=== PATIENT | male | born 1965 | race Caucasian/White ===

== ENCOUNTER 2016-03-08 09:58 | Day surgery (SDC) | payer BC ==
[2016-03-06 16:38] VITALS: BMI 25.7
[~2016-03-08 09:58] MED LIST: LACTATED RINGERS 1,000 ML IV SCH; LIDOCAINE 1% 20 ML VIAL (10MG/ML) FOR IV START INTRADERMA PRN
[2016-03-08 10:22] VITALS: RESP 16; TEMP 98.4
[2016-03-08] MEDS ORDERED: PROPOFOL 10 MG/ML 20 ML VIAL IV ONE (10:54)
[2016-03-08] MEDS ORDERED: LIDOCAINE 1% INJ 10MG/ML (20 ML MDV) ONE (10:54)
--- NOTE | 2016-03-08 11:15 | P.PCN ---
Date of Procedure: 03/08/16 Procedure(s) Performed: Procedure: Esophagogastroduodenoscopy and biopsy. Preoperative diagnosis: Unexplained abdominal pain, rule out peptic ulcer disease. Postoperative diagnosis: 1. Small sliding hiatal hernia with no obvious esophagitis or complicated reflux disease. 2. Mild antral gastritis with no ulcers or gastric outlet obstruction. Preparation and sedation: Was provided by anesthesia. Brief clinical history: The patient is a 51-year-old male who is referred for this evaluation because of unexplained epigastric and hypogastric pain. He has not responded to medical therapy with Protonix. The patient has had extensive evaluation for vocal cord paralysis with no evidence of neoplasia. He had a VATS surgery few weeks ago and he said that he may have lost 20 pounds since the surgery. This evaluation is to assess for peptic ulcer disease or other pathology. Procedure: With the patient on his left lateral decubitus position and after informed consent and adequate sedation, I passed the Olympus-GIF 160 video upper endoscope through the cricopharyngeus down the esophagus. GE junction was around 40 cm from the incisors and there was a small sliding hiatal hernia. The esophagus did not show any obvious erosions, ulcers, strictures or Correa 's esophagus. The endoscope was then passed into the stomach which was insufflated with air and inspected in detail including the retroflex view in the cardia. There was mottling erythema and faint submucosal hemorrhage in the antrum and prepyloric area but no obvious erosions or ulcers. Pyloric channel did not show any ulcers. Duodenal bulb, post bulbar area and descending duodenum showed mild erythema. There were no ulcers, erosions or bleeding. I obtained biopsies from the duodenum as well as the antrum and esophagus then the endoscope was withdrawn. The patient tolerated the procedure well. Plan: The patient was reassured. Will await biopsy results. He will follow up with you as planned and further plans can be made based on his course and biopsy results.
[2016-03-08 11:29] VITALS: BP 124/82; PULSE 77
== END 2016-03-08 11:45 | disposition home or self-care (01) ==
LOC: ORWHC2ENDO 09:58
DX: K29.51 Unspecified chronic gastritis with bleeding (principal); K21.0 Gastro-esophageal reflux disease with esophagitis; K44.9 Diaphragmatic hernia without obstruction or gangrene; I10 Essential (primary) hypertension; Z79.899 Other long term (current) drug therapy; Z87.891 Personal history of nicotine dependence
CPT/HCPCS: 88305; 88342; 43239; J2001; J2704

== ENCOUNTER → 2016-05-10 | Outpatient (CLI) | payer BC ==
[2016-05-10 17:01] LABS: Non-African American GFR(MDRD) >60 (>60 ml/min/1.73 sqM)
== END | disposition home or self-care (01) ==
LOC: LABWHC1 16:31
PROVIDERS: ATTEND Radiology Radiation Oncology
DX: C34.12 Malignant neoplasm of upper lobe, left bronchus or lung (principal)
CPT/HCPCS: 36415; 82565

== ENCOUNTER → 2016-05-11 | Outpatient (CLI) | payer BC ==
--- NOTE | 2016-05-11 23:09 | MR ---
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 CONTRAST: Standard multiplanar, multisequence MRI departmental protocol utilizing 15 mL intravenous MultiHance gadolinium contrast. FINDINGS: There is mild cerebral cortical atrophy. There is no mass effect nor midline shift. There i s no sign of intracranial hemorrhage. Vance and white matter structures are fairly normal signal patte rn. There is no sign of cerebral edema. There is an 8 mm focus of increased signal in the white matte r of the left insula. There are a few scattered foci of increased signal at the vance-white matter irma ction of both frontal lobes that measure up to 4 mm. Total number is approximately 5. There is a small mucous retention cyst in the left maxillary sinus. Brainstem is intact. Sella turci ca is normal. Corpus callosum is fairly normal. Contrast images show no pathologic enhancement. IMPRESSION: There are a few scattered white matter foci of increased signal that are relatively small and probabl y related to minimal small vessel ischemia. No evidence of metastatic disease. Mild cerebral atrophy.
== END | disposition home or self-care (01) ==
LOC: RADMRIMAIN 15:50
PROVIDERS: ATTEND Radiology Radiation Oncology
DX: R93.0 Abnormal findings on diagnostic imaging of skull and head, not elsewhere classified (principal); C34.12 Malignant neoplasm of upper lobe, left bronchus or lung
CPT/HCPCS: 70553; A9577

== ENCOUNTER 2016-05-14 22:13 | Inpatient (IN) | payer BC ==
[2016-05-14] MEDS ORDERED: ONDANSETRON 4 MG/2 ML VIAL IVP STA (23:23)
[2016-05-14] MEDS ORDERED: FAMOTIDINE 20 MG/2 ML VIAL IV STA (23:23)
[2016-05-14] MEDS ORDERED: SODIUM CHLORIDE 0.9% 2,000 ML IV STA (23:23)
--- NOTE | 2016-05-15 00:03 | ED ---
Nausea/Vomiting/Diarrhea HPI - General Source: RN notes reviewed, old records reviewed <Isaiah Salas - Last Filed: 05/15/16 01:21> - General Source: patient, RN notes reviewed Mode of arrival: wheelchair Limitations: no limitations <Conor Xiong - Last Filed: 05/15/16 01:26> - General Chief complaint: Nausea/Vomiting/Diarrhea Stated complaint: Vomiting/Chemo Time Seen by Provider: 05/14/16 23:17 - History of Present Illness Initial comments: 51-year-old male brought to emergency department with chief complaint of nausea vomiting. Patient states that his last round of chemo today states he felt fine while home and try to drink something and started vomiting. Patient states he has been vomiting all day. Patient states that he has some mild cramping but no localized abdominal pain. Patient states he has been diagnosed with gastritis in the past in which she takes antacids. Patient denies any chest pain, shortness of breath, fever, chills. Patient states he also had an MRI today which showed no evidence of pneumonia or any lung infections. Patient states a scheduled for chemo to restart them for 6 weeks. Patient is currently being treated for lung cancer by Dr. Mitchell. (Conor Xiong) - Related Data Home Medications Medication Instructions Recorded Confirmed Lisinopril-Hctz 20-12.5 mg 1 tab PO DAILY 10/19/15 05/14/16 [Zestoretic 20-12.5] Acetaminophen [Tylenol] 1,000 mg PO Q4-6H PRN 05/14/16 05/14/16 Pantoprazole [Protonix] 40 mg PO DAILY 05/14/16 05/14/16 Allergies Allergy/AdvReac Type Severity Reaction Status Date / Time No Known Allergies Allergy Verified 05/14/16 23:22 Review of Systems ROS Other: All systems not noted in ROS Statement are negative. <Isaiah Salas - Last Filed: 05/15/16 01:21> ROS Other: All systems not noted in ROS Statement are negative. <Conor Xiong - Last Filed: 05/15/16 01:26> ROS Statement: Those systems with pertinent positive or pertinent negative responses have been documented in the HPI. Past Medical History Past Medical History: Cancer, GERD/Reflux, Hypertension Additional Past Medical History / Comment(s): Lung Cancer History of Any Multi-Drug Resistant Organisms: None Reported Past Surgical History: Hernia Repair Additional Past Surgical History / Comment(s): cyst removed from back, BRONCHOSCOPY, VATS procedure Past Anesthesia/Blood Transfusion Reactions: Motion Sickness Past Psychological History: No Psychological Hx Reported Smoking Status: Former smoker Past Alcohol Use History: Daily Additional Past Alcohol Use History / Comment(s): quit smoking 2013, STARTED SMOKING AT AGE 15, SMOKED 1 PPD Past Drug Use History: None Reported - Past Family History Mother Family Medical History: No Reported History <Conor Xiong - Last Filed: 05/15/16 01:26> General Exam General appearance: alert, in no apparent distress Head exam: Present: atraumatic, normocephalic, normal inspection Eye exam: Present: normal appearance, PERRL, EOMI. Absent: scleral icterus, conjunctival injection, periorbital swelling ENT exam: Present: normal exam, mucous membranes dry, mucous membranes moist Neck exam: Present: normal inspection. Absent: tenderness, meningismus, lymphadenopathy Respiratory exam: Present: normal lung sounds bilaterally. Absent: respiratory distress, wheezes, rales, rhonchi, stridor Cardiovascular Exam: Present: regular rate, normal rhythm, normal heart sounds. Absent: systolic murmur, diastolic murmur, rubs, gallop, clicks GI/Abdominal exam: Present: soft, normal bowel sounds. Absent: distended, tenderness, guarding, rebound, rigid Extremities exam: Present: normal inspection, full ROM, normal capillary refill. Absent: tenderness, pedal edema, joint swelling, calf tenderness Back exam: Present: normal inspection Neurological exam: Present: alert, oriented X3, CN II-XII intact Psychiatric exam: Present: normal affect, normal mood Skin exam: Present: warm, dry, intact, normal color. Absent: rash <Isaiah Salas - Last Filed: 05/15/16 01:21> Limitations: no limitations General appearance: alert, in no apparent distress Head exam: Present: atraumatic, normocephalic, normal inspection Neck exam: Present: normal inspection, full ROM. Absent: tenderness, meningismus, lymphadenopathy Respiratory exam: Present: normal lung sounds bilaterally. Absent: respiratory distress, wheezes, rales, rhonchi, stridor Cardiovascular Exam: Present: regular rate, normal rhythm, normal heart sounds. Absent: systolic murmur, diastolic murmur, rubs, gallop, clicks GI/Abdominal exam: Present: soft, normal bowel sounds. Absent: distended, tenderness, guarding, rebound, rigid Neurological exam: Present: alert, oriented X3, CN II-XII intact Skin exam: Present: warm, dry, intact, normal color. Absent: rash <Conor Xiong - Last Filed: 05/15/16 01:26> Course <Isaiah Salas - Last Filed: 05/15/16 01:21> <Conor Xiong - Last Filed: 05/15/16 01:26> Vital Signs 05/14/16 22:19 Temperature 99.0 F Pulse Rate 67 Respiratory 20 Rate Blood Pressure 135/78 O2 Sat by Pulse 96 Oximetry - Reevaluation(s) Reevaluation #1: 05/15/16 01:22 Patient still with intractable nausea vomiting (Isaiah Salas) Medical Decision Making - Lab Data Result diagrams: 05/14/16 23:55 05/14/16 23:55 <Isaiah Salas - Last Filed: 05/15/16 01:21> - Lab Data Result diagrams: 05/14/16 23:55 05/14/16 23:55 <Conor Xiong - Last Filed: 05/15/16 01:26> - Medical Decision Making 51 male to ED with intractable nausea and vomiting, patrient will be admitted for IVF, and for symptomatic therapy (Isaiah Salas) - Lab Data Lab Results 05/14/16 05/14/16 05/14/16 Range/Units 23:55 23:55 23:55 WBC 9.0 (3.8-10.6) k/uL RBC 4.58 (4.30-5.90) m/uL Hgb 14.2 (13.0-17.5) gm/dL Hct 41.9 (39.0-53.0) % MCV 91.4 (80.0-100.0) fL MCH 31.0 (25.0-35.0) pg MCHC 33.9 (31.0-37.0) g/dL RDW 11.6 (11.5-15.5) % Plt Count 184 (150-450) k/uL Neutrophils % 96 % Lymphocytes % 3 % Monocytes % 0 % Eosinophils % 0 % Basophils % 1 % Neutrophils # 8.6 H (1.3-7.7) k/uL Lymphocytes # 0.2 L (1.0-4.8) k/uL Monocytes # 0.0 (0-1.0) k/uL Eosinophils # 0.0 (0-0.7) k/uL Basophils # 0.1 (0-0.2) k/uL Sodium 138 (137-145) mmol/L Potassium 4.3 (3.5-5.1) mmol/L Chloride 99 (98-107) mmol/L Carbon Dioxide 29 (22-30) mmol/L Anion Gap 10 mmol/L BUN 21 H (9-20) mg/dL Creatinine 0.60 L (0.66-1.25) mg/dL Est GFR (MDRD) Af Amer >60 (>60 ml/min/1.73 sqM) Est GFR (MDRD) Non-Af >60 (>60 ml/min/1.73 sqM) Glucose 120 H (74-99) mg/dL Calcium 9.4 (8.4-10.2) mg/dL Total Bilirubin 0.7 (0.2-1.3) mg/dL AST 19 (17-59) U/L ALT 30 (21-72) U/L Alkaline Phosphatase 79 (38-126) U/L Total Protein 7.3 (6.3-8.2) g/dL Albumin 4.2 (3.5-5.0) g/dL Amylase 68 (30-110) U/L Lipase 23 (23-300) U/L Urine Color Yellow Urine Appearance Clear (Clear) Urine pH 6.0 (5.0-8.0) Ur Specific [place] 1.025 (1.001-1.035) Urine Protein Trace H (Negative) Urine Glucose (UA) Trace H (Negative) Urine Ketones 1+ H (Negative) Urine Blood Negative (Negative) Urine Nitrite Negative (Negative) Urine Bilirubin Negative (Negative) Urine Urobilinogen 2.0 (<2.0) mg/dL Ur Leukocyte Esterase Negative (Negative) Disposition <Isaiah Salas - Last Filed: 05/15/16 01:21> Time of Disposition: 01:26 <Conor Xiong - Last Filed: 05/15/16 01:26> Clinical Impression: Intractable nausea and vomiting, Lung cancer, Dehydration Disposition: ADMITTED IP TO THIS HOSP Condition: Fair
[2016-05-15 00:08] LABS: Appearance,Urine Clear (Clear); Basophils # (A) 0.1 k/uL (0-0.2); Basophils % (A) 1 %; Bilirubin,Urine Negative (Negative); Eosinophils % (A) 0 %; Glucose,Urine (UA) Trace (Negative); HCT 41.9 % (39.0-53.0); HDW 2.37; HGB 14.2 gm/dL (13.0-17.5); Ketones,Urine 1+ (Negative); Leukocyte Esterase,Urine Negative (Negative); Luc # (Auto) 0.02; Luc % (Auto) 0; Lymphocytes # (A) 0.2 k/uL (1.0-4.8); Lymphocytes % (A) 3 %; MCHC 33.9 g/dL (31.0-37.0); MCV 91.4 fL (80.0-100.0); Monocytes % (A) 0 %; Neutrophils # (A) 8.6 k/uL (1.3-7.7); Neutrophils % (A) 96 %; Nitrite,Urine Negative (Negative); Protein,Urine Trace (Negative); RBC 4.58 m/uL (4.30-5.90); RDW 11.6 % (11.5-15.5); Specific Gravity,Urine 1.025 (1.001-1.035); UA Billing (MACRO vs. MICRO) CHEM; WBC (Perox) 9.23
--- NOTE | 2016-05-15 00:20 | XR ---
EXAM: XR Chest, 2 Views. CLINICAL HISTORY: Reason: pain TECHNIQUE: Frontal and lateral views of the chest. COMPARISON: Portable chest radiograph 11/09/2015 FINDINGS: Lungs: Increased opacity involving left upper lobe obscuring the left side of mediastinum and confluent about the left hilum with evidence of associated volume loss and elevation of left hemidiaphragm suggesting left upper lobe atelectasis. There is 9 mm nodular density projecting to right lower lung zone overlying the anterior right fifth rib. Pleural space: No evidence of pleural effusion. No pneumothorax. Heart: Heart size is within normal limits. Mediastinum: There is obscuration of the left side of mediastinum. Bones/joints: Unremarkable. IMPRESSION: Evidence of left upper lobe atelectasis and associated volume loss with confluent density about the left hilum. Central hilar mass/malignancy with postobstructive atelectasis should be excluded. Follow-up CT chest or bronchoscopy is recommended. Small right lower lung zone nodular density which is of indeterminate etiology. CT chest would be useful for further evaluation. [employer] 05/15/16 00:24 Verify Receipt Verified receipt with [facility] [place] [facility] who will give to Dr. Pagan on 05/15 00:23 (-04:00)
--- NOTE | 2016-05-15 00:23 | XR ---
EXAM: XR Abdomen, 1 View. CLINICAL HISTORY: Reason: pain TECHNIQUE: Frontal supine view of the abdomen/pelvis. COMPARISON: No relevant prior studies available. FINDINGS: Lower thorax: There is elevation of the left hemidiaphragm. Intraperitoneal space: No evidence of bowel obstruction or pneumoperitoneum. Gastrointestinal tract: Unremarkable. No dilation. Organs: No radiopaque renal calculi identified. Bones/joints: Unremarkable. Other findings: No abnormal abdominal-pelvic calcifications. IMPRESSION: No radiographic evidence of acute abdominal disease or bowel obstruction.
[2016-05-15 00:25] LABS: ALT 30 U/L (21-72); AST 19 U/L (17-59); Alkaline Phosphatase 79 U/L (38-126); Amylase 68 U/L (30-110); Anion Gap 10 mmol/L; Blood Urea Nitrogen 21 mg/dL (9-20); Calcium 9.4 mg/dL (8.4-10.2); Carbon Dioxide 29 mmol/L (22-30); Chloride 99 mmol/L (98-107); Glucose 120 mg/dL (74-99); Non-African American GFR(MDRD) >60 (>60 ml/min/1.73 sqM); Potassium 4.3 mmol/L (3.5-5.1); Sodium 138 mmol/L (137-145); Total Bilirubin 0.7 mg/dL (0.2-1.3); Total Protein 7.3 g/dL (6.3-8.2)
[2016-05-15] MEDS ORDERED: METOCLOPRAMIDE 5 MG/ML 2 ML VIAL IVP STA (00:38)
[2016-05-15] MEDS ORDERED: ONDANSETRON 4 MG/2 ML VIAL IVP STA (00:39)
[2016-05-15] MEDS ORDERED: ACETAMINOPHEN IV (For NPO) 1,000 MG in EMPTY BAG 1 BAG IVPB STA (01:19)
[2016-05-15] MEDS ORDERED: ONDANSETRON 4 MG/2 ML VIAL IVP PRN (01:22)
[2016-05-15] MEDS ORDERED: NALOXONE 0.4 MG/ML 1 ML VIAL IV PRN (01:22)
[2016-05-15] MEDS ORDERED: diphenhydrAMINE 50 MG/ML 1 ML VIAL IVP STA (01:22)
[2016-05-15] MEDS ORDERED: PROMETHAZINE INJ 25 MG in SODIUM CHLORIDE 0.9% 50 ML IVPB STA (01:22)
[2016-05-15] MEDS: SODIUM CHLORIDE 0.9% 1,000 ML IV SCH ×3 (02:22→16:56)
[2016-05-15] MEDS ORDERED: IPRATROPIUM-ALBUTEROL 3 ML NEB INHALATION STA (02:37)
[2016-05-15] MEDS ORDERED: PIPERACILLIN-TAZOBACTAM 3.375 GM in DEXTROSE/WATER 1 50ML.BAG IVPB STA (02:37)
[2016-05-15] MEDS: VANCOMYCIN 1,500 MG in SODIUM CHLORIDE 0.9% 250 ML IVPB STA ×2 (02:52→08:03)
[2016-05-15] MEDS ORDERED: RX INFO: IV CONTRAST WAS GIVEN 1 EACH MISC MISCELLANE PRN (03:00)
[2016-05-15] MEDS ORDERED: LORazepam 2 MG/ML SYRINGE IV STA (03:41)
[2016-05-15] MEDS ORDERED: ENOXAPARIN 120 MG/0.8 ML SYRINGE SQ STA (03:43)
--- NOTE | 2016-05-15 03:59 | XR ---
EXAM: XR Chest, 1 View. CLINICAL HISTORY: Reason: SOB TECHNIQUE: Frontal view of the chest. COMPARISON: Chest radiographs 05/14/2016 FINDINGS: Lungs: Left upper lobe opacity obscuring left side of mediastinum and confluent about the left hilum suggesting left upper lobe atelectasis with volume loss and elevation the left hemidiaphragm. Right lung is clear focal infiltrates or consolidations. Pleural space: No evidence of pleural effusion or pneumothorax. Heart: Heart size is within normal limits. Mediastinum: Unremarkable. Bones/joints: Unremarkable. Other findings: No significant change since 05/14/2016. IMPRESSION: Continued Evidence of left upper lobe atelectasis and associated volume loss. Postobstructive process should be excluded.
--- NOTE | 2016-05-15 05:47 | CT ---
ADDENDUM - Added by Jeanmarie Mcgrath MD on 05/15/2016 5:53 AM (-04:00) There are also mild nodular and airspace pulmonary opacities involving left lower lobe similar to other findings in the right middle lobe and right lower lobe which again may reflect multifocal pneumonia, but cannot exclude pulmonary metastatic disease. EXAM: CT Angiography Chest With Intravenous Contrast. CLINICAL HISTORY: Reason: SOB TECHNIQUE: Axial computed tomographic angiography images of the chest with intravenous contrast using pulmonary embolism protocol. CTDI is 10.4 mGy and DLP is 376.1 mGy-cm This CT exam was performed using one or more of the following dose reduction techniques: automated exposure control, adjustment of the mA and/or kV according to patient size, and/or use of iterative reconstruction technique. MIP reconstructed images were created and reviewed. COMPARISON: Chest radiograph 05/14/16 FINDINGS: Pulmonary arteries: There is opacification of the main pulmonary artery and right pulmonary artery without evidence of central pulmonary thromboembolic disease of the right pulmonary artery although examination is technically limited which precludes exclusion of more peripheral right sided pulmonary emboli. There is large left hilar and suprahilar mass which surrounds and occludes the left main pulmonary artery at its origin. Nonopacification of the left main pulmonary arterial branches precluding exclusion of thromboembolic disease. Aorta: No evidence of thoracic aortic aneurysm or dissection. Lungs: Large left hilar and suprahilar mass occludes the left upper lobe bronchus with left upper lobe postobstructive atelectasis. Mass extends centrally to the pericarinal and subcarinal region. There is also narrowing of the left lower lobe bronchus. There is evidence of anterior mediastinal-prevascular and subcarinal lymphadenopathy suggestive of metastatic disease. Multifocal nodular and airspace pulmonary opacities involving right middle lobe and right lower lobe most suggestive of multifocal pneumonia, although metastatic disease cannot be excluded. Elevated left hemidiaphragm related to left upper lobe atelectasis and volume loss. Images including upper abdomen are otherwise unremarkable. Pleural space: Mild left pleural thickening. No evidence of pleural effusion. No pneumothorax. Heart: Heart size is upper limits of normal. No significant pericardial effusion. Bones/joints: No acute fracture. No dislocation. Lymph nodes: See above. IMPRESSION: Large left hilar and suprahilar mass which occludes the left main pulmonary artery suggestive of pulmonary malignancy which also occludes the left upper lobe bronchus and narrows the left lower lobe bronchus. There is left upper lobe postobstructive atelectasis and volume loss. Findings highly suggestive of pulmonary malignancy with evidence of mediastinal adenopathy suggesting metastatic disease. Multifocal airspace and nodular pulmonary opacities involving right middle lobe and right lower lobe most suggestive of multifocal pneumonia, but cannot exclude pulmonary metastatic disease. Mild left pleural thickening. Limited evaluation for pulmonary thromboembolic disease as discussed in body of report.
[2016-05-15] MEDS: MORPHINE SULFATE 4 MG/ML SYRINGE IV PRN (10:35)
[2016-05-15] MEDS: PANTOPRAZOLE 40 MG/10 ML VIAL IV SCH (10:36)
--- NOTE | 2016-05-15 12:00 | P.CNPUL ---
History of Present Illness Consult date: 05/15/16 Requesting physician: Ruben Pearce Reason for consult: dyspnea, abnormal CXR/CT Chief complaint: Nausea, vomiting History of present illness: This is a very pleasant 51-year-old gentleman who follows with Dr. Trujillo as his primary care physician. He has a history of hypertension and gastroesophageal reflux disease. He also had a 30+ pack per day smoking history however quit in 2013. He was initially seen and evaluated by Dr. Orta after being found to have a left upper lobe lung mass. He had undergone bronchoscopy with transbronchial biopsy and navigational bronchoscopy with biopsies both of which were negative done here. He was still suspicious for lung cancer and was referred to [facility]. He had undergone EBUS again with no diagnosis he had actually undergone a VATS procedure by Dr. Spann which was negative for malignancy as well. He was being observed with subsequent CT scans and the lesion did increase. He was taken again back for an EBUS guided biopsy which was now positive for non-small cell lung cancer. An MRI of the brain revealed no evidence of metastasis. He has recently started chemotherapy with Dr. Mitchell and he has also received [address] Hickey here at [facility]. He was doing well yesterday during his radiation and appointment but approximate 5 PM last night he started developing significant nausea and vomiting. He was also developing worsening shortness of breath, cough and congestion. He denies any chills, fever or night sweats. A CT angiogram revealed a large left hilar and suprahilar mass which occludes the left main pulmonary arteries suggestive of pulmonary malignancy which also occludes the left upper lobe bronchus and narrows the left lower lobe bronchus. There is left upper lobe postobstructive atelectasis and volume loss. Findings highly suspicious of pulmonary malignancy and evidence of mediastinal adenopathy suggesting metastatic disease. He also has multifocal airspace a nodular pulmonary opacities involving the right middle lobe and right lower lobe most suggestive of multifocal pneumonia but could not exclude pulmonary metastatic disease. This was a limited evaluation for pulmonary thromboembolic disease. He is seen today in consultation on the oncology floor. He is awake and alert in no acute distress. He does have a loose nonproductive cough. he is maintaining O2 saturations in the low to mid 90s on 3 L/m per nasal cannula. He 's had a T-max of 101.1. He is tachycardic.no leukocytosis. His influenza screen is negative. Review of Systems 14 point review of system was conducted. All negative other than as mentioned in the HPI. Past Medical History Past Medical History: Cancer, GERD/Reflux, Hypertension Additional Past Medical History / Comment(s): Non-small cell lung Cancer History of Any Multi-Drug Resistant Organisms: None Reported Past Surgical History: Hernia Repair Additional Past Surgical History / Comment(s): cyst removed from back, BRONCHOSCOPY, VATS procedure Past Anesthesia/Blood Transfusion Reactions: Motion Sickness Past Psychological History: No Psychological Hx Reported Smoking Status: Former smoker Past Alcohol Use History: Daily Additional Past Alcohol Use History / Comment(s): quit smoking 2013, STARTED SMOKING AT AGE 15, SMOKED 1 PPD Past Drug Use History: None Reported - Past Family History Mother Family Medical History: No Reported History Medications and Allergies Home Medications Medication Instructions Recorded Confirmed Type Lisinopril-Hctz 20-12.5 mg 1 tab PO DAILY 10/19/15 05/14/16 History [Zestoretic 20-12.5] Acetaminophen [Tylenol] 1,000 mg PO Q4-6H PRN 05/14/16 05/14/16 History Pantoprazole [Protonix] 40 mg PO DAILY 05/14/16 05/14/16 History Allergies Allergy/AdvReac Type Severity Reaction Status Date / Time No Known Allergies Allergy Verified 05/14/16 23:22 Physical Exam Vitals: Vital Signs Temp Pulse Pulse Resp BP BP Pulse Ox 05/15/16 07:00 98.5 F 101 H 18 123/79 96 05/15/16 06:19 98.1 F 116 H 18 134/76 92 L 05/15/16 05:23 116 H 16 110/64 96 05/15/16 04:01 99.2 F 127 H 18 130/80 93 L 05/15/16 03:26 122 H 05/15/16 03:16 126 H 05/15/16 02:27 101.1 F H 131 H 20 126/73 92 L Intake and Output 05/14/16 05/15/16 05/15/16 22:59 06:59 14:59 Intake Total 50 Balance 50 Intake: Intake, IV Titration 50 Amount Piperacillin-Tazobactam 3 50 .375 gm In Dextrose/Water 1 50ml.bag @ 12.5 mls/hr IVPB ONCE STA Rx#: [id number] Other: Weight 78.471 kg 78.471 kg Patient Weight 05/16/16 06:59 Weight 78.471 kg GENERAL EXAM: Alert, active, comfortable in no apparent distress. HEAD: Normocephalic. EYES: Normal reaction of pupils, equal size. NOSE: Clear with pink turbinates. THROAT: No erythema or exudates. NECK: No masses, no JVD. CHEST: No chest wall deformity. LUNGS: Equal air entry with few scattered rhonchi more so on the left lung. CVS: S1 and S2 normal with no audible murmurs, regular rhythm. ABDOMEN: No hepatosplenomegaly, normal bowel sounds, no guarding or rigidity. SPINE: No scoliosis or deformity SKIN: No rashes CENTRAL NERVOUS SYSTEM: No focal deficits, tone is normal in all 4 extremities. Extremities: No peripheral edema. No clubbing, no cyanosis. Peripheral pulses are intact. Results - Laboratory Findings CBC and BMP: 05/14/16 23:55 05/14/16 23:55 - Diagnostic Findings Chest x-ray: image reviewed CT scan - chest: image reviewed Assessment and Plan Plan: Impression: #1 Abdominal pain, nausea and vomiting suspect secondary to chemotherapy. #2 Postobstructive pneumonia in a patient with a known history of non-small cell lung cancer. He has completed his first round of chemotherapy and a sixth dose of radiation yesterday. #3 History of chronic tobacco dependence however quit in 2013. #4 Gastroesophageal reflux disease. #5 Hypertension. Plan: The patient was seen and evaluated by Dr. Orta. His chest x-rays, CAT scan and labs were reviewed. We will continue the patient on Zosyn. We'll continue with bronchodilators 4 times a day and when necessary. We'll plan for bronchoscopy tomorrow. He does have postobstructive pneumonia and some left mainstem debris versus tumor burden. We'll continue to monitor and make further recommendations based on his clinical status. Time with Patient: Greater than 30
[2016-05-15] MEDS ORDERED: IPRATROPIUM-ALBUTEROL 3 ML NEB INHALATION PRN (12:01)
[2016-05-15] MEDS: SUCRALFATE 1 GM TAB PO SCH ×3 (13:23→20:03)
--- NOTE | 2016-05-15 14:59 | HP ---
DATE OF ADMISSION: 05/15/2016 PRESENTING COMPLAINT: Short of breath, cough, vomiting. HISTORY OF PRESENTING COMPLAINT: This is a 51-year-old patient of Dr. Brant Trujillo diagnosed with non-small lung cancer, being treated by chemotherapy by Dr. Mitchell. Had a chemotherapy yesterday, then patient started vomiting around 5 p.m. until about 3:00 this morning. Also had some abdominal pain. Normally, had regular bowel movement, last BM being yesterday. Patient also had fever. The patient's chronic stable medical conditions otherwise include GERD and hypertension. Patient also has been having short of breath, wheezing, cough, sputum production. Patient's is at bedside. Appetite has gone down, weak and tired, sitting up, able to carry out a conversation. REVIEW OF SYSTEMS: CONSTITUTIONAL: Tired. HEENT: None. RESPIRATORY: As above. CARDIOVASCULAR: None. GASTROINTESTINAL: As above. GENITOURINARY: None. MUSCULOSKELETAL: None. DERMATOLOGICAL: None. HEMATOLOGICAL: None. LYMPHATIC: None. PSYCHIATRY: None. NEUROLOGICAL: None. PAST HISTORY: Non-small cell lung cancer, hypertension, GERD. PAST SURGICAL HISTORY: Hernia repair, cyst removed from the back, VATS procedure. 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 , drinks about 4 beers a day. FAMILY HISTORY: Reviewed, noncontributory to presentation. HOME MEDICATIONS: 1. Protonix 40 mg daily. 2. Tylenol 1000 mg q.4 p.r.n. 3. Zestoretic 20/12.5 one tablet p.o. daily. ALLERGIES: None. On examination, temperature 101.1, pulse 131, respiration 20, blood pressure 123/73, pulse ox 92% on 3 L. GENERAL APPEARANCE: Sitting up, short of breath. EYES: Pupils equal. Conjunctiva are normal. HEENT: External appearance of nose and ears normal. Oral cavity normal. NECK: Lymph nodes are palpable in the cervical group. Respiratory effort increased. LUNGS: Diminished breath sounds. Prolonged expiration and wheezing. CARDIOVASCULAR: First and second sounds normal. No edema. ABDOMEN: Soft, nontender. Liver and spleen not palpable. LYMPHATIC: As above. PSYCHIATRY: Alert and oriented x3. Mood and affect normal. NEUROLOGICAL: Pupils equal. Cranial nerves grossly intact. Power and sensation grossly intact. INVESTIGATIONS: White count 9, hemoglobin 14.2, potassium 4.3, BUN 21, creatinine 0.60. Chest x-ray shows elevated left diaphragm, infiltrates. CT scan of the chest shows possibly lung collapse, masses, lymph nodes. ASSESSMENT: 1. Acute postobstructive pneumonia, could be multilobe. 2. Non-small cell lung cancer, getting chemotherapy. 3. Sepsis picture, present on admission from pneumonia, postobstructive. 4. Acute chronic obstructive pulmonary disease exacerbation in a smoker. 5. Gastroesophageal reflux disease. 6. Essential hypertension. PLAN: Patient was put on nebulized bronchodilators every 4 hours and steroids, also had Mucinex. Will send a sputum for Gram stain and culture. Patient needs bronchoscopy at least to see if the obstruction can be removed. Otherwise, patient will need maybe a stent placement. Patient was put on IV Zosyn. Care was discussed with patient and and also Jessy from Pulmonary.
[2016-05-15] MEDS: BUDESONIDE 1 MG/2 ML NEBU INHALATION SCH ×2 (15:09→21:26)
[2016-05-15] MEDS: DOCUSATE 100 MG CAP PO SCH ×2 (15:11→20:03)
[2016-05-15] MEDS: LISINOPRIL-HCTZ 20-12.5 MG 1 EACH TAB PO SCH (15:11)
[2016-05-15] MEDS: guaiFENesin 600 MG TABLET.ER PO SCH ×2 (15:26→20:03)
[2016-05-15] MEDS: methylPREDNISolone SOD SUCCI 40 MG/ML 1 ML VIAL IV SCH ×2 (15:27→23:46)
--- NOTE | 2016-05-15 15:47 | P.PN ---
Subjective Principal diagnosis: Non-small cell lung cancer Yesterday evening, the patient developed difficulty with nausea and vomiting. He reports feeling well throughout most of the day, up until around 6 PM. The patient reports he was unable to keep any food down, and vomited multiple times between 6 PM and 3 AM. He noted that even drinking water was difficult, and this prompted his visit to the emergency room. He notes that while his nausea has improved today, he is still having difficulty keeping food down. He recently attempted to eat a small amount of lunch, and subsequently vomited. He does feel his breathing is slightly worse today than previously. He denies fevers, chills, night sweats or productive cough. Objective - Vital Signs Vital signs: Vital Signs Temp 98.5 F 05/15/16 07:00 Pulse 108 H 05/15/16 13:20 Resp 18 05/15/16 07:00 BP 123/79 05/15/16 07:00 Pulse Ox 96 05/15/16 07:00 Intake & Output 05/14/16 05/15/16 05/15/16 18:59 06:59 18:59 Intake Total 50 Balance 50 Weight 78.471 kg 78.471 kg Intake: Intake, IV Titration 50 Amount Piperacillin-Tazobactam 3 50 .375 gm In Dextrose/Water 1 50ml.bag @ 12.5 mls/hr IVPB ONCE STA Rx#: [id number] - Constitutional General appearance: Present: average body habitus - EENT Eyes: Present: PERRLA - Neck Neck: Present: normal ROM - Respiratory Respiratory: left: diminished (MICHI dimished), bilateral: rhonchi - Cardiovascular Rhythm: regular - Gastrointestinal General gastrointestinal: Present: tenderness (Mild LUQ) - Neurologic Neurologic: Present: CNII-XII intact - Musculoskeletal Musculoskeletal: Present: gait normal - Psychiatric Psychiatric: Present: A&O x's 3, appropriate affect - Labs CBC & Chem 7: 05/14/16 23:55 05/14/16 23:55 Assessment and Plan Plan: Considering the patient is persistently nauseous today, he has concern that when he tries to lie down flat for treatment that he will vomit again. Therefore, I recommended the patient hold off on his radiotherapy treatment this afternoon, and resume therapy normally tomorrow. Time with Patient: Less than 30
[2016-05-15] MEDS ORDERED: IPRATROPIUM-ALBUTEROL 3 ML NEB INHALATION SCH (16:00)
[2016-05-15] MEDS: IPRATROPIUM-ALBUTEROL 3 ML NEB INHALATION SCH ×2 (16:51→21:26)
[2016-05-15] MEDS: PIPERACILLIN-TAZOBACTAM 3.375 GM in DEXTROSE/WATER 1 50ML.BAG IVPB SCH ×2 (16:54→23:46)
[2016-05-15] MEDS: ONDANSETRON 4 MG/2 ML VIAL IVP PRN (17:06)
--- NOTE | 2016-05-15 18:24 | P.CONS ---
History of Present Illness - Reason for Consult Consult date: 05/15/16 - History of Present Illness Mr. Rosario is a very pleasant male pt of Dr. Mitchell who presented with sudden onset, persistent hoarseness in July 2015. CT in October 2015 revealed left hilar mass measuring 5.3cm x 3.8cm x 4.6cm, he had [address] Orta, including navigational bronchoscopy, all path was negative. PET scan 11/26/2015 revealed suspicious uptake in left hilar mass extending to mediastinum. Had 2 bronchoscopies at [facility], both path negative, he had VATS with biopsies, which were negative. Repeat CT Chest at [facility] on 03/14/2016 revealed enlarging left hilar/mediastinal mass , now measuring 8.5cm x 4.0cm x 5.4cm with complete collapse of MICHI. He had repeat EBUS on 03/30/2016 revealing left vocal cord paralysis, submucosal infiltration at left main stem bronchus, 70% narrowing of MICHI, BAL and endobronchial biopsies were taken, this time positive for poorly differentiated carcinoma associated with significant necrotic tissues, IHC favored squamous cell carcinoma. He was started on cisplatin day 1 & 8 with etoposide days 1-5 every 28 days with concurrent radiation. He completed his 1st cycle yesterday. He started vomiting and could not stop, he would take a drink of water, it would hit his stomach and "bounce" right back out, the last food he kept down was [place] steak early yesterday. Since admit he states vomiting but as I stood next him he coughed out a substantial amount of phelgm and explained to me that is what he has been "throwing up". He denies fever, rigors, he is very anxious, can't sleep because he cannot lay down due to cough, no hemoptysis, hematemesis, his last BM was yesterday. His abdomen hurts from wretching and chest hurts from coughing. l Review of Systems All systems: negative Constitutional: Reports as per HPI Past Medical History Past Medical History: Cancer, GERD/Reflux, Hypertension Additional Past Medical History / Comment(s): Non-small cell lung Cancer History of Any Multi-Drug Resistant Organisms: None Reported Past Surgical History: Hernia Repair Additional Past Surgical History / Comment(s): cyst removed from back, BRONCHOSCOPY, VATS procedure Past Anesthesia/Blood Transfusion Reactions: Motion Sickness Past Psychological History: No Psychological Hx Reported Smoking Status: Former smoker Past Alcohol Use History: Daily Additional Past Alcohol Use History / Comment(s): quit smoking 2013, STARTED SMOKING AT AGE 15, SMOKED 1 PPD Past Drug Use History: None Reported - Past Family History Mother Family Medical History: No Reported History Medications and Allergies Home Medications Medication Instructions Recorded Confirmed Type Lisinopril-Hctz 20-12.5 mg 1 tab PO DAILY 10/19/15 05/14/16 History [Zestoretic 20-12.5] Acetaminophen [Tylenol] 1,000 mg PO Q4-6H PRN 05/14/16 05/14/16 History Pantoprazole [Protonix] 40 mg PO DAILY 05/14/16 05/14/16 History Allergies Allergy/AdvReac Type Severity Reaction Status Date / Time No Known Allergies Allergy Verified 05/14/16 23:22 Physical Exam Vitals: Vital Signs Temp Pulse Pulse Resp BP BP Pulse Ox 05/15/16 17:02 106 H 05/15/16 16:51 104 H 05/15/16 15:00 99.2 F 103 H 20 129/82 98 05/15/16 13:20 108 H 05/15/16 13:08 108 H 05/15/16 07:00 98.5 F 101 H 18 123/79 96 05/15/16 06:19 98.1 F 116 H 18 134/76 92 L 05/15/16 05:23 116 H 16 110/64 96 05/15/16 04:01 99.2 F 127 H 18 130/80 93 L 05/15/16 03:26 122 H 05/15/16 03:16 126 H 05/15/16 02:27 101.1 F H 131 H 20 126/73 92 L Intake and Output 05/15/16 05/15/16 05/15/16 06:59 14:59 22:59 Intake Total 50 Balance 50 Intake: Intake, IV Titration 50 Amount Piperacillin-Tazobactam 3 50 .375 gm In Dextrose/Water 1 50ml.bag @ 12.5 mls/hr IVPB ONCE STA Rx#: [id number] Other: # Voids 2 Weight 78.471 kg 78.471 kg Patient Weight 05/16/16 06:59 Weight 78.471 kg - Constitutional General appearance: average body habitus, cooperative, mild distress - EENT Eyes: anicteric sclerae, normal appearance ENT: normal oropharynx - Neck Neck: no lymphadenopathy - Respiratory Respiratory: bilateral: rhonchi - Cardiovascular Heart sounds: normal: S1, S2 leg Peripheral Edema: bilateral: None - Gastrointestinal General gastrointestinal: no absent bowel sounds, no decreased bowel sounds, no distended, no hepatomegaly, no hyperactive bowel sounds, normal bowel sounds, no organomegaly, no rigid, no scaphoid, soft, no splenomegaly, no tenderness, no umbilical hernia, no ventral hernia Localized gastrointestinal: tender: RUQ - Integumentary Integumentary: pale - Neurologic Neurologic: CNII-XII intact - Musculoskeletal Musculoskeletal: strength equal bilaterally - Psychiatric Psychiatric: A&O x's 3, appropriate affect, intact judgment & insight Results CBC & Chem 7: 05/14/16 23:55 05/14/16 23:55 CT scan - chest: report reviewed Assessment and Plan (1) Squamous cell carcinoma lung Narrative/Plan: Pt is just s/p- his 1st cycle of radiosensitizing chemo. Be will occur in the next 3-6 days, daily CBC. Rad Onc consulted to evaluate if pt can continue with radiation or if it needs to be on hold for a few days. Status: Acute (2) Intractable nausea and vomiting Narrative/Plan: Neds reviewed, additional supporitve meds ordered. Status: Acute Plan: DVT prophylaxis ordered GI prophylaxis Pt being seen by Pulmonary, note reviewed. We will look for their findings and recommendation.
[2016-05-16] MEDS: IPRATROPIUM-ALBUTEROL 3 ML NEB INHALATION SCH ×6 (00:49→21:06)
[2016-05-16] MEDS: SODIUM CHLORIDE 0.9% 1,000 ML IV SCH ×3 (02:37→16:24)
[2016-05-16] MEDS: ONDANSETRON 4 MG/2 ML VIAL IVP PRN ×2 (04:40→20:35)
[2016-05-16] MEDS: SUCRALFATE 1 GM TAB PO SCH ×4 (08:52→20:36)
[2016-05-16] MEDS: DOCUSATE 100 MG CAP PO SCH ×2 (08:52→20:36)
[2016-05-16] MEDS: ENOXAPARIN 40 MG/0.4 ML SYRINGE SQ SCH (08:52)
[2016-05-16] MEDS: BUDESONIDE 1 MG/2 ML NEBU INHALATION SCH ×2 (08:52→21:06)
[2016-05-16] MEDS: guaiFENesin 600 MG TABLET.ER PO SCH ×2 (08:52→20:35)
[2016-05-16] MEDS: LISINOPRIL-HCTZ 20-12.5 MG 1 EACH TAB PO SCH (08:53)
[2016-05-16] MEDS: PIPERACILLIN-TAZOBACTAM 3.375 GM in DEXTROSE/WATER 1 50ML.BAG IVPB SCH ×2 (08:54→16:24)
[2016-05-16] MEDS: PANTOPRAZOLE 40 MG/10 ML VIAL IV SCH (08:54)
[2016-05-16] MEDS: methylPREDNISolone SOD SUCCI 40 MG/ML 1 ML VIAL IV SCH ×2 (08:54→16:24)
[2016-05-16 09:27] LABS: Basophils % (A) 0 %; CH 30.7; CHCM 33.5; Eosinophils % (A) 0 %; HCT 37.3 % (39.0-53.0); HGB 12.3 gm/dL (13.0-17.5); Luc # (Auto) 0.05; Luc % (Auto) 2; Lymphocytes # (A) 0.4 k/uL (1.0-4.8); Lymphocytes % (A) 15 %; MCH 30.2 pg (25.0-35.0); MCHC 32.9 g/dL (31.0-37.0); MCV 91.8 fL (80.0-100.0); Monocytes # (A) 0.1 k/uL (0-1.0); Monocytes % (A) 3 %; Neutrophils # (A) 2.3 k/uL (1.3-7.7); Neutrophils % (A) 81 %; RBC 4.06 m/uL (4.30-5.90); RDW 11.4 % (11.5-15.5); WBC 2.8 k/uL (3.8-10.6); WBC (Perox) 2.94
[2016-05-16] MEDS: LORazepam 2 MG/ML SYRINGE IV PRN ×3 (09:32→18:17)
--- NOTE | 2016-05-16 10:43 | P.PN ---
Subjective 51-year-old male well-known to me. I initially saw him in consultation sent to me by one day herthroat doctor because of hoarseness. On direct laryngoscopy he was found to have left vocal cord paralysis and it was assumed that he had a left recurrent laryngeal nerve involvement by a lung mass. We tried multiple times to get a diagnosis on him. He did have a mass in the left lung. I initially did she have regular bronchoscopy and then electromagnetic navigational bronchoscopy. I ended up sending him to [facility]. There is an interventional bronchoscopy had 2 or 3 endobronchial ultrasound procedures. They were all nondiagnostic as might proceed procedures were. Dr. Spann from thoracic surgery took the patient to the operating room and did a wedge resection of the left upper lobe mass which was also negative. At that point we are just observing the patient. A CAT scan showed the lesion to be increasing in size and he went back interventional bronchoscopy at [facility] and finally had a diagnosis of non-small cell lung cancer. Anyway the patient currently started on treatment. He comes in on this admission with primarily nausea and vomiting from chemotherapy. On chest x-ray we will noted that he had significant cut off sign at the left mainstem. He probably has tumor or and/or debris causing a postobstructive pneumonia. He scheduled for bronchoscopy today. He was seen by our nurse practitioner yesterday as well as I saw him as well. Objective - Vital Signs Vital signs: Vital Signs Temp 98.0 F 05/16/16 07:00 Pulse 100 05/16/16 09:10 Resp 17 05/16/16 07:00 BP 118/64 05/16/16 07:00 Pulse Ox 93 L 05/16/16 07:00 Intake & Output 05/15/16 05/16/16 05/16/16 18:59 06:59 18:59 Intake Total 100 Balance 100 Weight 78.471 kg Intake: Intake, IV Titration 100 Amount Piperacillin-Tazobactam 3 50 .375 gm In Dextrose/Water 1 50ml.bag @ 12.5 mls/hr IVPB ONCE STA Rx#: [id number] Piperacillin-Tazobactam 3 50 .375 gm In Dextrose/Water 1 50ml.bag @ 12.5 mls/hr IVPB Q8HR [facility] Rx#: [id number] Other: # Voids 2 - Exam No acute distress, oriented 3. No respiratory distress. Rib looks remarkable murmur markedly well given his chest x-ray appearance. HEENT examination is grossly unremarkable. Mucous membranes are moist. Neck supple. Full range of motion. No adenopathy. Cardiovascular examination reveals regular rhythm rate. Lungs reveal diminished breath sounds at the left. No wheezes or rhonchi. No crackles. Right lung is relatively clear. Abdomen soft bowel sounds are heard. Extremities are intact. - Labs CBC & Chem 7: 05/16/16 09:10 05/14/16 23:55 Labs: Abnormal Lab Results - Last 24 Hours (Table) 05/16/16 Range/Units 09:10 WBC 2.8 L (3.8-10.6) k/uL RBC 4.06 L (4.30-5.90) m/uL Hgb 12.3 L (13.0-17.5) gm/dL Hct 37.3 L (39.0-53.0) % RDW 11.4 L (11.5-15.5) % Lymphocytes # 0.4 L (1.0-4.8) k/uL Microbiology - Last 24 Hours (Table) 05/15/16 17:05 Gram Stain - Preliminary Sputum Sputum Culture - Preliminary 05/15/16 02:40 Blood Culture - Preliminary Blood No Growth after 24 hours Assessment and Plan (1) Postobstructive pneumonia Status: Acute (2) Dehydration Status: Acute (3) Intractable nausea and vomiting Status: Acute (4) Lung cancer Status: Acute (5) Squamous cell carcinoma lung Status: Acute Plan: Plan dated 05/16/2016 We discussed this case yesterday. We decided to go ahead and schedule him for bronchoscopy. We'll evaluate that left mainstem. There may be debris or tumor obstructing that area. He may benefit from a stent and/or endobronchial brachytherapy. No radiation is currently hopefully going to improve that situation. He is also on chemotherapy although having significant nausea and vomiting. We'll await and make a difference additional assessments once we a bit hard be able to directly visualize the left mainstem. Time with Patient: Less than 30
[2016-05-16] MEDS ORDERED: IV FLUID CONTINUATION 1,000 ML IV ONE (12:36)
[2016-05-16] MEDS ORDERED: LIDOCAINE 2% INJ 20 MG/ML INTRATRACH ONE ×2 (12:39→12:46)
[2016-05-16] MEDS ORDERED: GLYCOPYRROLATE 0.2 MG/ML 2 ML VIAL ONE (12:41)
[2016-05-16] MEDS ORDERED: ONDANSETRON 4 MG/2 ML VIAL ONE (12:41)
[2016-05-16] MEDS ORDERED: PROPOFOL 10 MG/ML 20 ML VIAL IV ONE (12:41)
[2016-05-16] MEDS ORDERED: LIDOCAINE 1% INJ 10MG/ML (20 ML MDV) ONE (12:41)
--- NOTE | 2016-05-16 12:56 | P.PCN ---
Date of Procedure: 05/16/16 Preoperative Diagnosis: Lung cancer Postoperative Diagnosis: Lung cancer Procedure(s) Performed: Bronchoscopy, airway examination therapeutic lavage Anesthesia: other (Unconscious sedation general anesthesia) Surgeon: Selwyn Orta [employer] Officer #1: Jessy Crane Estimated Blood Loss (ml): 0 IV fluids (ml): 100 Pathology: none sent Condition: stable Disposition: floor Indications for Procedure: Lung cancer, obstruction of the left main bronchus with postobstructive pneumonia Operative Findings: Very abnormal left side of the airways significant obstruction distortion an abnormality noted in the left upper lobe lingula and left lower lobe. The area was very vascular. It bled easily. We could not really passed distally into the lower segments. There was not much to suction. There was some mucus and debris that was removed. No specimens were sent. Description of Procedure: Bronchoscopy airway examination therapy lavage
--- NOTE | 2016-05-16 15:38 | P.PN ---
Subjective Principal diagnosis: intractable nausea and vomiting, SOB Pt seen today in follow up. He is breathing better then yesterday but still coughing up thick, white, frothy sputum. He cannot lay down or he wants to vomit, he would only put fluids in his mouth and spit them out, he will not swallow them for fear of vomiting, he drinks water and it hits his stomach and comes right back up. He had a small BM, he is ambulating constantly. Objective - Vital Signs Vital signs: Vital Signs Temp 98.0 F 05/16/16 07:00 Pulse 106 H 05/16/16 13:40 Resp 20 05/16/16 13:40 BP 116/71 05/16/16 13:40 Pulse Ox 95 05/16/16 13:40 Intake & Output 05/15/16 05/16/16 05/16/16 18:59 06:59 18:59 Intake Total 100 1150 Balance 100 1150 Weight 78.471 kg Intake: IV 100 Intake, IV Titration 100 1050 Amount Piperacillin-Tazobactam 3 50 .375 gm In Dextrose/Water 1 50ml.bag @ 12.5 mls/hr IVPB ONCE [facility] Rx#: [id number] Piperacillin-Tazobactam 3 50 50 .375 gm In Dextrose/Water 1 50ml.bag @ 12.5 mls/hr IVPB Q8HR [facility] Rx#: [id number] Sodium Chloride 0.9% 1, 1000 000 ml @ 125 mls/hr IV . Q8H [facility] Rx#:[id number] Other: # Voids 2 1 - Constitutional General appearance: Present: average body habitus, cooperative, mild distress - EENT Eyes: Present: anicteric sclerae, PERRLA, normal appearance - Respiratory Respiratory: bilateral: rhonchi (much improved compared to yesterday, L>R) - Cardiovascular Heart sounds: normal: S1, S2 - Peripheral edema leg Peripheral Edema: bilateral: None - Gastrointestinal General gastrointestinal: Present: normal bowel sounds, soft, tenderness. Absent: absent bowel sounds, decreased bowel sounds, distended, hepatomegaly, hyperactive bowel sounds, organomegaly, rigid, scaphoid, splenomegaly, umbilical hernia, ventral hernia Localized gastrointestinal: tender: epigastric periumbilical - Integumentary Integumentary: Present: normal - Neurologic Neurologic: Present: CNII-XII intact - Musculoskeletal Musculoskeletal: Present: strength equal bilaterally - Psychiatric Psychiatric: Present: A&O x's 3, appropriate affect, intact judgment & insight - Labs CBC & Chem 7: 05/16/16 09:10 05/14/16 23:55 Labs: Abnormal Lab Results - Last 24 Hours (Table) 05/16/16 Range/Units 09:10 WBC 2.8 L (3.8-10.6) k/uL RBC 4.06 L (4.30-5.90) m/uL Hgb 12.3 L (13.0-17.5) gm/dL Hct 37.3 L (39.0-53.0) % RDW 11.4 L (11.5-15.5) % Lymphocytes # 0.4 L (1.0-4.8) k/uL Microbiology - Last 24 Hours (Table) 05/15/16 17:05 Gram Stain - Preliminary Sputum Sputum Culture - Preliminary 05/15/16 02:40 Blood Culture - Preliminary Blood No Growth after 24 hours - Imaging and Cardiology MRI - head: report reviewed reviewed bronchoscopy report Assessment and Plan (1) Squamous cell carcinoma lung Narrative/Plan: Pt is s/p 1st of 2 planned cycles of cisplatin day 1 & 8 and [employer] days 1-5. He will be due for the 2nd treatment in 3 weeks. He is receiving daily radiation which was held yesterday due to inability to lay down without nausea/vomiting, pt will see how he feels later today and if he can he will continue on Radiation. He will be in [place] in the next few days so CBC will be monitored. Mild aneia and leukopenia without neutropenia, no intervention. Status: Acute (2) Intractable nausea and vomiting Narrative/Plan: Pt is being provided with PPI PO and IV, antiemetic available every 4 hours, ativan and compazine ordered. Will reevaluate in AM to see if any of these treatments has improved pt vomiting. MRI brain from 05/11/16 was negative for mets. Pt had EGD with negative biopsy results 02/2016. Due to pt symptoms of vomiting without nausea barium swallow with small bowel follow through ordered to evaluated motility of GI tract. Await results. Status: Acute
[2016-05-16] MEDS: PROCHLORPERAZINE SUPPOSITORY 25 MG SUPP RECTAL PRN (17:51)
[2016-05-16] MEDS: MORPHINE SULFATE 4 MG/ML SYRINGE IV PRN (21:15)
[2016-05-17] MEDS: methylPREDNISolone SOD SUCCI 40 MG/ML 1 ML VIAL IV SCH ×4 (00:29→23:05)
[2016-05-17] MEDS: PIPERACILLIN-TAZOBACTAM 3.375 GM in DEXTROSE/WATER 1 50ML.BAG IVPB SCH ×3 (00:30→17:38)
[2016-05-17] MEDS: SODIUM CHLORIDE 0.9% 1,000 ML IV SCH ×2 (00:30→11:15)
[2016-05-17] MEDS: IPRATROPIUM-ALBUTEROL 3 ML NEB INHALATION SCH ×6 (01:27→21:15)
--- NOTE | 2016-05-17 06:28 | PN ---
DATE OF SERVICE: 05/16/2016 PRESENTING COMPLAINT: Cough, short of breath. HISTORY OF PRESENTING COMPLAINT: This is a patient with non-small cell lung cancer, been treated by chemotherapy and radiation presents with postobstruction pneumonia multilobar in a sepsis picture on presentation, today underwent a bronchoscopy by Dr. Orta which shows very friable and he could not get past the obstruction. Postprocedure, patient bring up a lot of phlegm. is at the bedside. He is rather short of breath, not able to each much, tired. Review of systems done for constitutional, cardiovascular, GI, pulmonary; relevant findings as above. Current medications are reviewed that include IV Zosyn. On examination, temperature 98, pulse 97, respiration 24, blood pressure 119/75, pulse ox 94% on 3 L. GENERAL APPEARANCE: Sitting up at the edge of bed, tired appearing, coughing. EYES: Pupils equal. Conjunctivae normal. NECK: JVD not raised. Mass not palpable. RESPIRATORY: Effort increased. LUNGS: Scattered crackles. Decreased breath sounds and wheezing. CARDIOVASCULAR: First and second sounds normal. No edema. ABDOMEN: Soft, nontender. Liver and spleen not palpable. PSYCHIATRY: Alert and oriented x3. Mood slightly anxious appearing. INVESTIGATIONS: White count 2.8, hemoglobin 12.3. Sputum culture is pending. ASSESSMENT: 1. Acute postobstructive pneumonia; suspect gram negative organism multilobar, slow to respond causing sepsis, present on admission. 2. Non-small cell lung cancer, getting chemotherapy with compression of the bronchus with some collapse. 3. Gastroesophageal reflux disease. 4. Essential hypertension. 5. Acute chronic obstructive pulmonary disease exacerbation in a smoker. PLAN: Continue current medication treatment plan. Spoke to Dr. Orta. He thinks the radiation should help with obstruction of the bronchus. Prognosis guarded. Will follow.
[2016-05-17] MEDS: ONDANSETRON 4 MG/2 ML VIAL IVP PRN ×2 (07:52→21:22)
[2016-05-17] MEDS: BUDESONIDE 1 MG/2 ML NEBU INHALATION SCH ×2 (08:23→21:15)
[2016-05-17 08:37] LABS: Basophils % (A) 0 %; CH 30.4; Eosinophils % (A) 0 %; HCT 37.1 % (39.0-53.0); HDW 2.46; HGB 12.2 gm/dL (13.0-17.5); Luc # (Auto) 0.05; Luc % (Auto) 2; Lymphocytes # (A) 0.3 k/uL (1.0-4.8); Lymphocytes % (A) 11 %; MCH 30.3 pg (25.0-35.0); MCHC 32.8 g/dL (31.0-37.0); MCV 92.4 fL (80.0-100.0); Monocytes # (A) 0.1 k/uL (0-1.0); Monocytes % (A) 3 %; Neutrophils # (A) 1.8 k/uL (1.3-7.7); Neutrophils % (A) 83 %; RBC 4.01 m/uL (4.30-5.90); RDW 11.5 % (11.5-15.5); WBC 2.2 k/uL (3.8-10.6); WBC (Perox) 2.38
--- NOTE | 2016-05-17 08:58 | FL ---
ESOPHOGRAM. HISTORY: Dysphagia in a patient with left hilar mass consistent with the malignancy. COMPARISON: CT chest dated 05/15/2016 was reviewed. Upon review there appears to be evidence of trache oesophageal fistula. Therefore barium was not administered to the patient. Contrast: 1 oz of Omni 350 iodine based oral contrast. Patient ingested a small amount of contrast. There is thickening of the mid esophagus at the level of the left mainstem bronchus. There is immediate flow of contrast into the left mainstem bronchus and with subsequent backflow into the right mainstem bronchus confirming tracheoesophageal fistula. Contr ast is noted to flow into the stomach without complete obstruction. Examination was terminated at k[place] t point in time. IMPRESSION: 1. 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 Comment: SHARMIN Mora notified of results.
[2016-05-17] MEDS: SUCRALFATE 1 GM TAB PO SCH ×4 (09:54→21:18)
[2016-05-17] MEDS: LISINOPRIL-HCTZ 20-12.5 MG 1 EACH TAB PO SCH (09:55)
[2016-05-17] MEDS: guaiFENesin 600 MG TABLET.ER PO SCH ×2 (09:55→21:18)
[2016-05-17] MEDS: DOCUSATE 100 MG CAP PO SCH ×2 (09:55→21:18)
[2016-05-17] MEDS: PANTOPRAZOLE 40 MG/10 ML VIAL IV SCH (11:19)
[2016-05-17] MEDS: ENOXAPARIN 40 MG/0.4 ML SYRINGE SQ SCH (11:20)
[2016-05-17] MEDS: DEXTROSE 5%-0.9% NACL 1,000 ML IV SCH ×2 (11:22→21:25)
--- NOTE | 2016-05-17 12:52 | P.PN ---
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 Pt continues to cough up copious amts of frothy sputum, he states breathing ok, he is only nauseated if he lays down, has abd pain from coughing and wretching, no chest pain or swelling Objective - Vital Signs Vital signs: Vital Signs Temp 97.9 F 05/16/16 23:00 Pulse 110 H 05/16/16 23:00 Resp 16 05/16/16 23:00 BP 124/64 05/16/16 23:00 Pulse Ox 94 L 05/16/16 23:00 Intake & Output 05/16/16 05/17/16 05/17/16 18:59 06:59 18:59 Intake Total 1150 120 Balance 1150 120 Intake: IV 100 Intake, IV Titration 1050 Amount Piperacillin-Tazobactam 3 50 .375 gm In Dextrose/Water 1 50ml.bag @ 12.5 mls/hr IVPB Q8HR CARLOS Rx#: [id number] Sodium Chloride 0.9% 1, 1000 000 ml @ 125 mls/hr IV . Q8H CARLOS Rx#:[id number] Oral 120 Other: # Voids 1 1 - Constitutional General appearance: Present: average body habitus, cooperative, mild distress - EENT Eyes: Present: anicteric sclerae ENT: Present: normal oropharynx - Respiratory Respiratory: bilateral: rhonchi - Cardiovascular Heart sounds: normal: S1, S2 - Peripheral edema leg Peripheral Edema: bilateral: None - Gastrointestinal General gastrointestinal: Present: normal bowel sounds Localized gastrointestinal: tender: diffuse (mild) - Integumentary Integumentary: Present: normal - Neurologic Neurologic: Present: CNII-XII intact - Musculoskeletal Musculoskeletal: Present: strength equal bilaterally - Psychiatric Psychiatric: Present: A&O x's 3, appropriate affect, intact judgment & insight - Labs CBC & Chem 7: 05/17/16 07:31 05/14/16 23:55 Labs: Abnormal Lab Results - Last 24 Hours (Table) 05/17/16 Range/Units 07:31 WBC 2.2 L (3.8-10.6) k/uL RBC 4.01 L (4.30-5.90) m/uL Hgb 12.2 L (13.0-17.5) gm/dL Hct 37.1 L (39.0-53.0) % Lymphocytes # 0.3 L (1.0-4.8) k/uL Microbiology - Last 24 Hours (Table) 05/15/16 02:40 Blood Culture - Preliminary Blood No Growth after 48 hours - Imaging and Cardiology barium swallow report reviewed Assessment and Plan (1) Squamous cell carcinoma lung Narrative/Plan: Not due for chemo, discussed case with Rad/Onc, hold XRT, awaiting evaluation by Surgery Status: Acute (2) Intractable nausea and vomiting Narrative/Plan: NPO Status: Acute (3) Tracheo-esophageal fistula Narrative/Plan: Spoke with Radiologist re: barium swallow findings, SBFT was cancelled. Surgery has been consulted. Pt strict NPO status. IV fluids changed to D5.9, will await surgery recommendations before consulting for PEG placement. Oral meds changed to IV Status: Acute
--- NOTE | 2016-05-17 12:56 | P.PN ---
Subjective 51-year-old male well-known to me. I initially saw him in consultation sent to me by one day herthroat doctor because of hoarseness. On direct laryngoscopy he was found to have left vocal cord paralysis and it was assumed that he had a left recurrent laryngeal nerve involvement by a lung mass. We tried multiple times to get a diagnosis on him. He did have a mass in the left lung. I initially did she have regular bronchoscopy and then electromagnetic navigational bronchoscopy. I ended up sending him to [facility]. There is an interventional bronchoscopy had 2 or 3 endobronchial ultrasound procedures. They were all nondiagnostic as might proceed procedures were. Dr. Spann from thoracic surgery took the patient to the operating room and did a wedge resection of the left upper lobe mass which was also negative. At that point we are just observing the patient. A CAT scan showed the lesion to be increasing in size and he went back interventional bronchoscopy at [facility] and finally had a diagnosis of non-small cell lung cancer. Anyway the patient currently started on treatment. He comes in on this admission with primarily nausea and vomiting from chemotherapy. On chest x-ray we will noted that he had significant cut off sign at the left mainstem. He probably has tumor or and/or debris causing a postobstructive pneumonia. He scheduled for bronchoscopy today. He was seen by our nurse practitioner yesterday as well as I saw him as well. Progress note dated 05/17/2016 51-year-old male with a history of non-small cell lung cancer.. The patient has been pretty referred to radiation therapy and also medical oncology. He came in with primarily nausea and vomiting. He was initially sent to me because of left vocal cord paralysis and involvement of his lung mass by a lesion which interfered with a left recurrent laryngeal nerve. Anyway after multiple attempts of biopsy and transferred on the [facility], we are able to come up with a diagnosis of non-small cell lung cancer. Yesterday he underwent bronchoscopy. He had significant disease in the left chest. He really had very narrowed airways to the left upper lobe lingula and left lower lobe. There was significant mucosal abnormality. We did not sample SS we were to have a diagnosis. We'll hoping the radiation therapy can open up these areas and improve his breathing. Objective - Vital Signs Vital signs: Vital Signs Temp 97.9 F 05/16/16 23:00 Pulse 110 H 05/16/16 23:00 Resp 16 05/16/16 23:00 BP 124/64 05/16/16 23:00 Pulse Ox 94 L 05/16/16 23:00 Intake & Output 05/16/16 05/17/16 05/17/16 18:59 06:59 18:59 Intake Total 1150 120 Balance 1150 120 Intake: IV 100 Intake, IV Titration 1050 Amount Piperacillin-Tazobactam 3 50 .375 gm In Dextrose/Water 1 50ml.bag @ 12.5 mls/hr IVPB Q8HR CARLOS Rx#: [id number] Sodium Chloride 0.9% 1, 1000 000 ml @ 125 mls/hr IV . Q8H CARLOS Rx#:[id number] Oral 120 Other: # Voids 1 1 - Exam No acute distress, oriented 3. No respiratory distress. Rib looks remarkable murmur markedly well given his chest x-ray appearance. HEENT examination is grossly unremarkable. Mucous membranes are moist. Neck supple. Full range of motion. No adenopathy. Cardiovascular examination reveals regular rhythm rate. Lungs reveal diminished breath sounds at the left. No wheezes or rhonchi. No crackles. Right lung is relatively clear. Abdomen soft bowel sounds are heard. Extremities are intact. - Labs CBC & Chem 7: 05/17/16 07:31 05/14/16 23:55 Labs: Abnormal Lab Results - Last 24 Hours (Table) 05/17/16 Range/Units 07:31 WBC 2.2 L (3.8-10.6) k/uL RBC 4.01 L (4.30-5.90) m/uL Hgb 12.2 L (13.0-17.5) gm/dL Hct 37.1 L (39.0-53.0) % Lymphocytes # 0.3 L (1.0-4.8) k/uL Microbiology - Last 24 Hours (Table) 05/15/16 02:40 Blood Culture - Preliminary Blood No Growth after 48 hours Assessment and Plan (1) Postobstructive pneumonia Status: Acute (2) Dehydration Status: Acute (3) Intractable nausea and vomiting Status: Acute (4) Lung cancer Status: Acute (5) Squamous cell carcinoma lung Status: Acute Plan: Plan dated 05/16/2016 We discussed this case yesterday. We decided to go ahead and schedule him for bronchoscopy. We'll evaluate that left mainstem. There may be debris or tumor obstructing that area. He may benefit from a stent and/or endobronchial brachytherapy. No radiation is currently hopefully going to improve that situation. He is also on chemotherapy although having significant nausea and vomiting. We'll await and make a difference additional assessments once we a bit hard be able to directly visualize the left mainstem. Plan dated 05/17/2016 The patient had bronchoscopy yesterday. The results were explained to him. His overall prognosis is poor. He'll undergo ongoing radiation therapy and chemotherapy for non-small cell lung cancer. He was mostly admitted this time for chemotherapy induced emesis. We'll continue to follow make sure I see the patient in the outpatient setting.
--- NOTE | 2016-05-17 17:55 | P.CON ---
Consult Note - . Consult date: 05/17/16 Assessment/Plan:: This is a 51-year-old patient who has been on been undergoing treatment for non- small cell lung cancer. He presents at this time with shortness of breath wheezing cough and copious sputum production. He is unable to eat properly and has become weak and tired. He had a computed tomography scan that clearly shows a fistula between the left mainstem bronchus and mid esophagus. This was confirmed on barium swallow. Previous medical history is positive for non-small cell lung cancer hypertension and gastroesophageal reflux disease. 13 point review of systems was performed. Is positive for the findings noted above and otherwise negative. Previous surgical history includes herniorrhaphy and left VATS. Family history is noncontributory to the present illness. Social history is positive for [id number] smoking history. He quit 3 years ago. Does drink beer daily.. He is . Lives with his . Physical examination reveals a well-developed middle-aged male in no distress. Patient is coughing up copious amounts of clear sputum. Pupils are equal and reactive to light extraocular motions are intact. Neck demonstrates no masses. Lung sheikh are diminished he has some expiratory wheezing. Heart rate and rhythm are regular with no murmur rub or gallop. Diminished soft and nontender. Neurologic exam is grossly intact with equal deep tendon reflexes. Computed tomography scan and barium swallow were reviewed and results as noted above. In summary this is a 51 year old gentleman was been undergoing treatment for left lung cancer including left-sided radiation therapy. He currently has a TE fistula which is likely a complication of the radiation oncology. And is to place a stent in the esophagus. This should occlude the get TE fistula and allow the patient to eat without aspiration of foodstuffs. It should allow ongoing treatment of his cancer. Plan was discussed with the patient. He is agreeable to proceed with stent. We will hopefully be able to perform this procedure tomorrow if not we will certainly be able to proceed performed by Saturday.
[2016-05-17] MEDS: MORPHINE SULFATE 4 MG/ML SYRINGE IV PRN (22:59)
[2016-05-18] MEDS: PIPERACILLIN-TAZOBACTAM 3.375 GM in DEXTROSE/WATER 1 50ML.BAG IVPB SCH ×3 (00:03→16:55)
[2016-05-18] MEDS: IPRATROPIUM-ALBUTEROL 3 ML NEB INHALATION SCH ×6 (00:41→20:43)
[2016-05-18] MEDS: SUCRALFATE 1 GM TAB PO SCH ×4 (05:53→20:48)
--- NOTE | 2016-05-18 06:44 | PN ---
DATE OF SERVICE: 05/17/2016 PRESENTING COMPLAINT: Coughing. INTERVAL HISTORY: This is a patient with non-small cell lung cancer being treated for chemotherapy radiation process and also postobstructive pneumonia, multilobar and a sepsis picture on presentation, status post bronchoscopy by Dr. Orta yesterday. Patient has been coughing up copious amounts of phlegm and not able to take anything by mouth. The patient today underwent a barium swallow that did confirm a tracheobronchial fistula. Review of systems done for constitutional, cardiovascular, GI , pulmonary, relevant findings as above. Current medications are reviewed that include IV Zosyn. On examination, temperature 98.2, pulse 91, respiratory rate 16, blood pressure 130/78, pulse ox 98% on 3 liters. GENERAL APPEARANCE: Sitting on the edge of the bed. Tired. EYES: Pupils equal. Conjunctivae pale. NECK: JVD not raised. Mass not palpable. RESPIRATORY: Effort increased. LUNGS: Scattered crackles. Decreased breath sounds, wheezing. CARDIOVASCULAR: First and second sounds normal. No edema. ABDOMEN: Soft, nontender. Liver and spleen not palpable. PSYCHIATRY: Alert and oriented times three. Mood and affect normal. INVESTIGATIONS: White count 2.2, hemoglobin 12.2. ASSESSMENT: 1. Acute postobstructive pneumonia, suspect gram-negative organism. Multilobar, slow to respond ( ) present on admission. 2. Non-small cell lung cancer, getting chemotherapy with compression of the bronchus and some collapse and also radiation treatment. 3. New diagnosis of tracheobronchial fistula. 4. Gastroesophageal reflux disease. 5. Essential hypertension. 6. Acute chronic obstructive pulmonary disease exacerbation in a smoker. PLAN: Discussed with Dr. Wu from cardiothoracic, the best thing would be to proceed with esophageal stent and this will be attempted tomorrow. Radiation is to continue. Earlier I had spoken with the patient and and patient rather optimistic, even though prognosis is not very good at this point. We will also consult ID. Patient's cultures negative until now.
[2016-05-18] MEDS: BUDESONIDE 1 MG/2 ML NEBU INHALATION SCH ×2 (07:17→20:43)
[2016-05-18] MEDS: guaiFENesin 600 MG TABLET.ER PO SCH ×2 (07:57→20:48)
[2016-05-18] MEDS: DEXTROSE 5%-0.9% NACL 1,000 ML IV SCH ×2 (07:57→16:59)
[2016-05-18] MEDS: DOCUSATE 100 MG CAP PO SCH ×2 (07:57→20:47)
[2016-05-18] MEDS: methylPREDNISolone SOD SUCCI 40 MG/ML 1 ML VIAL IV SCH ×2 (07:57→17:00)
[2016-05-18] MEDS: ENOXAPARIN 40 MG/0.4 ML SYRINGE SQ SCH (07:57)
[2016-05-18] MEDS: LISINOPRIL-HCTZ 20-12.5 MG 1 EACH TAB PO SCH (07:58)
[2016-05-18] MEDS: PANTOPRAZOLE 40 MG/10 ML VIAL IV SCH (07:58)
[2016-05-18 08:21] LABS: Basophils % (A) 0 %; CH 30.6; CHCM 33.4; Eosinophils % (A) 0 %; HCT 34.1 % (39.0-53.0); HDW 2.44; HGB 11.4 gm/dL (13.0-17.5); Luc # (Auto) 0.07; Luc % (Auto) 4; Lymphocytes # (A) 0.3 k/uL (1.0-4.8); Lymphocytes % (A) 15 %; MCH 30.7 pg (25.0-35.0); MCHC 33.4 g/dL (31.0-37.0); MCV 91.8 fL (80.0-100.0); Mean Platelet Volume 8.5; Monocytes # (A) 0.1 k/uL (0-1.0); Monocytes % (A) 5 %; Neutrophils # (A) 1.4 k/uL (1.3-7.7); Neutrophils % (A) 76 %; RBC 3.72 m/uL (4.30-5.90); RDW 11.4 % (11.5-15.5); WBC (Perox) 1.95
[2016-05-18 08:29] LABS: WBC 1.9 k/uL (3.8-10.6)
--- NOTE | 2016-05-18 09:03 | P.PN ---
Subjective Principal diagnosis: Tracheo-esophageal fistula secondary to cancer treatment. Patient currently sitting up in bed in no apparent distress. No questions at this time. Anticipates surgery today. Objective - Vital Signs Vital signs: Vital Signs Temp 97.4 F L 05/18/16 08:14 Pulse 72 05/18/16 08:14 Resp 16 05/18/16 08:14 BP 120/66 05/18/16 08:14 Pulse Ox 95 05/18/16 08:14 Intake & Output 05/17/16 05/18/16 05/18/16 18:59 06:59 18:59 Intake Total 600 1000 Balance 600 1000 Intake: IV 600 1000 Dextrose 5%-0.9% NaCl 1, 600 1000 000 ml @ 100 mls/hr IV . Q10H CARLOS Rx#:[id number] Oral 0 Other: # Voids 4 - Constitutional General appearance: Present: cooperative, no acute distress - Respiratory Details: lungs sounds diminished with coarse breath sounds bilaterally. Respirations even, nonlabored. Currently on room air. - Cardiovascular Details: S1, S2 present. Regular rate and rhythm. No edema present. - Gastrointestinal Gastrointestinal Comment(s): abdomen soft, nontender, nondistended. Active bowel sounds 4 quadrants. Patient has been NPO. - Genitourinary Genitourinary Comment(s): continues to void clear, yellow urine. - Musculoskeletal Musculoskeletal: Present: gait normal, strength equal bilaterally - Psychiatric Psychiatric: Present: A&O x's 3, appropriate affect, intact judgment & insight - Allied health notes Allied health notes reviewed: nursing - Labs CBC & Chem 7: 05/18/16 07:20 05/14/16 23:55 Labs: Abnormal Lab Results - Last 24 Hours (Table) 05/18/16 Range/Units 07:20 WBC 1.9 L* (3.8-10.6) k/uL RBC 3.72 L (4.30-5.90) m/uL Hgb 11.4 L (13.0-17.5) gm/dL Hct 34.1 L (39.0-53.0) % RDW 11.4 L (11.5-15.5) % Plt Count 146 L (150-450) k/uL Lymphocytes # 0.3 L (1.0-4.8) k/uL Microbiology - Last 24 Hours (Table) 05/15/16 17:05 Gram Stain - Final Sputum Sputum Culture - Final 05/15/16 02:40 Blood Culture - Preliminary Blood No Growth after 72 hours - Imaging and Cardiology Chest x-ray: report reviewed, image reviewed Assessment and Plan (1) Lung cancer Status: Acute (2) Tracheo-esophageal fistula Status: Acute Plan: 1. Anticipate esophageal stent graft placement today. Continue NPO status. 2. Continue present management per primary and oncology. 3. More recommendations as patient progresses. Time with Patient: Greater than 30
[2016-05-18] MEDS ORDERED: IV FLUID CONTINUATION 600 ML IV ONE (11:14)
[2016-05-18] MEDS ORDERED: PROPOFOL 10 MG/ML 20 ML VIAL IV ONE (11:15)
[2016-05-18] MEDS ORDERED: KETAMINE 10 MG/ML 20 ML VIAL ONE (11:15)
[2016-05-18] MEDS ORDERED: GLYCOPYRROLATE 0.2 MG/ML 2 ML VIAL ONE (11:15)
[2016-05-18] MEDS ORDERED: LIDOCAINE 1% INJ 10MG/ML (20 ML MDV) ONE (11:15)
--- NOTE | 2016-05-18 11:17 | P.PN ---
Subjective 51-year-old male well-known to me. I initially saw him in consultation sent to me by one day herthroat doctor because of hoarseness. On direct laryngoscopy he was found to have left vocal cord paralysis and it was assumed that he had a left recurrent laryngeal nerve involvement by a lung mass. We tried multiple times to get a diagnosis on him. He did have a mass in the left lung. I initially did she have regular bronchoscopy and then electromagnetic navigational bronchoscopy. I ended up sending him to [facility]. There is an interventional bronchoscopy had 2 or 3 endobronchial ultrasound procedures. They were all nondiagnostic as might proceed procedures were. Dr. Spann from thoracic surgery took the patient to the operating room and did a wedge resection of the left upper lobe mass which was also negative. At that point we are just observing the patient. A CAT scan showed the lesion to be increasing in size and he went back interventional bronchoscopy at [facility] and finally had a diagnosis of non-small cell lung cancer. Anyway the patient currently started on treatment. He comes in on this admission with primarily nausea and vomiting from chemotherapy. On chest x-ray we will noted that he had significant cut off sign at the left mainstem. He probably has tumor or and/or debris causing a postobstructive pneumonia. He scheduled for bronchoscopy today. He was seen by our nurse practitioner yesterday as well as I saw him as well. Progress note dated 05/17/2016 51-year-old male with a history of non-small cell lung cancer.. The patient has been pretty referred to radiation therapy and also medical oncology. He came in with primarily nausea and vomiting. He was initially sent to me because of left vocal cord paralysis and involvement of his lung mass by a lesion which interfered with a left recurrent laryngeal nerve. Anyway after multiple attempts of biopsy and transferred on the [facility], we are able to come up with a diagnosis of non-small cell lung cancer. Yesterday he underwent bronchoscopy. He had significant disease in the left chest. He really had very narrowed airways to the left upper lobe lingula and left lower lobe. There was significant mucosal abnormality. We did not sample SS we were to have a diagnosis. We'll hoping the radiation therapy can open up these areas and improve his breathing. Progress note dated 05/18/2016 51-year-old male with a history of non-small cell lung cancer. 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 Other than that he is doing reasonably well. Has been started on chemoradiation therapy for his non-small cell lung cancer. Initially presented with hoarseness secondary to left vocal cord paralysis. Had to go to [facility] for diagnosis. The patient feels pretty good today. Was admitted on this admission primarily for nausea and vomiting. Objective - Vital Signs Vital signs: Vital Signs Temp 97.4 F L 05/18/16 08:14 Pulse 72 05/18/16 08:14 Resp 16 05/18/16 08:14 BP 120/66 05/18/16 08:14 Pulse Ox 95 05/18/16 08:14 Intake & Output 05/17/16 05/18/16 05/18/16 18:59 06:59 18:59 Intake Total 600 1000 Balance 600 1000 Intake: IV 600 1000 Dextrose 5%-0.9% NaCl 1, 600 1000 000 ml @ 100 mls/hr IV . Q10H CARLOS Rx#:[id number] Oral 0 Other: # Voids 4 - Exam No acute distress, oriented 3. No respiratory distress. Rib looks remarkable murmur markedly well given his chest x-ray appearance. HEENT examination is grossly unremarkable. Mucous membranes are moist. Neck supple. Full range of motion. No adenopathy. Cardiovascular examination reveals regular rhythm rate. Lungs reveal diminished breath sounds at the left. No wheezes or rhonchi. No crackles. Right lung is relatively clear. Abdomen soft bowel sounds are heard. Extremities are intact. - Labs CBC & Chem 7: 05/18/16 07:20 05/14/16 23:55 Labs: Abnormal Lab Results - Last 24 Hours (Table) 05/18/16 Range/Units 07:20 WBC 1.9 L* (3.8-10.6) k/uL RBC 3.72 L (4.30-5.90) m/uL Hgb 11.4 L (13.0-17.5) gm/dL Hct 34.1 L (39.0-53.0) % RDW 11.4 L (11.5-15.5) % Plt Count 146 L (150-450) k/uL Lymphocytes # 0.3 L (1.0-4.8) k/uL Microbiology - Last 24 Hours (Table) 05/15/16 17:05 Gram Stain - Final Sputum Sputum Culture - Final 05/15/16 02:40 Blood Culture - Preliminary Blood No Growth after 72 hours Assessment and Plan (1) Postobstructive pneumonia Status: Acute (2) Dehydration Status: Acute (3) Intractable nausea and vomiting Status: Acute (4) Lung cancer Status: Acute (5) Squamous cell carcinoma lung Status: Acute (6) Tracheoesophageal fistula Status: Acute Plan: Plan dated 05/16/2016 We discussed this case yesterday. We decided to go ahead and schedule him for bronchoscopy. We'll evaluate that left mainstem. There may be debris or tumor obstructing that area. He may benefit from a stent and/or endobronchial brachytherapy. No radiation is currently hopefully going to improve that situation. He is also on chemotherapy although having significant nausea and vomiting. We'll await and make a difference additional assessments once we a bit hard be able to directly visualize the left mainstem. Plan dated 05/17/2016 The patient had bronchoscopy yesterday. The results were explained to him. His overall prognosis is poor. He'll undergo ongoing radiation therapy and chemotherapy for non-small cell lung cancer. He was mostly admitted this time for chemotherapy induced emesis. We'll continue to follow make sure I see the patient in the outpatient setting. Plan dated 05/18/2016 The patient underwent bronchoscopy on the . I did not see any evidence of a tracheal or bronchial fistula. The patient apparently does have one based on his swallow evaluation and barium test. The patient is going for stent placement today by Dr. Wu. The patient otherwise is doing well. He was admitted with a diagnosis of primarily chemotherapy-induced nausea and vomiting. Lots of disease in the left chest based on the bronchoscopic evaluation. We'll continue to follow. Time with Patient: Less than 30
--- NOTE | 2016-05-18 12:04 | FL ---
EXAMINATION TYPE: FL guidance operating room DATE OF EXAM: 05/18/2016 11:57 AM HISTORY: Flouroscopy time 1 minute and 34 seconds of fluoroscopy provided. IMPRESSION: 1. Fluoroscopy time.
--- NOTE | 2016-05-18 12:09 | P.OP ---
Date of Procedure: 05/18/16 Preoperative Diagnosis: Lung CA, TEF Postoperative Diagnosis: Lung carcinoma, tracheoesophageal fistula Procedure(s) Performed: Esophagogastroscopy, placement of esophageal stent with fluoroscopic guidance Implants: 18 x 153 mm coated [employer] stent Anesthesia: MAC Surgeon: Henrry Wu Estimated Blood Loss (ml): 0 IV fluids (ml): 200 Urine output (ml): 0 Pathology: none sent Condition: stable Disposition: PACU Indications for Procedure: Tracheoesophageal esophageal fistula from the left mainstem bronchus to mid esophagus secondary to radiation treatments for left lung cancer Operative Findings: Barbara esophagitis of the mid to distal esophagus with small hiatal hernia. stomach was normal. Description of Procedure: Patient was supine with the head elevated on fluoroscopy bed in the endoscopy unit. IV sedation was given by the anesthesia department. Gastroscope was introduced through the mouth. Proximal esophagus was normal, distal esophagus demonstrated severe esophagitis. The area the T-E fistula was presumed to be at the proximal extent proximal to mid extent of the severe esophagitis in the mid to distal esophagus. Scope was advanced into the stomach and the stomach was examined the cardia was also examined the stomach appeared normal. Scope was withdrawn back to the area of the gastroesophageal junction. This was somewhat elevated into the chest due to a small to moderate size hiatal hernia. Level of the gastroesophageal junction was marked on the patient with a paper clip under fluoroscopy. Then withdrew the scope back to the area where the T-E fistula was anticipated to be. Second paper clip was then placed here. This was about 6 cm proximal to the GE junction. We advanced the endoscope into the stomach and placed a wire through the endoscope into the stomach and then removed the endoscope leaving the wire in place. The stent was loaded on the wire and advanced under fluoroscopic guidance over the wire to the appropriate location. The stent was deployed with the distal end of the stent just at the GE junction on completion of stent placement the gastroscope was reintroduced. The distal end of the stent was noted right at the GE junction and the proximal end of the stent was below the cricopharyngeus essentially complete coverage of the esophagus with the stent. Scope and wire were now withdrawn and the procedure was completed
--- NOTE | 2016-05-18 12:10 | XR ---
EXAMINATION TYPE: XR chest 1V portable DATE OF EXAM: 05/18/2016 12:04 PM COMPARISON: 05/15/2016 HISTORY: Esophageal stent placement TECHNIQUE: Single frontal view of the chest is obtained. FINDINGS: Esophageal stent is noted. On distal margin of the stent not well-seen due to technique. E levated left hemidiaphragm with subsegmental consolidation and tiny effusion. Chronic rib deformities on the left noted. Right lung is clear. IMPRESSION: 1. Left lower lobe infiltrate or atelectasis with tiny effusion. 2. Esophageal stent placement
[2016-05-18] MEDS: MORPHINE SULFATE 4 MG/ML SYRINGE IV PRN ×3 (12:29→20:45)
[2016-05-18] MEDS: ONDANSETRON 4 MG/2 ML VIAL IVP PRN ×2 (17:09→21:41)
--- NOTE | 2016-05-18 21:42 | PN ---
DATE OF SERVICE: 05/18/2016 PRESENTING COMPLAINT: Coughing. INTERVAL HISTORY: This is a patient with non-small cell lung cancer, getting chemotherapy and radiation, also felt an element of postobstructive pneumonia, multilobar pneumonia. Also sepsis picture on presentation. The patient also did undergo bronchoscopy, not much could be done during the procedure. 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 The patient underwent a successful stent placement by Dr. Wu. The patient's sputum production actually has gone down. is at the bedside. Patient able to take a little bit of liquids. Review of systems done for constitutional, cardiovascular, GI, pulmonary; relevant findings as above. Current medications are reviewed that include IV Zosyn. On examination, temperature 97.4, pulse 58, respirations 16, blood pressure 145/87, pulse ox 98% on 2 liters. GENERAL APPEARANCE: Sitting up in a chair, not in distress, but tired. EYES: Pupils equal. Conjunctivae pale. NECK: JVD not raised. Mass not palpable. RESPIRATORY: Effort increased. LUNGS: Diminished breath sounds. Some wheezing. CARDIOVASCULAR: First and second sounds normal. No edema. ABDOMEN: Soft, nontender. Liver and spleen not palpable. PSYCHIATRY: Alert and oriented times three. Mood and affect normal. INVESTIGATIONS: White count 1.9, hemoglobin 11.4, platelets 146. ASSESSMENT: 1. Acute postoperative pneumonia, suspect gram-negative organism, multilobar, present on admission with severe sepsis. 2. Non-small cell lung cancer, getting chemotherapy with some compression of the bronchus and collapse. 3. 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 4. Gastroesophageal reflux disease. 5. Essential hypertension. 6. Acute exacerbation in a smoker. PLAN: Care was discussed with Dr. Wu. The procedure went whether well. Patient on clear liquids right now. See how he does with that care. Also spoke with the . Cultures remains negative. Follow.
[2016-05-19] MEDS: PIPERACILLIN-TAZOBACTAM 3.375 GM in DEXTROSE/WATER 1 50ML.BAG IVPB SCH ×4 (00:02→23:11)
[2016-05-19] MEDS: DEXTROSE 5%-0.9% NACL 1,000 ML IV SCH ×2 (00:02→14:54)
[2016-05-19] MEDS: methylPREDNISolone SOD SUCCI 40 MG/ML 1 ML VIAL IV SCH ×3 (00:02→08:17)
[2016-05-19] MEDS: MORPHINE SULFATE 4 MG/ML SYRINGE IV PRN (02:43)
[2016-05-19 07:19] LABS: Basophils % (A) 0 %; CH 30.3; CHCM 32.9; Eosinophils % (A) 0 %; HCT 35.1 % (39.0-53.0); HGB 11.8 gm/dL (13.0-17.5); Luc # (Auto) 0.06; Luc % (Auto) 3; Lymphocytes # (A) 0.4 k/uL (1.0-4.8); Lymphocytes % (A) 20 %; MCH 30.9 pg (25.0-35.0); MCHC 33.5 g/dL (31.0-37.0); MCV 92.2 fL (80.0-100.0); Mean Platelet Volume 8.2; Monocytes # (A) 0.2 k/uL (0-1.0); Monocytes % (A) 9 %; Neutrophils # (A) 1.5 k/uL (1.3-7.7); Neutrophils % (A) 68 %; RBC 3.81 m/uL (4.30-5.90); RDW 11.5 % (11.5-15.5); WBC 2.1 k/uL (3.8-10.6); WBC (Perox) 2.26
--- NOTE | 2016-05-19 07:22 | XR ---
EXAMINATION TYPE: XR chest 2V DATE OF EXAM: 05/19/2016 7:14 AM HISTORY: post op changes. REFERENCE: Previous study dated 05/18/2016. FINDINGS: There is an esophageal stent in place. There is elevation of the left hemidiaphragm. Heart size is obscured. There is improved aeration of t he left lung. The right lung is clear. There is blunting of the left CP angle. I could not exclude a small effusion. IMPRESSION: IMPROVED AERATION, LEFT LUNG.
[2016-05-19 07:30] LABS: Anion Gap 11 mmol/L; Blood Urea Nitrogen 17 mg/dL (9-20); Carbon Dioxide 27 mmol/L (22-30); Chloride 103 mmol/L (98-107); Glucose 113 mg/dL (74-99); Non-African American GFR(MDRD) >60 (>60 ml/min/1.73 sqM); Potassium 3.6 mmol/L (3.5-5.1); Sodium 141 mmol/L (137-145)
[2016-05-19] MEDS: HYDROcodone/APAP 5-325MG 1 EACH TAB PO PRN ×3 (07:45→20:19)
[2016-05-19] MEDS: PANTOPRAZOLE 40 MG/10 ML VIAL IV SCH (07:50)
[2016-05-19] MEDS: LORazepam 2 MG/ML SYRINGE IV PRN (07:50)
[2016-05-19] MEDS: ENOXAPARIN 40 MG/0.4 ML SYRINGE SQ SCH (07:50)
[2016-05-19] MEDS: guaiFENesin 600 MG TABLET.ER PO SCH ×3 (07:51→20:23)
[2016-05-19] MEDS: LISINOPRIL-HCTZ 20-12.5 MG 1 EACH TAB PO SCH (07:51)
[2016-05-19] MEDS: SUCRALFATE 1 GM TAB PO SCH ×5 (07:51→20:24)
[2016-05-19] MEDS: DOCUSATE 100 MG CAP PO SCH ×3 (07:51→20:23)
--- NOTE | 2016-05-19 07:52 | P.PN ---
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 POD #1 esophagogastroscopy, placement of esophageal stent with fluoroscopic guidance using 18 x 153 mm coated [place] [employer] stent. Patient currently sitting up at the bedside in no apparent distress. States he does have some chest pain but tolerable. States he is coughing less. Has been able to tolerate clear liquids. Objective - Vital Signs Vital signs: Vital Signs Temp 96.2 F L 05/18/16 23:00 Pulse 79 05/18/16 23:00 Resp 16 05/18/16 23:00 BP 114/71 05/18/16 23:00 Pulse Ox 96 05/18/16 23:00 Intake & Output 05/18/16 05/19/16 05/19/16 18:59 06:59 18:59 Intake Total 1170 830 Balance 1170 830 Weight 78.471 kg Intake: IV 1000 Dextrose 5%-0.9% NaCl 1, 800 000 ml @ 100 mls/hr IV . Q10H CARLOS Rx#:[id number] Intake, IV Titration 50 Amount Piperacillin-Tazobactam 3 50 .375 gm In Dextrose/Water 1 50ml.bag @ 12.5 mls/hr IVPB Q8HR CARLOS Rx#: [id number] Oral 120 830 Other: # Voids 2 2 - Constitutional General appearance: Present: cooperative, no acute distress - Respiratory Details: Lungs sounds diminished bilaterally with coarse breath sounds on the right. Respirations even, nonlabored. Remains on 3 L nasal cannula. - Cardiovascular Details: S1, S2 present. Regular rate and rhythm. - Gastrointestinal Gastrointestinal Comment(s): Abdomen soft, nontender, nondistended. Bowel sounds active 4 quadrants. Tolerating clear liquids. - Genitourinary Genitourinary Comment(s): Continues to void clear, yellow urine per urinal - Musculoskeletal Musculoskeletal: Present: gait normal, strength equal bilaterally - Psychiatric Psychiatric: Present: A&O x's 3, appropriate affect, intact judgment & insight - Allied health notes Allied health notes reviewed: nursing - Labs CBC & Chem 7: 05/19/16 06:43 05/19/16 06:43 Labs: Abnormal Lab Results - Last 24 Hours (Table) 05/18/16 05/19/16 05/19/16 Range/Units 07:20 06:43 06:43 WBC 1.9 L* 2.1 L (3.8-10.6) k/uL RBC 3.72 L 3.81 L (4.30-5.90) m/uL Hgb 11.4 L 11.8 L (13.0-17.5) gm/dL Hct 34.1 L 35.1 L (39.0-53.0) % RDW 11.4 L (11.5-15.5) % Plt Count 146 L 132 L (150-450) k/uL Lymphocytes # 0.3 L 0.4 L (1.0-4.8) k/uL Creatinine 0.63 L (0.66-1.25) mg/dL Glucose 113 H (74-99) mg/dL Microbiology - Last 24 Hours (Table) 05/15/16 02:40 Blood Culture - Preliminary Blood No Growth after 96 hours 05/15/16 17:05 Gram Stain - Final Sputum Sputum Culture - Final - Imaging and Cardiology Chest x-ray: report reviewed, image reviewed Assessment and Plan (1) Lung cancer Status: Acute (2) Tracheo-esophageal fistula Status: Acute Plan: 1. Tolerating clear liquids, trial advancing diet. 2. Continue present management per primary and oncology. 3. Pain management with current regimen. 4. May discharge from our standpoint once able to tolerate food. Time with Patient: Greater than 30
[2016-05-19] MEDS ORDERED: HEPARIN SODIUM,PORCINE 5,000 UNIT/ML 1 ML VIAL IV ONE (09:18)
[2016-05-19] MEDS ORDERED: HEPARIN SODIUM,PORCINE 5,000 UNIT/ML 1 ML VIAL IV PRN (09:18)
[2016-05-19 09:58] LABS: INR 1.1 (<1.1); Partial Thromboplastin Time 29.9 sec (22.0-30.0); Prothrombin Time 11.2 sec (9.0-12.0)
[2016-05-19] MEDS: DILTIAZEM 125 MG in SODIUM CHLORIDE 0.9% 100 ML IV SCH ×2 (10:01→23:05)
[2016-05-19] MEDS: HEPARIN SODIUM,PORCINE/D5W PMX 25,000 UNIT in DEXTROSE/WATER 1 500ML.BAG IV SCH (10:21)
[2016-05-19] MEDS: IPRATROPIUM-ALBUTEROL 3 ML NEB INHALATION SCH ×3 (10:53→11:47)
[2016-05-19] MEDS: BUDESONIDE 1 MG/2 ML NEBU INHALATION SCH (10:53)
--- NOTE | 2016-05-19 12:11 | P.CRDCN ---
History of Present Illness Consult date: 05/19/16 Requesting physician: Ruben Pearce Consult reason: atrial fibrillation Chief complaint: Nausea and vomiting History of present illness: This is a pleasant 51-year-old gentleman with history of non-small cell lung cancer recently started on chemotherapy, patient is also receiving radiation. History also of hypertension, GERD, and prior nicotine dependence. Patient presented to the hospital with symptoms of nausea and vomiting. He also had developed worsening shortness of breath with associated cough and congestion. A CT angiogram revealed a large left hilar and suprahilar mass which occludes the left main pulmonary arteries suggestive of pulmonary malignancy. Findings also highly suspicious for mediastinotomy adenopathy suggesting metastatic disease. Influenza screen was negative on admission, temperature maxed out at 101.1. On the of this month patient underwent Esophagogastroscopy, with placement of an esophageal stent. Patient was transferred to the telemetry unit today because he was noted to go into atrial fibrillation with a rapid ventricular response. Cord to the patient he has no prior documented history of atrial fibrillation. He is currently on IV Cardizem drip at 10 mg per hour as well as IV heparin. Blood pressure 125/60. EKG shows atrial fibrillation with a rapid ventricular response. At the time of my examination, patient continues to cough up significant amounts of pink to yellow sputum. He denies any palpitations, breathing is overall stable, denies any chest discomfort. White blood cell count 2.1, hemoglobin 11.8, platelet count 132. Potassium 3.6, BUN 17, creatinine 0.6. Past Medical History Past Medical History: Cancer, GERD/Reflux, Hypertension Additional Past Medical History / Comment(s): Non-small cell lung Cancer History of Any Multi-Drug Resistant Organisms: None Reported Past Surgical History: Hernia Repair Additional Past Surgical History / Comment(s): cyst removed from back, BRONCHOSCOPY, VATS procedure Past Anesthesia/Blood Transfusion Reactions: Motion Sickness Past Psychological History: No Psychological Hx Reported Smoking Status: Former smoker Past Alcohol Use History: Daily Additional Past Alcohol Use History / Comment(s): quit smoking 2013, STARTED SMOKING AT AGE 15, SMOKED 1 PPD Past Drug Use History: None Reported - Past Family History Mother Family Medical History: No Reported History Medications and Allergies Home Medications Medication Instructions Recorded Confirmed Type Lisinopril-Hctz 20-12.5 mg 1 tab PO DAILY 10/19/15 05/14/16 History [Zestoretic 20-12.5] Acetaminophen [Tylenol] 1,000 mg PO Q4-6H PRN 05/14/16 05/14/16 History Pantoprazole [Protonix] 40 mg PO DAILY 05/14/16 05/14/16 History Allergies Allergy/AdvReac Type Severity Reaction Status Date / Time No Known Allergies Allergy Verified 05/14/16 23:22 Physical Exam Vitals: Vital Signs Temp Pulse Pulse Resp BP Pulse Ox 05/19/16 07:00 98.7 F 158 H 16 125/69 90 L 05/18/16 23:00 96.2 F L 79 16 114/71 96 05/18/16 22:50 16 05/18/16 21:01 86 05/18/16 20:43 86 05/18/16 17:34 90 05/18/16 17:25 90 05/18/16 15:00 97.4 F L 68 16 145/87 98 Intake and Output 05/18/16 05/19/16 05/19/16 22:59 06:59 14:59 Intake Total 360 590 Balance 360 590 Intake: Oral 360 590 Other: # Voids 2 2 PHYSICAL EXAMINATION: HEENT: Head is atraumatic, normocephalic. Pupils equal, round. Neck is supple. There is no elevated jugular venous pressure. HEART EXAMINATION: S1 and S2 irregularly irregular CHEST EXAMINATION: Lungs reveal scattered coarse rhonchi with diminished breath sounds to the left posterior base. ABDOMEN: Soft, nontender. Bowel sounds are heard. No organomegaly noted. EXTREMITIES: 2+ peripheral pulses with no evidence of peripheral edema and no calf tenderness noted. NEUROLOGIC patient is awake, alert and oriented -3. . Results 05/19/16 06:43 05/19/16 06:43 Coagulation 05/19/16 Range/Units 09:38 PT 11.2 (9.0-12.0) sec APTT 29.9 (22.0-30.0) sec CBC 05/19/16 Range/Units 06:43 WBC 2.1 L (3.8-10.6) k/uL RBC 3.81 L (4.30-5.90) m/uL Hgb 11.8 L (13.0-17.5) gm/dL Hct 35.1 L (39.0-53.0) % Plt Count 132 L (150-450) k/uL Comprehensive Metabolic Panel 05/19/16 Range/Units 06:43 Sodium 141 (137-145) mmol/L Potassium 3.6 (3.5-5.1) mmol/L Chloride 103 (98-107) mmol/L Carbon Dioxide 27 (22-30) mmol/L BUN 17 (9-20) mg/dL Creatinine 0.63 L (0.66-1.25) mg/dL Glucose 113 H (74-99) mg/dL Calcium 9.0 (8.4-10.2) mg/dL Current Medications Generic Name Dose Route Start Last Admin Trade Name Freq PRN Reason Stop Dose Admin Hydrocodone Bitart/Acetaminophen 1 each 05/15/16 09:29 05/19/16 07:45 [place] 5-325 PO 1 each Q4HR PRN Administration Moderate Pain Albuterol/Ipratropium 3 ml 05/15/16 12:01 05/15/16 13:08 Duone[place] 0.5 Mg-3 Mg/3 Ml Soln INHALATION 3 ml RT-Q2H PRN Administration Shortness Of Breath Or Wheezing Albuterol/Ipratropium 3 ml 05/19/16 08:00 05/19/16 11:47 Duoneb 0.5 Mg-3 Mg/3 Ml Soln INHALATION Not Given RT-QID CARLOS Budesonide 1 mg 05/15/16 13:30 05/19/16 10:53 Pulmicort INHALATION Not Given RT-BID CARLOS Docusate Sodium 100 mg 05/15/16 09:30 05/19/16 11:08 Colace PO Not Given BID CARLOS Guaifenesin 1,200 mg 05/15/16 13:30 05/19/16 08:17 Mucinex PO Not Given Q12HR CARLOS Lisinopril/HCTZ 1 each 05/15/16 12:15 05/19/16 07:51 Zestoretic 20-12.5 PO 1 each DAILY CARLOS Administration Heparin Sodium (Porcine) 0 unit 05/19/16 09:18 Heparin IV PER PROTOCOL PRN Low PTT Protocol Piperacillin/Tazobactam/ 50 mls @ 12.5 mls/hr 05/15/16 16:00 05/19/16 07:50 Dextrose 3.375 gm/ IV Solution IVPB 12.5 mls/hr Q8HR CARLOS Administration Dextrose/Sodium Chloride 1,000 mls @ 100 mls/hr 05/17/16 11:15 05/19/16 00:02 Dextrose 5%-Ns Iv Soln IV 100 mls/hr .Q10H CARLOS Administration Diltiazem HCl 125 mg/ Sodium 125 mls @ 10 mls/hr 05/19/16 09:30 05/19/16 10: 01 Chloride IV 10 mg/hr .[id number] CARLOS 10 mls/hr Protocol Administration 10 MG/HR Heparin Sodium/Dextrose 25,000 500 mls @ 18.83 mls/hr 05/19/16 09:30 10:21 unit/ IV Solution IV 12 units/kg/hr .Q24H CARLOS 18.83 mls/hr Protocol Administration 12 UNITS/KG/HR Lorazepam 1 mg 05/15/16 03:41 05/19/16 07:50 Ativan IV 1 mg Q4HR PRN Administration Anxiety Methylprednisolone Sodium Succinate 40 mg 05/15/16 16:00 05/19/16 08:17 Solu-Medrol IV Not Given Q8HR CARLOS Morphine Sulfate 4 mg 05/15/16 01:22 05/19/16 02:43 Morphine Sulfate (Inj) IV 4 mg Q4HR PRN Administration Severe Pain Naloxone HCl 0.2 mg 05/15/16 01:22 Narcan IV Q2M PRN Opioid Reversal Ondansetron HCl 4 mg 05/15/16 09:29 05/18/16 21:41 Zofran IVP 4 mg Q4HR PRN Administration Nausea And Vomiting Pantoprazole Sodium 40 mg 05/15/16 09:00 05/19/16 07:50 Protonix IV 40 mg DAILY CARLOS Administration Prochlorperazine Maleate 25 mg 05/15/16 01:22 05/16/16 17:51 Compazine RECTAL 25 mg Q12HR PRN Administration Nausea And Vomiting Sucralfate 1 gm 05/15/16 12:30 05/19/16 08:17 Carafate PO Not Given ACHS CARLOS Intake and Output 05/18/16 05/19/16 05/19/16 22:59 06:59 14:59 Intake Total 360 590 Balance 360 590 Intake: Oral 360 590 Other: # Voids 2 2 05/19/16 06:43 05/19/16 06:43 EKG Interpretations (text) EKG shows atrial fibrillation with a rapid ventricular response Assessment and Plan Plan: Assessment and plan Assessment and plan #1 symptoms of acute nausea and vomiting #2 dehydration #3 non-small cell lung CA #4 tracheoesophageal fistula status post stent placement #5 hypertension #6 prior nicotine dependence #7 atrial fibrillation, of new onset Plan We will obtain an echocardiogram with Doppler study. Check free T4 and TSH level. Patient's LV function is normal, we'll discontinue the IV Cardizem and give the patient a dose of Rythmol. We will also check with oncology regarding anticoagulation, look into one of the newer agents. Further recommendations to follow. DNP note has been reviewed, I agree with a documented findings and plan of care. Patient was seen and examined.
--- NOTE | 2016-05-19 12:12 | P.PN ---
Subjective 51-year-old male well-known to me. I initially saw him in consultation sent to me by one day herthroat doctor because of hoarseness. On direct laryngoscopy he was found to have left vocal cord paralysis and it was assumed that he had a left recurrent laryngeal nerve involvement by a lung mass. We tried multiple times to get a diagnosis on him. He did have a mass in the left lung. I initially did she have regular bronchoscopy and then electromagnetic navigational bronchoscopy. I ended up sending him to [facility]. There is an interventional bronchoscopy had 2 or 3 endobronchial ultrasound procedures. They were all nondiagnostic as might proceed procedures were. Dr. Spann from thoracic surgery took the patient to the operating room and did a wedge resection of the left upper lobe mass which was also negative. At that point we are just observing the patient. A CAT scan showed the lesion to be increasing in size and he went back interventional bronchoscopy at [facility] and finally had a diagnosis of non-small cell lung cancer. Anyway the patient currently started on treatment. He comes in on this admission with primarily nausea and vomiting from chemotherapy. On chest x-ray we will noted that he had significant cut off sign at the left mainstem. He probably has tumor or and/or debris causing a postobstructive pneumonia. He scheduled for bronchoscopy today. He was seen by our nurse practitioner yesterday as well as I saw him as well. Progress note dated 05/17/2016 51-year-old male with a history of non-small cell lung cancer.. The patient has been pretty referred to radiation therapy and also medical oncology. He came in with primarily nausea and vomiting. He was initially sent to me because of left vocal cord paralysis and involvement of his lung mass by a lesion which interfered with a left recurrent laryngeal nerve. Anyway after multiple attempts of biopsy and transferred on the [facility], we are able to come up with a diagnosis of non-small cell lung cancer. Yesterday he underwent bronchoscopy. He had significant disease in the left chest. He really had very narrowed airways to the left upper lobe lingula and left lower lobe. There was significant mucosal abnormality. We did not sample SS we were to have a diagnosis. We'll hoping the radiation therapy can open up these areas and improve his breathing. Progress note dated 05/18/2016 51-year-old male with a history of non-small cell lung cancer. 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 Other than that he is doing reasonably well. Has been started on chemoradiation therapy for his non-small cell lung cancer. Initially presented with hoarseness secondary to left vocal cord paralysis. Had to go to [facility] for diagnosis. The patient feels pretty good today. Was admitted on this admission primarily for nausea and vomiting. Progress note dated 05/19/2016 51-year-old male who continues to have one problem after another. Initially seen for a mass in his left upper lobe. 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 The patient had multiple biopsies before diagnosis was established. He has non-small cell lung cancer. Recently started on chemoradiation therapy. Developed severe chemotherapy-induced nausea and vomiting. 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 More recently, he was moved up to the sixth floor from the fifth floor because of atrial fibrillation with RVR. From the pulmonary standpoint he is doing relatively well. Feeling generally well. No difficulty breathing. Not coughing up any phlegm or blood. Objective - Vital Signs Vital signs: Vital Signs Temp 98.7 F 05/19/16 07:00 Pulse 158 H 05/19/16 07:00 Resp 16 05/19/16 07:00 BP 125/69 05/19/16 07:00 Pulse Ox 90 L 05/19/16 07:00 Intake & Output 05/18/16 05/19/16 05/19/16 18:59 06:59 18:59 Intake Total 1170 830 Balance 1170 830 Weight 78.471 kg Intake: IV 1000 Dextrose 5%-0.9% NaCl 1, 800 000 ml @ 100 mls/hr IV . Q10H CARLOS Rx#:[id number] Intake, IV Titration 50 Amount Piperacillin-Tazobactam 3 50 .375 gm In Dextrose/Water 1 50ml.bag @ 12.5 mls/hr IVPB Q8HR CARLOS Rx#: [id number] Oral 120 830 Other: # Voids 2 2 - Exam No acute distress, oriented 3. No respiratory distress. Rib looks remarkable murmur markedly well given his chest x-ray appearance. HEENT examination is grossly unremarkable. Mucous membranes are moist. Neck supple. Full range of motion. No adenopathy. Cardiovascular examination reveals a regular rhythm and rate. Heart rate about 100. Lungs reveal diminished breath sounds at the left. No wheezes or rhonchi. No crackles. Right lung is relatively clear. Abdomen soft bowel sounds are heard. Extremities are intact. - Labs CBC & Chem 7: 05/19/16 06:43 05/19/16 06:43 Labs: Abnormal Lab Results - Last 24 Hours (Table) 05/19/16 05/19/16 Range/Units 06:43 06:43 WBC 2.1 L (3.8-10.6) k/uL RBC 3.81 L (4.30-5.90) m/uL Hgb 11.8 L (13.0-17.5) gm/dL Hct 35.1 L (39.0-53.0) % Plt Count 132 L (150-450) k/uL Lymphocytes # 0.4 L (1.0-4.8) k/uL Creatinine 0.63 L (0.66-1.25) mg/dL Glucose 113 H (74-99) mg/dL Microbiology - Last 24 Hours (Table) 05/15/16 02:40 Blood Culture - Preliminary Blood No Growth after 96 hours 05/15/16 17:05 Gram Stain - Final Sputum Sputum Culture - Final Assessment and Plan (1) Postobstructive pneumonia Status: Acute (2) Dehydration Status: Acute (3) Intractable nausea and vomiting Status: Acute (4) Lung cancer Status: Acute (5) Squamous cell carcinoma lung Status: Acute (6) Tracheoesophageal fistula Status: Acute Plan: Plan dated 05/16/2016 We discussed this case yesterday. We decided to go ahead and schedule him for bronchoscopy. We'll evaluate that left mainstem. There may be debris or tumor obstructing that area. He may benefit from a stent and/or endobronchial brachytherapy. No radiation is currently hopefully going to improve that situation. He is also on chemotherapy although having significant nausea and vomiting. We'll await and make a difference additional assessments once we a bit hard be able to directly visualize the left mainstem. Plan dated 05/17/2016 The patient had bronchoscopy yesterday. The results were explained to him. His overall prognosis is poor. He'll undergo ongoing radiation therapy and chemotherapy for non-small cell lung cancer. He was mostly admitted this time for chemotherapy induced emesis. We'll continue to follow make sure I see the patient in the outpatient setting. Plan dated 05/18/2016 The patient underwent bronchoscopy on the . I did not see any evidence of a tracheal or bronchial fistula. The patient apparently does have one based on his swallow evaluation and barium test. The patient is going for stent placement today by Dr. Wu. The patient otherwise is doing well. He was admitted with a diagnosis of primarily chemotherapy-induced nausea and vomiting. Lots of disease in the left chest based on the bronchoscopic evaluation. We'll continue to follow. Plan dated 05/19/2016 The patient is currently upon the sixth floor being monitored because of the atrial fibrillation with RVR. From the pulmonary standpoint he is stable. An esophageal stent was placed because of this tracheoesophageal fistula. We did not see the fistula on bronchoscopy. The chemotherapy induced nausea settle down. From my perspective could be discharged home once his A. fib is under control. We'll make sure that we see him in the office. He'll continue with his radiation and chemo. Time with Patient: Less than 30
[2016-05-19] MEDS: ONDANSETRON 4 MG/2 ML VIAL IVP PRN ×2 (12:28→20:13)
[2016-05-19] MEDS: IPRATROPIUM 0.5 MG/2.5 ML NEBU INHALATION SCH ×2 (12:29→19:24)
[2016-05-19] MEDS: LEVALBUTEROL NEB (CONC) 1.25 MG/0.5 ML AMP INHALATION SCH ×2 (13:10→19:24)
[2016-05-19] MEDS: FUROSEMIDE 20 MG TAB PO SCH (16:38)
--- NOTE | 2016-05-19 16:51 | PN ---
I am covering for Dr. Pearce HISTORY OF PRESENT ILLNESS: This 51-year-old gentleman with a past medical history of multiple medical problems admitted with non-small cell carcinoma on chemotherapy was admitted with features of left-sided pneumonia, possibly with sepsis and possible post obstructive. The patient also had elevated , blood sugars the patient monitored in the ICU monitored on [employer]. the patient on Cardizem 5 mg per hour. Cardiology following the patient closely as well as pulmonology. Broad spectrum IV antibiotics also given. The patient still having cough and sputum. PAST MEDICAL HISTORY: 1. History of recently diagnosed non-small cell carcinoma. 2. History of gastroesophageal reflux disease. 3. Hypertension. 4. History of hernia repair. 5. Motion sickness. Medications prior to admission include active medications are: 1. Redfox 5 mg q.4 p.r.n. 2. Cardizem drip as mentioned earlier. 3. Colace 100 mg p.o. b.i.d. 4. Mucinex. 5. Zestril 20/12.5 mg daily. 6. Heparin IV. 7. Atrovent t.i.d. 8. Xopenex 1.25 t.i.d. 9. Ativan 1 mg q.4 p.r.n. 10. Narcan. 11. Zofran. 12. Protonix 40 mg IV daily. 13. Zosyn 3.37 IV q.8. 14. Compazine p.r.n. PHYSICAL EXAM: Patient is alert and oriented x3. Pulse is 164, blood pressure 108/50, respirations 18, temperature 98 degrees, pulse ox 95% on room air. HEENT: Conjunctivae normal. Oral mucosa moist. NECK: No jugular venous distention. No carotid bruit. No lymph node enlargement. CARDIOVASCULAR: S1, S2 muffled. RESPIRATORY: Breath sounds diminished at the bases. Bilateral scattered rhonchi and crackles. LEGS: No edema. No swelling. ABDOMEN: Soft. Nontender. Nervous system: No focal deficits. LABS: WBC 2.3, hemoglobin 11.8. Sodium is 132. ASSESSMENT: 1. Acute left-sided pneumonia multilobar, possibly postobstructive with severe sepsis, present on admission. 2. History of non-small cell lung cancer, recently diagnosed with chemotherapy. 3. Status post esophageal stent placement. 4. T/E Fistula after radiation treatment, status post esophageal stent. 5. Gastroesophageal reflux disease. 6. Hypertension. 7. Remote history of nicotine dependence. 8. Leukopenia, anemia and thrombocytopenia, mild pancytopenia, possibly secondary to chemotherapy and malignancy. 9. Increased random blood sugar. 10. FULL CODE. RECOMMENDATION: In this 51-year-old gentleman woman who presented with multiple medical problems, we will monitor the patient closely. Continue with current medications, continue symptomatic treatment. Continue the bronchodilators, empiric antibiotics. Closely follow with multiple consultants, Dr. Garcia, Dr. Mitchell, Dr. Doss and Dr. Mehta. Otherwise, continue to monitor. Further recommendations to follow. The patient is on liquid at this time. Continue the Cardizem drip. Also recommend follow up labs as well. Further recommendations to follow. Discussed with the patient, understands and agrees. YONATAN
[2016-05-19] MEDS ORDERED: PROPAFENONE 150 MG TAB PO STA (17:33)
--- NOTE | 2016-05-19 18:03 | ECHOF ---
Referral Reason:Onset of A Fib MEASUREMENTS -------- HEIGHT: 175.3 cm WEIGHT: 78.5 kg BP: IVSd: 1.1 cm (0.6 - 1.1) LVIDd: 4.0 cm (3.9 - 5.3) LVPWd: 1.2 cm (0.6 - 1.1) IVSs: 1.4 cm LVIDs: 2.8 cm LVPWs: 1.6 cm LA Diam: 3.8 cm (2.7 - 3.8) LAESV Index (A-L): 30.81 ml/m Ao Diam: 3.6 cm (2.0 - 3.7) AV Cusp: 1.9 cm (1.5 - 2.6) LA Diam: 4.1 cm (2.7 - 3.8) MV EXCURSION: 26.030 mm (> 18.000) MV EF SLOPE: 189 mm/s (70 - 150) EPSS: 0.1 cm RAP: 5.00 mmHg RVSP: 49.39 mmHg FINDINGS -------- Atrial fibrillation. This was a technically good study. The left ventricular size is normal. There is borderline concentric left ventricular hypertrophy. Overall left ventricular systolic function is normal with, an EF between 60 - 65 %. The right ventricle is normal in size. LA is midly dilated 29-33ml/m2. The right atrial size is normal. The aortic valve is trileaflet, and appears structurally normal. No aortic stenosis or regurgitation. The mitral valve is normal. Mild mitral regurgitation is present. Mild tricuspid regurgitation present. There is mild pulmonary hypertension. The right ventricular systolic pressure, as measured by Doppler, is 49.39mmHg. Trace/mild (physiologic) pulmonic regurgitation. The aortic root size is normal. There is no pericardial effusion. CONCLUSIONS -------- 1. This was a technically good study. 2. Trace/mild (physiologic) pulmonic regurgitation. 3. There is no pericardial effusion. 4. There is borderline concentric left ventricular hypertrophy. 5. Overall left ventricular systolic function is normal with, an EF between 60 - 65 %. 6. LA is midly dilated 29-33ml/m2. 7. The aortic valve is trileaflet, and appears structurally normal. No aortic stenosis or regurgitation. 8. Mild mitral regurgitation is present. 9. Mild tricuspid regurgitation present. 10. There is mild pulmonary hypertension. 11. The right ventricular systolic pressure, as measured by Doppler, is 49.39mmHg. [employer]: Amy Lopes RDCS
--- NOTE | 2016-05-19 18:20 | P.CONS ---
History of Present Illness - Reason for Consult Consult date: 05/19/16 - Chief Complaint Pneumonia - History of Present Illness Extremely pleasant 51-year-old male who has a history of prior nicotine dependence was having difficulties in the past. 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 He constantly has undergone chemotherapy and radiation. Recently was having great difficulties with recurrent pneumonia and evidence of aspiration. 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 As he was taken to the operating room and a stent was placed. Since that he is doing somewhat better. His chest is starting to clear a little bit and he is swallowing some liquids and full liquids without difficulties except he is having an occasional episode of emesis. It has been inconsistent based on food texture in quality. Feeling better today. Not having any further fever chill rigor or sweats. His cough is improving. His discomfort from the procedure is also improving. Patient however developed evidence of significant change in his status and was found evidence of atrial fibrillation with a rapid ventricular response. He's been treated with the Cardizem drip and is now improved. Heart rate salicin 100 and is feeling better without chest pain or pressure. Review of Systems HEENT:Denies headache or acute visual change. Denies sinus or mouth discomforts. Denies neck stiffness or pain. Denies significant oral cavity pain. Difficulty with swallowing is improving and is having left difficulties with emesis after eating. Lungs: Shortness of breath cough and sputum production are also improving. No hemoptysis noted. Cardiovascular: Denies chest pain, chest wall pain, orthopnea, or syncope, was having some increasing shortness of breath and palpitations that is now improved Gastrointestinal:Denies nausea, vomiting, diarrhea, constipation, hematemesis, melena, hematochezia. No no significant change of bowel habit noticed. Musculoskeletal: denies significant myalgias or arthralgias. No new joint swelling. Denies new back pain. Skin: Denies new rash or lesions. No new ulcers or wounds are related.. No difficulties with radiation effect on his skin Neuro: Denies headache or visual change. Denies any new onset weakness or difficulty with ambulation. Denies falls or seizures. Psychiatric:Denies anxiety or depression. Endocrine: Has mild fatigue and 20 pound weight loss related to his current therapy Past Medical History Past Medical History: Cancer, GERD/Reflux, Hypertension Additional Past Medical History / Comment(s): Non-small cell lung Cancer History of Any Multi-Drug Resistant Organisms: None Reported Past Surgical History: Hernia Repair Additional Past Surgical History / Comment(s): cyst removed from back, BRONCHOSCOPY, VATS procedure Past Anesthesia/Blood Transfusion Reactions: Motion Sickness Past Psychological History: No Psychological Hx Reported Additional Psychological History / Comment(s): lives 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 To die maker stamping. Tobacco smoker until 3 years ago approximately 30 -pack-year history. No significant alcohol use. no recreational drug use. No experience. 2 adult children that are healthy. No animals in the home Smoking Status: Former smoker Past Alcohol Use History: Daily Additional Past Alcohol Use History / Comment(s): quit smoking 2013, STARTED SMOKING AT AGE 15, SMOKED 1 PPD Past Drug Use History: None Reported - Past Family History Mother Family Medical History: No Reported History Medications and Allergies Home Medications and Allergies Comment(s): Current Medications Hydrocodone Bitart/Acetaminophen ([place] 5-325) 1 each PO Q4HR PRN PRN Reason: Moderate Pain Last Admin: 05/19/16 16:33 Dose: 1 each Docusate Sodium (Colace) 100 mg PO BID [facility] Last Admin: 05/19/16 11:08 Dose: Not Given Furosemide (Lasix) 20 mg PO 0900,1700 [facility] Last Admin: 05/19/16 16:38 Dose: 20 mg Guaifenesin (Mucinex) 1,200 mg PO Q12HR [facility] Last Admin: 05/19/16 08:17 Dose: Not Given Heparin Sodium (Porcine) (Heparin) 0 unit IV PER PROTOCOL PRN; Protocol PRN Reason: Low PTT Piperacillin/Tazobactam/ (Dextrose 3.375 gm/ IV Solution) 50 mls @ 12.5 mls/hr IVPB Q8HR [facility] Last Admin: 05/19/16 16:41 Dose: 12.5 mls/hr Dextrose/Sodium Chloride (Dextrose 5%-Ns Iv Soln) 1,000 mls @ 100 mls/hr IV .Q10H [facility] Last Admin: 05/19/16 14:54 Dose: Not Given Diltiazem HCl 125 mg/ Sodium (Chloride) 125 mls @ 10 mls/hr IV .[id number] [facility]; 10 MG/HR PRN Reason: Protocol Last Admin: 05/19/16 10:01 Dose: 10 mg/hr, 10 mls/hr Heparin Sodium/Dextrose 25,000 (unit/ IV Solution) 500 mls @ 18.83 mls/hr IV .Q24H [facility]; 12 UNITS/KG/HR PRN Reason: Protocol Last Admin: 05/19/16 10:21 Dose: 12 units/kg/hr, 18.83 mls/hr Ipratropium [place] (Atrovent Nebulized) 0.5 mg INHALATION RT-TID [facility] Last Admin: 05/19/16 12:29 Dose: Not Given Levalbuterol HCl (Xopenex Nebulized (Conc)) 1.25 mg INHALATION RT-TID [facility] Last Admin: 05/19/16 13:10 Dose: Not Given Lisinopril (Zestril) 5 mg PO BID [facility] Lorazepam (Ativan) 1 mg IV Q4HR PRN PRN Reason: Anxiety Last Admin: 05/19/16 07:50 Dose: 1 mg Metoprolol Tartrate (Lopressor) 25 mg PO BID [facility] Morphine Sulfate (Morphine Sulfate (Inj)) 4 mg IV Q4HR PRN PRN Reason: Severe Pain Last Admin: 05/19/16 02:43 Dose: 4 mg Naloxone HCl (Narcan) 0.2 mg IV Q2M PRN PRN Reason: Opioid Reversal Ondansetron HCl (Zofran) 4 mg IVP Q4HR PRN PRN Reason: Nausea And Vomiting Last Admin: 05/19/16 12:28 Dose: 4 mg Pantoprazole Sodium (Protonix) 40 mg IV DAILY [facility] Last Admin: 05/19/16 07:50 Dose: 40 mg Potassium Chloride (K-Dur 20) 20 meq PO DAILY [facility] Prochlorperazine Maleate (Compazine) 25 mg RECTAL Q12HR PRN PRN Reason: Nausea And Vomiting Last Admin: 05/16/16 17:51 Dose: 25 mg Sucralfate (Carafate) 1 gm PO ACHS [facility] Last Admin: 05/19/16 16:27 Dose: Not Given Home Medications Medication Instructions Recorded Confirmed Type Lisinopril-Hctz 20-12.5 mg 1 tab PO DAILY 10/19/15 05/14/16 History [Zestoretic 20-12.5] Acetaminophen [Tylenol] 1,000 mg PO Q4-6H PRN 05/14/16 05/14/16 History Pantoprazole [Protonix] 40 mg PO DAILY 05/14/16 05/14/16 History Allergies Allergy/AdvReac Type Severity Reaction Status Date / Time No Known Allergies Allergy Verified 05/14/16 23:22 Physical Exam Vitals: Vital Signs Temp Pulse Pulse Resp BP Pulse Ox 05/19/16 16:00 98.0 F 122 H 18 113/58 93 L 05/19/16 09:10 98.0 F 164 H 16 102/58 90 L 05/19/16 07:00 98.7 F 158 H 16 125/69 90 L 05/18/16 23:00 96.2 F L 79 16 114/71 96 05/18/16 22:50 16 05/18/16 21:01 86 05/18/16 20:43 86 Intake and Output 05/19/16 05/19/16 05/19/16 06:59 14:59 22:59 Intake Total 590 700 Output Total 50 Balance 590 650 Intake: IV 400 Dextrose 5%-0.9% NaCl 1, 400 000 ml @ 100 mls/hr IV . Q10H [facility] Rx#:[id number] Intake, IV Titration 100 Amount Diltiazem 125 mg In 30 Sodium Chloride 0.9% 100 ml @ 10 MG/HR 10 mls/hr IV .[id number] [facility] Rx#: [id number] Heparin Sodium,Porcine/ 20 D5w Pmx 25,000 unit In Dextrose/Water 1 500ml. bag @ 12 UNITS/KG/HR 18. 83 mls/hr IV .Q24H [facility] Rx #:[id number] Piperacillin-Tazobactam 3 50 .375 gm In Dextrose/Water 1 50ml.bag @ 12.5 mls/hr IVPB Q8HR [facility] Rx#: [id number] Oral 590 200 Output: Emesis 50 Other: # Voids 2 2 Pleasant 51-year-old male in no acute distress. Feeling better than earlier HEENT: Anicteric conjunctiva are pink and moist nasal mucosa grossly intact without significant lesions, there is no thrush. Neck: The neck is supple without significant lymphadenopathy or thyromegaly. Lungs: There is symmetrical air entry. However there are crackles and bronchial sounds in the left base. Few expiratory wheezes are heard. Right chest is rather clear. Heart: Irregularly irregular with an audible S1-S2, no S3 no S4. There is no significant murmur click or rub, PMI was nondisplaced. Abdomen: Positive bowel sounds soft and nontender without palpable masses or organomegaly. There was no guarding or rebound. Extremities: The upper extremities have excellent pulses they are symmetric, no significant petechiae or telangiectasia. No splinter hemorrhages were noted. The lower extremities are free from significant edema. The peripheral pulses were 2+ and symmetric. Neuro: Awake alert oriented to person place and time. There are no acute new gross focal sensory motor deficits. Results CBC & Chem 7: 05/19/16 06:43 05/19/16 06:43 Labs: Abnormal Lab Results - Last 24 Hours (Table) 05/19/16 05/19/16 05/19/16 Range/Units 06:43 06:43 15:26 WBC 2.1 L (3.8-10.6) k/uL RBC 3.81 L (4.30-5.90) m/uL Hgb 11.8 L (13.0-17.5) gm/dL Hct 35.1 L (39.0-53.0) % Plt Count 132 L (150-450) k/uL Lymphocytes # 0.4 L (1.0-4.8) k/uL APTT 50.3 H (22.0-30.0) sec Creatinine 0.63 L (0.66-1.25) mg/dL Glucose 113 H (74-99) mg/dL Microbiology - Last 24 Hours (Table) 05/15/16 02:40 Blood Culture - Preliminary Blood No Growth after 96 hours Laboratory Results WBC 2.1 k/uL (3.8-10.6) L 05/19/16 06:43 RBC 3.81 m/uL (4.30-5.90) L 05/19/16 06:43 Hgb 11.8 gm/dL (13.0-17.5) L 05/19/16 06:43 Hct 35.1 % (39.0-53.0) L 05/19/16 06:43 MCV 92.2 fL (80.0-100.0) 05/19/16 06:43 MCH 30.9 pg (25.0-35.0) 05/19/16 06:43 MCHC 33.5 g/dL (31.0-37.0) 05/19/16 06:43 RDW 11.5 % (11.5-15.5) 05/19/16 06:43 Plt Count 132 k/uL (150-450) L 05/19/16 06:43 Neutrophils % 68 % 05/19/16 06:43 Lymphocytes % 20 % 05/19/16 06:43 Monocytes % 9 % 05/19/16 06:43 Eosinophils % 0 % 05/19/16 06:43 Basophils % 0 % 05/19/16 06:43 Neutrophils # 1.5 k/uL (1.3-7.7) 05/19/16 06:43 Lymphocytes # 0.4 k/uL (1.0-4.8) L 05/19/16 06:43 Monocytes # 0.2 k/uL (0-1.0) 05/19/16 06:43 Eosinophils # 0.0 k/uL (0-0.7) 05/19/16 06:43 Basophils # 0.0 k/uL (0-0.2) 05/19/16 06:43 PT 11.2 sec (9.0-12.0) 05/19/16 09:38 INR 1.1 (<1.1) 05/19/16 09:38 APTT 50.3 sec (22.0-30.0) H 05/19/16 15:26 Sodium 141 mmol/L (137-145) 05/19/16 06:43 Potassium 3.6 mmol/L (3.5-5.1) 05/19/16 06:43 Chloride 103 mmol/L (98-107) 05/19/16 06:43 Carbon Dioxide 27 mmol/L (22-30) 05/19/16 06:43 Anion Gap 11 mmol/L 05/19/16 06:43 BUN 17 mg/dL (9-20) 05/19/16 06:43 Creatinine 0.63 mg/dL (0.66-1.25) L 05/19/16 06:43 Est GFR (MDRD) Af Amer >60 (>60 ml/min/1.73 sqM) 05/19/16 06:43 Est GFR (MDRD) Non-Af >60 (>60 ml/min/1.73 sqM) 05/19/16 06:43 Glucose 113 mg/dL (74-99) H 05/19/16 06:43 Plasma Lactic Acid Ty 1.0 mmol/L (0.7-2.0) 05/15/16 02:40 Calcium 9.0 mg/dL (8.4-10.2) 05/19/16 06:43 Total Bilirubin 0.7 mg/dL (0.2-1.3) 05/14/16 23:55 AST 19 U/L (17-59) 05/14/16 23:55 ALT 30 U/L (21-72) 05/14/16 23:55 Alkaline Phosphatase 79 U/L (38-126) 05/14/16 23:55 Total Protein 7.3 g/dL (6.3-8.2) 05/14/16 23:55 Albumin 4.2 g/dL (3.5-5.0) 05/14/16 23:55 Amylase 68 U/L (30-110) 05/14/16 23:55 Lipase 23 U/L (23-300) 05/14/16 23:55 TSH 4.290 mIU/L (0.465-4.680) 05/19/16 06:43 Free T4 1.34 ng/dL (0.78-2.19) 05/19/16 06:43 Urine Color Yellow 05/14/16 23:55 Urine Appearance Clear (Clear) 05/14/16 23:55 Urine pH 6.0 (5.0-8.0) 05/14/16 23:55 Ur Specific [place] 1.025 (1.001-1.035) 05/14/16 23:55 Urine Protein Trace (Negative) H 05/14/16 23:55 Urine Glucose (UA) Trace (Negative) H 05/14/16 23:55 Urine Ketones 1+ (Negative) H 05/14/16 23:55 Urine Blood Negative (Negative) 05/14/16 23:55 Urine Nitrite Negative (Negative) 05/14/16 23:55 Urine Bilirubin Negative (Negative) 05/14/16 23:55 Urine Urobilinogen 2.0 mg/dL (<2.0) 05/14/16 23:55 Ur Leukocyte Esterase Negative (Negative) 05/14/16 23:55 Influenza Type A RNA Not Detected (Not Detectd) 05/15/16 02:50 Influenza Type B (PCR) Not Detected (Not Detectd) 05/15/16 02:50 Assessment and Plan (1) Squamous cell carcinoma lung Narrative/Plan: Pleasant 51-year-old male presents to hospital with difficulties with ongoing nausea with emesis associated with increasing cough and shortness of breath. The patient related every time he was trying to eat or drink he could tell that some was going into his longest he would cough so much. He was then taken to the operating room and the esophageal tracheal fistula was found and a stent was placed. Since the stent was placed he is having further improvment. He is having less cough. In doing much better. He had transient fever that is now improved. Does have the x-ray findings of the left lower lobe pneumonia. Antibiotic therapy is being utilized with Zosyn which is an excellent choice for his significant aspiration and multiple medical procedures. Does not need to broaden at this point in time. He is without fever and improving. Any change would then necessitate addition of antifungal therapy. The patient however is coming to the tavo of his chemotherapy effect and there is some notation of some increasing leukopenia and thrombocytopenia. If these continue with the need to discontinue Zosyn and likely with an transition to meropenem. Fortunately he is doing well enough at this point in time. Oncology is following closely. Status: Acute (2) Tracheo-esophageal fistula Status: Acute (3) Recurrent aspiration pneumonia Status: Acute
[2016-05-19] MEDS: METOPROLOL TARTRATE 25 MG TAB PO SCH (20:20)
[2016-05-19] MEDS: LISINOPRIL 5 MG TAB PO SCH (20:24)
[2016-05-19] MEDS ORDERED: ACETAMINOPHEN TAB 325 MG TAB PO PRN (23:20)
[2016-05-20] MEDS: HYDROcodone/APAP 5-325MG 1 EACH TAB PO PRN ×4 (04:33→22:12)
[2016-05-20] MEDS: ONDANSETRON 4 MG/2 ML VIAL IVP PRN (04:33)
[2016-05-20 05:52] LABS: Basophils % (A) 1 %; CH 30.5; CHCM 33.5; Eosinophils % (A) 0 %; HCT 34.8 % (39.0-53.0); HDW 2.67; Luc # (Auto) 0.05; Luc % (Auto) 4; Lymphocytes # (A) 0.3 k/uL (1.0-4.8); Lymphocytes % (A) 18 %; MCH 31.4 pg (25.0-35.0); MCHC 34.3 g/dL (31.0-37.0); MCV 91.3 fL (80.0-100.0); Mean Platelet Volume 8.6; Monocytes # (A) 0.1 k/uL (0-1.0); Monocytes % (A) 9 %; Neutrophils # (A) 1.1 k/uL (1.3-7.7); Neutrophils % (A) 69 %; RBC 3.81 m/uL (4.30-5.90); RDW 11.5 % (11.5-15.5); WBC (Perox) 1.55
[2016-05-20 05:54] LABS: WBC 1.6 k/uL (3.8-10.6)
[2016-05-20 05:58] LABS: Anion Gap 8 mmol/L; Blood Urea Nitrogen 8 mg/dL (9-20); Calcium 8.8 mg/dL (8.4-10.2); Carbon Dioxide 34 mmol/L (22-30); Chloride 96 mmol/L (98-107); Glucose 92 mg/dL (74-99); Non-African American GFR(MDRD) >60 (>60 ml/min/1.73 sqM); Potassium 3.2 mmol/L (3.5-5.1); Sodium 138 mmol/L (137-145)
[2016-05-20 06:55] LABS: Glucose,Whole Blood 98 mg/dL (75-99)
[2016-05-20] MEDS: DEXTROSE 5%-0.9% NACL 1,000 ML IV SCH ×2 (07:36→09:16)
[2016-05-20] MEDS: SUCRALFATE 1 GM TAB PO SCH ×4 (07:44→20:14)
--- NOTE | 2016-05-20 08:11 | P.PN ---
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 POD #2 esophagogastroscopy, placement of esophageal stent with fluoroscopic guidance using 18 x 153 mm coated [employer] stent. Patient currently sitting up at the bedside in no apparent distress. States he is coughing less. Has been able to tolerate full liquids. States his occasional emesis he believes to be as a side effect from chemo, does state that he is keeping down full liquids. Objective - Vital Signs Vital signs: Vital Signs Temp 97.9 F 05/20/16 04:00 Pulse 75 05/20/16 04:00 Resp 18 05/20/16 04:00 BP 121/79 05/20/16 04:00 Pulse Ox 98 05/20/16 04:00 Intake & Output 05/19/16 05/20/16 05/20/16 18:59 06:59 18:59 Intake Total 700 978 Output Total 50 Balance 650 978 Weight 77.8 kg Intake: IV 400 900 Dextrose 5%-0.9% NaCl 1, 400 900 000 ml @ 100 mls/hr IV . Q10H [facility] Rx#:[id number] Intake, IV Titration 100 78 Amount Diltiazem 125 mg In 30 10 Sodium Chloride 0.9% 100 ml @ 10 MG/HR 10 mls/hr IV .[id number] [facility] Rx#: [id number] Heparin Sodium,Porcine/ 20 18 D5w Pmx 25,000 unit In Dextrose/Water 1 500ml. bag @ 12 UNITS/KG/HR 18. 83 mls/hr IV .Q24H [facility] Rx #:[id number] Piperacillin-Tazobactam 3 50 50 .375 gm In Dextrose/Water 1 50ml.bag @ 12.5 mls/hr IVPB Q8HR [facility] Rx#: [id number] Oral 200 Output: Emesis 50 Other: Voiding Method Urinal # Voids 2 1 - Constitutional General appearance: Present: cooperative, no acute distress - Respiratory Details: Lungs sounds diminished bilaterally. Respirations even, nonlabored. Remains on room air. - Cardiovascular Details: S1, S2 present. Regular rate and rhythm. When into atrial fibrillation with rapid ventricular response yesterday, however converted back to normal sinus rhythm at approximately 7:30 PM last night, has remained in normal sinus rhythm since. - Gastrointestinal Gastrointestinal Comment(s): Abdomen soft, nontender, nondistended. Active bowel sounds 4 quadrants. Again , tolerating full liquids. - Genitourinary Genitourinary Comment(s): Continues to void clear, yellow urine. - Musculoskeletal Musculoskeletal: Present: gait normal, strength equal bilaterally - Psychiatric Psychiatric: Present: A&O x's 3, appropriate affect, intact judgment & insight - Allied health notes Allied health notes reviewed: nursing - Labs CBC & Chem 7: 05/20/16 05:30 05/20/16 05:30 Labs: Abnormal Lab Results - Last 24 Hours (Table) 05/19/16 05/20/16 05/20/16 Range/Units 15:26 05:30 05:30 WBC 1.6 L* (3.8-10.6) k/uL RBC 3.81 L (4.30-5.90) m/uL Hgb 12.0 L (13.0-17.5) gm/dL Hct 34.8 L (39.0-53.0) % Plt Count 130 L (150-450) k/uL Neutrophils # 1.1 L (1.3-7.7) k/uL Lymphocytes # 0.3 L (1.0-4.8) k/uL APTT 50.3 H (22.0-30.0) sec Potassium 3.2 L (3.5-5.1) mmol/L Chloride 96 L (98-107) mmol/L Carbon Dioxide 34 H (22-30) mmol/L BUN 8 L (9-20) mg/dL 05/20/16 Range/Units 05:39 WBC (3.8-10.6) k/uL RBC (4.30-5.90) m/uL Hgb (13.0-17.5) gm/dL Hct (39.0-53.0) % Plt Count (150-450) k/uL Neutrophils # (1.3-7.7) k/uL Lymphocytes # (1.0-4.8) k/uL APTT 37.6 H (22.0-30.0) sec Potassium (3.5-5.1) mmol/L Chloride (98-107) mmol/L Carbon Dioxide (22-30) mmol/L BUN (9-20) mg/dL Microbiology - Last 24 Hours (Table) 05/15/16 02:40 Blood Culture - Preliminary Blood No Growth after 120 hours Assessment and Plan (1) Lung cancer Status: Acute (2) Tracheo-esophageal fistula Status: Acute Plan: 1. Tolerating full liquids, advance to regular diet. 2. Continue present management per primary and oncology. 3. Heart rate and rhythm control per cardiology 4. Pain management with current regimen. 5. May discharge from our standpoint once able to tolerate food. Will see PRN. Time with Patient: Greater than 30
[2016-05-20] MEDS: METOPROLOL TARTRATE 25 MG TAB PO SCH ×2 (09:03→20:15)
[2016-05-20] MEDS: POTASSIUM CHLORIDE ER 20 MEQ TAB.ER PO SCH (09:03)
[2016-05-20] MEDS: FUROSEMIDE 20 MG TAB PO SCH ×2 (09:03→16:05)
[2016-05-20] MEDS: PANTOPRAZOLE 40 MG/10 ML VIAL IV SCH (09:03)
[2016-05-20] MEDS: LISINOPRIL 5 MG TAB PO SCH ×2 (09:03→20:15)
[2016-05-20] MEDS: DOCUSATE 100 MG CAP PO SCH ×2 (09:04→20:15)
[2016-05-20] MEDS: guaiFENesin 600 MG TABLET.ER PO SCH (09:04)
[2016-05-20] MEDS: PIPERACILLIN-TAZOBACTAM 3.375 GM in DEXTROSE/WATER 1 50ML.BAG IVPB SCH ×2 (09:13→16:05)
[2016-05-20] MEDS: HEPARIN SODIUM,PORCINE/D5W PMX 25,000 UNIT in DEXTROSE/WATER 1 500ML.BAG IV SCH (10:06)
[2016-05-20] MEDS: DILTIAZEM 125 MG in SODIUM CHLORIDE 0.9% 100 ML IV SCH (10:45)
[2016-05-20] MEDS ORDERED: POTASSIUM CHLORIDE ER 20 MEQ TAB.ER PO SCH (11:00)
--- NOTE | 2016-05-20 12:09 | P.PN ---
Subjective 51-year-old male well-known to me. I initially saw him in consultation sent to me by one day herthroat doctor because of hoarseness. On direct laryngoscopy he was found to have left vocal cord paralysis and it was assumed that he had a left recurrent laryngeal nerve involvement by a lung mass. We tried multiple times to get a diagnosis on him. He did have a mass in the left lung. I initially did she have regular bronchoscopy and then electromagnetic navigational bronchoscopy. I ended up sending him to [facility]. There is an interventional bronchoscopy had 2 or 3 endobronchial ultrasound procedures. They were all nondiagnostic as might proceed procedures were. Dr. Spann from thoracic surgery took the patient to the operating room and did a wedge resection of the left upper lobe mass which was also negative. At that point we are just observing the patient. A CAT scan showed the lesion to be increasing in size and he went back interventional bronchoscopy at [facility] and finally had a diagnosis of non-small cell lung cancer. Anyway the patient currently started on treatment. He comes in on this admission with primarily nausea and vomiting from chemotherapy. On chest x-ray we will noted that he had significant cut off sign at the left mainstem. He probably has tumor or and/or debris causing a postobstructive pneumonia. He scheduled for bronchoscopy today. He was seen by our nurse practitioner yesterday as well as I saw him as well. Progress note dated 05/17/2016 51-year-old male with a history of non-small cell lung cancer.. The patient has been pretty referred to radiation therapy and also medical oncology. He came in with primarily nausea and vomiting. He was initially sent to me because of left vocal cord paralysis and involvement of his lung mass by a lesion which interfered with a left recurrent laryngeal nerve. Anyway after multiple attempts of biopsy and transferred on the [facility], we are able to come up with a diagnosis of non-small cell lung cancer. Yesterday he underwent bronchoscopy. He had significant disease in the left chest. He really had very narrowed airways to the left upper lobe lingula and left lower lobe. There was significant mucosal abnormality. We did not sample SS we were to have a diagnosis. We'll hoping the radiation therapy can open up these areas and improve his breathing. Progress note dated 05/18/2016 51-year-old male with a history of non-small cell lung cancer. 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 Other than that he is doing reasonably well. Has been started on chemoradiation therapy for his non-small cell lung cancer. Initially presented with hoarseness secondary to left vocal cord paralysis. Had to go to [facility] for diagnosis. The patient feels pretty good today. Was admitted on this admission primarily for nausea and vomiting. Progress note dated 05/19/2016 51-year-old male who continues to have one problem after another. Initially seen for a mass in his left upper lobe. 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 The patient had multiple biopsies before diagnosis was established. He has non-small cell lung cancer. Recently started on chemoradiation therapy. Developed severe chemotherapy-induced nausea and vomiting. 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 More recently, he was moved up to the sixth floor from the fifth floor because of atrial fibrillation with RVR. From the pulmonary standpoint he is doing relatively well. Feeling generally well. No difficulty breathing. Not coughing up any phlegm or blood. Progress note dated 05/20/2016 51-year-old male with a history of recent development of atrial fibrillation with RVR although he is back in sinus rhythm. Initially was sent to me because of her left upper lobe mass. He was discovered to have acute onset of hoarseness in the left vocal cord paralysis. He had multiple biopsy attempt both here and at [facility] eventually came up with a diagnosis of non-small cell lung cancer. Recently started on chemoradiation. Developed chemotherapy-induced nausea vomiting. 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 A esophageal stent was placed by Dr. Wu. More recently he developed atrial fibrillation with RVR was transferred up to the sixth floor. Doing okay today. Objective - Vital Signs Vital signs: Vital Signs Temp 97.3 F L 05/20/16 08:00 Pulse 88 05/20/16 08:00 Resp 18 05/20/16 08:00 BP 128/71 05/20/16 08:00 Pulse Ox 95 05/20/16 08:00 Intake & Output 05/19/16 05/20/16 05/20/16 18:59 06:59 18:59 Intake Total 016 526 9238.594 Output Total 50 Balance 064 101 1032.594 Weight 77.8 kg Intake: IV 400 900 658.75 Dextrose 5%-0.9% NaCl 1, 400 900 550 000 ml @ 100 mls/hr IV . Q10H [facility] Rx#:[id number] Heparin Sodium,Porcine/ 58.75 D5w Pmx 25,000 unit In Dextrose/Water 1 500ml. bag @ 12 UNITS/KG/HR 18. 83 mls/hr IV .Q24H [facility] Rx #:[id number] Piperacillin-Tazobactam 3 50 .375 gm In Dextrose/Water 1 50ml.bag @ 12.5 mls/hr IVPB Q8HR [facility] Rx#: [id number] Intake, IV Titration 100 78 451.844 Amount Diltiazem 125 mg In 30 10 Sodium Chloride 0.9% 100 ml @ 10 MG/HR 10 mls/hr IV .[id number] [facility]OS Rx#: [id number] Heparin Sodium,Porcine/ 20 18 451.844 D5w Pmx 25,000 unit In Dextrose/Water 1 500ml. bag @ 12 UNITS/KG/HR 18. 83 mls/hr IV .Q24H [facility] Rx #:[id number] Piperacillin-Tazobactam 3 50 50 .375 gm In Dextrose/Water 1 50ml.bag @ 12.5 mls/hr IVPB Q8HR [facility] Rx#: [id number] Oral 200 Output: Emesis 50 Other: Voiding Method Urinal # Voids 2 1 - Exam No acute distress, oriented 3. No respiratory distress. Rib looks remarkable murmur markedly well given his chest x-ray appearance. HEENT examination is grossly unremarkable. Mucous membranes are moist. Neck supple. Full range of motion. No adenopathy. Cardiovascular examination reveals a regular rhythm and rate. Heart rate about 80. Lungs reveal diminished breath sounds at the left. No wheezes or rhonchi. No crackles. Right lung is relatively clear. Abdomen soft bowel sounds are heard. Extremities are intact. - Labs CBC & Chem 7: 05/20/16 05:30 05/20/16 05:30 Labs: Abnormal Lab Results - Last 24 Hours (Table) 05/19/16 05/20/16 05/20/16 Range/Units 15:26 05:30 05:30 WBC 1.6 L* (3.8-10.6) k/uL RBC 3.81 L (4.30-5.90) m/uL Hgb 12.0 L (13.0-17.5) gm/dL Hct 34.8 L (39.0-53.0) % Plt Count 130 L (150-450) k/uL Neutrophils # 1.1 L (1.3-7.7) k/uL Lymphocytes # 0.3 L (1.0-4.8) k/uL APTT 50.3 H (22.0-30.0) sec Potassium 3.2 L (3.5-5.1) mmol/L Chloride 96 L (98-107) mmol/L Carbon Dioxide 34 H (22-30) mmol/L BUN 8 L (9-20) mg/dL 05/20/16 Range/Units 05:39 WBC (3.8-10.6) k/uL RBC (4.30-5.90) m/uL Hgb (13.0-17.5) gm/dL Hct (39.0-53.0) % Plt Count (150-450) k/uL Neutrophils # (1.3-7.7) k/uL Lymphocytes # (1.0-4.8) k/uL APTT 37.6 H (22.0-30.0) sec Potassium (3.5-5.1) mmol/L Chloride (98-107) mmol/L Carbon Dioxide (22-30) mmol/L BUN (9-20) mg/dL Microbiology - Last 24 Hours (Table) 05/15/16 02:40 Blood Culture - Preliminary Blood No Growth after 120 hours Assessment and Plan (1) Postobstructive pneumonia Status: Acute (2) Dehydration Status: Acute (3) Intractable nausea and vomiting Status: Acute (4) Lung cancer Status: Acute (5) Squamous cell carcinoma lung Status: Acute (6) Tracheoesophageal fistula Status: Acute Plan: Plan dated 05/16/2016 We discussed this case yesterday. We decided to go ahead and schedule him for bronchoscopy. We'll evaluate that left mainstem. There may be debris or tumor obstructing that area. He may benefit from a stent and/or endobronchial brachytherapy. No radiation is currently hopefully going to improve that situation. He is also on chemotherapy although having significant nausea and vomiting. We'll await and make a difference additional assessments once we a bit hard be able to directly visualize the left mainstem. Plan dated 05/17/2016 The patient had bronchoscopy yesterday. The results were explained to him. His overall prognosis is poor. He'll undergo ongoing radiation therapy and chemotherapy for non-small cell lung cancer. He was mostly admitted this time for chemotherapy induced emesis. We'll continue to follow make sure I see the patient in the outpatient setting. Plan dated 05/18/2016 The patient underwent bronchoscopy on the . I did not see any evidence of a tracheal or bronchial fistula. The patient apparently does have one based on his swallow evaluation and barium test. The patient is going for stent placement today by Dr. Wu. The patient otherwise is doing well. He was admitted with a diagnosis of primarily chemotherapy-induced nausea and vomiting. Lots of disease in the left chest based on the bronchoscopic evaluation. We'll continue to follow. Plan dated 05/19/2016 The patient is currently upon the sixth floor being monitored because of the atrial fibrillation with RVR. From the pulmonary standpoint he is stable. An esophageal stent was placed because of this tracheoesophageal fistula. We did not see the fistula on bronchoscopy. The chemotherapy induced nausea settle down. From my perspective could be discharged home once his A. fib is under control. We'll make sure that we see him in the office. He'll continue with his radiation and chemo. Plan dated 05/20/2016 We'll continue to follow. Hopefully the patient can be discharged soon. Needs to continue both his chemoradiation for his non-small cell lung cancer. Hopefully the stent placement by Dr. Wu will help to alleviate the tracheoesophageal fistula. Additional recommendations suggestions are forthcoming. Time with Patient: Less than 30
[2016-05-20] MEDS: IPRATROPIUM 0.5 MG/2.5 ML NEBU INHALATION SCH ×3 (12:58→21:30)
[2016-05-20] MEDS: LEVALBUTEROL NEB (CONC) 1.25 MG/0.5 ML AMP INHALATION SCH ×3 (13:05→21:30)
--- NOTE | 2016-05-20 14:15 | PN ---
Mr. Rosario is a 51-year-old male who has a history of tracheoesophageal fistula following radiation for lung cancer, status post stenting of the esophagus . He had episode of atrial fibrillation. He is back in sinus mechanism. He is feeling reasonably well. He has no chest pain. No dizziness. No palpitation. He denies any nausea. He denies any palpitation. He is back in sinus mechanism. He has some abdominal discomfort. His echocardiogram revealed preserved left ventricular size and systolic function. He received Rythmol 600 mg one dose yesterday with confucianist of normal sinus rhythm. He continued to be on Lasix 20 mg twice a day orally, Lisinopril 5 mg twice a day, metoprolol tartrate 25 mg twice a day. PHYSICAL EXAMINATION: Blood pressure 128/70 with a heart in the 80s. LUNGS: No wheezes. HEART: Regular rate and rhythm. S1, S2, no S3, no rub appreciated. ABDOMEN: Soft, nontender. EXTREMITIES: Trace to 1+ edema. Lab data revealed BUN and creatinine of 8 and 0.71. Hemoglobin of 12, white blood cell of 1.6, platelets count of 130, potassium 3.2. His thyroid function tests are normal. IMPRESSION: 1. Lung cancer. 2. Tracheoesophageal fistula, status post stenting. 3. Paroxysmal atrial fibrillation, back to normal sinus rhythm. RECOMMENDATION: I will continue on present therapy. I will stop the IV Cardizem. Will continue IV heparin for another 24 hours. I will replace his potassium and depending on his progress, further recommendation will be made.
--- NOTE | 2016-05-20 16:26 | PN ---
DATE OF SERVICE: 05/20/2016 I am covering for Dr. Pearce. HISTORY OF PRESENT ILLNESS: This 51-year-old gentleman with acute left side pneumonia is being closely monitored. Patient also had recent esophageal stent placement. Patient also has history non-small cell lung cancer also on radiation. The patient is complaining of some dysphagia. Interestingly, the water is coming back with some regurgitating fashion according to him. Patient is on broad-spectrum IV antibiotics. Multiple consultants are following the patient closely including Infectious Disease. PAST MEDICAL HISTORY: Reviewed. CARDIOVASCULAR SYSTEM: No angina or palpitations. RESPIRATORY: As mentioned earlier. GASTROINTESTINAL: As mentioned earlier. : No dysuria. CURRENT MEDICATIONS: 1. Tylenol 650 q.4 p.r.n. 2. [place] 5 mg q.4. 3. Colace 100 mg p.o. daily. 4. Lasix 20 mg, 5. Heparin subcu. 6. Atrovent 0.5 t.i.d. 7. Xopenex 1.25 t.i.d. 8. Zestril 5 mg p.o. b.i.d. 9. Ativan 1 mg q.4 p.r.n. 11. Narcan 0.2 q.2. 12. Zofran 4 mg IV q.4 p.r.n. 13. Protonix 40 mg IV daily. 14. Zosyn 3.375 IV q.8. 15. K-Dur 20 mEq p.o. b.i.d. 16. Compazine 25 mg. 17. Carafate 1 gram p.o. a.c. and at bedtime. PHYSICAL EXAMINATION: Patient is alert and oriented x3. Pulse 88, blood pressure 128/71, respiration 18, temperature 97.2, pulse ox 94% on room air. HEENT: Conjunctivae normal. NECK: No jugular venous distention. CARDIOVASCULAR: S1 and S2, muffled. RESPIRATORY: Breath sounds diminished at the bases. A few scattered rhonchi and crackles. ABDOMEN: Soft, nontender. No mass palpable. LEGS: No edema, no swelling. NERVOUS SYSTEM: No focal deficits. LABS: WBC 4.7, hemoglobin 12, platelets 130, sodium 138, potassium 3.2. ASSESSMENT: 1. Acute left side pneumonia multilobar, possibly postobstructive with severe sepsis, present on admission. 2. History of non-small cell lung cancer recently diagnosed, status post chemoradiation. 3. Status post esophageal stent placement. 4. Tracheoesophageal fistula after radiation treatment and status post esophageal stent. 5. Gastroesophageal reflux disease. 6. Hypertension. 7. Remote history of nicotine dependence. 8. Leukopenia, anemia and thrombocytopenia and mild pancytopenia, possibly secondary to chemotherapy and malignancy. 9. Increased random blood sugar. 10. FULL CODE. RECOMMENDATIONS AND DISCUSSION: In this 51-year-old gentleman who presented with multiple complex medical issues, will continue the current medications and symptomatic treatment. Continue with bronchodilators. Continue with empiric antibiotics. Otherwise closely follow. Otherwise, the most recent chest x-ray was personally reviewed. The prognosis is guarded because of multiple complex medical issues. Further recommendations to follow. MTDD
[2016-05-20 20:30] LABS: Glucose,Whole Blood 139 mg/dL (75-99)
[2016-05-21] MEDS: PIPERACILLIN-TAZOBACTAM 3.375 GM in DEXTROSE/WATER 1 50ML.BAG IVPB SCH ×4 (05:13→20:57)
[2016-05-21] MEDS: HYDROcodone/APAP 5-325MG 1 EACH TAB PO PRN ×5 (05:14→20:53)
[2016-05-21 06:22] LABS: Glucose,Whole Blood 107 mg/dL (75-99)
[2016-05-21] MEDS: HEPARIN SODIUM,PORCINE/D5W PMX 25,000 UNIT in DEXTROSE/WATER 1 500ML.BAG IV SCH (06:35)
[2016-05-21] MEDS: SUCRALFATE 1 GM TAB PO SCH ×4 (06:36→20:54)
[2016-05-21] MEDS: ONDANSETRON 4 MG/2 ML VIAL IVP PRN ×2 (06:42→20:52)
[2016-05-21 06:54] LABS: Anion Gap 4 mmol/L; Blood Urea Nitrogen 5 mg/dL (9-20); Calcium 8.4 mg/dL (8.4-10.2); Carbon Dioxide 35 mmol/L (22-30); Chloride 96 mmol/L (98-107); Glucose 102 mg/dL (74-99); Non-African American GFR(MDRD) >60 (>60 ml/min/1.73 sqM); Sodium 135 mmol/L (137-145)
[2016-05-21] MEDS ORDERED: Potassium Replacement Protocol 1 EACH MISC MISCELLANE PRN (07:56)
[2016-05-21 07:57] LABS: CH 30.9; CHCM 33.9; HCT 32.8 % (39.0-53.0); HDW 2.75; HGB 10.9 gm/dL (13.0-17.5); MCH 30.4 pg (25.0-35.0); MCHC 33.3 g/dL (31.0-37.0); MCV 91.2 fL (80.0-100.0); Mean Platelet Volume 8.2; WBC (Perox) 1.33
[2016-05-21 08:27] LABS: WBC 1.3 k/uL (3.8-10.6)
[2016-05-21 08:43] LABS: Add Differential Manual Differential
[2016-05-21 08:50] LABS: Manual Review Performed; Nucleated Red Blood Cells 0 /100 WBC (0-0); Total Cells Counted 100
[2016-05-21] MEDS: LEVALBUTEROL NEB (CONC) 1.25 MG/0.5 ML AMP INHALATION SCH ×3 (09:22→19:33)
[2016-05-21] MEDS: IPRATROPIUM 0.5 MG/2.5 ML NEBU INHALATION SCH ×3 (09:22→19:33)
[2016-05-21] MEDS: DOCUSATE 100 MG CAP PO SCH ×2 (09:52→20:53)
[2016-05-21] MEDS: FUROSEMIDE 20 MG TAB PO SCH ×2 (09:52→16:51)
[2016-05-21] MEDS: POTASSIUM CHLORIDE 10 MEQ, LIDOCAINE 2% INJ 10 MG in SODIUM CHLORIDE 0.9% 100 ML IV SCH ×2 (09:52→12:27)
[2016-05-21] MEDS: LISINOPRIL 5 MG TAB PO SCH ×2 (09:53→20:54)
[2016-05-21] MEDS: METOPROLOL TARTRATE 25 MG TAB PO SCH ×2 (09:53→20:54)
[2016-05-21] MEDS: PANTOPRAZOLE 40 MG/10 ML VIAL IV SCH (09:53)
[2016-05-21] MEDS: POTASSIUM CHLORIDE ER 20 MEQ TAB.ER PO SCH (09:54)
[2016-05-21 11:55] LABS: CH 30.8; CHCM 33.8; HCT 34.1 % (39.0-53.0); HDW 2.81; HGB 11.5 gm/dL (13.0-17.5); MCH 30.8 pg (25.0-35.0); MCHC 33.8 g/dL (31.0-37.0); MCV 91.4 fL (80.0-100.0); Mean Platelet Volume 7.9; RBC 3.73 m/uL (4.30-5.90); RDW 11.8 % (11.5-15.5)
[2016-05-21 11:57] LABS: WBC 1.5 k/uL (3.8-10.6)
--- NOTE | 2016-05-21 15:17 | P.PN ---
Subjective Principal diagnosis: Atrial fibrillation This is a pleasant 51-year-old gentleman with history of tracheoesophageal fistula with stent placement, lung cancer, who had an episode of atrial fibrillation. He is now back in normal sinus rhythm, he was given Rythmol, and converted to sinus. He remains in sinus rhythm today, echo revealed preserved left ventricular systolic function. Because of the brief episode of atrial fibrillation, which was likely secondary to the recent procedure of stenting to the esophagus, we will not initiate anticoagulation. We will discontinue the patient's IV heparin today. Patient feels well, he's been up ambulating most of the day. Potassium today 3.0 which was replaced. Objective - Vital Signs Vital signs: Vital Signs Temp 97.2 F L 05/21/16 08:00 Pulse 86 05/21/16 13:47 Resp 16 05/21/16 12:00 BP 123/75 05/21/16 12:00 Pulse Ox 95 05/21/16 12:00 Intake & Output 05/20/16 05/21/16 05/21/16 18:59 06:59 18:59 Intake Total 5121.436 0466.53 Balance 3733.719 9244.53 Weight 79 kg 79 kg Intake: IV 658.75 1050 Dextrose 5%-0.9% NaCl 1, 550 950 000 ml @ 100 mls/hr IV . Q10H [facility] Rx#:[id number] Heparin Sodium,Porcine/ 58.75 D5w Pmx 25,000 unit In Dextrose/Water 1 500ml. bag @ 12 UNITS/KG/HR 18. 83 mls/hr IV .Q24H [facility] Rx #:[id number] Piperacillin-Tazobactam 3 50 100 .375 gm In Dextrose/Water 1 50ml.bag @ 12.5 mls/hr IVPB Q8HR [facility] Rx#: [id number] Intake, IV Titration 581.314 370.53 Amount Heparin Sodium,Porcine/ 581.314 370.53 D5w Pmx 25,000 unit In Dextrose/Water 1 500ml. bag @ 12 UNITS/KG/HR 18. 83 mls/hr IV .Q24H [facility] Rx #:[id number] Oral 125 Other: Voiding Method Urinal # Voids 1 1 - Exam PHYSICAL EXAMINATION: HEENT: Head is atraumatic, normocephalic. Pupils equal, round. Neck is supple. There is no elevated jugular venous pressure. HEART EXAMINATION: Heart S1, S2 normal. No murmur or gallop heard. CHEST EXAMINATION: Lungs reveal diminished air entry to the bases. ABDOMEN: Soft, nontender. Bowel sounds are heard. No organomegaly noted. EXTREMITIES: 2+ peripheral pulses with no evidence of peripheral edema and no calf tenderness noted. NEUROLOGIC patient is awake, alert and oriented -3. . - Labs CBC & Chem 7: 05/21/16 11:10 05/21/16 05:51 Labs: Abnormal Lab Results - Last 24 Hours (Table) 05/20/16 05/20/16 05/20/16 Range/Units 14:48 20:09 21:37 WBC (3.8-10.6) k/uL RBC (4.30-5.90) m/uL Hgb (13.0-17.5) gm/dL Hct (39.0-53.0) % Plt Count (150-450) k/uL Neutrophils # (Manual) (1.3-7.7) k/uL Lymphocytes # (Manual) (1.0-4.8) k/uL APTT 42.9 H 40.8 H (22.0-30.0) sec Sodium (137-145) mmol/L Potassium (3.5-5.1) mmol/L Chloride (98-107) mmol/L Carbon Dioxide (22-30) mmol/L BUN (9-20) mg/dL Glucose (74-99) mg/dL POC Glucose (mg/dL) 139 H (75-99) mg/dL 05/21/16 05/21/16 05/21/16 Range/Units 05:51 05:51 06:21 WBC 1.3 L* (3.8-10.6) k/uL RBC 3.60 L (4.30-5.90) m/uL Hgb 10.9 L (13.0-17.5) gm/dL Hct 32.8 L (39.0-53.0) % Plt Count 124 L (150-450) k/uL Neutrophils # (Manual) 0.5 L (1.3-7.7) k/uL Lymphocytes # (Manual) 0.4 L (1.0-4.8) k/uL APTT (22.0-30.0) sec Sodium 135 L (137-145) mmol/L Potassium 3.0 L* (3.5-5.1) mmol/L Chloride 96 L (98-107) mmol/L Carbon Dioxide 35 H (22-30) mmol/L BUN 5 L (9-20) mg/dL Glucose 102 H (74-99) mg/dL POC Glucose (mg/dL) 107 H (75-99) mg/dL 05/21/16 05/21/16 Range/Units 11:10 11:10 WBC 1.5 L* (3.8-10.6) k/uL RBC 3.73 L (4.30-5.90) m/uL Hgb 11.5 L (13.0-17.5) gm/dL Hct 34.1 L (39.0-53.0) % Plt Count 135 L (150-450) k/uL Neutrophils # (Manual) (1.3-7.7) k/uL Lymphocytes # (Manual) (1.0-4.8) k/uL APTT 77.5 H (22.0-30.0) sec Sodium (137-145) mmol/L Potassium (3.5-5.1) mmol/L Chloride (98-107) mmol/L Carbon Dioxide (22-30) mmol/L BUN (9-20) mg/dL Glucose (74-99) mg/dL POC Glucose (mg/dL) (75-99) mg/dL Microbiology - Last 24 Hours (Table) 05/15/16 02:40 Blood Culture - Final Blood No Growth after 144 hours Assessment and Plan Plan: Assessment and plan Assessment and plan #1 symptoms of acute nausea and vomiting #2 dehydration #3 non-small cell lung CA #4 tracheoesophageal fistula status post stent placement #5 hypertension #6 prior nicotine dependence #7 atrial fibrillation, paroxysmal, remaining in normal sinus rhythm. Plan We will continue the patient on current dose of beta brielle. Discontinue IV heparin. Because of the brief episode of atrial fibrillation, patient does not require anticoagulation at this time, it was likely secondary to the esophageal stenting. We will make the patient a follow-up appointment in the office post discharge. DNP note has been reviewed, I agree with a documented findings and plan of care. Patient was seen and examined.
[2016-05-21 16:39] LABS: Glucose,Whole Blood 86 mg/dL (75-99)
--- NOTE | 2016-05-21 16:42 | US ---
EXAMINATION TYPE: US venous doppler duplex LE DATE OF EXAM: 05/21/2016 4:25 PM COMPARISON: NONE CLINICAL HISTORY: Rule out DVT. Hx cancer. Stopped blood thinners x 2 days ago. No hx of blood clot s. SIDE PERFORMED: Bilateral VESSELS IMAGED: External Iliac Vein (EIV) Common Femoral Vein Deep Femoral Vein Greater Saphenous Vein * Femoral Vein Popliteal Vein Small Saphenous Vein * Proximal Calf Veins (* superficial vessels) Right Leg: Appears negative for DVT Left Leg: Appears negative for DVT Satisfactory color flow, phasicity, and compressibility is seen in the bilateral lower extremities at the above levels. IMPRESSION: No ultrasound evidence for acute DVT in either lower extremity.
--- NOTE | 2016-05-21 18:09 | P.PN ---
Subjective Principal diagnosis: Pneumonia Extremely pleasant 51-year-old male who has a history of prior nicotine dependence was having difficulties in the past. 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 He constantly has undergone chemotherapy and radiation. Recently was having great difficulties with recurrent pneumonia and evidence of aspiration. 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 As he was taken to the operating room and a stent was placed. Since that he is doing somewhat better. His chest is starting to clear a little bit and he is swallowing some liquids and full liquids without difficulties except he is having an occasional episode of emesis. It has been inconsistent based on food texture in quality. It has further improved today Feeling better today. Not having any further fever chill rigor or sweats. His cough is improving. His discomfort from the procedure is also improving. Patient however developed evidence of significant change in his status and was found evidence of atrial fibrillation with a rapid ventricular response. He's been treated with the Cardizem drip and is now improved. Heart rate less than 100 and is feeling better without chest pain or pressure. Objective - Vital Signs Vital signs: Vital Signs Temp 98.9 F 05/21/16 16:00 Pulse 80 05/21/16 16:00 Resp 16 05/21/16 16:00 BP 122/77 05/21/16 16:00 Pulse Ox 95 05/21/16 12:00 Intake & Output 05/20/16 05/21/16 05/21/16 18:59 06:59 18:59 Intake Total 6440.080 3980.53 Balance 8285.012 5716.53 Weight 79 kg 79 kg Intake: IV 658.75 1050 Dextrose 5%-0.9% NaCl 1, 550 950 000 ml @ 100 mls/hr IV . Q10H [facility] Rx#:[id number] Heparin Sodium,Porcine/ 58.75 D5w Pmx 25,000 unit In Dextrose/Water 1 500ml. bag @ 12 UNITS/KG/HR 18. 83 mls/hr IV .Q24H [facility] Rx #:[id number] Piperacillin-Tazobactam 3 50 100 .375 gm In Dextrose/Water 1 50ml.bag @ 12.5 mls/hr IVPB Q8HR [facility] Rx#: [id number] Intake, IV Titration 581.314 370.53 Amount Heparin Sodium,Porcine/ 581.314 370.53 D5w Pmx 25,000 unit In Dextrose/Water 1 500ml. bag @ 12 UNITS/KG/HR 18. 83 mls/hr IV .Q24H [facility] Rx #:[id number] Oral 125 Other: Voiding Method Urinal # Voids 1 1 - Exam Pleasant 51-year-old male in no acute distress. Feeling better than earlier HEENT: Anicteric conjunctiva are pink and moist nasal mucosa grossly intact without significant lesions, there is no thrush. Neck: The neck is supple without significant lymphadenopathy or thyromegaly. Lungs: There is symmetrical air entry. However there are crackles and bronchial sounds in the left base. Few expiratory wheezes are heard. Right chest is rather clear. Heart: Regular with an audible S1-S2, no S3 no S4. There is no significant murmur click or rub, PMI was nondisplaced. Abdomen: Positive bowel sounds soft and nontender without palpable masses or organomegaly. There was no guarding or rebound. Extremities: The upper extremities have excellent pulses they are symmetric, no significant petechiae or telangiectasia. No splinter hemorrhages were noted. The lower extremities are free from significant edema. The peripheral pulses were 2+ and symmetric. Neuro: Awake alert oriented to person place and time. There are no acute new gross focal sensory motor deficits. - Labs CBC & Chem 7: 05/21/16 11:10 05/21/16 05:51 Labs: Abnormal Lab Results - Last 24 Hours (Table) 05/20/16 05/20/16 05/21/16 Range/Units 20:09 21:37 05:51 WBC 1.3 L* (3.8-10.6) k/uL RBC 3.60 L (4.30-5.90) m/uL Hgb 10.9 L (13.0-17.5) gm/dL Hct 32.8 L (39.0-53.0) % Plt Count 124 L (150-450) k/uL Neutrophils # (Manual) 0.5 L (1.3-7.7) k/uL Lymphocytes # (Manual) 0.4 L (1.0-4.8) k/uL APTT 40.8 H (22.0-30.0) sec Sodium (137-145) mmol/L Potassium (3.5-5.1) mmol/L Chloride (98-107) mmol/L Carbon Dioxide (22-30) mmol/L BUN (9-20) mg/dL Glucose (74-99) mg/dL POC Glucose (mg/dL) 139 H (75-99) mg/dL 05/21/16 05/21/16 05/21/16 Range/Units 05:51 06:21 11:10 WBC 1.5 L* (3.8-10.6) k/uL RBC 3.73 L (4.30-5.90) m/uL Hgb 11.5 L (13.0-17.5) gm/dL Hct 34.1 L (39.0-53.0) % Plt Count 135 L (150-450) k/uL Neutrophils # (Manual) (1.3-7.7) k/uL Lymphocytes # (Manual) (1.0-4.8) k/uL APTT (22.0-30.0) sec Sodium 135 L (137-145) mmol/L Potassium 3.0 L* (3.5-5.1) mmol/L Chloride 96 L (98-107) mmol/L Carbon Dioxide 35 H (22-30) mmol/L BUN 5 L (9-20) mg/dL Glucose 102 H (74-99) mg/dL POC Glucose (mg/dL) 107 H (75-99) mg/dL 05/21/16 Range/Units 11:10 WBC (3.8-10.6) k/uL RBC (4.30-5.90) m/uL Hgb (13.0-17.5) gm/dL Hct (39.0-53.0) % Plt Count (150-450) k/uL Neutrophils # (Manual) (1.3-7.7) k/uL Lymphocytes # (Manual) (1.0-4.8) k/uL APTT 77.5 H (22.0-30.0) sec Sodium (137-145) mmol/L Potassium (3.5-5.1) mmol/L Chloride (98-107) mmol/L Carbon Dioxide (22-30) mmol/L BUN (9-20) mg/dL Glucose (74-99) mg/dL POC Glucose (mg/dL) (75-99) mg/dL Microbiology - Last 24 Hours (Table) 05/15/16 02:40 Blood Culture - Final Blood No Growth after 144 hours Laboratory Results WBC 1.5 k/uL (3.8-10.6) L* 05/21/16 11:10 RBC 3.73 m/uL (4.30-5.90) L 05/21/16 11:10 Hgb 11.5 gm/dL (13.0-17.5) L 05/21/16 11:10 Hct 34.1 % (39.0-53.0) L 05/21/16 11:10 MCV 91.4 fL (80.0-100.0) 05/21/16 11:10 MCH 30.8 pg (25.0-35.0) 05/21/16 11:10 MCHC 33.8 g/dL (31.0-37.0) 05/21/16 11:10 RDW 11.8 % (11.5-15.5) 05/21/16 11:10 Plt Count 135 k/uL (150-450) L 05/21/16 11:10 Neutrophils % 69 % 05/20/16 05:30 Neutrophils % (Manual) 39.0 % 05/21/16 05:51 Lymphocytes % 18 % 05/20/16 05:30 Lymphocytes % (Manual) 33.0 % 05/21/16 05:51 Monocytes % 9 % 05/20/16 05:30 Monocytes % (Manual) 25.0 % 05/21/16 05:51 Eosinophils % 0 % 05/20/16 05:30 Eosinophils % (Manual) 1.0 % 05/21/16 05:51 Basophils % 1 % 05/20/16 05:30 Basophils % (Manual) 2.0 % 05/21/16 05:51 Neutrophils # 1.1 k/uL (1.3-7.7) L 05/20/16 05:30 Neutrophils # (Manual) 0.5 k/uL (1.3-7.7) L 05/21/16 05:51 Lymphocytes # 0.3 k/uL (1.0-4.8) L 05/20/16 05:30 Lymphocytes # (Manual) 0.4 k/uL (1.0-4.8) L 05/21/16 05:51 Monocytes # 0.1 k/uL (0-1.0) 05/20/16 05:30 Monocytes # (Manual) 0.3 k/uL (0-1.0) 05/21/16 05:51 Eosinophils # 0.0 k/uL (0-0.7) 05/20/16 05:30 Eosinophils # (Manual) 0.0 k/uL (0-0.7) 05/21/16 05:51 Basophils # 0.0 k/uL (0-0.2) 05/20/16 05:30 Basophils # (Manual) 0.0 k/uL (0-0.2) 05/21/16 05:51 Nucleated RBCs 0 /100 WBC (0-0) 05/21/16 05:51 Manual Slide Review Performed 05/21/16 05:51 Poikilocytosis (manual Present 05/21/16 05:51 PT 11.2 sec (9.0-12.0) 05/19/16 09:38 INR 1.1 (<1.1) 05/19/16 09:38 APTT 77.5 sec (22.0-30.0) H 05/21/16 11:10 Sodium 135 mmol/L (137-145) L 05/21/16 05:51 Potassium 3.0 mmol/L (3.5-5.1) L* 05/21/16 05:51 Chloride 96 mmol/L (98-107) L 05/21/16 05:51 Carbon Dioxide 35 mmol/L (22-30) H 05/21/16 05:51 Anion Gap 4 mmol/L 05/21/16 05:51 BUN 5 mg/dL (9-20) L 05/21/16 05:51 Creatinine 0.70 mg/dL (0.66-1.25) 05/21/16 05:51 Est GFR (MDRD) Af Amer >60 (>60 ml/min/1.73 sqM) 05/21/16 05:51 Est GFR (MDRD) Non-Af >60 (>60 ml/min/1.73 sqM) 05/21/16 05:51 Glucose 102 mg/dL (74-99) H 05/21/16 05:51 POC Glucose (mg/dL) 86 mg/dL (75-99) 05/21/16 16:36 POC Glu Director Radio ID Starr Rosa 05/21/16 16:36 Plasma Lactic Acid Ty 1.0 mmol/L (0.7-2.0) 05/15/16 02:40 Calcium 8.4 mg/dL (8.4-10.2) 05/21/16 05:51 Total Bilirubin 0.7 mg/dL (0.2-1.3) 05/14/16 23:55 AST 19 U/L (17-59) 05/14/16 23:55 ALT 30 U/L (21-72) 05/14/16 23:55 Alkaline Phosphatase 79 U/L (38-126) 05/14/16 23:55 Total Protein 7.3 g/dL (6.3-8.2) 05/14/16 23:55 Albumin 4.2 g/dL (3.5-5.0) 05/14/16 23:55 Amylase 68 U/L (30-110) 05/14/16 23:55 Lipase 23 U/L (23-300) 05/14/16 23:55 TSH 4.290 mIU/L (0.465-4.680) 05/19/16 06:43 Free T4 1.34 ng/dL (0.78-2.19) 05/19/16 06:43 Urine Color Yellow 05/14/16 23:55 Urine Appearance Clear (Clear) 05/14/16 23:55 Urine pH 6.0 (5.0-8.0) 05/14/16 23:55 Ur Specific [place] 1.025 (1.001-1.035) 05/14/16 23:55 Urine Protein Trace (Negative) H 05/14/16 23:55 Urine Glucose (UA) Trace (Negative) H 05/14/16 23:55 Urine Ketones 1+ (Negative) H 05/14/16 23:55 Urine Blood Negative (Negative) 05/14/16 23:55 Urine Nitrite Negative (Negative) 05/14/16 23:55 Urine Bilirubin Negative (Negative) 05/14/16 23:55 Urine Urobilinogen 2.0 mg/dL (<2.0) 05/14/16 23:55 Ur Leukocyte Esterase Negative (Negative) 05/14/16 23:55 Influenza Type A RNA Not Detected (Not Detectd) 05/15/16 02:50 Influenza Type B (PCR) Not Detected (Not Detectd) 05/15/16 02:50 Microbiology 05/15/16 02:40 Blood Blood Culture - Final No Growth after 144 hours 05/15/16 17:05 Sputum Gram Stain - Final 05/15/16 17:05 Sputum Sputum Culture - Final Assessment and Plan (1) Squamous cell carcinoma lung Narrative/Plan: Pleasant 51-year-old male presents to hospital with difficulties with ongoing nausea with emesis associated with increasing cough and shortness of breath. The patient related every time he was trying to eat or drink he could tell that some was going into his longest he would cough so much. He was then taken to the operating room and the esophageal tracheal fistula was found and a stent was placed. Since the stent was placed he is having further improvment. He is having less cough. In doing much better. He had transient fever that is now improved. Does have the x-ray findings of the left lower lobe pneumonia. Antibiotic therapy is being utilized with Zosyn which is an excellent choice for his significant aspiration and multiple medical procedures. Does not need to broaden at this point in time. He is without fever and improving. Any change would then necessitate addition of antifungal therapy. The patient however is coming to the tavo of his chemotherapy effect and there is some notation of some increasing leukopenia and thrombocytopenia. Doing well with the Zosyn with chest x-ray showing improved aeration to the left lung. This each gets ready for transition to home therapy moxifloxacin 400 mg once a day for 7 days at discharge will be adequate for the treatment of his current pneumonia related to his tracheoesophageal fistula Fortunately he is doing well enough at this point in time. Oncology is following closely. Status: Acute (2) Tracheo-esophageal fistula Status: Acute (3) Recurrent aspiration pneumonia Status: Acute
--- NOTE | 2016-05-21 18:22 | P.PN ---
Subjective 51-year-old male who has a history of prior nicotine dependence was having difficulties in the past. 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 He constantly has undergone chemotherapy and radiation. Recently was having great difficulties with recurrent pneumonia and evidence of aspiration. 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 As he was taken to the operating room and a stent was placed In the esophagus. The post procedure chest x-ray that was done shows some improvement in aeration of the left lung base. There is still some consolidation of the left lower lobe. The esophageal stent looks in a good location. Currently the patient is afebrile. The patient is hemodynamically stable. The patient is on IV antibiotics. The patient is hoarse related to the vocal cord paralysis. No nausea. No vomiting. No abdominal pain. The patient is completing radiation therapy did speak offered to him through radiation oncology. Otherwise, no other significant events overnight. The patient remains on IV Zosyn. Pain is under good control. One more comorbidities the development of a proximal atrial fibrillation current rhythm is back to normal sinus. The patient's echocardiogram showed a preserved LV function and cardiology is also on the case. IV heparin was discontinued today. Objective - Vital Signs Vital signs: Vital Signs Temp 98.9 F 05/21/16 16:00 Pulse 80 05/21/16 16:00 Resp 16 05/21/16 16:00 BP 122/77 05/21/16 16:00 Pulse Ox 95 05/21/16 12:00 Intake & Output 05/20/16 05/21/16 05/21/16 18:59 06:59 18:59 Intake Total 0223.926 5677.53 Balance 0474.660 3111.53 Weight 79 kg 79 kg Intake: IV 658.75 1050 Dextrose 5%-0.9% NaCl 1, 550 950 000 ml @ 100 mls/hr IV . Q10H [facility] Rx#:[id number] Heparin Sodium,Porcine/ 58.75 D5w Pmx 25,000 unit In Dextrose/Water 1 500ml. bag @ 12 UNITS/KG/HR 18. 83 mls/hr IV .Q24H [facility] Rx #:[id number] Piperacillin-Tazobactam 3 50 100 .375 gm In Dextrose/Water 1 50ml.bag @ 12.5 mls/hr IVPB Q8HR [facility] Rx#: [id number] Intake, IV Titration 581.314 370.53 Amount Heparin Sodium,Porcine/ 581.314 370.53 D5w Pmx 25,000 unit In Dextrose/Water 1 500ml. bag @ 12 UNITS/KG/HR 18. 83 mls/hr IV .Q24H [facility] Rx #:[id number] Oral 125 Other: Voiding Method Urinal # Voids 1 1 - Exam Head exam was generally normal. There was no scleral icterus or corneal arcus. Mucous membranes were moist.Neck was supple and without jugular venous distension, thyromegaly, or carotid bruits. Carotids were easily palpable bilaterally. There was no adenopathy. Lung sounds are diminished in the left lung base compared to the right.Cardiac exam revealed the PMI to be normally situated and sized. The rhythm was regular and no extrasystoles were noted during several minutes of auscultation. The first and second heart sounds were normal and physiologic splitting of the second heart sound was noted. There were no murmurs, rubs, clicks, or gallops.Abdominal exam revealed normal bowel sounds. The abdomen was soft, non-tender, and without masses, organomegaly, or appreciable enlargement of the abdominal aorta. Examination of the extremities revealed easily palpable radial, femoral and pedal pulses. There was no cyanosis , clubbing or edema. - Labs CBC & Chem 7: 05/21/16 11:10 05/21/16 05:51 Labs: Abnormal Lab Results - Last 24 Hours (Table) 05/20/16 05/20/16 05/21/16 Range/Units 20:09 21:37 05:51 WBC 1.3 L* (3.8-10.6) k/uL RBC 3.60 L (4.30-5.90) m/uL Hgb 10.9 L (13.0-17.5) gm/dL Hct 32.8 L (39.0-53.0) % Plt Count 124 L (150-450) k/uL Neutrophils # (Manual) 0.5 L (1.3-7.7) k/uL Lymphocytes # (Manual) 0.4 L (1.0-4.8) k/uL APTT 40.8 H (22.0-30.0) sec Sodium (137-145) mmol/L Potassium (3.5-5.1) mmol/L Chloride (98-107) mmol/L Carbon Dioxide (22-30) mmol/L BUN (9-20) mg/dL Glucose (74-99) mg/dL POC Glucose (mg/dL) 139 H (75-99) mg/dL 05/21/16 05/21/16 05/21/16 Range/Units 05:51 06:21 11:10 WBC 1.5 L* (3.8-10.6) k/uL RBC 3.73 L (4.30-5.90) m/uL Hgb 11.5 L (13.0-17.5) gm/dL Hct 34.1 L (39.0-53.0) % Plt Count 135 L (150-450) k/uL Neutrophils # (Manual) (1.3-7.7) k/uL Lymphocytes # (Manual) (1.0-4.8) k/uL APTT (22.0-30.0) sec Sodium 135 L (137-145) mmol/L Potassium 3.0 L* (3.5-5.1) mmol/L Chloride 96 L (98-107) mmol/L Carbon Dioxide 35 H (22-30) mmol/L BUN 5 L (9-20) mg/dL Glucose 102 H (74-99) mg/dL POC Glucose (mg/dL) 107 H (75-99) mg/dL 05/21/16 Range/Units 11:10 WBC (3.8-10.6) k/uL RBC (4.30-5.90) m/uL Hgb (13.0-17.5) gm/dL Hct (39.0-53.0) % Plt Count (150-450) k/uL Neutrophils # (Manual) (1.3-7.7) k/uL Lymphocytes # (Manual) (1.0-4.8) k/uL APTT 77.5 H (22.0-30.0) sec Sodium (137-145) mmol/L Potassium (3.5-5.1) mmol/L Chloride (98-107) mmol/L Carbon Dioxide (22-30) mmol/L BUN (9-20) mg/dL Glucose (74-99) mg/dL POC Glucose (mg/dL) (75-99) mg/dL Microbiology - Last 24 Hours (Table) 05/15/16 02:40 Blood Culture - Final Blood No Growth after 144 hours Assessment and Plan Plan: Assessment 1 locally advanced non-small cell lung cancer of a squamous cell type. 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 The patient has undergone placement of an esophageal stent 3 left lower lobe pneumonia currently on IV Zosyn 4 left vocal cord paralysis with secondary hoarseness 5 paroxysmal defibrillation currently rhythm is sinus 6 hypertension 7 leukopenia with a white cell count a 1.5 8 hypokalemia, replaced Plan To IV Zosyn. Repeat chest x-ray with the next 24 hours. We'll initiate a discussion with ID regarding the outpatient antibiotic regimen. Noted the patient has responded nicely to IV Zosyn. The patient is not having any fever for now. He does have a component of leukopenia and I think Zosyn is a good choice for him. Plans are being made to synthesis patient to oral moxifloxacin at time of discharge. We'll continue monitoring the white cell count. Repeat chest x-ray in the morning. We'll follow. Long-term prognosis poor due to above-mentioned comorbidities.
--- NOTE | 2016-05-21 18:47 | PN ---
DATE OF SERVICE: 05/21/2016 This 51-year-old gentleman who was admitted with left-sided multi-lobar pneumonia also had multiple other medical issues. The patient had stent placement. Seen and evaluated the patient along with the nurse practitioner. Please refer to the nurse practitioner's notes and impressions documented as a scribe for further information. YONATAN
--- NOTE | 2016-05-21 19:47 | P.PN ---
Subjective Date of service 05/21/2016. Progress note being dictated for Dr. Tinajero. Interval history: This a 51-year-old gentleman admitted with left-sided multilobar pneumonia,, with history of tracheoesophageal fistula with stent placement, lung CA, and multiple other medical issues. Maintained on Zosyn. Antibiotics as per infectious disease.Coughing improving. Patient had approximately episode atrial fibrillation, received Rythmol, telemetry currently sinus rhythm to sinus tach with multifocal PVCs, triplet during the night. Complaining of bilateral lower extremity edema and bilateral Doppler ultrasounds ordered; negative for DVTs. Receiving potassium supplements for potassium of 3.0. WBC1.5. Afebrile. Objective - Vital Signs Vital signs: Vital Signs Temp 98.9 F 05/21/16 16:00 Pulse 80 05/21/16 16:00 Resp 16 05/21/16 16:00 BP 122/77 05/21/16 16:00 Pulse Ox 95 05/21/16 12:00 Intake & Output 05/21/16 05/21/16 05/22/16 06:59 18:59 06:59 Intake Total 1420.53 Balance 1420.53 Weight 79 kg 79 kg Intake: IV 1050 Dextrose 5%-0.9% NaCl 1, 950 000 ml @ 100 mls/hr IV . Q10H [facility] Rx#:[id number] Piperacillin-Tazobactam 3 100 .375 gm In Dextrose/Water 1 50ml.bag @ 12.5 mls/hr IVPB Q8HR [facility] Rx#: [id number] Intake, IV Titration 370.53 Amount Heparin Sodium,Porcine/ 370.53 D5w Pmx 25,000 unit In Dextrose/Water 1 500ml. bag @ 12 UNITS/KG/HR 18. 83 mls/hr IV .Q24H [facility] Rx #:[id number] Other: Voiding Method Urinal # Voids 1 1 - Exam PHYSICAL EXAM: VITAL SIGNS: As above GENERAL: [Sitting up in chair, no acute distress] HEENT: [Pupils equal conjunctiva normal.] NECK: [Supple, no JVD] RESPIRATORY EFFORT: Mildly increased LUNGS: Diminished, scattered rhonchi and crackles, occasional fine expiratory wheezing CARDIOVASCULAR[regular S1 and S2, occasional tachycardia, no murmurs rubs or gallops, positive edema] GI: [Abdomen soft, nontender, positive bowel sounds.] PSYCH: [Alert and oriented -3, mood and affect normal.] NEURO: No focal deficits, moves all 4 extremities, strength and sensation grossly intact. Microbiology 05/15/16 02:40 Blood Blood Culture - Final No Growth after 144 hours 05/15/16 17:05 Sputum Gram Stain - Final 05/15/16 17:05 Sputum Sputum Culture - Final - Labs CBC & Chem 7: 05/21/16 11:10 05/21/16 05:51 Labs: Abnormal Lab Results - Last 24 Hours (Table) 05/20/16 05/20/16 05/21/16 Range/Units 20:09 21:37 05:51 WBC 1.3 L* (3.8-10.6) k/uL RBC 3.60 L (4.30-5.90) m/uL Hgb 10.9 L (13.0-17.5) gm/dL Hct 32.8 L (39.0-53.0) % Plt Count 124 L (150-450) k/uL Neutrophils # (Manual) 0.5 L (1.3-7.7) k/uL Lymphocytes # (Manual) 0.4 L (1.0-4.8) k/uL APTT 40.8 H (22.0-30.0) sec Sodium (137-145) mmol/L Potassium (3.5-5.1) mmol/L Chloride (98-107) mmol/L Carbon Dioxide (22-30) mmol/L BUN (9-20) mg/dL Glucose (74-99) mg/dL POC Glucose (mg/dL) 139 H (75-99) mg/dL 05/21/16 05/21/16 05/21/16 Range/Units 05:51 06:21 11:10 WBC 1.5 L* (3.8-10.6) k/uL RBC 3.73 L (4.30-5.90) m/uL Hgb 11.5 L (13.0-17.5) gm/dL Hct 34.1 L (39.0-53.0) % Plt Count 135 L (150-450) k/uL Neutrophils # (Manual) (1.3-7.7) k/uL Lymphocytes # (Manual) (1.0-4.8) k/uL APTT (22.0-30.0) sec Sodium 135 L (137-145) mmol/L Potassium 3.0 L* (3.5-5.1) mmol/L Chloride 96 L (98-107) mmol/L Carbon Dioxide 35 H (22-30) mmol/L BUN 5 L (9-20) mg/dL Glucose 102 H (74-99) mg/dL POC Glucose (mg/dL) 107 H (75-99) mg/dL 05/21/16 Range/Units 11:10 WBC (3.8-10.6) k/uL RBC (4.30-5.90) m/uL Hgb (13.0-17.5) gm/dL Hct (39.0-53.0) % Plt Count (150-450) k/uL Neutrophils # (Manual) (1.3-7.7) k/uL Lymphocytes # (Manual) (1.0-4.8) k/uL APTT 77.5 H (22.0-30.0) sec Sodium (137-145) mmol/L Potassium (3.5-5.1) mmol/L Chloride (98-107) mmol/L Carbon Dioxide (22-30) mmol/L BUN (9-20) mg/dL Glucose (74-99) mg/dL POC Glucose (mg/dL) (75-99) mg/dL Microbiology - Last 24 Hours (Table) 05/15/16 02:40 Blood Culture - Final Blood No Growth after 144 hours Assessment and Plan Plan: 1. [Acute left-sided pneumonia multilobar, possibly postobstructive with severe sepsis, present on admission]. 2. Recently diagnosed non-small cell lung CA, status post chemoradiation]. 3. Status post esophageal stent placement. 4. [Tracheoesophageal fistula post radiation treatment, status post esophageal stent]. 5. [Gastroesophageal reflux disease]. 6. [Hypertension]. 7. [Remote history of nicotine dependence]. 8. Leukopenia, anemia and thrombocytopenia with mild pancytopenia, possibly secondary to chemotherapy and malignancy 9. Proximal atrial fibrillation, now sinus rhythm. No anticoagulation required as per cardiology. 10. Hypokalemia Plan: Continue on current medication regime , nebulized bronchodilators, empiric antibiotics, monitoring and symptomatic treatment. Electrolyte supplementation protocol ordered. Close monitoring of electrolytes with repeat labs ordered for a.m. Maintain symptomatic treatment. Increase ambulation as tolerated. WBC remains low at 1.5, will discuss with hematology/oncology. Antibiotics as per infectious disease. Follow with multiple consults. Further recommendations to follow. The impression and plan of care has been dictated as directed. : I performed a H&P examination of this patient and discussed the same with the dictator. I agree with the dictator's note. Any additional findings/opinions/ etc. will be noted.
[2016-05-21 20:50] LABS: Glucose,Whole Blood 92 mg/dL (75-99)
[2016-05-21] MEDS: DEXTROSE 5%-0.9% NACL 1,000 ML IV SCH (20:56)
[2016-05-21] MEDS: PROCHLORPERAZINE SUPPOSITORY 25 MG SUPP RECTAL PRN (22:25)
[2016-05-22] MEDS: MORPHINE SULFATE 4 MG/ML SYRINGE IV PRN ×3 (03:10→23:32)
[2016-05-22] MEDS ORDERED: ACETAMINOPHEN IV (For NPO) 1,000 MG in EMPTY BAG 1 BAG IVPB STA (06:08)
[2016-05-22] MEDS: SUCRALFATE 1 GM TAB PO SCH ×4 (06:10→20:03)
[2016-05-22] MEDS: DEXTROSE 5%-0.9% NACL 1,000 ML IV SCH ×3 (06:11→12:30)
[2016-05-22 06:22] LABS: Basophils % (A) 1 %; CH 30.9; CHCM 34.1; Eosinophils % (A) 0 %; HCT 34.7 % (39.0-53.0); HDW 2.91; HGB 11.6 gm/dL (13.0-17.5); Luc # (Auto) 0.08; Luc % (Auto) 4; Lymphocytes # (A) 0.2 k/uL (1.0-4.8); Lymphocytes % (A) 12 %; MCH 30.3 pg (25.0-35.0); MCHC 33.4 g/dL (31.0-37.0); MCV 90.9 fL (80.0-100.0); Mean Platelet Volume 8.2; Monocytes # (A) 0.2 k/uL (0-1.0); Monocytes % (A) 10 %; Neutrophils # (A) 1.3 k/uL (1.3-7.7); Neutrophils % (A) 73 %; RBC 3.82 m/uL (4.30-5.90); RDW 12.3 % (11.5-15.5); WBC (Perox) 1.83
[2016-05-22 06:27] LABS: Glucose,Whole Blood 115 mg/dL (75-99)
[2016-05-22 06:33] LABS: WBC 1.8 k/uL (3.8-10.6)
--- NOTE | 2016-05-22 08:15 | XR ---
EXAMINATION TYPE: XR chest 2V DATE OF EXAM: 05/22/2016 7:00 AM COMPARISON: 05/19/2016, 05/18/2016 INDICATION: Pneumonia TECHNIQUE: Single frontal view of the chest is obtained. FINDINGS: The heart size is normal. The pulmonary vasculature is normal. There is elevation left diaphragm. Infiltrate is above the left diaphragm. This is slightly increased over the interval. Correlate for atelectasis or pneumonia. A stent is through the midline. IMPRESSION: 1. Slight worsening of the left basilar infiltrate. Correlate for atelectasis and pneumonia.
[2016-05-22] MEDS: PIPERACILLIN-TAZOBACTAM 3.375 GM in DEXTROSE/WATER 1 50ML.BAG IVPB SCH ×3 (08:27→23:32)
[2016-05-22] MEDS: POTASSIUM CHLORIDE ER 20 MEQ TAB.ER PO SCH (08:27)
[2016-05-22] MEDS: LISINOPRIL 5 MG TAB PO SCH ×2 (08:27→20:03)
[2016-05-22] MEDS: METOPROLOL TARTRATE 25 MG TAB PO SCH ×2 (08:27→20:02)
[2016-05-22] MEDS: PANTOPRAZOLE 40 MG/10 ML VIAL IV SCH (08:27)
[2016-05-22] MEDS: ONDANSETRON 4 MG/2 ML VIAL IVP PRN ×3 (08:27→23:32)
[2016-05-22] MEDS: FUROSEMIDE 20 MG TAB PO SCH ×2 (08:28→17:44)
[2016-05-22] MEDS: DOCUSATE 100 MG CAP PO SCH ×2 (08:28→20:03)
[2016-05-22 09:33] LABS: Anion Gap 9 mmol/L; Blood Urea Nitrogen 4 mg/dL (9-20); Calcium 8.6 mg/dL (8.4-10.2); Carbon Dioxide 34 mmol/L (22-30); Chloride 93 mmol/L (98-107); Glucose 117 mg/dL (74-99); Non-African American GFR(MDRD) >60 (>60 ml/min/1.73 sqM); Potassium 3.1 mmol/L (3.5-5.1); Sodium 136 mmol/L (137-145)
[2016-05-22] MEDS: LEVALBUTEROL NEB (CONC) 1.25 MG/0.5 ML AMP INHALATION SCH ×3 (09:34→20:20)
[2016-05-22] MEDS: IPRATROPIUM 0.5 MG/2.5 ML NEBU INHALATION SCH ×3 (09:34→20:19)
[2016-05-22] MEDS ORDERED: Magnesium Replacement Protocol 1 EACH MISC MISCELLANE PRN (09:46)
[2016-05-22] MEDS: POTASSIUM CHLORIDE 10 MEQ, LIDOCAINE 2% INJ 10 MG in SODIUM CHLORIDE 0.9% 100 ML IV SCH ×2 (10:55→12:20)
[2016-05-22 11:40] LABS: Glucose,Whole Blood 102 mg/dL (75-99)
--- NOTE | 2016-05-22 12:03 | P.PN ---
Subjective 51-year-old male who has a history of prior nicotine dependence was having difficulties in the past. 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 He constantly has undergone chemotherapy and radiation. Recently was having great difficulties with recurrent pneumonia and evidence of aspiration. 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 As he was taken to the operating room and a stent was placed In the esophagus. The post procedure chest x-ray that was done shows some improvement in aeration of the left lung base. There is still some consolidation of the left lower lobe. The esophageal stent looks in a good location. Currently the patient is afebrile. The patient is hemodynamically stable. The patient is on IV antibiotics. The patient is hoarse related to the vocal cord paralysis. No nausea. No vomiting. No abdominal pain. The patient is completing radiation therapy did speak offered to him through radiation oncology. Otherwise, no other significant events overnight. The patient remains on IV Zosyn. Pain is under good control. One more comorbidities the development of a proximal atrial fibrillation current rhythm is back to normal sinus. The patient's echocardiogram showed a preserved LV function and cardiology is also on the case. IV heparin was discontinued today. On 05/22/2016 the patient is being seen in follow-up. The patient is having some occasional nausea and emesis and the exact cause is not clear. This could be a chemotherapy-induced nausea and emesis although the patient has also a documented history of a tracheobronchial fistula for which the patient had a an esophageal stent inserted recently. The patient is still on IV Zosyn regarding a left lower lobe pneumonia. The patient is afebrile. No reported hemoptysis. No reported cough and was swallowing food material. The chest x-ray from today shows left basal infiltrate along with a component of atelectasis/ pneumonia. The patient's white cell count is still low at 1.8. Objective - Vital Signs Vital signs: Vital Signs Temp 98.4 F 05/22/16 08:15 Pulse 94 05/22/16 11:00 Resp 16 05/22/16 11:02 BP 126/73 05/22/16 11:00 Pulse Ox 92 L 05/22/16 11:00 Intake & Output 05/21/16 05/22/1617 18:59 06:59 18:59 Intake Total 1250 Balance 1250 Weight 79 kg 77.6 kg Intake: IV 850 Dextrose 5%-0.9% NaCl 1, 800 000 ml @ 100 mls/hr IV . Q10H [facility] Rx#:[id number] Piperacillin-Tazobactam 3 50 .375 gm In Dextrose/Water 1 50ml.bag @ 12.5 mls/hr IVPB Q8HR [facility] Rx#: [id number] Intake, IV Titration 400 Amount Magnesium Sulfate-D5w Pmx 200 1 gm In Dextrose/Water 1 100ml.bag @ 100 mls/hr IVPB Q1H [facility] Rx#: [id number] Potassium Chloride 10 meq 200 Lidocaine 2% Inj 10 mg In Sodium Chloride 0.9% 100 ml @ 100 mls/hr IV Q1HR [facility] Rx#:[id number] Other: Voiding Method Urinal Urinal # Voids 1 1 2 - Exam Head exam was generally normal. There was no scleral icterus or corneal arcus. Mucous membranes were moist.Neck was supple and without jugular venous distension, thyromegaly, or carotid bruits. Carotids were easily palpable bilaterally. There was no adenopathy. Lung sounds are diminished in the left lung base compared to the right.Cardiac exam revealed the PMI to be normally situated and sized. The rhythm was regular and no extrasystoles were noted during several minutes of auscultation. The first and second heart sounds were normal and physiologic splitting of the second heart sound was noted. There were no murmurs, rubs, clicks, or gallops.Abdominal exam revealed normal bowel sounds. The abdomen was soft, non-tender, and without masses, organomegaly, or appreciable enlargement of the abdominal aorta. Examination of the extremities revealed easily palpable radial, femoral and pedal pulses. There was no cyanosis , clubbing or edema. - Labs CBC & Chem 7: 05/22/16 06:05 05/22/16 06:05 Labs: Abnormal Lab Results - Last 24 Hours (Table) 05/22/16 05/22/16 05/22/16 Range/Units 06:05 06:05 06:05 WBC 1.8 L* (3.8-10.6) k/uL RBC 3.82 L (4.30-5.90) m/uL Hgb 11.6 L (13.0-17.5) gm/dL Hct 34.7 L (39.0-53.0) % Plt Count 136 L (150-450) k/uL Lymphocytes # 0.2 L (1.0-4.8) k/uL Sodium 136 L (137-145) mmol/L Potassium 3.1 L (3.5-5.1) mmol/L Chloride 93 L (98-107) mmol/L Carbon Dioxide 34 H (22-30) mmol/L BUN 4 L (9-20) mg/dL Creatinine 0.60 L (0.66-1.25) mg/dL Glucose 117 H (74-99) mg/dL POC Glucose (mg/dL) (75-99) mg/dL Magnesium 1.5 L (1.6-2.3) mg/dL 05/22/16 05/22/16 Range/Units 06:26 11:37 WBC (3.8-10.6) k/uL RBC (4.30-5.90) m/uL Hgb (13.0-17.5) gm/dL Hct (39.0-53.0) % Plt Count (150-450) k/uL Lymphocytes # (1.0-4.8) k/uL Sodium (137-145) mmol/L Potassium (3.5-5.1) mmol/L Chloride (98-107) mmol/L Carbon Dioxide (22-30) mmol/L BUN (9-20) mg/dL Creatinine (0.66-1.25) mg/dL Glucose (74-99) mg/dL POC Glucose (mg/dL) 115 H 102 H (75-99) mg/dL Magnesium (1.6-2.3) mg/dL Assessment and Plan Plan: Assessment 1 locally advanced non-small cell lung cancer of a squamous cell type. 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 The patient has undergone placement of an esophageal stent 3 left lower lobe pneumonia currently on IV Zosyn 4 left vocal cord paralysis with secondary hoarseness 5 paroxysmal defibrillation currently rhythm is sinus 6 hypertension 7 leukopenia with a white cell count a 1.8 8 hypokalemia, replaced 9 episodes of nausea, possibly related to chemotherapy. Doubt any anatomic obstructions level of the esophagus or distally in the stomach. Plan Continue Zofran and Compazine for nausea. Advance diet as tolerated. Monitor the white cell count as the patient has developed some leukopenia which is chemotherapy-induced. Continue the IV Zosyn. Today's chest x-ray was noted. The patient is not having any significant respiratory distress. The patient will be ultimately switched to Avelox at a time of discharge. I will keep the IV Zosyn running as long as the patient is still leukopenic. We'll continue to follow.
[2016-05-22] MEDS ORDERED: ACETAMINOPHEN ORAL SUSP 160 MG/5 ML CUP PO PRN (12:33)
--- NOTE | 2016-05-22 14:10 | P.PN ---
Subjective Principal diagnosis: Intractable vomiting Pt seen on follow up today. He had esophageal stent placed and was doing fairly well with oral intake as long as the consistency was soft, thick and more fluid. He continues on radiation. Last night after eating a tuna fish sandwich he had some wretching, he associated this with the bread. He also had a fever last night, he denies fever or rigors since episode, no painful swallowing, his cough has improved, his breathing is not as audible. No other physical c/o. Objective - Vital Signs Vital signs: Vital Signs Temp 98.4 F 05/22/16 08:15 Pulse 94 05/22/16 11:00 Resp 16 05/22/16 11:02 BP 126/73 05/22/16 11:00 Pulse Ox 92 L 05/22/16 11:00 Intake & Output 05/21/16 05/22/16 05/22/16 18:59 06:59 18:59 Intake Total 1250 Balance 1250 Weight 79 kg 77.6 kg Intake: IV 850 Dextrose 5%-0.9% NaCl 1, 800 000 ml @ 100 mls/hr IV . Q10H [facility] Rx#:[id number] Piperacillin-Tazobactam 3 50 .375 gm In Dextrose/Water 1 50ml.bag @ 12.5 mls/hr IVPB Q8HR [facility] Rx#: [id number] Intake, IV Titration 400 Amount Magnesium Sulfate-D5w Pmx 200 1 gm In Dextrose/Water 1 100ml.bag @ 100 mls/hr IVPB Q1H [facility] Rx#: [id number] Potassium Chloride 10 meq 200 Lidocaine 2% Inj 10 mg In Sodium Chloride 0.9% 100 ml @ 100 mls/hr IV Q1HR [facility] Rx#:[id number] Other: Voiding Method Urinal Urinal # Voids 1 1 2 - Constitutional General appearance: Present: average body habitus, cooperative, no acute distress - Respiratory Respiratory: bilateral: CTA - Cardiovascular Rhythm: regular Heart sounds: normal: S1, S2 - Peripheral edema leg Peripheral Edema: bilateral: None - Gastrointestinal General gastrointestinal: Present: normal bowel sounds, soft - Neurologic Neurologic: Present: CNII-XII intact - Musculoskeletal Musculoskeletal: Present: strength equal bilaterally - Psychiatric Psychiatric: Present: A&O x's 3, appropriate affect, intact judgment & insight - Labs CBC & Chem 7: 05/22/16 06:05 04/04/17 06:05 Labs: Abnormal Lab Results - Last 24 Hours (Table) 05/22/16 05/22/16 05/22/16 Range/Units 06:05 06:05 06:05 WBC 1.8 L* (3.8-10.6) k/uL RBC 3.82 L (4.30-5.90) m/uL Hgb 11.6 L (13.0-17.5) gm/dL Hct 34.7 L (39.0-53.0) % Plt Count 136 L (150-450) k/uL Lymphocytes # 0.2 L (1.0-4.8) k/uL Sodium 136 L (137-145) mmol/L Potassium 3.1 L (3.5-5.1) mmol/L Chloride 93 L (98-107) mmol/L Carbon Dioxide 34 H (22-30) mmol/L BUN 4 L (9-20) mg/dL Creatinine 0.60 L (0.66-1.25) mg/dL Glucose 117 H (74-99) mg/dL POC Glucose (mg/dL) (75-99) mg/dL Magnesium 1.5 L (1.6-2.3) mg/dL 05/22/16 05/22/16 Range/Units 06:26 11:37 WBC (3.8-10.6) k/uL RBC (4.30-5.90) m/uL Hgb (13.0-17.5) gm/dL Hct (39.0-53.0) % Plt Count (150-450) k/uL Lymphocytes # (1.0-4.8) k/uL Sodium (137-145) mmol/L Potassium (3.5-5.1) mmol/L Chloride (98-107) mmol/L Carbon Dioxide (22-30) mmol/L BUN (9-20) mg/dL Creatinine (0.66-1.25) mg/dL Glucose (74-99) mg/dL POC Glucose (mg/dL) 115 H 102 H (75-99) mg/dL Magnesium (1.6-2.3) mg/dL - Imaging and Cardiology Chest x-ray: report reviewed Venous US: report reviewed Assessment and Plan (1) Squamous cell carcinoma lung Narrative/Plan: Pt is s/p 1st of 2 planned chemo treatments, he continues on XRT. He follows up with Dr. Mitchell next week, he would be due for next chemo in about 10 days. Pt will be evaluated prior to any further chemo. Status: Acute (2) Intractable nausea and vomiting Narrative/Plan: Pt did well post stent placement then he had an episode of wretching last night that made him leery of oral intake. Pt did state that he is able to tolerate soft foods and thicker liquids. GI has been consulted it appears for PEG placement as pt will likely not be able to maintain adequate nutrition independently. Status: Acute (3) Tracheo-esophageal fistula Narrative/Plan: Pt is s/p esophageal stent placement. Status: Acute (4) Pancytopenia due to antineoplastic chemotherapy Narrative/Plan: Anemia and thrombocytopenia are mild, WBC 1.8, ANC adequate at 1,300. Labs ordered daily Status: Acute Plan: No DVT of BLE Cardiology, IM, Pulmonary, Cardiothoracic Surgeon, ID and GI following
--- NOTE | 2016-05-22 14:24 | P.PN ---
Subjective Principal diagnosis: Atrial fibrillation This is a pleasant 51-year-old gentleman with history of tracheoesophageal fistula with stent placement, lung cancer, who had an episode of atrial fibrillation. He is now back in normal sinus rhythm, he was given Rythmol, and converted to sinus. He remains in sinus rhythm today, echo revealed preserved left ventricular systolic function. Because of the brief episode of atrial fibrillation, which was likely secondary to the recent procedure of stenting to the esophagus, we will not initiate anticoagulation. Patient feels well, he's been up ambulating most of the day. Potassium today 3.1 which was replaced. Objective - Vital Signs Vital signs: Vital Signs Temp 98.4 F 05/22/16 08:15 Pulse 92 05/22/16 14:16 Resp 16 05/22/16 11:02 BP 126/73 05/22/16 11:00 Pulse Ox 92 L 05/22/16 11:00 Intake & Output 05/21/16 05/22/16 05/22/16 18:59 06:59 18:59 Intake Total 1250 Balance 1250 Weight 79 kg 77.6 kg Intake: IV 850 Dextrose 5%-0.9% NaCl 1, 800 000 ml @ 100 mls/hr IV . Q10H [facility] Rx#:[id number] Piperacillin-Tazobactam 3 50 .375 gm In Dextrose/Water 1 50ml.bag @ 12.5 mls/hr IVPB Q8HR [facility] Rx#: [id number] Intake, IV Titration 400 Amount Magnesium Sulfate-D5w Pmx 200 1 gm In Dextrose/Water 1 100ml.bag @ 100 mls/hr IVPB Q1H [facility] Rx#: [id number] Potassium Chloride 10 meq 200 Lidocaine 2% Inj 10 mg In Sodium Chloride 0.9% 100 ml @ 100 mls/hr IV Q1HR [facility] Rx#:[id number] Other: Voiding Method Urinal Urinal # Voids 1 1 2 - Exam PHYSICAL EXAMINATION: HEENT: Head is atraumatic, normocephalic. Pupils equal, round. Neck is supple. There is no elevated jugular venous pressure. HEART EXAMINATION: Heart S1, S2 normal. No murmur or gallop heard. CHEST EXAMINATION: Lungs reveal diminished air entry to the bases. ABDOMEN: Soft, nontender. Bowel sounds are heard. No organomegaly noted. EXTREMITIES: 2+ peripheral pulses with no evidence of peripheral edema and no calf tenderness noted. NEUROLOGIC patient is awake, alert and oriented -3. . - Labs CBC & Chem 7: 05/22/16 06:05 05/22/16 06:05 Labs: Abnormal Lab Results - Last 24 Hours (Table) 05/22/16 05/22/16 05/22/16 Range/Units 06:05 06:05 06:05 WBC 1.8 L* (3.8-10.6) k/uL RBC 3.82 L (4.30-5.90) m/uL Hgb 11.6 L (13.0-17.5) gm/dL Hct 34.7 L (39.0-53.0) % Plt Count 136 L (150-450) k/uL Lymphocytes # 0.2 L (1.0-4.8) k/uL Sodium 136 L (137-145) mmol/L Potassium 3.1 L (3.5-5.1) mmol/L Chloride 93 L (98-107) mmol/L Carbon Dioxide 34 H (22-30) mmol/L BUN 4 L (9-20) mg/dL Creatinine 0.60 L (0.66-1.25) mg/dL Glucose 117 H (74-99) mg/dL POC Glucose (mg/dL) (75-99) mg/dL Magnesium 1.5 L (1.6-2.3) mg/dL 05/22/16 05/22/16 Range/Units 06:26 11:37 WBC (3.8-10.6) k/uL RBC (4.30-5.90) m/uL Hgb (13.0-17.5) gm/dL Hct (39.0-53.0) % Plt Count (150-450) k/uL Lymphocytes # (1.0-4.8) k/uL Sodium (137-145) mmol/L Potassium (3.5-5.1) mmol/L Chloride (98-107) mmol/L Carbon Dioxide (22-30) mmol/L BUN (9-20) mg/dL Creatinine (0.66-1.25) mg/dL Glucose (74-99) mg/dL POC Glucose (mg/dL) 115 H 102 H (75-99) mg/dL Magnesium (1.6-2.3) mg/dL Assessment and Plan Plan: Assessment and plan Assessment and plan #1 symptoms of acute nausea and vomiting #2 dehydration #3 non-small cell lung CA #4 tracheoesophageal fistula status post stent placement #5 hypertension #6 prior nicotine dependence #7 atrial fibrillation, paroxysmal, remaining in normal sinus rhythm. Plan We will continue the patient on current dose of beta brielle. Because of the brief episode of atrial fibrillation, patient does not require anticoagulation at this time, it was likely secondary to the esophageal stenting. We will make the patient a follow-up appointment in the office post discharge. We will follow this patient with you now on an as-needed basis only, please take. DNP note has been reviewed, I agree with a documented findings and plan of care. Patient was seen and examined.
[2016-05-22] MEDS: MAGNESIUM SULFATE-D5W PMX 1 GM in DEXTROSE/WATER 1 100ML.BAG IVPB SCH ×2 (14:33→15:45)
--- NOTE | 2016-05-22 14:42 | P.PN ---
Subjective Date of service 05/22/2016. Progress note being dictated for Dr. Tinajero. Interval history: This a 51-year-old gentleman admitted with left-sided multilobar pneumonia, with history of tracheoesophageal fistula with stent placement, lung CA, and multiple other medical issues. Maintained on Zosyn, as per infectious disease. Continues to have nausea and vomiting, states he tolerates solids better. Denies hemoptysis. WBC remains low, slowly improving , at 1.8, neutrophils 73. Receiving supplements for potassium of 3.1 and magnesium 1.5. Tmax 101.0. Chest x-ray reports slight worsening of left basilar infiltrate, correlate for atelectasis or pneumonia. Objective - Vital Signs Vital signs: Vital Signs Temp 98.4 F 05/22/16 08:15 Pulse 92 05/22/16 14:00 Resp 16 05/22/16 11:02 BP 126/73 05/22/16 11:00 Pulse Ox 92 L 05/22/16 11:00 Intake & Output 05/21/16 05/22/16 05/22/16 18:59 06:59 18:59 Intake Total 1250 Balance 1250 Weight 79 kg 77.6 kg Intake: IV 850 Dextrose 5%-0.9% NaCl 1, 800 000 ml @ 100 mls/hr IV . Q10H [facility] Rx#:[id number] Piperacillin-Tazobactam 3 50 .375 gm In Dextrose/Water 1 50ml.bag @ 12.5 mls/hr IVPB Q8HR [facility] Rx#: [id number] Intake, IV Titration 400 Amount Magnesium Sulfate-D5w Pmx 200 1 gm In Dextrose/Water 1 100ml.bag @ 100 mls/hr IVPB Q1H [facility] Rx#: [id number] Potassium Chloride 10 meq 200 Lidocaine 2% Inj 10 mg In Sodium Chloride 0.9% 100 ml @ 100 mls/hr IV Q1HR [facility] Rx#:[id number] Other: Voiding Method Urinal Urinal # Voids 1 1 2 - Exam PHYSICAL EXAM: VITAL SIGNS: As above GENERAL: [Sitting up in chair, no acute distress] HEENT: [Pupils equal conjunctiva normal.] NECK: [Supple, no JVD] RESPIRATORY EFFORT: Mildly increased LUNGS: Bilateral bases Diminished, more so on the left, no crackles rhonchi or wheezing CARDIOVASCULAR[regular S1 and S2, occasional tachycardia, no murmurs rubs or gallops, positive edema] GI: [Abdomen soft, nontender, positive bowel sounds.] PSYCH: [Alert and oriented -3, mood and affect normal.] NEURO: No focal deficits, moves all 4 extremities, strength and sensation grossly intact. Microbiology 05/15/16 02:40 Blood Blood Culture - Final No Growth after 144 hours 05/15/16 17:05 Sputum Gram Stain - Final 05/15/16 17:05 Sputum Sputum Culture - Final - Labs CBC & Chem 7: 05/22/16 06:05 05/22/16 06:05 Labs: Abnormal Lab Results - Last 24 Hours (Table) 05/22/16 05/22/16 05/22/16 Range/Units 06:05 06:05 06:05 WBC 1.8 L* (3.8-10.6) k/uL RBC 3.82 L (4.30-5.90) m/uL Hgb 11.6 L (13.0-17.5) gm/dL Hct 34.7 L (39.0-53.0) % Plt Count 136 L (150-450) k/uL Lymphocytes # 0.2 L (1.0-4.8) k/uL Sodium 136 L (137-145) mmol/L Potassium 3.1 L (3.5-5.1) mmol/L Chloride 93 L (98-107) mmol/L Carbon Dioxide 34 H (22-30) mmol/L BUN 4 L (9-20) mg/dL Creatinine 0.60 L (0.66-1.25) mg/dL Glucose 117 H (74-99) mg/dL POC Glucose (mg/dL) (75-99) mg/dL Magnesium 1.5 L (1.6-2.3) mg/dL 05/22/16 05/22/16 Range/Units 06:26 11:37 WBC (3.8-10.6) k/uL RBC (4.30-5.90) m/uL Hgb (13.0-17.5) gm/dL Hct (39.0-53.0) % Plt Count (150-450) k/uL Lymphocytes # (1.0-4.8) k/uL Sodium (137-145) mmol/L Potassium (3.5-5.1) mmol/L Chloride (98-107) mmol/L Carbon Dioxide (22-30) mmol/L BUN (9-20) mg/dL Creatinine (0.66-1.25) mg/dL Glucose (74-99) mg/dL POC Glucose (mg/dL) 115 H 102 H (75-99) mg/dL Magnesium (1.6-2.3) mg/dL Assessment and Plan Plan: 1. [Acute left-sided pneumonia multilobar, possibly postobstructive with severe sepsis, present on admission]. 2. Recently diagnosed non-small cell lung CA, status post chemoradiation]. 3. Status post esophageal stent placement. 4. [Tracheoesophageal fistula post radiation treatment, status post esophageal stent]. 5. [Gastroesophageal reflux disease]. 6. [Hypertension]. 7. [Remote history of nicotine dependence]. 8. Leukopenia, anemia and thrombocytopenia with mild pancytopenia, secondary to chemotherapy and malignancy 9. Proximal atrial fibrillation, now sinus rhythm. No anticoagulation required as per cardiology. 10. Hypokalemia 11. Hypomagnesemia Plan: Continue on current medication regime , Zofran, Compazine, nebulized bronchodilators, empiric antibiotics, monitoring and symptomatic treatment. Electrolyte supplementation per protocol. Repeat magnesium and potassium levels at 1600. Close monitoring of electrolytes with repeat labs ordered for a.m. GI consulted for potential PEG tube placement, concerned patient will not be able to sustain adequate nutrition and fluid intake .strict I&O and calorie count ordered. Discussed with Speech therapy our concerns regarding inability to maintain adequate nutrition, water intake; Mayra will evaluate, recommendations pending regarding any other ideas are techniques. Regarding pain management, discussed with RN weaning off morphine, and placing patient on Jenera elixir as patient does not tolerate Jenera tabs. Increase ambulation as tolerated. Pancytopenia being closely followed by oncology. Antibiotics as per infectious disease. Follow with multiple consults. Further recommendations to follow. The impression and plan of care has been dictated as directed. : I performed a H&P examination of this patient and discussed the same with the dictator. I agree with the dictator's note. Any additional findings/opinions/ etc. will be noted.
[2016-05-22] MEDS: HYDROcodone/APAP 15 ML SOLUTION PO PRN ×2 (15:05→20:03)
[2016-05-22] MEDS: PROCHLORPERAZINE SUPPOSITORY 25 MG SUPP RECTAL PRN (15:46)
[2016-05-22 16:39] LABS: Magnesium 1.9 mg/dL (1.6-2.3)
[2016-05-22 16:40] LABS: Glucose,Whole Blood 134 mg/dL (75-99)
[2016-05-22 16:42] LABS: Potassium 2.9 mmol/L (3.5-5.1)
[2016-05-22] MEDS: POTASSIUM CHLORIDE 10 MEQ, LIDOCAINE 2% INJ 10 MG in SODIUM CHLORIDE 0.9% 100 ML IVPB SCH ×4 (17:43→21:20)
[2016-05-22] MEDS: D5-0.9% NACL WITH KCL 40 MEQ/L 1,000 ML IV SCH (17:43)
--- NOTE | 2016-05-22 19:10 | PN ---
DATE OF SERVICE: 05/22/2016 This 51-year-old gentleman admitted with multiple medical problems and t/e Fistula also had leukopenia. The patient also is on broad-spectrum IV antibiotics. Seen and evaluated the patient along with nurse practitioner. Please refer to the nurse practitioner notes and impression documented as a scribe for further information. Prognosis guarded. Further recommendations to follow. Discussed with hematology/oncology. Monitor closely. Further recommendations to follow. MTDD
[2016-05-22 20:58] LABS: Glucose,Whole Blood 104 mg/dL (75-99)
[2016-05-23] MEDS: SUCRALFATE 1 GM TAB PO SCH ×4 (05:48→21:33)
[2016-05-23] MEDS: PROCHLORPERAZINE SUPPOSITORY 25 MG SUPP RECTAL PRN ×2 (06:46→18:50)
[2016-05-23 07:15] LABS: Basophils % (A) 0 %; CH 30.3; CHCM 33.6; Eosinophils % (A) 1 %; HCT 35.5 % (39.0-53.0); HDW 2.99; HGB 11.9 gm/dL (13.0-17.5); Luc # (Auto) 0.13; Luc % (Auto) 4; Lymphocytes # (A) 0.3 k/uL (1.0-4.8); Lymphocytes % (A) 7 %; MCH 30.5 pg (25.0-35.0); MCHC 33.7 g/dL (31.0-37.0); MCV 90.5 fL (80.0-100.0); Mean Platelet Volume 7.7; Monocytes # (A) 0.3 k/uL (0-1.0); Monocytes % (A) 10 %; Neutrophils # (A) 2.6 k/uL (1.3-7.7); Neutrophils % (A) 78 %; RBC 3.92 m/uL (4.30-5.90); RDW 12.2 % (11.5-15.5); WBC 3.3 k/uL (3.8-10.6)
[2016-05-23] MEDS ORDERED: Magnesium Replacement Protocol 1 EACH MISC MISCELLANE PRN (08:04)
[2016-05-23] MEDS: IPRATROPIUM 0.5 MG/2.5 ML NEBU INHALATION SCH ×3 (08:13→21:08)
[2016-05-23] MEDS: LEVALBUTEROL NEB (CONC) 1.25 MG/0.5 ML AMP INHALATION SCH ×3 (08:13→21:08)
[2016-05-23] MEDS: ONDANSETRON 4 MG/2 ML VIAL IVP PRN ×3 (08:21→17:10)
[2016-05-23] MEDS: PIPERACILLIN-TAZOBACTAM 3.375 GM in DEXTROSE/WATER 1 50ML.BAG IVPB SCH ×2 (08:32→17:09)
[2016-05-23] MEDS: MAGNESIUM SULFATE-D5W PMX 1 GM in DEXTROSE/WATER 1 100ML.BAG IVPB SCH ×2 (08:33→09:31)
--- NOTE | 2016-05-23 08:45 | P.CONS ---
History of Present Illness - Reason for Consult Consult date: 05/23/16 PEG tube placement Requesting physician: Garrett Tinajero - History of Present Illness 51-year-old gentleman admitted 05/14/2016 with sepsis left sided pneumonia, intractable nausea vomiting after chemotherapy subsequently had an episode of atrial fibrillation converted with Rythmol. 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 Consultation requested for PEG tube evaluation secondary to poor oral inadequate nutritional intake. Yesterday's chemistries white count 1.8. Hemoglobin 11.6. Platelet 136. Denies hemoptysis, hematemesis, hematochezia, or melena. T-max 101.0 yesterday receiving intravenous antibiotics. BMI 24. Weight loss approximately 14 kg over the last 6 months. Reports poor oral intake with regurgitation of liquids and solids with copious amounts of phlegm intermittently since admission. Mild midepigastric discomfort mostly from retching. No history of peptic ulcer disease or gastric surgeries. Review of Systems Constitutional: Denies fever, chills, sweats, weight gain, or loss. HEENT: Negative for migraines, blurred vision or loss, earaches, drainage, tinnitus, oral mucosal lesions, dysphagia, or odynophagia. Cardiac: Hypertension. Recent episode of intermittent paroxysmal atrial fibrillation. Negative for chest pain, or palpitation. Respiratory: Non-small cell lung carcinoma, tracheoesophageal fistula with stent , COPD, remote nicotine cigarette dependency. Gastrointestinal: See HPI for pertinent findings. Genitourinary: Negative for hematuria, urgency, frequency, polyuria, dysuria, or penile discharge. Musculoskeletal: Negative for muscle aches, swelling, arthritis, and arthralgias. Neurologic: Negative for stroke or TIA. Endocrine: Negative for thyroid problems. Skin: Negative for rash or itching. Psychiatric: Negative history for depression and anxiety All systems: negative (See HPI) Past Medical History Past Medical History: Cancer, GERD/Reflux, Hypertension Additional Past Medical History / Comment(s): Non-small cell lung Cancer History of Any Multi-Drug Resistant Organisms: None Reported Past Surgical History: Hernia Repair Additional Past Surgical History / Comment(s): cyst removed from back, BRONCHOSCOPY, VATS procedure Past Anesthesia/Blood Transfusion Reactions: Motion Sickness Past Psychological History: No Psychological Hx Reported Additional Psychological History / Comment(s): 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 Tobacco smoker until 3 years ago approximately 30 -pack-year history. No significant alcohol use. no recreational drug use. No experience. 2 adult children that are healthy. No animals in the home Smoking Status: Former smoker Past Alcohol Use History: Daily Additional Past Alcohol Use History / Comment(s): quit smoking 2013, STARTED SMOKING AT AGE 15, SMOKED 1 PPD Past Drug Use History: None Reported - Past Family History Mother Family Medical History: No Reported History Medications and Allergies Home Medications Medication Instructions Recorded Confirmed Type Lisinopril-Hctz 20-12.5 mg 1 tab PO DAILY 10/19/15 05/14/16 History [Zestoretic 20-12.5] Acetaminophen [Tylenol] 1,000 mg PO Q4-6H PRN 05/14/16 05/14/16 History Pantoprazole [Protonix] 40 mg PO DAILY 05/14/16 05/14/16 History Allergies Allergy/AdvReac Type Severity Reaction Status Date / Time No Known Allergies Allergy Verified 05/14/16 23:22 Physical Exam Vitals: Vital Signs Temp Pulse Pulse Resp BP Pulse Ox 05/23/16 05:30 98.8 F 95 16 123/64 94 L 05/23/16 00:00 79 16 111/58 97 05/22/16 20:33 95 05/22/16 20:21 97.8 F 97 18 110/65 92 L 05/22/16 20:20 95 05/22/16 16:50 97.5 F L 80 16 116/64 96 05/22/16 14:16 92 05/22/16 14:00 92 05/22/16 11:02 16 05/22/16 11:00 94 16 126/73 92 L 05/22/16 09:53 92 05/22/16 09:35 92 05/22/16 08:15 98.4 F 94 16 128/72 93 L Intake and Output 05/22/16 05/23/16 05/23/16 22:59 06:59 14:59 Intake Total 50 Balance 50 Intake: Oral 50 Other: Voiding Method Urinal Weight 75.7 kg General appearance: The patient is alert, oriented, in no acute distress. HET: Head is normocephalic and atraumatic. Pupils are equal and reactive. Oropharynx is clear without lesions. Neck: Supple without lymphadenopathy. Trachea midline. Heart: S1 S2. Regular rate and rhythm. Lungs: No crackles or wheezes are heard. Slight diminishment in bilateral bases otherwise clear. Intermittent cough. Abdomen: Soft, nontender, nondistended with bowel sounds. No peritoneal signs. No palpable organomegaly or masses. Extremities: Normal skin color and turgor. No cyanosis, rash, ulceration, clubbing, or edema. Radial and pedal pulses are 2/4 bilaterally. Neurological: No focal deficits. Strength and sensation are grossly intact. Results CBC & Chem 7: 05/23/16 06:55 05/23/16 06:55 Labs: Abnormal Lab Results - Last 24 Hours (Table) 05/22/16 05/22/16 05/22/16 Range/Units 06:05 11:37 16:08 Sodium 136 L 135 L (137-145) mmol/L Potassium 3.1 L 2.9 L* (3.5-5.1) mmol/L Chloride 93 L 92 L (98-107) mmol/L Carbon Dioxide 34 H 34 H (22-30) mmol/L BUN 4 L (9-20) mg/dL Creatinine 0.60 L (0.66-1.25) mg/dL Glucose 117 H (74-99) mg/dL POC Glucose (mg/dL) 102 H (75-99) mg/dL 05/22/16 05/22/16 Range/Units 16:38 20:57 Sodium (137-145) mmol/L Potassium (3.5-5.1) mmol/L Chloride (98-107) mmol/L Carbon Dioxide (22-30) mmol/L BUN (9-20) mg/dL Creatinine (0.66-1.25) mg/dL Glucose (74-99) mg/dL POC Glucose (mg/dL) 134 H 104 H (75-99) mg/dL Assessment and Plan (1) Inadequate oral nutritional intake Status: Acute (2) Non-small cell carcinoma of lung Status: Acute (3) Sepsis Status: Acute (4) Pneumonia Status: Acute (5) Intractable nausea and vomiting Status: Acute (6) Leukopenia due to antineoplastic chemotherapy Status: Acute (7) Protein calorie malnutrition Narrative/Plan: Suspected moderate protein calorie malnutrition Status: Acute Plan: 1. We'll proceed with tentative PEG insertion tomorrow 05/24/2016. There is concern with recent tracheoesophageal stent placement could impede the advancement of PEG tube. Will discuss with medicine and pulmonary. 2. We'll decrease diet to full liquids followed by nothing by mouth after midnight. 3. Continue GI prophylaxis Protonix 40 mg IV daily. The loss prevention representative has discussed the risks, benefits and alternative therapies for the above-mentioned procedure and for both sedation/analgesia as well as necessary blood product administration, if indicated, as they pertain to this patient. The patient has indicated understanding and acceptance of the risks and procedures discussed. Thank you for this kind referral and the opportunity to participate in the care of your patient. This consultation was discussed with Dr. Marsh. The impression and plan of care have been directed as dictated.
[2016-05-23] MEDS: DOCUSATE 100 MG CAP PO SCH ×2 (09:21→21:31)
[2016-05-23] MEDS: FUROSEMIDE 20 MG TAB PO SCH ×2 (09:21→15:54)
[2016-05-23] MEDS: D5-0.9% NACL WITH KCL 40 MEQ/L 1,000 ML IV SCH ×2 (09:21→15:53)
[2016-05-23] MEDS: POTASSIUM CHLORIDE ER 20 MEQ TAB.ER PO SCH (09:22)
[2016-05-23] MEDS: LISINOPRIL 5 MG TAB PO SCH ×2 (09:22→21:32)
[2016-05-23] MEDS: METOPROLOL TARTRATE 25 MG TAB PO SCH ×2 (09:22→21:32)
[2016-05-23] MEDS: MORPHINE SULFATE 4 MG/ML SYRINGE IV PRN ×3 (09:29→18:49)
[2016-05-23] MEDS: PANTOPRAZOLE 40 MG/10 ML VIAL IV SCH (09:31)
[2016-05-23] MEDS: POTASSIUM CHLORIDE 10 MEQ, LIDOCAINE 2% INJ 10 MG in SODIUM CHLORIDE 0.9% 100 ML IV SCH ×2 (10:56→12:26)
[2016-05-23] MEDS ORDERED: RX INFO: IV CONTRAST WAS GIVEN 1 EACH MISC MISCELLANE PRN ×2 (12:02→13:55)
[2016-05-23] MEDS ORDERED: IOHEXOL 350 MG/ML 25 ML BOTTLE (ORAL USE) PO PRN ×2 (12:02→13:55)
[2016-05-23] MEDS ORDERED: METOPROLOL TARTRATE 5 MG/5 ML VIAL IVP STA (12:34)
--- NOTE | 2016-05-23 13:58 | XR ---
EXAMINATION TYPE: XR chest 1V portable DATE OF EXAM: 05/23/2016 1:44 PM Comparison: 05/22/[address] 05/15/2016 Clinical History: 51-year-old male pneumonia Findings: Heart is normal size. Left hilar opacity with significant volume loss in the left hemithorax probably relating to left upper lobe collapse when correlating with CT of 05/15/2016. Patchy left basilar opac ities and some subtle interstitial opacities at the right lower lung are unchanged. Several staple li rodolfo seen also at the left midlung. An esophageal stent is present. Impression: Overall stable exam with continued left upper lobar collapse (when correlating with prior CT), abnorm al left hilar opacity possible malignancy, left basilar infiltrate and lesser degree of right basilar interstitial infiltrate. Esophageal stent.
[2016-05-23 14:58] LABS: Anion Gap 9 mmol/L; Blood Urea Nitrogen 6 mg/dL (9-20); Calcium 8.8 mg/dL (8.4-10.2); Carbon Dioxide 29 mmol/L (22-30); Chloride 97 mmol/L (98-107); Glucose 103 mg/dL (74-99); Non-African American GFR(MDRD) >60 (>60 ml/min/1.73 sqM); Sodium 135 mmol/L (137-145)
[2016-05-23] MEDS ORDERED: ACETAMINOPHEN IV (For NPO) 1,000 MG in EMPTY BAG 1 BAG IVPB STA (14:58)
--- NOTE | 2016-05-23 15:39 | P.PN ---
Subjective Date of service 05/23/2016. Progress note being dictated for Dr. Tinajero. Interval history: This a 51-year-old gentleman admitted with left-sided multilobar pneumonia, with history of tracheoesophageal fistula with stent placement, lung CA, and multiple other medical issues. Maintained on Zosyn, as per infectious disease. Completed breakfast followed by continued wretching, nausea and vomiting without hemoptysis. Reports emesis consisted of breakfast and large amounts of phlegm. Speech therapy at bedside post breakfast but unable to evaluate given persistent nausea and vomiting. Denies abdominal pain.WBC improving, currently at 3.3. Received lyte supplements yesterday with potassium up to 1.8, magnesium 3.9. First improving, T-max 99.2. BMP pending. Review of systems: HEENT: Denies headache or focal deficits. Denies any dizziness or lightheadedness. Respiratory: Denies any increased shortness of breath. Cardiac: Denies any chest pain, palpitations. GI: Complains of nausea, vomiting, no diarrhea. Denies any abdominal pain, mild mid abdominal discomfort related to wretching. : Denies any dysuria. Psychiatry: Denies any anxiety or depression. Active Medications Acetaminophen (Tylenol Oral Susp) 650 mg PO Q6H PRN PRN Reason: Pain Hydrocodone Bitart/Acetaminophen ([place] Elixir 7.5-325mg/15ml) 10 ml PO Q4H PRN PRN Reason: Pain Last Admin: 05/22/16 20:03 Dose: 10 ml Docusate Sodium (Colace) 100 mg PO BID [facility] Last Admin: 05/23/16 09:21 Dose: Not Given Furosemide (Lasix) 20 mg PO 0900,1700 [facility] Last Admin: 05/23/16 09:21 Dose: Not Given Piperacillin/Tazobactam/ (Dextrose 3.375 gm/ IV Solution) 50 mls @ 12.5 mls/hr IVPB Q8HR [facility] Last Admin: 05/23/16 08:32 Dose: 12.5 mls/hr Potassium Chloride/Dextrose/Sod Cl (D5%-Ns-Kcl 40 Meq/L Iv Solution) 1,000 mls @ 100 mls/hr IV .Q10H [facility] Last Admin: 05/23/16 09:21 Dose: Not Given Iohexol (Omnipaque 350 Mg/Ml (For Oral Use)) 25 ml PO Q60M PRN PRN Reason: CT Scan Stop: 05/24/16 12:04 Last Admin: 05/23/16 14:37 Dose: 25 ml Iohexol (Omnipaque 350 Mg/Ml (For Oral Use)) 25 ml PO Q60M PRN PRN Reason: CT Scan Stop: 05/24/16 13:56 Ipratropium [place] (Atrovent Nebulized) 0.5 mg INHALATION RT-TID [facility] Last Admin: 05/23/16 13:06 Dose: Not Given Levalbuterol HCl (Xopenex Nebulized (Conc)) 1.25 mg INHALATION RT-TID [facility] Last Admin: 05/23/16 13:06 Dose: Not Given Lisinopril (Zestril) 5 mg PO BID [facility] Last Admin: 05/23/16 09:22 Dose: Not Given Lorazepam (Ativan) 1 mg IV Q4HR PRN PRN Reason: Anxiety Last Admin: 05/19/16 07:50 Dose: 1 mg Metoprolol Tartrate (Lopressor) 25 mg PO BID [facility] Last Admin: 05/23/16 09:22 Dose: Not Given Metoprolol Tartrate (Lopressor) 2.5 mg IVP BID PRN PRN Reason: Heart Rate - HIGH Miscellaneous Information (Potassium Per Protocol) 1 each MISCELLANE DAILY PRN ; Protocol PRN Reason: Per Protocol Miscellaneous Information (Magnesium Per Protocol) 1 each MISCELLANE DAILY PRN ; Protocol PRN Reason: Per Protocol Miscellaneous Information (Rx Info: Iv Contrast Was Given) 1 each MISCELLANE DAILY PRN PRN Reason: Per Protocol Stop: 05/25/16 12:04 Miscellaneous Information (Rx Info: Iv Contrast Was Given) 1 each MISCELLANE DAILY PRN PRN Reason: Per Protocol Stop: 05/25/16 13:56 Morphine Sulfate (Morphine Sulfate (Inj)) 4 mg IV Q4HR PRN PRN Reason: Severe Pain Last Admin: 05/23/16 14:33 Dose: 4 mg Naloxone HCl (Narcan) 0.2 mg IV Q2M PRN PRN Reason: Opioid Reversal Ondansetron HCl (Zofran) 4 mg IVP Q4HR PRN PRN Reason: Nausea And Vomiting Last Admin: 05/23/16 12:26 Dose: 4 mg Pantoprazole Sodium (Protonix) 40 mg IV DAILY [facility] Last Admin: 05/23/16 09:31 Dose: 40 mg Potassium Chloride (K-Dur 20) 20 meq PO DAILY [facility] Last Admin: 05/23/16 09:22 Dose: Not Given Prochlorperazine Maleate (Compazine) 25 mg RECTAL Q12HR PRN PRN Reason: Nausea And Vomiting Last Admin: 05/23/16 06:46 Dose: 25 mg Sucralfate (Carafate) 1 gm PO ACHS [facility] Last Admin: 05/23/16 10:59 Dose: Not Given Objective - Vital Signs Vital signs: Vital Signs Temp 99.2 F 05/23/16 09:15 Pulse 105 H 05/23/16 12:38 Resp 16 05/23/16 12:42 BP 140/73 05/23/16 12:38 Pulse Ox 94 L 05/23/16 12:38 Intake & Output 05/22/16 05/23/16 05/23/16 18:59 06:59 18:59 Intake Total 1400 Balance 1400 Weight 75.7 kg 75.7 kg Intake: IV 850 Dextrose 5%-0.9% NaCl 1, 800 000 ml @ 100 mls/hr IV . Q10H [facility] Rx#:[id number] Piperacillin-Tazobactam 3 50 .375 gm In Dextrose/Water 1 50ml.bag @ 12.5 mls/hr IVPB Q8HR [facility] Rx#: [id number] Intake, IV Titration 400 Amount Magnesium Sulfate-D5w Pmx 200 1 gm In Dextrose/Water 1 100ml.bag @ 100 mls/hr IVPB Q1H [facility] Rx#: [id number] Potassium Chloride 10 meq 200 Lidocaine 2% Inj 10 mg In Sodium Chloride 0.9% 100 ml @ 100 mls/hr IV Q1HR [facility] Rx#:[id number] Oral 150 Other: Voiding Method Urinal Urinal # Voids 2 - Exam PHYSICAL EXAM: VITAL SIGNS: As above GENERAL: [Sitting up in chair, tired appearing, wretching HEENT: [Pupils equal conjunctiva normal.] NECK: [Supple, no JVD] RESPIRATORY EFFORT: Mildly increased LUNGS: Bilateral bases diminished, no crackles rhonchi or wheezing CARDIOVASCULAR[regular S1 and S2, occasional tachycardia, no murmurs rubs or gallops, positive edema] GI: [Abdomen soft, nontender, positive bowel sounds.] PSYCH: [Alert and oriented -3, mood and affect normal.] NEURO: No focal deficits, moves all 4 extremities, strength and sensation grossly intact. Microbiology 05/15/16 02:40 Blood Blood Culture - Final No Growth after 144 hours 05/15/16 17:05 Sputum Gram Stain - Final 05/15/16 17:05 Sputum Sputum Culture - Final - Labs CBC & Chem 7: 05/23/16 06:55 05/23/16 14:18 Labs: Abnormal Lab Results - Last 24 Hours (Table) 05/22/16 05/22/16 05/22/16 Range/Units 16:08 16:38 20:57 WBC (3.8-10.6) k/uL RBC (4.30-5.90) m/uL Hgb (13.0-17.5) gm/dL Hct (39.0-53.0) % Lymphocytes # (1.0-4.8) k/uL Sodium 135 L (137-145) mmol/L Potassium 2.9 L* (3.5-5.1) mmol/L Chloride 92 L (98-107) mmol/L Carbon Dioxide 34 H (22-30) mmol/L POC Glucose (mg/dL) 134 H 104 H (75-99) mg/dL Prealbumin (18-36) mg/dL 05/23/16 05/23/16 Range/Units 06:55 06:55 WBC 3.3 L (3.8-10.6) k/uL RBC 3.92 L (4.30-5.90) m/uL Hgb 11.9 L (13.0-17.5) gm/dL Hct 35.5 L (39.0-53.0) % Lymphocytes # 0.3 L (1.0-4.8) k/uL Sodium (137-145) mmol/L Potassium (3.5-5.1) mmol/L Chloride (98-107) mmol/L Carbon Dioxide (22-30) mmol/L POC Glucose (mg/dL) (75-99) mg/dL Prealbumin 9 L (18-36) mg/dL Assessment and Plan Plan: 1. [Acute left-sided pneumonia multilobar, possibly postobstructive with severe sepsis, present on admission]. 2. Recently diagnosed non-small cell lung CA, status post chemoradiation]. 3. Status post esophageal stent placement. 4. [Tracheoesophageal fistula post radiation treatment, status post esophageal stent]. 5. [Gastroesophageal reflux disease]. 6. [Hypertension]. 7. [Remote history of nicotine dependence]. 8. Leukopenia, anemia and thrombocytopenia with mild pancytopenia, secondary to chemotherapy and malignancy 9. Proximal atrial fibrillation, now sinus rhythm. No anticoagulation required as per cardiology. 10. Hypokalemia 11. Hypomagnesemia 12. Moderate Protein calorie malnutrition Plan: Continue on current medication regime , Zofran, Compazine, nebulized bronchodilators, empiric antibiotics, monitoring and symptomatic treatment. Reglan IV push added to med regime. BMP pending. CT of abdomen, pelvis and chest ordered. Hold on PEG tube. CXR ordered. Electrolyte supplementation per protocol. Close monitoring of electrolytes with repeat labs ordered for a.m. Antibiotics as per infectious disease. Follow with multiple consults. Further recommendations to follow. Prognosis guarded Multiple complex medical issues. The impression and plan of care has been dictated as directed. : I performed a H&P examination of this patient and discussed the same with the dictator. I agree with the dictator's note. Any additional findings/opinions/ etc. will be noted.
--- NOTE | 2016-05-23 17:15 | CT ---
EXAMINATION TYPE: CT ChestAbdPelvis w con DATE OF EXAM: 05/23/2016 4:37 PM INDICATION: Post OP esphogeal repair. Nausea and vomiting COMPARISON: 05/15/2016. CT DLP: 1764 mGycm CONTRAST: Performed with Oral Contrast and with IV Contrast, patient injected with 100 mL of Omnipaque 300. TECHNIQUE: Axial images at 5 mm thick sections. Reconstructed images in the coronal plane. Delayed images through the kidneys. FINDINGS: CT CHEST: Esophageal stent is present. Tiny amount of air is adjacent to the esophageal stent greater near the superior portion. No pneumomediastinum is identified. There is lingular consolidation and c ollapse. Left lower lobe infiltrate is present. A minimal left pleural effusion is present. This is a n interval finding Portion of the thyroid visualized is normal. No suspicious lung nodules or focal infiltrates are present. There is a 2.0 cm low-density collection posterior to the brachiocephalic vein and the aortic arch. S mall fluid collection could be considered measuring 31 Hounsfield units. A lymph node could be consid ered. Additional lymph node may be adjacent to the aortic arch which is not enlarged. There is a low- density collection adjacent to the main pulmonary artery in the left main pulmonary artery. The left main pulmonary artery may be compressed. This could be related to mass or fluid these findings appear stable from the presurgical repair images of 05/15/2016. The ascending aorta diameter at the level of the main pulmonary artery is 3.2 cm. The main pulmonary artery diameter at the bifurcation is 2.6 cm. A 1.9 cm mass at the infrahilar region on the right. Surgical clips are in the left infrahilar region . Some infiltrate is to the right middle lobe. CT ABDOMEN: Liver: Normal Spleen: Scattered calcified granuloma within the spleen. Pancreas: Normal Adrenal glands: The adrenal glands are normal. Gallbladder: Normal Kidneys: No masses are evident. No hydronephrosis is present. No cysts are present. Delayed images were obtained through the kidneys, which remain unremarkable. Aorta: Vascular calcification is within the aorta. Inferior vena cava: Normal. CT PELVIS: Scattered diverticuli within the sigmoid colon. Appendix: Not visualized Urinary bladder: Normal. Low-dose portion of the pelvis is out of the [id number]. Osseous structures: No suspicious lytic or sclerotic lesions. Spondylolysis of L5 is present. IMPRESSIONS: 1. Stable soft tissue mass within the mediastinum. 2. Lingular consolidation can be related to mass or obstruction with atelectasis. 3. Interval development of small left pleural effusion. 4. Small right infrahilar mass. 5. Scattered areas of pneumonitis greatest at the left lung base. 6. Interval placement of a stent within the esophagus. Some minimal air remains adjacent to the proxi mal esophagus external to the stent. No pneumomediastinum is identified. 7. Diverticulosis without acute diverticulitis.
--- NOTE | 2016-05-23 17:38 | P.PN ---
Subjective Principal diagnosis: Intractable vomiting Patient is seen today in follow-up. He just returned from CT of the chest abdomen and pelvis. Patient is being evaluated for ongoing symptoms and evaluation prior to PEG tube insertion. Patient states that he was actually able to tolerate just about 3-4 ounces of the contrast for the computed tomography scan. He finds that if he just takes very small sips he is able to keep some liquids down. Patient denies any pain with swallowing, he does state an occasional "spasms" in the esophagus after which he belches several times and the pain resolves. Patient states that he actually feels better now than he has for several days. Objective - Vital Signs Vital signs: Vital Signs Temp 101.2 F H 05/23/16 15:00 Pulse 105 H 05/23/16 12:38 Resp 16 05/23/16 16:40 BP 140/73 05/23/16 12:38 Pulse Ox 94 L 05/23/16 12:38 Intake & Output 05/22/16 05/23/16 05/23/16 18:59 06:59 18:59 Intake Total 1400 Balance 1400 Weight 75.7 kg 75.7 kg Intake: IV 850 Dextrose 5%-0.9% NaCl 1, 800 000 ml @ 100 mls/hr IV . Q10H [facility] Rx#:[id number] Piperacillin-Tazobactam 3 50 .375 gm In Dextrose/Water 1 50ml.bag @ 12.5 mls/hr IVPB Q8HR [facility] Rx#: [id number] Intake, IV Titration 400 Amount Magnesium Sulfate-D5w Pmx 200 1 gm In Dextrose/Water 1 100ml.bag @ 100 mls/hr IVPB Q1H [facility] Rx#: [id number] Potassium Chloride 10 meq 200 Lidocaine 2% Inj 10 mg In Sodium Chloride 0.9% 100 ml @ 100 mls/hr IV Q1HR [facility] Rx#:[id number] Oral 150 Other: Voiding Method Urinal Urinal # Voids 2 - Constitutional General appearance: Present: average body habitus, cooperative, no acute distress - Respiratory Respiratory: bilateral: rales - Cardiovascular Heart sounds: normal: S1, S2 - Gastrointestinal General gastrointestinal: Present: normal bowel sounds, soft. Absent: absent bowel sounds, decreased bowel sounds, distended, hepatomegaly, hyperactive bowel sounds, organomegaly, rigid, scaphoid, splenomegaly, tenderness, umbilical hernia, ventral hernia - Integumentary Integumentary: Present: pale - Neurologic Neurologic: Present: CNII-XII intact - Musculoskeletal Musculoskeletal: Present: strength equal bilaterally - Psychiatric Psychiatric: Present: A&O x's 3, appropriate affect, intact judgment & insight - Labs CBC & Chem 7: 05/23/16 06:55 05/23/16 14:18 Labs: Abnormal Lab Results - Last 24 Hours (Table) 05/22/16 05/23/16 05/23/16 Range/Units 20:57 06:55 06:55 WBC 3.3 L (3.8-10.6) k/uL RBC 3.92 L (4.30-5.90) m/uL Hgb 11.9 L (13.0-17.5) gm/dL Hct 35.5 L (39.0-53.0) % Lymphocytes # 0.3 L (1.0-4.8) k/uL Sodium (137-145) mmol/L Chloride (98-107) mmol/L BUN (9-20) mg/dL Creatinine (0.66-1.25) mg/dL Glucose (74-99) mg/dL POC Glucose (mg/dL) 104 H (75-99) mg/dL Prealbumin 9 L (18-36) mg/dL 05/23/16 Range/Units 14:18 WBC (3.8-10.6) k/uL RBC (4.30-5.90) m/uL Hgb (13.0-17.5) gm/dL Hct (39.0-53.0) % Lymphocytes # (1.0-4.8) k/uL Sodium 135 L (137-145) mmol/L Chloride 97 L (98-107) mmol/L BUN 6 L (9-20) mg/dL Creatinine 0.60 L (0.66-1.25) mg/dL Glucose 103 H (74-99) mg/dL POC Glucose (mg/dL) (75-99) mg/dL Prealbumin (18-36) mg/dL - Imaging and Cardiology Chest x-ray: report reviewed Assessment and Plan (1) Squamous cell carcinoma lung Narrative/Plan: Patient currently is continuing on with his radiation treatments. He states he had radiation today. Patient is due for follow-up with Dr. Mitchell next week. Patient will be reevaluated to see if final cycle of chemotherapy as appropriate. Status: Acute (2) Intractable nausea and vomiting Narrative/Plan: Slightly improved with insertion of esophageal stent. Patient states that he can sometimes tolerate very soft foods and sips of liquids but it is still very stressful for him to try to tolerate oral intake. He is being evaluated for PEG tube insertion site he can maintain nutritional status for healing. Status: Acute (3) Tracheo-esophageal fistula Status: Acute (4) Pancytopenia due to antineoplastic chemotherapy Narrative/Plan: Patient's lab values have been monitored. Patient is just about 12-13 days out from his chemotherapy. He is past his tavo. His hemoglobin is stable and improved, platelet counts are within normal limits, white blood cell count is near normal with a absolute neutrophil count of 2600. No intervention at this time. Status: Acute Plan: No DVT of BLE Cardiology, IM, Pulmonary, Cardiothoracic Surgeon, ID and GI following We will await results of computed tomography scan and gastroenterology's plans regarding PEG tube insertion
[2016-05-23] MEDS: METOPROLOL TARTRATE 5 MG/5 ML VIAL IVP PRN (18:49)
--- NOTE | 2016-05-23 19:05 | P.PN ---
Subjective 51-year-old male who has a history of prior nicotine dependence was having difficulties in the past. 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 He constantly has undergone chemotherapy and radiation. Recently was having great difficulties with recurrent pneumonia and evidence of aspiration. 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 As he was taken to the operating room and a stent was placed In the esophagus. The post procedure chest x-ray that was done shows some improvement in aeration of the left lung base. There is still some consolidation of the left lower lobe. The esophageal stent looks in a good location. Currently the patient is afebrile. The patient is hemodynamically stable. The patient is on IV antibiotics. The patient is hoarse related to the vocal cord paralysis. No nausea. No vomiting. No abdominal pain. The patient is completing radiation therapy did speak offered to him through radiation oncology. Otherwise, no other significant events overnight. The patient remains on IV Zosyn. Pain is under good control. One more comorbidities the development of a proximal atrial fibrillation current rhythm is back to normal sinus. The patient's echocardiogram showed a preserved LV function and cardiology is also on the case. IV heparin was discontinued today. On 05/22/2016 the patient is being seen in follow-up. The patient is having some occasional nausea and emesis and the exact cause is not clear. This could be a chemotherapy-induced nausea and emesis although the patient has also a documented history of a tracheobronchial fistula for which the patient had a an esophageal stent inserted recently. The patient is still on IV Zosyn regarding a left lower lobe pneumonia. The patient is afebrile. No reported hemoptysis. No reported cough and was swallowing food material. The chest x-ray from today shows left basal infiltrate along with a component of atelectasis/ pneumonia. The patient's white cell count is still low at 1.8. On 05/23/2016 the patient is being seen in follow-up. The patient is still having difficulties with swallowing, nausea, regurgitation, throwing up with material to the point where the patient is unable to keep any liquids. He is not coughing doubt any food material. He had a follow-up chest x-ray that showed is stable left lower lobe atelectasis/consolidation/infiltrate. There is a fragile stent seemed to be in good location. He is afebrile. No change in mental status. Remains on the same antibiotic coverage. A follow-up CAT scan of the chest and abdomen was ordered and a GI consultation was requested for PEG tube insertion. Objective - Vital Signs Vital signs: Vital Signs Temp 101.2 F H 05/23/16 15:00 Pulse 108 H 05/23/16 18:48 Resp 16 05/23/16 16:40 BP 140/73 05/23/16 12:38 Pulse Ox 94 L 05/23/16 12:38 Intake & Output 05/23/16 05/23/16 05/24/16 06:59 18:59 06:59 Weight 75.7 kg 75.7 kg Other: Voiding Method Urinal - Exam Head exam was generally normal. There was no scleral icterus or corneal arcus. Mucous membranes were moist.Neck was supple and without jugular venous distension, thyromegaly, or carotid bruits. Carotids were easily palpable bilaterally. There was no adenopathy. Lung sounds are diminished in the left lung base compared to the right.Cardiac exam revealed the PMI to be normally situated and sized. The rhythm was regular and no extrasystoles were noted during several minutes of auscultation. The first and second heart sounds were normal and physiologic splitting of the second heart sound was noted. There were no murmurs, rubs, clicks, or gallops.Abdominal exam revealed normal bowel sounds. The abdomen was soft, non-tender, and without masses, organomegaly, or appreciable enlargement of the abdominal aorta. Examination of the extremities revealed easily palpable radial, femoral and pedal pulses. There was no cyanosis , clubbing or edema. - Labs CBC & Chem 7: 05/23/16 06:55 05/23/16 14:18 Labs: Abnormal Lab Results - Last 24 Hours (Table) 05/22/16 05/23/16 05/23/16 Range/Units 20:57 06:55 06:55 WBC 3.3 L (3.8-10.6) k/uL RBC 3.92 L (4.30-5.90) m/uL Hgb 11.9 L (13.0-17.5) gm/dL Hct 35.5 L (39.0-53.0) % Lymphocytes # 0.3 L (1.0-4.8) k/uL Sodium (137-145) mmol/L Chloride (98-107) mmol/L BUN (9-20) mg/dL Creatinine (0.66-1.25) mg/dL Glucose (74-99) mg/dL POC Glucose (mg/dL) 104 H (75-99) mg/dL Prealbumin 9 L (18-36) mg/dL 05/23/16 Range/Units 14:18 WBC (3.8-10.6) k/uL RBC (4.30-5.90) m/uL Hgb (13.0-17.5) gm/dL Hct (39.0-53.0) % Lymphocytes # (1.0-4.8) k/uL Sodium 135 L (137-145) mmol/L Chloride 97 L (98-107) mmol/L BUN 6 L (9-20) mg/dL Creatinine 0.60 L (0.66-1.25) mg/dL Glucose 103 H (74-99) mg/dL POC Glucose (mg/dL) (75-99) mg/dL Prealbumin (18-36) mg/dL Assessment and Plan Plan: Assessment 1 locally advanced non-small cell lung cancer of a squamous cell type. 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 The patient has undergone placement of an esophageal stent 3 left lower lobe pneumonia currently on IV Zosyn 4 left vocal cord paralysis with secondary hoarseness 5 paroxysmal defibrillation currently rhythm is sinus 6 hypertension 7 leukopenia with a white cell count a 1.8 8 hypokalemia, replaced 9 persistent difficulty with swallowing, along with nausea and emesis to the point where the patient is unable to meet his caloric requirements and he's been considered to be an increased risk of aspiration because of his swallowing difficulties and his underlying esophageal bronchial fistula. Based on this, PEG tube insertion was recommended. Plan Continue Zofran and Compazine for nausea. Consult GI for PEG tube insertion. Awaiting the results of the follow-up CAT scan of the chest and abdomen. Continued IV Zosyn. Hemoglobin stable at 11.9. White cell count is at 3.3 which is improving. No other major electrodes imbalance. We'll continue to follow. We'll ultimately need a PEG tube insertion to meet his caloric requirements and decreased risk of aspiration and pneumonias. Long-term prognosis poor baseline above-mentioned comorbidities. We'll continue to follow.
--- NOTE | 2016-05-23 20:07 | PN ---
DATE OF SERVICE: 05/23/2016 This 51-year-old gentleman who was admitted with multiple complex medical issues including esophageal stent and also non-small cell carcinoma of the left lung, also receiving radiation. The patient also had AV fistula treated with. The patient symptomatic repeated coughing at this time. Seen and evaluated the patient along with nurse practitioner. Please refer to the nurse practitioner notes and impression documented as a scribe for further information. Currently we will continue antibiotics and we will hold off PEG tube at this time and discussed at length with Dr. Mueller and hematology/oncology has seen the patient as well. Discussed with the family. Prognosis extremely guarded because of multiple complex medical issues. Further recommendations to follow. MTDD
--- NOTE | 2016-05-23 21:40 | P.PN ---
Subjective Principal diagnosis: Pneumonia Extremely pleasant 51-year-old male who has a history of prior nicotine dependence was having difficulties in the past. 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 He constantly has undergone chemotherapy and radiation. Recently was having great difficulties with recurrent pneumonia and evidence of aspiration. 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 As he was taken to the operating room and a stent was placed. Since that he is doing somewhat better. His chest is starting to clear a little bit and he is swallowing some liquids and full liquids without difficulties except he is having an occasional episode of emesis. It has been inconsistent based on food texture in quality. It has further improved today Feeling better today. Not having any further fever chill rigor or sweats. His cough is improving. His discomfort from the procedure is also improving. Patient however developed evidence of significant change in his status and was found evidence of atrial fibrillation with a rapid ventricular response. He's been treated with the Cardizem and has improved. Did relatively well today. Ate some ice cream tonight and started to have some further emesis as he did this morning. There is no contemplation for PEG tube placement. Objective - Vital Signs Vital signs: Vital Signs Temp 101.2 F H 05/23/16 15:00 Pulse 108 H 05/23/16 18:48 Resp 16 05/23/16 16:40 BP 140/73 05/23/16 12:38 Pulse Ox 94 L 05/23/16 12:38 Intake & Output 05/23/16 05/23/16 05/24/16 06:59 18:59 06:59 Intake Total 1600 Output Total 500 Balance 1100 Weight 75.7 kg 75.7 kg Intake: IV 100 Piperacillin-Tazobactam 3 100 .375 gm In Dextrose/Water 1 50ml.bag @ 12.5 mls/hr IVPB Q8HR [facility] Rx#: [id number] Intake, IV Titration 1300 Amount ACETAMINOPHEN IV (For NPO 100 ) 1,000 mg In Empty Bag 1 bag @ 400 mls/hr IVPB ONCE STA Rx#:[id number] D5-0.9% NaCl with KCl 40 800 Meq/l 1,000 ml @ 100 mls/ hr IV .Q10H [facility] Rx#: [id number] Magnesium Sulfate-D5w Pmx 200 1 gm In Dextrose/Water 1 100ml.bag @ 100 mls/hr IVPB Q1H [facility] Rx#: [id number] Potassium Chloride 10 meq 200 Lidocaine 2% Inj 10 mg In Sodium Chloride 0.9% 100 ml @ 100 mls/hr IV Q1HR [facility] Rx#:[id number] Oral 200 Output: Urine 500 Other: Voiding Method Urinal - Exam Pleasant 51-year-old male in no acute distress. Feeling better than earlier HEENT: Anicteric conjunctiva are pink and moist nasal mucosa grossly intact without significant lesions, there is no thrush. Neck: The neck is supple without significant lymphadenopathy or thyromegaly. Lungs: There is symmetrical air entry. However there are crackles and bronchial sounds in the left base. Few expiratory wheezes are heard. Right chest is rather clear. Heart: Regular with an audible S1-S2, no S3 no S4. There is no significant murmur click or rub, PMI was nondisplaced. Abdomen: Positive bowel sounds soft and nontender without palpable masses or organomegaly. There was no guarding or rebound. Extremities: The upper extremities have excellent pulses they are symmetric, no significant petechiae or telangiectasia. No splinter hemorrhages were noted. The lower extremities are free from significant edema. The peripheral pulses were 2+ and symmetric. Neuro: Awake alert oriented to person place and time. There are no acute new gross focal sensory motor deficits. - Labs CBC & Chem 7: 05/23/16 06:55 05/23/16 14:18 Labs: Abnormal Lab Results - Last 24 Hours (Table) 05/23/16 05/23/16 05/23/16 Range/Units 06:55 06:55 14:18 WBC 3.3 L (3.8-10.6) k/uL RBC 3.92 L (4.30-5.90) m/uL Hgb 11.9 L (13.0-17.5) gm/dL Hct 35.5 L (39.0-53.0) % Lymphocytes # 0.3 L (1.0-4.8) k/uL Sodium 135 L (137-145) mmol/L Chloride 97 L (98-107) mmol/L BUN 6 L (9-20) mg/dL Creatinine 0.60 L (0.66-1.25) mg/dL Glucose 103 H (74-99) mg/dL Prealbumin 9 L (18-36) mg/dL Laboratory Results WBC 3.3 k/uL (3.8-10.6) L 05/23/16 06:55 RBC 3.92 m/uL (4.30-5.90) L 05/23/16 06:55 Hgb 11.9 gm/dL (13.0-17.5) L 05/23/16 06:55 Hct 35.5 % (39.0-53.0) L 05/23/16 06:55 MCV 90.5 fL (80.0-100.0) 05/23/16 06:55 MCH 30.5 pg (25.0-35.0) 05/23/16 06:55 MCHC 33.7 g/dL (31.0-37.0) 05/23/16 06:55 RDW 12.2 % (11.5-15.5) 05/23/16 06:55 Plt Count 169 k/uL (150-450) 05/23/16 06:55 Neutrophils % 78 % 05/23/16 06:55 Neutrophils % (Manual) 39.0 % 05/21/16 05:51 Lymphocytes % 7 % 05/23/16 06:55 Lymphocytes % (Manual) 33.0 % 05/21/16 05:51 Monocytes % 10 % 05/23/16 06:55 Monocytes % (Manual) 25.0 % 05/21/16 05:51 Eosinophils % 1 % 05/23/16 06:55 Eosinophils % (Manual) 1.0 % 05/21/16 05:51 Basophils % 0 % 05/23/16 06:55 Basophils % (Manual) 2.0 % 05/21/16 05:51 Neutrophils # 2.6 k/uL (1.3-7.7) 05/23/16 06:55 Neutrophils # (Manual) 0.5 k/uL (1.3-7.7) L 05/21/16 05:51 Lymphocytes # 0.3 k/uL (1.0-4.8) L 05/23/16 06:55 Lymphocytes # (Manual) 0.4 k/uL (1.0-4.8) L 05/21/16 05:51 Monocytes # 0.3 k/uL (0-1.0) 05/23/16 06:55 Monocytes # (Manual) 0.3 k/uL (0-1.0) 05/21/16 05:51 Eosinophils # 0.0 k/uL (0-0.7) 05/23/16 06:55 Eosinophils # (Manual) 0.0 k/uL (0-0.7) 05/21/16 05:51 Basophils # 0.0 k/uL (0-0.2) 05/23/16 06:55 Basophils # (Manual) 0.0 k/uL (0-0.2) 05/21/16 05:51 Nucleated RBCs 0 /100 WBC (0-0) 05/21/16 05:51 Manual Slide Review Performed 05/21/16 05:51 Poikilocytosis (manual Present 05/21/16 05:51 PT 11.2 sec (9.0-12.0) 05/19/16 09:38 INR 1.1 (<1.1) 05/19/16 09:38 APTT 77.5 sec (22.0-30.0) H 05/21/16 11:10 Sodium 135 mmol/L (137-145) L 05/23/16 14:18 Potassium 4.0 mmol/L (3.5-5.1) 05/23/16 14:18 Chloride 97 mmol/L (98-107) L 05/23/16 14:18 Carbon Dioxide 29 mmol/L (22-30) 05/23/16 14:18 Anion Gap 9 mmol/L 05/23/16 14:18 BUN 6 mg/dL (9-20) L 05/23/16 14:18 Creatinine 0.60 mg/dL (0.66-1.25) L 05/23/16 14:18 Est GFR (MDRD) Af Amer >60 (>60 ml/min/1.73 sqM) 05/23/16 14:18 Est GFR (MDRD) Non-Af >60 (>60 ml/min/1.73 sqM) 05/23/16 14:18 Glucose 103 mg/dL (74-99) H 05/23/16 14:18 POC Glucose (mg/dL) 104 mg/dL (75-99) H 05/22/16 20:57 POC Glu [employer] Gabriel Hyde 05/22/16 20:57 Plasma Lactic Acid Ty 1.0 mmol/L (0.7-2.0) 05/15/16 02:40 Calcium 8.8 mg/dL (8.4-10.2) 05/23/16 14:18 Magnesium 1.8 mg/dL (1.6-2.3) 05/23/16 06:55 Total Bilirubin 0.7 mg/dL (0.2-1.3) 05/14/16 23:55 AST 19 U/L (17-59) 05/14/16 23:55 ALT 30 U/L (21-72) 05/14/16 23:55 Alkaline Phosphatase 79 U/L (38-126) 05/14/16 23:55 Total Protein 7.3 g/dL (6.3-8.2) 05/14/16 23:55 Albumin 4.2 g/dL (3.5-5.0) 05/14/16 23:55 Prealbumin 9 mg/dL (18-36) L 05/23/16 06:55 Amylase 68 U/L (30-110) 05/14/16 23:55 Lipase 23 U/L (23-300) 05/14/16 23:55 TSH 4.290 mIU/L (0.465-4.680) 05/19/16 06:43 Free T4 1.34 ng/dL (0.78-2.19) 05/19/16 06:43 Urine Color Yellow 05/14/16 23:55 Urine Appearance Clear (Clear) 05/14/16 23:55 Urine pH 6.0 (5.0-8.0) 05/14/16 23:55 Ur Specific [place] 1.025 (1.001-1.035) 05/14/16 23:55 Urine Protein Trace (Negative) H 05/14/16 23:55 Urine Glucose (UA) Trace (Negative) H 05/14/16 23:55 Urine Ketones 1+ (Negative) H 05/14/16 23:55 Urine Blood Negative (Negative) 05/14/16 23:55 Urine Nitrite Negative (Negative) 05/14/16 23:55 Urine Bilirubin Negative (Negative) 05/14/16 23:55 Urine Urobilinogen 2.0 mg/dL (<2.0) 05/14/16 23:55 Ur Leukocyte Esterase Negative (Negative) 05/14/16 23:55 Influenza Type A RNA Not Detected (Not Detectd) 05/15/16 02:50 Influenza Type B (PCR) Not Detected (Not Detectd) 05/15/16 02:50 Microbiology 05/15/16 02:40 Blood Blood Culture - Final No Growth after 144 hours 05/15/16 17:05 Sputum Gram Stain - Final 05/15/16 17:05 Sputum Sputum Culture - Final Assessment and Plan (1) Squamous cell carcinoma lung Narrative/Plan: Pleasant 51-year-old male presents to hospital with difficulties with ongoing nausea with emesis associated with increasing cough and shortness of breath. The patient related every time he was trying to eat or drink he could tell that some was going into his longest he would cough so much. He was then taken to the operating room and the esophageal tracheal fistula was found and a stent was placed. Since the stent was placed he is having further improvment. He is having less cough. In doing much better. He had transient fever that is now improved. Does have the x-ray findings of the left lower lobe pneumonia. Antibiotic therapy is being utilized with Zosyn which is an excellent choice for his significant aspiration and multiple medical procedures. Does not need to broaden at this point in time. He is without fever and improving. Any change would then necessitate addition of antifungal therapy. The patient however is coming to the tavo of his chemotherapy effect and there is some notation of some increasing leukopenia and thrombocytopenia. Doing well with the Zosyn with chest x-ray showing improved aeration to the left lung. Patient is having some ongoing difficulties. He is followed by gastroenterology. History of episodes of emesis. He had some cold ice cream this evening which immediately resulted in him having some retching and emesis. He also felt poorly and has been sweating. Appear that he was having a vagal response from the cold. He is advised not to have anything that cold any further. Oncology is following closely. Status: Acute (2) Tracheo-esophageal fistula Status: Acute (3) Recurrent aspiration pneumonia Status: Acute
[2016-05-24] MEDS: PIPERACILLIN-TAZOBACTAM 3.375 GM in DEXTROSE/WATER 1 50ML.BAG IVPB SCH ×4 (00:46→23:56)
[2016-05-24] MEDS: MORPHINE SULFATE 4 MG/ML SYRINGE IV PRN ×6 (00:46→23:56)
[2016-05-24] MEDS: D5-0.9% NACL WITH KCL 40 MEQ/L 1,000 ML IV SCH ×4 (00:47→18:12)
[2016-05-24] MEDS: ONDANSETRON 4 MG/2 ML VIAL IVP PRN ×5 (00:52→23:56)
[2016-05-24] MEDS: SUCRALFATE 1 GM TAB PO SCH ×4 (04:09→19:52)
[2016-05-24 06:14] LABS: Basophils % (A) 0 %; CHCM 32.8; Eosinophils % (A) 1 %; HCT 34.2 % (39.0-53.0); HDW 2.94; HGB 11.6 gm/dL (13.0-17.5); Luc # (Auto) 0.13; Luc % (Auto) 3; Lymphocytes # (A) 0.2 k/uL (1.0-4.8); Lymphocytes % (A) 4 %; MCHC 33.8 g/dL (31.0-37.0); MCV 91.7 fL (80.0-100.0); Mean Platelet Volume 7.6; Monocytes # (A) 0.4 k/uL (0-1.0); Monocytes % (A) 10 %; Neutrophils # (A) 3.2 k/uL (1.3-7.7); Neutrophils % (A) 82 %; RBC 3.73 m/uL (4.30-5.90); RDW 12.2 % (11.5-15.5); WBC 3.9 k/uL (3.8-10.6); WBC (Perox) 4.24
[2016-05-24 06:25] LABS: Anion Gap 7 mmol/L; Blood Urea Nitrogen 8 mg/dL (9-20); Calcium 8.8 mg/dL (8.4-10.2); Carbon Dioxide 32 mmol/L (22-30); Chloride 99 mmol/L (98-107); Glucose 109 mg/dL (74-99); Non-African American GFR(MDRD) >60 (>60 ml/min/1.73 sqM); Potassium 4.1 mmol/L (3.5-5.1); Sodium 138 mmol/L (137-145)
[2016-05-24] MEDS: PANTOPRAZOLE 40 MG/10 ML VIAL IV SCH (07:48)
[2016-05-24] MEDS: IPRATROPIUM 0.5 MG/2.5 ML NEBU INHALATION SCH (09:04)
[2016-05-24] MEDS: LEVALBUTEROL NEB (CONC) 1.25 MG/0.5 ML AMP INHALATION SCH (09:05)
--- NOTE | 2016-05-24 09:30 | P.PN ---
Subjective Principal diagnosis: lung carcinoma poor oral nutrition 51-year-old male history non-small cell lung carcinoma with recent tracheoesophageal fistula status post stent. Tentative plans to proceed with PEG tube insertion today however primary service requested postponement until furnoticeCT chest abdomen and pelvis yesterday reported no evidence of loki pneumoperitoneum. Patient is still unable to tolerate a diet without regurgitation or coughing up phlegm. denies hemoptysis hematemesis hematochezia or melena. Pre-albumin 9 Objective - Vital Signs Vital signs: Vital Signs Temp 99.0 F 05/24/16 04:00 Pulse 87 05/24/16 04:00 Resp 18 05/24/16 04:00 BP 117/57 05/24/16 04:00 Pulse Ox 94 L 05/24/16 04:00 Intake & Output 05/23/16 05/24/16 05/24/16 18:59 06:59 18:59 Intake Total 1600 Output Total 500 Balance 1100 Weight 75.7 kg 75.2 kg Intake: IV 100 Piperacillin-Tazobactam 3 100 .375 gm In Dextrose/Water 1 50ml.bag @ 12.5 mls/hr IVPB Q8HR [facility] Rx#: [id number] Intake, IV Titration 1300 Amount ACETAMINOPHEN IV (For NPO 100 ) 1,000 mg In Empty Bag 1 bag @ 400 mls/hr IVPB ONCE STA Rx#:[id number] D5-0.9% NaCl with KCl 40 800 Meq/l 1,000 ml @ 100 mls/ hr IV .Q10H [facility] Rx#: [id number] Magnesium Sulfate-D5w Pmx 200 1 gm In Dextrose/Water 1 100ml.bag @ 100 mls/hr IVPB Q1H [facility] Rx#: [id number] Potassium Chloride 10 meq 200 Lidocaine 2% Inj 10 mg In Sodium Chloride 0.9% 100 ml @ 100 mls/hr IV Q1HR [facility] Rx#:[id number] Oral 200 Output: Urine 500 Other: Voiding Method Urinal - Exam General appearance: The patient is alert, oriented, in no acute distress. HET: Head is normocephalic and atraumatic. Pupils are equal and reactive. Oropharynx is clear without lesions. Neck: Supple without lymphadenopathy. Trachea midline. Heart: S1 S2. Regular rate and rhythm. Lungs: Diminished in bases bilaterally. Intermittent cough with productive weight phlegm. Abdomen: Soft, nontender, nondistended with bowel sounds. No peritoneal signs. No palpable organomegaly or masses. Extremities: Normal skin color and turgor. No cyanosis, rash, ulceration, clubbing, or edema. Radial and pedal pulses are 2/4 bilaterally. Neurological: No focal deficits. Strength and sensation are grossly intact. - Labs CBC & Chem 7: 05/24/16 05:46 05/24/16 05:46 Labs: Abnormal Lab Results - Last 24 Hours (Table) 05/23/16 05/23/16 05/24/16 Range/Units 06:55 14:18 05:46 RBC 3.73 L (4.30-5.90) m/uL Hgb 11.6 L (13.0-17.5) gm/dL Hct 34.2 L (39.0-53.0) % Lymphocytes # 0.2 L (1.0-4.8) k/uL Sodium 135 L (137-145) mmol/L Chloride 97 L (98-107) mmol/L Carbon Dioxide (22-30) mmol/L BUN 6 L (9-20) mg/dL Creatinine 0.60 L (0.66-1.25) mg/dL Glucose 103 H (74-99) mg/dL Prealbumin 9 L (18-36) mg/dL 05/24/16 Range/Units 05:46 RBC (4.30-5.90) m/uL Hgb (13.0-17.5) gm/dL Hct (39.0-53.0) % Lymphocytes # (1.0-4.8) k/uL Sodium (137-145) mmol/L Chloride (98-107) mmol/L Carbon Dioxide 32 H (22-30) mmol/L BUN 8 L (9-20) mg/dL Creatinine 0.56 L (0.66-1.25) mg/dL Glucose 109 H (74-99) mg/dL Prealbumin (18-36) mg/dL Assessment and Plan (1) Inadequate oral nutritional intake Status: Acute (2) Non-small cell carcinoma of lung Status: Acute (3) Sepsis Status: Acute (4) Pneumonia Status: Acute (5) Intractable nausea and vomiting Status: Acute (6) Leukopenia due to antineoplastic chemotherapy Status: Acute (7) Protein calorie malnutrition Narrative/Plan: Moderate protein calorie malnutrition with low pre-albumin and weight loss greater than 20%. Status: Acute Plan: 1. PEG insertion postponement until further notice by primary service. There is concern with recent tracheoesophageal stent placement could impede the advancement of PEG tube. Will discuss with medicine and pulmonary if PEG tube insertion is requested. Patient may require open placement of feeding tube by surgery. 2. Diet as tolerated. Consideration for parenteral nutrition if necessary we' ll defer to medical service for recommendations. 3. Continue GI prophylaxis Protonix 40 mg IV daily. Assessment and plan a care discussed with Dr. Marsh
[2016-05-24] MEDS: IPRATROPIUM-ALBUTEROL 3 ML NEB INHALATION SCH ×3 (11:27→20:48)
[2016-05-24] MEDS: DOCUSATE 100 MG CAP PO SCH ×2 (12:38→19:52)
[2016-05-24] MEDS: METOPROLOL TARTRATE 25 MG TAB PO SCH ×2 (12:39→19:52)
[2016-05-24] MEDS: POTASSIUM CHLORIDE ER 20 MEQ TAB.ER PO SCH (12:39)
[2016-05-24] MEDS: LISINOPRIL 5 MG TAB PO SCH ×2 (12:39→19:52)
[2016-05-24] MEDS: FUROSEMIDE 20 MG TAB PO SCH ×2 (12:39→17:02)
[2016-05-24 15:52] LABS: Phosphorous 2.4 mg/dL (2.5-4.5)
[2016-05-24] MEDS: MVI, ADULT NO.4 WITH VIT K 10 ML, TRACE (CONC-1ML/DOSE) 1 ML in AMINO ACID 4.25%-D10W+L... IV SCH ×3 (17:01)
--- NOTE | 2016-05-24 17:53 | P.PN ---
Subjective Date of service 05/24/2016. Progress note being dictated for Dr. Tinajero. Interval history: This a 51-year-old gentleman admitted with left-sided multilobar pneumonia, with history of tracheoesophageal fistula with stent placement, lung CA, and multiple other medical issues. Maintained on Zosyn, as per infectious disease. CT of the chest abdomen and pelvis performed yesterday, results noted including no pneumomediastinum, no pneumoperitoneum .Dietary consulted and PPN initiated. Continues to have nausea, vomiting, throwing up phlegm. To remain NPO. WBC 3.9. Ambulating around in room, tolerating increase in exertion well. Review of systems: HEENT: Denies headache or focal deficits. Denies any dizziness or lightheadedness. Respiratory: Denies any increased shortness of breath. Cardiac: Denies any chest pain, palpitations. GI: Complains of nausea, vomiting, no diarrhea. Denies any abdominal pain. : Denies any dysuria. Psychiatry: Denies any anxiety or depression. Active Medications Generic Name Dose Route Start Last Admin Trade Name Freq PRN Reason Stop Dose Admin Acetaminophen 650 mg 05/22/16 12:33 Tylenol Oral Susp PO Q6H PRN Pain Hydrocodone Bitart/Acetaminophen 10 ml 05/22/16 12:37 05/22/16 20:03 [place] Elixir 7.5-325mg/15ml PO 10 ml Q4H PRN Administration Pain Albuterol/Ipratropium 3 ml 05/24/16 12:00 05/24/16 16:01 Duoneb 0.5 Mg-3 Mg/3 Ml Soln INHALATION Not Given RT-QID CAR[facility] Docusate Sodium 100 mg 05/15/16 09:30 05/24/16 12:38 Colace PO Not Given BID CAR[facility]OS Furosemide 20 mg 05/19/16 17:00 05/24/16 17:02 Lasix PO Not Given 0900,1700 [facility] Piperacillin/Tazobactam/ 50 mls @ 12.5 mls/hr 05/15/16 16:00 05/24/16 16:55 Dextrose 3.375 gm/ IV Solution IVPB 12.5 mls/hr Q8HR [facility] Administration Potassium Chloride/Dextrose/Sod Cl 1,000 mls @ 100 mls/hr 05/22/16 18:00 08/04 14:57 D5%-Ns-Kcl 40 Meq/L Iv Solution IV 100 mls/hr .Q10H [facility] Administration Parenteral Vitamin Supplement 1,011 mls @ 50 mls/hr 05/24/16 16:00 05/24/16 17:01 10 ml/ Chromium/Copper/ IV 05/25/16 16:00 50 mls/hr Manganese/Seleni/Zn 1 ml/ .[id number] [facility]OS Administration Amino Ac/Electrol/Dextrose/ Calcium Parenteral Vitamin Supplement 1,011 mls @ 100 mls/hr 05/25/16 16:00 10 ml/ Chromium/Copper/ IV Manganese/Seleni/Zn 1 ml/ .BY DURATION [facility] Amino Ac/Electrol/Dextrose/ Calcium Amino Ac/Electrol/Dextrose/Calcium 1,000 mls @ 100 mls/hr 05/25/16 16:00 Clinimix E 4.25%-D10% Solution IV .BY DURATION [facility] Fat Emulsion Intravenous 250 250 mls @ 21 mls/hr 05/24/16 18:00 ml/ IV Solution IV DAILY@1800 [facility] Sodium Phosphate 10 mmol/ 250 mls @ 125 mls/hr 05/24/16 18:00 Sodium Chloride IVPB 05/24/16 19:59 ONCE ONE Lisinopril 5 mg 05/19/16 21:00 05/24/16 12:39 Zestril PO Not Given BID CAR[facility]OS Lorazepam 1 mg 05/15/16 03:41 05/19/16 07:50 Ativan IV 1 mg Q4HR PRN Administration Anxiety Metoprolol Tartrate 25 mg 05/19/16 21:00 05/24/16 12:39 Lopressor PO Not Given BID CARLOS Metoprolol Tartrate 2.5 mg 05/23/16 13:59 05/23/16 18:49 Lopressor IVP 2.5 mg BID PRN Administration Heart Rate - HIGH Miscellaneous Information 1 each 05/21/16 07:56 Potassium Per Protocol MISCELLANE DAILY PRN Per Protocol Protocol Miscellaneous Information 1 each 05/23/16 08:04 Magnesium Per Protocol MISCELLANE DAILY PRN Per Protocol Protocol Miscellaneous Information 1 each 05/23/16 12:02 Rx Info: Iv Contrast Was Given MISCELLANE 05/25/16 12:04 DAILY PRN Per Protocol Miscellaneous Information 1 each 05/23/16 13:55 Rx Info: Iv Contrast Was Given MISCELLANE 05/25/16 13:56 DAILY PRN Per Protocol Morphine Sulfate 4 mg 05/15/16 01:22 05/24/16 14:50 Morphine Sulfate (Inj) IV 4 mg Q4HR PRN Administration Severe Pain Naloxone HCl 0.2 mg 05/15/16 01:22 Narcan IV Q2M PRN Opioid Reversal Ondansetron HCl 4 mg 05/15/16 09:29 05/24/16 14:50 Zofran IVP 4 mg Q4HR PRN Administration Nausea And Vomiting Pantoprazole Sodium 40 mg 05/15/16 09:00 05/24/16 07:48 Protonix IV 40 mg DAILY [facility]OS Administration Potassium Chloride 20 meq 05/20/16 09:00 05/24/16 12:39 K-Dur 20 PO Not Given DAILY [facility] Prochlorperazine Maleate 25 mg 05/15/16 01:22 05/23/16 18:50 Compazine RECTAL 25 mg Q12HR PRN Administration Nausea And Vomiting Sucralfate 1 gm 05/15/16 12:30 05/24/16 17:02 Carafate PO Not Given ACHS [facility] Objective - Vital Signs Vital signs: Vital Signs Temp 98.4 F 05/24/16 08:30 Pulse 90 05/24/16 08:30 Resp 18 05/24/16 08:30 BP 120/67 05/24/16 08:30 Pulse Ox 95 05/24/16 08:30 Intake & Output 05/23/16 05/24/16 05/24/16 18:59 06:59 18:59 Intake Total 1600 Output Total 500 Balance 1100 Weight 75.7 kg 75.2 kg 75.2 kg Intake: IV 100 Piperacillin-Tazobactam 3 100 .375 gm In Dextrose/Water 1 50ml.bag @ 12.5 mls/hr IVPB Q8HR [facility] Rx#: [id number] Intake, IV Titration 1300 Amount ACETAMINOPHEN IV (For NPO 100 ) 1,000 mg In Empty Bag 1 bag @ 400 mls/hr IVPB ONCE STA Rx#:[id number] D5-0.9% NaCl with KCl 40 800 Meq/l 1,000 ml @ 100 mls/ hr IV .Q10H [facility] Rx#: [id number] Magnesium Sulfate-D5w Pmx 200 1 gm In Dextrose/Water 1 100ml.bag @ 100 mls/hr IVPB Q1H [facility] Rx#: [id number] Potassium Chloride 10 meq 200 Lidocaine 2% Inj 10 mg In Sodium Chloride 0.9% 100 ml @ 100 mls/hr IV Q1HR [facility] Rx#:[id number] Oral 200 Output: Urine 500 Other: Voiding Method Urinal - Exam PHYSICAL EXAM: VITAL SIGNS: As above GENERAL: [Sitting up in chair, no acute distress HEENT: [Pupils equal conjunctiva normal.] NECK: [Supple, no JVD, RESPIRATORY EFFORT: Mildly increased LUNGS: Bilateral bases diminished, no crackles rhonchi or wheezing CARDIOVASCULAR[regular S1 and S2, no murmurs rubs or gallops, trace edema GI: [Abdomen soft, nontender, positive bowel sounds.] PSYCH: [Alert and oriented -3, mood and affect normal.] NEURO: No focal deficits, moves all 4 extremities, strength and sensation grossly intact. Microbiology 05/15/16 02:40 Blood Blood Culture - Final No Growth after 144 hours 05/15/16 17:05 Sputum Gram Stain - Final 05/15/16 17:05 Sputum Sputum Culture - Final - Labs CBC & Chem 7: 05/24/16 05:46 05/24/16 05:46 Labs: Abnormal Lab Results - Last 24 Hours (Table) 05/24/16 05/24/16 05/24/16 Range/Units 05:46 05:46 15:10 RBC 3.73 L (4.30-5.90) m/uL Hgb 11.6 L (13.0-17.5) gm/dL Hct 34.2 L (39.0-53.0) % Lymphocytes # 0.2 L (1.0-4.8) k/uL Carbon Dioxide 32 H (22-30) mmol/L BUN 8 L (9-20) mg/dL Creatinine 0.56 L (0.66-1.25) mg/dL Glucose 109 H (74-99) mg/dL Phosphorus 2.4 L (2.5-4.5) mg/dL Assessment and Plan Plan: 1. [Acute left-sided pneumonia multilobar, possibly postobstructive with severe sepsis, present on admission]. 2. Recently diagnosed non-small cell lung CA, status post chemoradiation]. 3. Status post esophageal stent placement. 4. [Tracheoesophageal fistula post radiation treatment, status post esophageal stent]. 5. [Gastroesophageal reflux disease]. 6. [Hypertension]. 7. [Remote history of nicotine dependence]. 8. Leukopenia, anemia and thrombocytopenia with mild pancytopenia, secondary to chemotherapy and malignancy 9. Proximal atrial fibrillation, now sinus rhythm. No anticoagulation required as per cardiology. 10. Hypokalemia 11. Hypomagnesemia 12. Moderate Protein calorie malnutrition, low pre-albumin, PPN Plan: Continue on current medication regime , PPI, Zofran, Compazine, nebulized bronchodilators, empiric antibiotics, monitoring and symptomatic treatment. Maintain NPO Status. Both Surgery and GI sonsulted regarding placement of Peg versus J-tube. Electrolyte supplementation per protocol. Close monitoring of electrolytes with repeat labs ordered for a.m. Antibiotics as per infectious disease. Follow with multiple consults. Further recommendations to follow. Prognosis guarded Multiple complex medical issues. The impression and plan of care has been dictated as directed. : I performed a H&P examination of this patient and discussed the same with the dictator. I agree with the dictator's note. Any additional findings/opinions/ etc. will be noted.
[2016-05-24] MEDS ORDERED: SODIUM PHOSPHATE 10 MMOL in SODIUM CHLORIDE 0.9% 250 ML IVPB ONE (18:00)
[2016-05-24] MEDS: FAT EMULSION 20% 250 ML in EMPTY BAG 1 BAG IV SCH (18:11)
--- NOTE | 2016-05-24 21:12 | PN ---
DATE OF SERVICE: 05/24/2016 This 51-year-old gentleman who was admitted with multiple medical problems also had lung cancer. The patient also has tracheoesophageal fistula. Patient unable to tolerate p.o. fluids at this time. The patient is on broad-spectrum IV antibiotics. I have seen and evaluated the patient with the nurse practitioner. Please refer to the nurse practitioner's notes and impressions documented as scribe for further information. Discussed at length with hematology/oncology team and pulmonary team. Will continue to monitor at this time. Prognosis guarded. A CAT scan reviewed. Discussed at length with the family. Will consult Gastroenterology/Surgery for possible PEG tube/J-tube placement. Guarded prognosis. Further recommendations to follow.
--- NOTE | 2016-05-24 22:09 | P.PN ---
Subjective Principal diagnosis: Pneumonia Extremely pleasant 51-year-old male who has a history of prior nicotine dependence was having difficulties in the past. 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 He constantly has undergone chemotherapy and radiation. Recently was having great difficulties with recurrent pneumonia and evidence of aspiration. 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 As he was taken to the operating room and a stent was placed. Since that he is doing somewhat better. His chest is starting to clear a little bit and he is swallowing some liquids and full liquids without difficulties except he is having an occasional episode of emesis. It has been inconsistent based on food texture in quality. It has further improved today Feeling better today. Not having any further fever chill rigor or sweats. His cough is improving. His discomfort from the procedure is also improving. Patient however developed evidence of significant change in his status and was found evidence of atrial fibrillation with a rapid ventricular response. He's been treated with the Cardizem and has improved. Did relatively well today. Ate some ice cream tonight and started to have some further emesis as he did this morning. Has been seen by gastroenterology, with the esophageal stent in place do not believe is possible for them to perform an EGD. Constant surgical consult for direct feeding tube placement has been requested. Overall patient feeling slightly better tonight. Objective - Vital Signs Vital signs: Vital Signs Temp 98.3 F 05/24/16 20:00 Pulse 93 05/24/16 20:00 Resp 18 05/24/16 20:00 BP 122/63 05/24/16 20:00 Pulse Ox 95 05/24/16 20:00 Intake & Output 05/24/16 05/24/16 05/25/16 06:59 18:59 06:59 Intake Total 1600 1541 Output Total 500 Balance 1100 1541 Weight 75.2 kg 75.2 kg Intake: IV 100 100 Piperacillin-Tazobactam 3 100 100 .375 gm In Dextrose/Water 1 50ml.bag @ 12.5 mls/hr IVPB Q8HR [facility] Rx#: [id number] Intake, IV Titration 1300 1441 Amount ACETAMINOPHEN IV (For NPO 100 ) 1,000 mg In Empty Bag 1 bag @ 400 mls/hr IVPB ONCE STA Rx#:[id number] Amino Acid 4.25%-D10w+ 1100 Lytes*E* 1,000 ml @ 100 mls/hr IV .BY DURATION [facility] Rx#:[id number] D5-0.9% NaCl with KCl 40 800 20 Meq/l 1,000 ml @ 20 mls/ hr IV .Q24H [facility] Rx#: [id number] Fat Emulsion 20% 250 ml 21 In Empty Bag 1 bag @ 21 mls/hr IV DAILY@1800 [facility] Rx#:[id number] Magnesium Sulfate-D5w Pmx 200 1 gm In Dextrose/Water 1 100ml.bag @ 100 mls/hr IVPB Q1H [facility] Rx#: [id number] Mvi, Adult No.4 with Vit 50 K 10 ml Trace (Conc-1Ml/ Dose) 1 ml In Amino Acid 4.25%-D10w+Lytes*E* 1,000 ml @ 50 mls/hr IV . [id number] [facility] Rx#:[id number] Potassium Chloride 10 meq 200 Lidocaine 2% Inj 10 mg In Sodium Chloride 0.9% 100 ml @ 100 mls/hr IV Q1HR [facility] Rx#:[id number] Sodium Phosphate 10 mmol 250 In Sodium Chloride 0.9% 250 ml @ 125 mls/hr IVPB ONCE ONE Rx#:[id number] Oral 200 Output: Urine 500 Other: # Voids 2 - Exam Pleasant 51-year-old male in no acute distress. Feeling better than earlier HEENT: Anicteric conjunctiva are pink and moist nasal mucosa grossly intact without significant lesions, there is no thrush. Neck: The neck is supple without significant lymphadenopathy or thyromegaly. Lungs: There is symmetrical air entry. However there are crackles and bronchial sounds in the left base. Few expiratory wheezes are heard. Right chest is rather clear. Heart: Regular with an audible S1-S2, no S3 no S4. There is no significant murmur click or rub, PMI was nondisplaced. Abdomen: Positive bowel sounds soft and nontender without palpable masses or organomegaly. There was no guarding or rebound. Extremities: The upper extremities have excellent pulses they are symmetric, no significant petechiae or telangiectasia. No splinter hemorrhages were noted. The lower extremities are free from significant edema. The peripheral pulses were 2+ and symmetric. Neuro: Awake alert oriented to person place and time. There are no acute new gross focal sensory motor deficits. - Labs CBC & Chem 7: 05/24/16 05:46 05/24/16 05:46 Labs: Abnormal Lab Results - Last 24 Hours (Table) 05/24/16 05/24/16 05/24/16 Range/Units 05:46 05:46 15:10 RBC 3.73 L (4.30-5.90) m/uL Hgb 11.6 L (13.0-17.5) gm/dL Hct 34.2 L (39.0-53.0) % Lymphocytes # 0.2 L (1.0-4.8) k/uL Carbon Dioxide 32 H (22-30) mmol/L BUN 8 L (9-20) mg/dL Creatinine 0.56 L (0.66-1.25) mg/dL Glucose 109 H (74-99) mg/dL Phosphorus 2.4 L (2.5-4.5) mg/dL Laboratory Results WBC 3.9 k/uL (3.8-10.6) 05/24/16 05:46 RBC 3.73 m/uL (4.30-5.90) L 05/24/16 05:46 Hgb 11.6 gm/dL (13.0-17.5) L 05/24/16 05:46 Hct 34.2 % (39.0-53.0) L 05/24/16 05:46 MCV 91.7 fL (80.0-100.0) 05/24/16 05:46 MCH 31.0 pg (25.0-35.0) 05/24/16 05:46 MCHC 33.8 g/dL (31.0-37.0) 05/24/16 05:46 RDW 12.2 % (11.5-15.5) 05/24/16 05:46 Plt Count 175 k/uL (150-450) 05/24/16 05:46 Neutrophils % 82 % 05/24/16 05:46 Neutrophils % (Manual) 39.0 % 05/21/16 05:51 Lymphocytes % 4 % 05/24/16 05:46 Lymphocytes % (Manual) 33.0 % 05/21/16 05:51 Monocytes % 10 % 05/24/16 05:46 Monocytes % (Manual) 25.0 % 05/21/16 05:51 Eosinophils % 1 % 05/24/16 05:46 Eosinophils % (Manual) 1.0 % 05/21/16 05:51 Basophils % 0 % 05/24/16 05:46 Basophils % (Manual) 2.0 % 05/21/16 05:51 Neutrophils # 3.2 k/uL (1.3-7.7) 05/24/16 05:46 Neutrophils # (Manual) 0.5 k/uL (1.3-7.7) L 05/21/16 05:51 Lymphocytes # 0.2 k/uL (1.0-4.8) L 05/24/16 05:46 Lymphocytes # (Manual) 0.4 k/uL (1.0-4.8) L 05/21/16 05:51 Monocytes # 0.4 k/uL (0-1.0) 05/24/16 05:46 Monocytes # (Manual) 0.3 k/uL (0-1.0) 05/21/16 05:51 Eosinophils # 0.0 k/uL (0-0.7) 05/24/16 05:46 Eosinophils # (Manual) 0.0 k/uL (0-0.7) 05/21/16 05:51 Basophils # 0.0 k/uL (0-0.2) 05/24/16 05:46 Basophils # (Manual) 0.0 k/uL (0-0.2) 05/21/16 05:51 Nucleated RBCs 0 /100 WBC (0-0) 05/21/16 05:51 Manual Slide Review Performed 05/21/16 05:51 Poikilocytosis (manual Present 05/21/16 05:51 PT 11.2 sec (9.0-12.0) 05/19/16 09:38 INR 1.1 (<1.1) 05/19/16 09:38 APTT 77.5 sec (22.0-30.0) H 05/21/16 11:10 Sodium 138 mmol/L (137-145) 05/24/16 05:46 Potassium 4.1 mmol/L (3.5-5.1) 05/24/16 05:46 Chloride 99 mmol/L (98-107) 05/24/16 05:46 Carbon Dioxide 32 mmol/L (22-30) H 05/24/16 05:46 Anion Gap 7 mmol/L 05/24/16 05:46 BUN 8 mg/dL (9-20) L 05/24/16 05:46 Creatinine 0.56 mg/dL (0.66-1.25) L 05/24/16 05:46 Est GFR (MDRD) Af Amer >60 (>60 ml/min/1.73 sqM) 05/24/16 05:46 Est GFR (MDRD) Non-Af >60 (>60 ml/min/1.73 sqM) 05/24/16 05:46 Glucose 109 mg/dL (74-99) H 05/24/16 05:46 POC Glucose (mg/dL) 104 mg/dL (75-99) H 05/22/16 20:57 POC Glu [employer]el[employer] Gabriel Velasquez 05/22/16 20:57 Plasma Lactic Acid Ty 1.0 mmol/L (0.7-2.0) 05/15/16 02:40 Calcium 8.8 mg/dL (8.4-10.2) 05/24/16 05:46 Phosphorus 2.4 mg/dL (2.5-4.5) L 05/24/16 15:10 Magnesium 2.0 mg/dL (1.6-2.3) 05/24/16 05:46 Total Bilirubin 0.7 mg/dL (0.2-1.3) 05/14/16 23:55 AST 19 U/L (17-59) 05/14/16 23:55 ALT 30 U/L (21-72) 05/14/16 23:55 Alkaline Phosphatase 79 U/L (38-126) 05/14/16 23:55 Total Protein 7.3 g/dL (6.3-8.2) 05/14/16 23:55 Albumin 4.2 g/dL (3.5-5.0) 05/14/16 23:55 Prealbumin 9 mg/dL (18-36) L 05/23/16 06:55 Triglycerides 86 mg/dL (<150) 05/24/16 15:10 Amylase 68 U/L (30-110) 05/14/16 23:55 Lipase 23 U/L (23-300) 05/14/16 23:55 TSH 4.290 mIU/L (0.465-4.680) 05/19/16 06:43 Free T4 1.34 ng/dL (0.78-2.19) 05/19/16 06:43 Urine Color Yellow 05/14/16 23:55 Urine Appearance Clear (Clear) 05/14/16 23:55 Urine pH 6.0 (5.0-8.0) 05/14/16 23:55 Ur Specific [place] 1.025 (1.001-1.035) 05/14/16 23:55 Urine Protein Trace (Negative) H 05/14/16 23:55 Urine Glucose (UA) Trace (Negative) H 05/14/16 23:55 Urine Ketones 1+ (Negative) H 05/14/16 23:55 Urine Blood Negative (Negative) 05/14/16 23:55 Urine Nitrite Negative (Negative) 05/14/16 23:55 Urine Bilirubin Negative (Negative) 05/14/16 23:55 Urine Urobilinogen 2.0 mg/dL (<2.0) 05/14/16 23:55 Ur Leukocyte Esterase Negative (Negative) 05/14/16 23:55 Influenza Type A RNA Not Detected (Not Detectd) 05/15/16 02:50 Influenza Type B (PCR) Not Detected (Not Detectd) 05/15/16 02:50 Microbiology 05/15/16 02:40 Blood Blood Culture - Final No Growth after 144 hours 05/15/16 17:05 Sputum Gram Stain - Final 05/15/16 17:05 Sputum Sputum Culture - Final Assessment and Plan (1) Squamous cell carcinoma lung Narrative/Plan: Pleasant 51-year-old male presents to hospital with difficulties with ongoing nausea with emesis associated with increasing cough and shortness of breath. The patient related every time he was trying to eat or drink he could tell that some was going into his longest he would cough so much. He was then taken to the operating room and the esophageal tracheal fistula was found and a stent was placed. Since the stent was placed he is having further improvment. He is having less cough. In doing much better. He had transient fever that is now improved. Does have the x-ray findings of the left lower lobe pneumonia. Antibiotic therapy is being utilized with Zosyn which is an excellent choice for his significant aspiration and multiple medical procedures. Does not need to broaden at this point in time. He is without fever and improving. Any change would then necessitate addition of antifungal therapy. The patient however is coming to the tavo of his chemotherapy effect and there is some notation of some increasing leukopenia and thrombocytopenia. Doing well with the Zosyn with chest x-ray showing improved aeration to the left lung. Patient is having some ongoing difficulties. He has been seen by gastroenterology. They will not be able to place a percutaneous feeding tube. As a surgical consult has been requested for direct feeding tube placement . With the avoidance of very cold substances his had no further vagal events as of yesterday. Oncology is following closely. Status: Acute (2) Tracheo-esophageal fistula Status: Acute (3) Recurrent aspiration pneumonia Status: Acute
[2016-05-25 01:14] LABS: Glucose,Whole Blood 115 mg/dL (75-99)
[2016-05-25] MEDS: INSULIN LISPRO (humaLOG) 300 UNIT/3 ML VIAL SQ SCH ×4 (01:56→18:00)
[2016-05-25] MEDS: MORPHINE SULFATE 4 MG/ML SYRINGE IV PRN ×5 (05:01→23:34)
[2016-05-25] MEDS: ONDANSETRON 4 MG/2 ML VIAL IVP PRN ×5 (05:01→23:34)
[2016-05-25 06:24] LABS: Glucose,Whole Blood 123 mg/dL (75-99)
[2016-05-25] MEDS: SUCRALFATE 1 GM TAB PO SCH ×4 (06:25→20:40)
[2016-05-25 06:33] LABS: Basophils % (A) 0 %; CH 30.6; CHCM 32.3; Eosinophils # (A) 0.1 k/uL (0-0.7); Eosinophils % (A) 1 %; HCT 34.5 % (39.0-53.0); HDW 2.91; HGB 11.1 gm/dL (13.0-17.5); Luc % (Auto) 3; Lymphocytes # (A) 0.2 k/uL (1.0-4.8); Lymphocytes % (A) 6 %; MCH 30.6 pg (25.0-35.0); MCHC 32.2 g/dL (31.0-37.0); Mean Platelet Volume 7.4; Monocytes # (A) 0.2 k/uL (0-1.0); Monocytes % (A) 7 %; Neutrophils # (A) 2.8 k/uL (1.3-7.7); Neutrophils % (A) 83 %; RBC 3.63 m/uL (4.30-5.90); RDW 12.5 % (11.5-15.5); WBC 3.3 k/uL (3.8-10.6)
[2016-05-25 06:52] LABS: Anion Gap 8 mmol/L; Blood Urea Nitrogen 12 mg/dL (9-20); Calcium 8.8 mg/dL (8.4-10.2); Carbon Dioxide 30 mmol/L (22-30); Chloride 99 mmol/L (98-107); Glucose 122 mg/dL (74-99); Magnesium 1.9 mg/dL (1.6-2.3); Non-African American GFR(MDRD) >60 (>60 ml/min/1.73 sqM); Phosphorous 3.7 mg/dL (2.5-4.5); Potassium 3.9 mmol/L (3.5-5.1); Sodium 137 mmol/L (137-145)
[2016-05-25 07:27] LABS: Ionized Calcium 4.8 mg/dL (4.5-5.3)
[2016-05-25] MEDS: IPRATROPIUM-ALBUTEROL 3 ML NEB INHALATION SCH ×4 (08:04→19:18)
[2016-05-25] MEDS: METOPROLOL TARTRATE 5 MG/5 ML VIAL IVP PRN (09:00)
--- NOTE | 2016-05-25 09:01 | P.PN ---
Subjective Principal diagnosis: lung carcinoma poor oral nutrition 51-year-old male history non-small cell lung carcinoma with recent tracheoesophageal fistula status post stent. Tentative plans to proceed with PEG tube insertion Saturday possible open J-tube per General surgery. Patient is still unable to tolerate a diet without regurgitation or coughing up phlegm. denies hemoptysis hematemesis hematochezia or melena. Receiving parenteral nutrition. Objective - Vital Signs Vital signs: Vital Signs Temp 98.3 F 05/25/16 00:00 Pulse 86 05/25/16 04:00 Resp 18 05/25/16 04:00 BP 114/72 05/25/16 04:00 Pulse Ox 94 L 05/25/16 04:00 Intake & Output 05/24/16 05/25/16 05/25/16 18:59 06:59 18:59 Intake Total 1541 Balance 1541 Weight 75.2 kg 75.4 kg Intake: IV 100 Piperacillin-Tazobactam 3 100 .375 gm In Dextrose/Water 1 50ml.bag @ 12.5 mls/hr IVPB Q8HR [facility] Rx#: [id number] Intake, IV Titration 1441 Amount Amino Acid 4.25%-D10w+ 1100 Lytes*E* 1,000 ml @ 100 mls/hr IV .BY DURATION [facility] Rx#:[id number] D5-0.9% NaCl with KCl 40 20 Meq/l 1,000 ml @ 20 mls/ hr IV .Q24H [facility] Rx#: [id number] Fat Emulsion 20% 250 ml 21 In Empty Bag 1 bag @ 21 mls/hr IV DAILY@1800 [facility] Rx#:[id number] Mvi, Adult No.4 with Vit 50 K 10 ml Trace (Conc-1Ml/ Dose) 1 ml In Amino Acid 4.25%-D10w+Lytes*E* 1,000 ml @ 50 mls/hr IV . [id number] [facility] Rx#:[id number] Sodium Phosphate 10 mmol 250 In Sodium Chloride 0.9% 250 ml @ 125 mls/hr IVPB ONCE ONE Rx#:[id number] Other: # Voids 1 - Exam General appearance: The patient is alert, oriented, in no acute distress. HET: Head is normocephalic and atraumatic. Pupils are equal and reactive. Oropharynx is clear without lesions. Neck: Supple without lymphadenopathy. Trachea midline. Heart: S1 S2. Regular rate and rhythm. Lungs: Diminished in bases bilaterally. Intermittent cough with productive weight phlegm. Abdomen: Soft, nontender, nondistended with bowel sounds. No peritoneal signs. No palpable organomegaly or masses. Extremities: Normal skin color and turgor. No cyanosis, rash, ulceration, clubbing, or edema. Radial and pedal pulses are 2/4 bilaterally. Neurological: No focal deficits. Strength and sensation are grossly intact. - Labs CBC & Chem 7: 05/25/16 06:15 05/25/16 06:15 Labs: Abnormal Lab Results - Last 24 Hours (Table) 05/24/16 05/25/16 05/25/16 Range/Units 15:10 01:10 06:15 WBC 3.3 L (3.8-10.6) k/uL RBC 3.63 L (4.30-5.90) m/uL Hgb 11.1 L (13.0-17.5) gm/dL Hct 34.5 L (39.0-53.0) % Lymphocytes # 0.2 L (1.0-4.8) k/uL Creatinine (0.66-1.25) mg/dL Glucose (74-99) mg/dL POC Glucose (mg/dL) 115 H (75-99) mg/dL Phosphorus 2.4 L (2.5-4.5) mg/dL 05/25/16 05/25/16 Range/Units 06:15 06:22 WBC (3.8-10.6) k/uL RBC (4.30-5.90) m/uL Hgb (13.0-17.5) gm/dL Hct (39.0-53.0) % Lymphocytes # (1.0-4.8) k/uL Creatinine 0.48 L (0.66-1.25) mg/dL Glucose 122 H (74-99) mg/dL POC Glucose (mg/dL) 123 H (75-99) mg/dL Phosphorus (2.5-4.5) mg/dL Assessment and Plan (1) Inadequate oral nutritional intake Status: Acute (2) Non-small cell carcinoma of lung Status: Acute (3) Sepsis Status: Acute (4) Pneumonia Status: Acute (5) Intractable nausea and vomiting Status: Acute (6) Leukopenia due to antineoplastic chemotherapy Status: Acute (7) Protein calorie malnutrition Narrative/Plan: Moderate protein calorie malnutrition with low pre-albumin and weight loss greater than 20%. Status: Acute Plan: 1. PEG insertion tentatively scheduled Saturday morning. There is concern with recent tracheoesophageal stent placement could impede the advancement of PEG tube. General surgery consulted; case was discussed with Dr. Hanson. Patient may require open placement of feeding tube by surgery. 2. Continue parenteral nutrition. 3. Continue GI prophylaxis Protonix 40 mg IV daily. Assessment and plan a care discussed with Dr. Marsh
[2016-05-25 09:08] LABS: INR 1.1 (<1.1); Partial Thromboplastin Time 36.9 sec (22.0-30.0); Prothrombin Time 11.2 sec (9.0-12.0)
[2016-05-25] MEDS: PIPERACILLIN-TAZOBACTAM 3.375 GM in DEXTROSE/WATER 1 50ML.BAG IVPB SCH ×3 (09:09→23:35)
[2016-05-25] MEDS: DOCUSATE 100 MG CAP PO SCH ×2 (09:44→20:39)
[2016-05-25] MEDS: METOPROLOL TARTRATE 25 MG TAB PO SCH ×2 (09:44→20:40)
[2016-05-25] MEDS: LISINOPRIL 5 MG TAB PO SCH ×2 (09:44→20:39)
[2016-05-25] MEDS: FUROSEMIDE 20 MG TAB PO SCH ×2 (09:44→17:42)
[2016-05-25] MEDS: POTASSIUM CHLORIDE ER 20 MEQ TAB.ER PO SCH (09:45)
[2016-05-25] MEDS: PANTOPRAZOLE 40 MG/10 ML VIAL IV SCH (10:27)
[2016-05-25 11:54] LABS: Glucose,Whole Blood 112 mg/dL (75-99)
[2016-05-25 12:30] LABS: Hemoglobin A1C 6.1 % (4.2-6.1)
[2016-05-25] MEDS: 1: MVI, ADULT NO.4 WITH VIT K 10 ML, TRACE (CONC-1ML/DOSE) 1 ML in AMINO ACID 4.25%-D10W IV SCH ×3 (13:10)
[2016-05-25] MEDS: MVI, ADULT NO.4 WITH VIT K 10 ML, TRACE (CONC-1ML/DOSE) 1 ML in AMINO ACID 4.25%-D10W+L... IV SCH ×3 (13:15)
--- NOTE | 2016-05-25 14:36 | P.GSCN ---
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 surgical consultation has been requested for surgical eval possible open J-tube to be placed for nutritional support. Patient does have a past medical history of non-small cell lung cancer diagnosed March 2016 status post chemoradiation treatment. Patient reportedly has been experiencing poor oral nutritional intake with the weight loss of approximately 14 kg over the last 6 months. Additionally the patient has undergone a VATS procedure at another facility. Multiple biopsies were obtained until he was diagnosed with normal cell carcinoma 1. Patient has recently been having difficulties with reoccurring pneumonia with evidence of aspiration. Patient reportedly has been experiencing episodes of having difficulty tolerating full liquids. Patient reportedly is not able to tolerate a diet without regurgitation or coughing up phlegm. Patient currently receiving parenteral nutrition Patient has been denying any hemoptysis hematemesis. He is sitting up in a chair visitor at bedside Did note the patient has been seen by GI service. They indicate that since the patient had esophageal stent in place dry do not believe it's possible 4 GI to perform an EGD. Recommending a surgical consult for direct tube placement has been requested Review of Systems Essentially unremarkable except as mentioned in the present illness Past Medical History Past Medical History: Cancer, GERD/Reflux, Hypertension Additional Past Medical History / Comment(s): Non-small cell lung Cancer History of Any Multi-Drug Resistant Organisms: None Reported Past Surgical History: Hernia Repair Additional Past Surgical History / Comment(s): cyst removed from back, BRONCHOSCOPY, VATS procedure Past Anesthesia/Blood Transfusion Reactions: Motion Sickness Past Psychological History: No Psychological Hx Reported Additional Psychological History / Comment(s): 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 Tobacco smoker until 3 years ago approximately 30 -pack-year history. No significant alcohol use. no recreational drug use. No experience. 2 adult children that are healthy. No animals in the home Smoking Status: Former smoker Past Alcohol Use History: Daily Additional Past Alcohol Use History / Comment(s): quit smoking 2013, STARTED SMOKING AT AGE 15, SMOKED 1 PPD Past Drug Use History: None Reported - Past Family History Mother Family Medical History: No Reported History Medications and Allergies Home Medications Medication Instructions Recorded Confirmed Type Lisinopril-Hctz 20-12.5 mg 1 tab PO DAILY 10/19/15 05/14/16 History [Zestoretic 20-12.5] Acetaminophen [Tylenol] 1,000 mg PO Q4-6H PRN 05/14/16 05/14/16 History Pantoprazole [Protonix] 40 mg PO DAILY 05/14/16 05/14/16 History Allergies Allergy/AdvReac Type Severity Reaction Status Date / Time No Known Allergies Allergy Verified 05/14/16 23:22 Surgical - Exam Vital Signs Temp Pulse Resp BP Pulse Ox 99.0 F 67 20 135/78 96 05/14/16 22:19 05/14/16 22:19 05/14/16 22:19 05/14/16 22:19 05/14/16 22:19 GENERAL APPEARANCE: 51-year-old male The patient is alert, oriented 3, in no acute distress. Sitting up in a chair reading a newspaper is aware of the plan of care states "I think to going to schedule it for Saturday" VITAL SIGNS: Reviewed HEENT: Head is normocephalic and atraumatic. Pupils are equal and reactive. The nares are patent. Oropharynx is clear without lesions. NECK: Supple without lymphadenopathy. Traches midline. HEART: S1, S2. Regular rate and rhythm. No murmur noted denying chest pain LUNGS: No crackles or wheezes are heard. Occasional nonproductive cough noted patient states does not always cough up the phlegm sats on room air documented 92% ABDOMEN: Soft, nontender, nondistended with good bowel sounds. No peritoneal signs. No palpable organomegaly or masses. EXTREMITIES: Normal skin color and turgor. No cyanosis, rash, ulceration, clubbing or edema. Radial pedal pulses are 2/4 bilaterally. NEUROLOGICAL: No focal deficits. Strength and sensation are grossly intact. Results - Labs 05/25/16 06:15 05/25/16 06:15 Abnormal Lab Results - Last 24 Hours (Table) 05/24/16 05/25/16 05/25/16 Range/Units 15:10 01:10 06:15 WBC 3.3 L (3.8-10.6) k/uL RBC 3.63 L (4.30-5.90) m/uL Hgb 11.1 L (13.0-17.5) gm/dL Hct 34.5 L (39.0-53.0) % Lymphocytes # 0.2 L (1.0-4.8) k/uL APTT (22.0-30.0) sec Creatinine (0.66-1.25) mg/dL Glucose (74-99) mg/dL POC Glucose (mg/dL) 115 H (75-99) mg/dL Phosphorus 2.4 L (2.5-4.5) mg/dL 05/25/16 05/25/16 05/25/16 Range/Units 06:15 06:15 06:22 WBC (3.8-10.6) k/uL RBC (4.30-5.90) m/uL Hgb (13.0-17.5) gm/dL Hct (39.0-53.0) % Lymphocytes # (1.0-4.8) k/uL APTT 36.9 H (22.0-30.0) sec Creatinine 0.48 L (0.66-1.25) mg/dL Glucose 122 H (74-99) mg/dL POC Glucose (mg/dL) 123 H (75-99) mg/dL Phosphorus (2.5-4.5) mg/dL 05/25/16 Range/Units 11:53 WBC (3.8-10.6) k/uL RBC (4.30-5.90) m/uL Hgb (13.0-17.5) gm/dL Hct (39.0-53.0) % Lymphocytes # (1.0-4.8) k/uL APTT (22.0-30.0) sec Creatinine (0.66-1.25) mg/dL Glucose (74-99) mg/dL POC Glucose (mg/dL) 112 H (75-99) mg/dL Phosphorus (2.5-4.5) mg/dL Diabetes panel 05/24/16 05/25/16 Range/Units 15:10 06:15 Sodium 137 (137-145) mmol/L Potassium 3.9 (3.5-5.1) mmol/L Chloride 99 (98-107) mmol/L Carbon Dioxide 30 (22-30) mmol/L BUN 12 (9-20) mg/dL Creatinine 0.48 L (0.66-1.25) mg/dL Glucose 122 H (74-99) mg/dL Calcium 8.8 (8.4-10.2) mg/dL Triglycerides 86 (<150) mg/dL Calcium panel 05/24/16 05/25/16 Range/Units 15:10 06:15 Calcium 8.8 (8.4-10.2) mg/dL Ionized Calcium Kianna 4.8 (4.5-5.3) mg/dL Phosphorus 2.4 L 3.7 (2.5-4.5) mg/dL Pituitary panel 05/25/16 Range/Units 06:15 Sodium 137 (137-145) mmol/L Potassium 3.9 (3.5-5.1) mmol/L Chloride 99 (98-107) mmol/L Carbon Dioxide 30 (22-30) mmol/L BUN 12 (9-20) mg/dL Creatinine 0.48 L (0.66-1.25) mg/dL Glucose 122 H (74-99) mg/dL Calcium 8.8 (8.4-10.2) mg/dL Adrenal panel 05/25/16 Range/Units 06:15 Sodium 137 (137-145) mmol/L Potassium 3.9 (3.5-5.1) mmol/L Chloride 99 (98-107) mmol/L Carbon Dioxide 30 (22-30) mmol/L BUN 12 (9-20) mg/dL Creatinine 0.48 L (0.66-1.25) mg/dL Glucose 122 H (74-99) mg/dL Calcium 8.8 (8.4-10.2) mg/dL Assessment and Plan Plan: Impression Non-small cell lung cancer with a recent tracheoesophageal fistula status post stent placement Unable to tolerate diet without regurgitation increased risk of aspiration Persistent intermittent episodes of nausea vomiting Leukopenia due to antineoplastic chemotherapy Protein calorie malnutrition moderate with a low pre-albumin and weight loss greater than 20% suspect due to poor caloric intake adequate oral nutritional intake Recurrent aspiration pneumonia Gastroesophageal reflux disease Remote history of nicotine dependency Paroxysmal atrial fibrillation current sinus rhythm no anticoagulation per cardiology service Physical debility due to chronic illness Plan Dr. Hanson to evaluate regarding placement PEG tube versus J-tube to be determined Continue with parenteral nutrition Continue with GI prophylaxis protonic 40 IV daily The timing of the surgical procedure will be determined by Dr. Hanson Further recommendations pending Thank you for allowing us to participate in the surgical management of your patient will follow closely The above dictated assessment and findings were discussed with dr hanson Impression and the plan of care have been dictated as directed. Pearl Muir nurse practitioner acting as a scribe for dr marinelli <Mara Hanson - Last Filed: 05/26/16 11:06> Surgical - Exam Vital Signs Temp Pulse Resp BP Pulse Ox 99.0 F 67 20 135/78 96 05/14/16 22:19 05/14/16 22:19 05/14/16 22:19 05/14/16 22:19 05/14/16 22:19 Results - Labs 05/25/16 06:15 05/26/16 06:02 Abnormal Lab Results - Last 24 Hours (Table) 05/25/16 05/25/16 05/26/16 Range/Units 11:53 17:51 00:29 Sodium (137-145) mmol/L Chloride (98-107) mmol/L Creatinine (0.66-1.25) mg/dL Glucose (74-99) mg/dL POC Glucose (mg/dL) 112 H 100 H 112 H (75-99) mg/dL Phosphorus (2.5-4.5) mg/dL 05/26/16 05/26/16 Range/Units 06:02 06:37 Sodium 135 L (137-145) mmol/L Chloride 96 L (98-107) mmol/L Creatinine 0.55 L (0.66-1.25) mg/dL Glucose 116 H (74-99) mg/dL POC Glucose (mg/dL) 108 H (75-99) mg/dL Phosphorus 4.6 H (2.5-4.5) mg/dL Diabetes panel 05/25/16 05/26/16 Range/Units 06:15 06:02 Sodium 135 L (137-145) mmol/L Potassium 4.2 (3.5-5.1) mmol/L Chloride 96 L (98-107) mmol/L Carbon Dioxide 27 (22-30) mmol/L BUN 14 (9-20) mg/dL Creatinine 0.55 L (0.66-1.25) mg/dL Glucose 116 H (74-99) mg/dL Hemoglobin A1c 6.1 (4.2-6.1) % Calcium 8.9 (8.4-10.2) mg/dL Calcium panel 05/26/16 Range/Units 06:02 Calcium 8.9 (8.4-10.2) mg/dL Phosphorus 4.6 H (2.5-4.5) mg/dL Pituitary panel 05/26/16 Range/Units 06:02 Sodium 135 L (137-145) mmol/L Potassium 4.2 (3.5-5.1) mmol/L Chloride 96 L (98-107) mmol/L Carbon Dioxide 27 (22-30) mmol/L BUN 14 (9-20) mg/dL Creatinine 0.55 L (0.66-1.25) mg/dL Glucose 116 H (74-99) mg/dL Calcium 8.9 (8.4-10.2) mg/dL Adrenal panel 05/26/16 Range/Units 06:02 Sodium 135 L (137-145) mmol/L Potassium 4.2 (3.5-5.1) mmol/L Chloride 96 L (98-107) mmol/L Carbon Dioxide 27 (22-30) mmol/L BUN 14 (9-20) mg/dL Creatinine 0.55 L (0.66-1.25) mg/dL Glucose 116 H (74-99) mg/dL Calcium 8.9 (8.4-10.2) mg/dL Assessment and Plan Plan: Patient examined.plan for PEG tube by GI. If unsuccessful, will proceed with laparoscopic G-tube placement versus open. The risks, benefits and potential complications were discussed with the patient. Patient is agreeable. We will wait for PEG tube placement by GI on Saturday
--- NOTE | 2016-05-25 15:05 | P.PN ---
Subjective 51-year-old male who has a history of prior nicotine dependence was having difficulties in the past. 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 He constantly has undergone chemotherapy and radiation. Recently was having great difficulties with recurrent pneumonia and evidence of aspiration. 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 As he was taken to the operating room and a stent was placed In the esophagus. The post procedure chest x-ray that was done shows some improvement in aeration of the left lung base. There is still some consolidation of the left lower lobe. The esophageal stent looks in a good location. Currently the patient is afebrile. The patient is hemodynamically stable. The patient is on IV antibiotics. The patient is hoarse related to the vocal cord paralysis. No nausea. No vomiting. No abdominal pain. The patient is completing radiation therapy did speak offered to him through radiation oncology. Otherwise, no other significant events overnight. The patient remains on IV Zosyn. Pain is under good control. One more comorbidities the development of a proximal atrial fibrillation current rhythm is back to normal sinus. The patient's echocardiogram showed a preserved LV function and cardiology is also on the case. IV heparin was discontinued today. On 05/22/2016 the patient is being seen in follow-up. The patient is having some occasional nausea and emesis and the exact cause is not clear. This could be a chemotherapy-induced nausea and emesis although the patient has also a documented history of a tracheobronchial fistula for which the patient had a an esophageal stent inserted recently. The patient is still on IV Zosyn regarding a left lower lobe pneumonia. The patient is afebrile. No reported hemoptysis. No reported cough and was swallowing food material. The chest x-ray from today shows left basal infiltrate along with a component of atelectasis/ pneumonia. The patient's white cell count is still low at 1.8. On 05/23/2016 the patient is being seen in follow-up. The patient is still having difficulties with swallowing, nausea, regurgitation, throwing up with material to the point where the patient is unable to keep any liquids. He is not coughing doubt any food material. He had a follow-up chest x-ray that showed is stable left lower lobe atelectasis/consolidation/infiltrate. There is a fragile stent seemed to be in good location. He is afebrile. No change in mental status. Remains on the same antibiotic coverage. A follow-up CAT scan of the chest and abdomen was ordered and a GI consultation was requested for PEG tube insertion. On 05/25/2016, the patient is MPO. Surgical consultation was obtained for a PEG tube insertion. The patient will be seen by Dr. Hanson. The patient is also receiving PPN for nutritional support. Afebrile. No worsening shortness of breath. The post remains hoarse. Unable to swallow. No ongoing emesis this point as long as the patient is nothing by mouth. Meanwhile, the patient is still on IV Zosyn. No other significant events over the past 24 hours. Objective - Vital Signs Vital signs: Vital Signs Temp 100.1 F H 05/25/16 12:00 Pulse 88 05/25/16 12:00 Resp 18 05/25/16 12:00 BP 115/63 05/25/16 12:00 Pulse Ox 97 05/25/16 12:00 Intake & Output 05/24/16 05/25/16 05/25/16 18:59 06:59 18:59 Intake Total 1541 1011 Balance 1541 1011 Weight 75.2 kg 75.4 kg Intake: IV 100 Piperacillin-Tazobactam 3 100 .375 gm In Dextrose/Water 1 50ml.bag @ 12.5 mls/hr IVPB Q8HR [facility] Rx#: [id number] Intake, IV Titration 1441 1011 Amount Amino Acid 4.25%-D10w+ 1100 Lytes*E* 1,000 ml @ 100 mls/hr IV .BY DURATION [facility] Rx#:[id number] D5-0.9% NaCl with KCl 40 20 Meq/l 1,000 ml @ 20 mls/ hr IV .Q24H [facility] Rx#: [id number] Fat Emulsion 20% 250 ml 21 In Empty Bag 1 bag @ 21 mls/hr IV DAILY@1800 [facility] Rx#:[id number] Mvi, Adult No.4 with Vit 50 1011 K 10 ml Trace (Conc-1Ml/ Dose) 1 ml In Amino Acid 4.25%-D10w+Lytes*E* 1,000 ml @ 50 mls/hr IV . [id number] [facility] Rx#:[id number] Sodium Phosphate 10 mmol 250 In Sodium Chloride 0.9% 250 ml @ 125 mls/hr IVPB ONCE ONE Rx#:[id number] Other: Voiding Method Urinal # Voids 1 - Exam Head exam was generally normal. There was no scleral icterus or corneal arcus. Mucous membranes were moist.Neck was supple and without jugular venous distension, thyromegaly, or carotid bruits. Carotids were easily palpable bilaterally. There was no adenopathy. Lung sounds are diminished in the left lung base compared to the right.Cardiac exam revealed the PMI to be normally situated and sized. The rhythm was regular and no extrasystoles were noted during several minutes of auscultation. The first and second heart sounds were normal and physiologic splitting of the second heart sound was noted. There were no murmurs, rubs, clicks, or gallops.Abdominal exam revealed normal bowel sounds. The abdomen was soft, non-tender, and without masses, organomegaly, or appreciable enlargement of the abdominal aorta. Examination of the extremities revealed easily palpable radial, femoral and pedal pulses. There was no cyanosis , clubbing or edema. - Labs CBC & Chem 7: 05/25/16 06:15 05/25/16 06:15 Labs: Abnormal Lab Results - Last 24 Hours (Table) 05/24/16 05/25/16 05/25/16 Range/Units 15:10 01:10 06:15 WBC 3.3 L (3.8-10.6) k/uL RBC 3.63 L (4.30-5.90) m/uL Hgb 11.1 L (13.0-17.5) gm/dL Hct 34.5 L (39.0-53.0) % Lymphocytes # 0.2 L (1.0-4.8) k/uL APTT (22.0-30.0) sec Creatinine (0.66-1.25) mg/dL Glucose (74-99) mg/dL POC Glucose (mg/dL) 115 H (75-99) mg/dL Phosphorus 2.4 L (2.5-4.5) mg/dL 05/25/16 05/25/16 05/25/16 Range/Units 06:15 06:15 06:22 WBC (3.8-10.6) k/uL RBC (4.30-5.90) m/uL Hgb (13.0-17.5) gm/dL Hct (39.0-53.0) % Lymphocytes # (1.0-4.8) k/uL APTT 36.9 H (22.0-30.0) sec Creatinine 0.48 L (0.66-1.25) mg/dL Glucose 122 H (74-99) mg/dL POC Glucose (mg/dL) 123 H (75-99) mg/dL Phosphorus (2.5-4.5) mg/dL 05/25/16 Range/Units 11:53 WBC (3.8-10.6) k/uL RBC (4.30-5.90) m/uL Hgb (13.0-17.5) gm/dL Hct (39.0-53.0) % Lymphocytes # (1.0-4.8) k/uL APTT (22.0-30.0) sec Creatinine (0.66-1.25) mg/dL Glucose (74-99) mg/dL POC Glucose (mg/dL) 112 H (75-99) mg/dL Phosphorus (2.5-4.5) mg/dL Assessment and Plan Plan: Assessment 1 locally advanced non-small cell lung cancer of a squamous cell type. 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 The patient has undergone placement of an esophageal stent 3 left lower lobe pneumonia currently on IV Zosyn 4 left vocal cord paralysis with secondary hoarseness 5 paroxysmal defibrillation currently rhythm is sinus 6 hypertension 7 leukopenia improved but her white cell count of 3.3 8 hypokalemia, replaced 9 persistent difficulty with swallowing, and the patient is awaiting a PEG tube insertion. 10 PPN for nutritional support Plan Surgery for PEG tube insertion. Continued IV Zosyn. PPN for nutritional support. Prognosis remains poor.
--- NOTE | 2016-05-25 17:04 | P.PN ---
Subjective Date of service 05/25/2016. Progress note being dictated for Dr. Tinajero. Interval history: This a 51-year-old gentleman admitted with left-sided multilobar pneumonia, with history of tracheoesophageal fistula with stent placement, lung CA, and multiple other medical issues. Continues on Zosyn, per infectious disease. NPO,maintained on PPN. Persistent nausea, vomiting, throwing up phlegm. Being currently evaluated by both GI and surgery for PEG tube or J-tube placement on Saturday. Denies abdominal pain, ambulating around in room, reading newspaper. Denies chest pain, palpitations. Review of systems: HEENT: Denies headache or focal deficits. Denies any dizziness or lightheadedness. Respiratory: Denies any increased shortness of breath. Cardiac: Denies any chest pain, palpitations. GI: Complains of nausea, vomiting, no diarrhea. Denies any abdominal pain. : Denies any dysuria. Psychiatry: Denies any anxiety or depression. Active Medications Acetaminophen (Tylenol Oral Susp) 650 mg PO Q6H PRN PRN Reason: Pain Hydrocodone Bitart/Acetaminophen ([place] Elixir 7.5-325mg/15ml) 10 ml PO Q4H PRN PRN Reason: Pain Last Admin: 05/22/16 20:03 Dose: 10 ml Albuterol/Ipratropium (Duoneb 0.5 Mg-3 Mg/3 Ml Soln) 3 ml INHALATION RT-QID [facility] Last Admin: 05/25/16 15:26 Dose: Not Given Docusate Sodium (Colace) 100 mg PO BID [facility] Last Admin: 05/25/16 09:44 Dose: Not Given Furosemide (Lasix) 20 mg PO 0900,1700 [facility] Last Admin: 05/25/16 09:44 Dose: Not Given Heparin Sodium (Porcine) (Heparin) 5,000 unit SQ Q12HR [facility] Piperacillin/Tazobactam/ (Dextrose 3.375 gm/ IV Solution) 50 mls @ 12.5 mls/hr IVPB Q8HR [facility] Last Admin: 05/25/16 15:43 Dose: 12.5 mls/hr Potassium Chloride/Dextrose/Sod Cl (D5%-Ns-Kcl 40 Meq/L Iv Solution) 1,000 mls @ 20 mls/hr IV .Q24H [facility] Last Admin: 05/24/16 18:12 Dose: 20 mls/hr Parenteral Vitamin Supplement 10 ml/ Chromium/Copper/Manganese/Seleni/Zn 1 ml/ Amino Ac/Electrol/Dextrose/Calcium 1,011 mls @ 100 mls/hr IV .BY DURATION [facility] Last Admin: 05/25/16 13:10 Dose: 100 mls/hr Amino Ac/Electrol/Dextrose/Calcium (Clinimix E 4.25%-D10% Solution) 1,000 mls @ 100 mls/hr IV .BY DURATION [facility] Fat Emulsion Intravenous 250 (ml/ IV Solution) 250 mls @ 21 mls/hr IV DAILY@ 1800 [facility] Last Admin: 05/24/16 18:11 Dose: 21 mls/hr Insulin Human Lispro (Humalog) 0 unit SQ Q6HR [facility] PRN Reason: Protocol Last Admin: 05/25/16 12:30 Dose: Not Given Lisinopril (Zestril) 5 mg PO BID [facility] Last Admin: 05/25/16 09:44 Dose: Not Given Lorazepam (Ativan) 1 mg IV Q4HR PRN PRN Reason: Anxiety Last Admin: 05/19/16 07:50 Dose: 1 mg Metoprolol Tartrate (Lopressor) 25 mg PO BID [facility] Last Admin: 05/25/16 09:44 Dose: Not Given Metoprolol Tartrate (Lopressor) 2.5 mg IVP BID PRN PRN Reason: Heart Rate - HIGH Last Admin: 05/25/16 09:00 Dose: 2.5 mg Miscellaneous Information (Potassium Per Protocol) 1 each MISCELLANE DAILY PRN ; Protocol PRN Reason: Per Protocol Miscellaneous Information (Magnesium Per Protocol) 1 each MISCELLANE DAILY PRN ; Protocol PRN Reason: Per Protocol Morphine Sulfate (Morphine Sulfate (Inj)) 4 mg IV Q4HR PRN PRN Reason: Severe Pain Last Admin: 05/25/16 14:22 Dose: 4 mg Naloxone HCl (Narcan) 0.2 mg IV Q2M PRN PRN Reason: Opioid Reversal Ondansetron HCl (Zofran) 4 mg IVP Q4HR PRN PRN Reason: Nausea And Vomiting Last Admin: 05/25/16 14:23 Dose: 4 mg Pantoprazole Sodium (Protonix) 40 mg IV DAILY [facility] Last Admin: 05/25/16 10:27 Dose: 40 mg Potassium Chloride (K-Dur 20) 20 meq PO DAILY [facility] Last Admin: 05/25/16 09:45 Dose: Not Given Prochlorperazine Maleate (Compazine) 25 mg RECTAL Q12HR PRN PRN Reason: Nausea And Vomiting Last Admin: 05/23/16 18:50 Dose: 25 mg Sucralfate (Carafate) 1 gm PO ACHS [facility] Last Admin: 05/25/16 12:33 Dose: Not Given Objective - Vital Signs Vital signs: Vital Signs Temp 100.2 F H 05/25/16 15:44 Pulse 88 05/25/16 15:44 Resp 18 05/25/16 15:44 BP 118/70 05/25/16 15:44 Pulse Ox 96 05/25/16 15:44 Intake & Output 05/24/16 05/25/16 05/25/16 18:59 06:59 18:59 Intake Total 1541 1011 Balance 1541 1011 Weight 75.2 kg 75.4 kg Intake: IV 100 Piperacillin-Tazobactam 3 100 .375 gm In Dextrose/Water 1 50ml.bag @ 12.5 mls/hr IVPB Q8HR [facility] Rx#: [id number] Intake, IV Titration 1441 1011 Amount Amino Acid 4.25%-D10w+ 1100 Lytes*E* 1,000 ml @ 100 mls/hr IV .BY DURATION [facility] Rx#:[id number] D5-0.9% NaCl with KCl 40 20 Meq/l 1,000 ml @ 20 mls/ hr IV .Q24H [facility] Rx#: [id number] Fat Emulsion 20% 250 ml 21 In Empty Bag 1 bag @ 21 mls/hr IV DAILY@1800 [facility] Rx#:[id number] Mvi, Adult No.4 with Vit 50 1011 K 10 ml Trace (Conc-1Ml/ Dose) 1 ml In Amino Acid 4.25%-D10w+Lytes*E* 1,000 ml @ 50 mls/hr IV . [id number] [facility] Rx#:[id number] Sodium Phosphate 10 mmol 250 In Sodium Chloride 0.9% 250 ml @ 125 mls/hr IVPB ONCE ONE Rx#:[id number] Other: Voiding Method Urinal # Voids 1 - Exam PHYSICAL EXAM: VITAL SIGNS: As above GENERAL: [Sitting up in chair, no acute distress, HEENT: [Pupils equal conjunctiva normal.] NECK: [Supple, no JVD, RESPIRATORY EFFORT: Mildly increased LUNGS: Bilateral bases diminished, no crackles rhonchi or wheezing CARDIOVASCULAR[regular S1 and S2, no murmurs rubs or gallops, trace edema GI: [Abdomen soft, nontender, positive bowel sounds.] PSYCH: [Alert and oriented -3, mood and affect normal.] NEURO: No focal deficits, moves all 4 extremities, strength and sensation grossly intact. Microbiology 05/15/16 02:40 Blood Blood Culture - Final No Growth after 144 hours 05/15/16 17:05 Sputum Gram Stain - Final 05/15/16 17:05 Sputum Sputum Culture - Final - Labs CBC & Chem 7: 05/25/16 06:15 05/25/16 06:15 Labs: Abnormal Lab Results - Last 24 Hours (Table) 05/25/16 05/25/16 05/25/16 Range/Units 01:10 06:15 06:15 WBC 3.3 L (3.8-10.6) k/uL RBC 3.63 L (4.30-5.90) m/uL Hgb 11.1 L (13.0-17.5) gm/dL Hct 34.5 L (39.0-53.0) % Lymphocytes # 0.2 L (1.0-4.8) k/uL APTT (22.0-30.0) sec Creatinine 0.48 L (0.66-1.25) mg/dL Glucose 122 H (74-99) mg/dL POC Glucose (mg/dL) 115 H (75-99) mg/dL 05/25/16 05/25/16 05/25/16 Range/Units 06:15 06:22 11:53 WBC (3.8-10.6) k/uL RBC (4.30-5.90) m/uL Hgb (13.0-17.5) gm/dL Hct (39.0-53.0) % Lymphocytes # (1.0-4.8) k/uL APTT 36.9 H (22.0-30.0) sec Creatinine (0.66-1.25) mg/dL Glucose (74-99) mg/dL POC Glucose (mg/dL) 123 H 112 H (75-99) mg/dL Assessment and Plan Plan: 1. [Acute left-sided pneumonia multilobar, possibly postobstructive with severe sepsis, present on admission]. 2. Recently diagnosed non-small cell lung CA, status post chemoradiation]. 3. Status post esophageal stent placement. 4. [Tracheoesophageal fistula post radiation treatment, status post esophageal stent]. 5. [Gastroesophageal reflux disease]. 6. [Hypertension]. 7. [Remote history of nicotine dependence]. 8. Leukopenia, anemia and thrombocytopenia with mild pancytopenia, secondary to chemotherapy and malignancy 9. Proximal atrial fibrillation, now sinus rhythm. No anticoagulation required as per cardiology. 10. Hypokalemia 11. Hypomagnesemia 12. Moderate Protein calorie malnutrition, low pre-albumin, PPN Plan: Continue on current medication regime , PPI, Zofran, Compazine, nebulized bronchodilators, empiric antibiotics, monitoring and symptomatic treatment. Maintain NPO Status. Placement of Peg versus J-tube tentatively for Saturday- currently being evaluated by both GI and surgery. Electrolyte supplementation per protocol. Close monitoring of electrolytes with repeat labs ordered for a.m. Follow with multiple consults. Further recommendations to follow. Prognosis guarded Multiple complex medical issues. The impression and plan of care has been dictated as directed. : I performed a H&P examination of this patient and discussed the same with the dictator. I agree with the dictator's note. Any additional findings/opinions/ etc. will be noted.
[2016-05-25 17:54] LABS: Glucose,Whole Blood 100 mg/dL (75-99)
--- NOTE | 2016-05-25 18:13 | P.PN ---
Subjective Principal diagnosis: Pneumonia Extremely pleasant 51-year-old male who has a history of prior nicotine dependence was having difficulties in the past. 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 He constantly has undergone chemotherapy and radiation. Recently was having great difficulties with recurrent pneumonia and evidence of aspiration. 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 As he was taken to the operating room and a stent was placed. Since that he is doing somewhat better. His chest is starting to clear a little bit and he is swallowing some liquids and full liquids without difficulties except he is having an occasional episode of emesis. It has been inconsistent based on food texture in quality. It has further improved today Feeling better today. Not having any further fever chill rigor or sweats. His cough is improving. His discomfort from the procedure is also improving. Patient however developed evidence of significant change in his status and was found evidence of atrial fibrillation with a rapid ventricular response. He's been treated with the Cardizem and has improved. Did relatively well today. Ate some ice cream tonight and started to have some further emesis as he did this morning. Has been seen by gastroenterology, with the esophageal stent there is concern about the inability to pass the scope through the stent. Gastroneurology and general surgery have now consulted. The plan will be to proceed with an EGD and attempts to place a percutaneous endoscopic gastrostomy tube. If this cannot be performed the general surgery will step in and performed a open placed gastrostomy tube. Objective - Vital Signs Vital signs: Vital Signs Temp 100.2 F H 05/25/16 15:44 Pulse 88 05/25/16 15:44 Resp 18 05/25/16 15:44 BP 118/70 05/25/16 15:44 Pulse Ox 96 05/25/16 15:44 Intake & Output 05/24/16 05/25/16 05/25/16 18:59 06:59 18:59 Intake Total 1541 1011 Balance 1541 1011 Weight 75.2 kg 75.4 kg Intake: IV 100 Piperacillin-Tazobactam 3 100 .375 gm In Dextrose/Water 1 50ml.bag @ 12.5 mls/hr IVPB Q8HR [facility] Rx#: [id number] Intake, IV Titration 1441 1011 Amount Amino Acid 4.25%-D10w+ 1100 Lytes*E* 1,000 ml @ 100 mls/hr IV .BY DURATION [facility] Rx#:[id number] D5-0.9% NaCl with KCl 40 20 Meq/l 1,000 ml @ 20 mls/ hr IV .Q24H [facility] Rx#: [id number] Fat Emulsion 20% 250 ml 21 In Empty Bag 1 bag @ 21 mls/hr IV DAILY@1800 [facility] Rx#:[id number] Mvi, Adult No.4 with Vit 50 1011 K 10 ml Trace (Conc-1Ml/ Dose) 1 ml In Amino Acid 4.25%-D10w+Lytes*E* 1,000 ml @ 50 mls/hr IV . [id number] [facility] Rx#:[id number] Sodium Phosphate 10 mmol 250 In Sodium Chloride 0.9% 250 ml @ 125 mls/hr IVPB ONCE ONE Rx#:[id number] Other: Voiding Method Urinal # Voids 1 - Exam Pleasant 51-year-old male in no acute distress. Feeling better than earlier HEENT: Anicteric conjunctiva are pink and moist nasal mucosa grossly intact without significant lesions, there is no thrush. Neck: The neck is supple without significant lymphadenopathy or thyromegaly. Lungs: There is symmetrical air entry. However there are crackles and bronchial sounds in the left base. Few expiratory wheezes are heard. Right chest is rather clear. Heart: Regular with an audible S1-S2, no S3 no S4. There is no significant murmur click or rub, PMI was nondisplaced. Abdomen: Positive bowel sounds soft and nontender without palpable masses or organomegaly. There was no guarding or rebound. Extremities: The upper extremities have excellent pulses they are symmetric, no significant petechiae or telangiectasia. No splinter hemorrhages were noted. The lower extremities are free from significant edema. The peripheral pulses were 2+ and symmetric. Neuro: Awake alert oriented to person place and time. There are no acute new gross focal sensory motor deficits. - Labs CBC & Chem 7: 05/25/16 06:15 05/25/16 06:15 Labs: Abnormal Lab Results - Last 24 Hours (Table) 05/25/16 05/25/16 05/25/16 Range/Units 01:10 06:15 06:15 WBC 3.3 L (3.8-10.6) k/uL RBC 3.63 L (4.30-5.90) m/uL Hgb 11.1 L (13.0-17.5) gm/dL Hct 34.5 L (39.0-53.0) % Lymphocytes # 0.2 L (1.0-4.8) k/uL APTT (22.0-30.0) sec Creatinine 0.48 L (0.66-1.25) mg/dL Glucose 122 H (74-99) mg/dL POC Glucose (mg/dL) 115 H (75-99) mg/dL 05/25/16 05/25/16 05/25/16 Range/Units 06:15 06:22 11:53 WBC (3.8-10.6) k/uL RBC (4.30-5.90) m/uL Hgb (13.0-17.5) gm/dL Hct (39.0-53.0) % Lymphocytes # (1.0-4.8) k/uL APTT 36.9 H (22.0-30.0) sec Creatinine (0.66-1.25) mg/dL Glucose (74-99) mg/dL POC Glucose (mg/dL) 123 H 112 H (75-99) mg/dL 05/25/16 Range/Units 17:51 WBC (3.8-10.6) k/uL RBC (4.30-5.90) m/uL Hgb (13.0-17.5) gm/dL Hct (39.0-53.0) % Lymphocytes # (1.0-4.8) k/uL APTT (22.0-30.0) sec Creatinine (0.66-1.25) mg/dL Glucose (74-99) mg/dL POC Glucose (mg/dL) 100 H (75-99) mg/dL Laboratory Results WBC 3.3 k/uL (3.8-10.6) L 05/25/16 06:15 RBC 3.63 m/uL (4.30-5.90) L 05/25/16 06:15 Hgb 11.1 gm/dL (13.0-17.5) L 05/25/16 06:15 Hct 34.5 % (39.0-53.0) L 05/25/16 06:15 MCV 95.0 fL (80.0-100.0) 05/25/16 06:15 MCH 30.6 pg (25.0-35.0) 05/25/16 06:15 MCHC 32.2 g/dL (31.0-37.0) 05/25/16 06:15 RDW 12.5 % (11.5-15.5) 05/25/16 06:15 Plt Count 181 k/uL (150-450) 05/25/16 06:15 Neutrophils % 83 % 05/25/16 06:15 Neutrophils % (Manual) 39.0 % 05/21/16 05:51 Lymphocytes % 6 % 05/25/16 06:15 Lymphocytes % (Manual) 33.0 % 05/21/16 05:51 Monocytes % 7 % 05/25/16 06:15 Monocytes % (Manual) 25.0 % 05/21/16 05:51 Eosinophils % 1 % 05/25/16 06:15 Eosinophils % (Manual) 1.0 % 05/21/16 05:51 Basophils % 0 % 05/25/16 06:15 Basophils % (Manual) 2.0 % 05/21/16 05:51 Neutrophils # 2.8 k/uL (1.3-7.7) 05/25/16 06:15 Neutrophils # (Manual) 0.5 k/uL (1.3-7.7) L 05/21/16 05:51 Lymphocytes # 0.2 k/uL (1.0-4.8) L 05/25/16 06:15 Lymphocytes # (Manual) 0.4 k/uL (1.0-4.8) L 05/21/16 05:51 Monocytes # 0.2 k/uL (0-1.0) 05/25/16 06:15 Monocytes # (Manual) 0.3 k/uL (0-1.0) 05/21/16 05:51 Eosinophils # 0.1 k/uL (0-0.7) 05/25/16 06:15 Eosinophils # (Manual) 0.0 k/uL (0-0.7) 05/21/16 05:51 Basophils # 0.0 k/uL (0-0.2) 05/25/16 06:15 Basophils # (Manual) 0.0 k/uL (0-0.2) 05/21/16 05:51 Nucleated RBCs 0 /100 WBC (0-0) 05/21/16 05:51 Manual Slide Review Performed 05/21/16 05:51 Poikilocytosis (manual Present 05/21/16 05:51 PT 11.2 sec (9.0-12.0) 05/25/16 06:15 INR 1.1 (<1.1) 05/25/16 06:15 APTT 36.9 sec (22.0-30.0) H 05/25/16 06:15 Sodium 137 mmol/L (137-145) 05/25/16 06:15 Potassium 3.9 mmol/L (3.5-5.1) 05/25/16 06:15 Chloride 99 mmol/L (98-107) 05/25/16 06:15 Carbon Dioxide 30 mmol/L (22-30) 05/25/16 06:15 Anion Gap 8 mmol/L 05/25/16 06:15 BUN 12 mg/dL (9-20) 05/25/16 06:15 Creatinine 0.48 mg/dL (0.66-1.25) L 05/25/16 06:15 Est GFR (MDRD) Af Amer >60 (>60 ml/min/1.73 sqM) 05/25/16 06:15 Est GFR (MDRD) Non-Af >60 (>60 ml/min/1.73 sqM) 05/25/16 06:15 Glucose 122 mg/dL (74-99) H 05/25/16 06:15 POC Glucose (mg/dL) 100 mg/dL (75-99) H 05/25/16 17:51 POC Glu [employer] ID [email or web address] Nava 05/25/16 17:[address] Glu mg/dL 128 mg/dL 05/25/16 06:15 Hemoglobin A1c 6.1 % (4.2-6.1) 05/25/16 06:15 Plasma Lactic Acid Ty 1.0 mmol/L (0.7-2.0) 05/15/16 02:40 Calcium 8.8 mg/dL (8.4-10.2) 05/25/16 06:15 Ionized Calcium Kianna 4.8 mg/dL (4.5-5.3) 05/25/16 06:15 Phosphorus 3.7 mg/dL (2.5-4.5) 05/25/16 06:15 Magnesium 1.9 mg/dL (1.6-2.3) 05/25/16 06:15 Total Bilirubin 0.7 mg/dL (0.2-1.3) 05/14/16 23:55 AST 19 U/L (17-59) 05/14/16 23:55 ALT 30 U/L (21-72) 05/14/16 23:55 Alkaline Phosphatase 79 U/L (38-126) 05/14/16 23:55 Total Protein 7.3 g/dL (6.3-8.2) 05/14/16 23:55 Albumin 4.2 g/dL (3.5-5.0) 05/14/16 23:55 Prealbumin 9 mg/dL (18-36) L 05/23/16 06:55 Triglycerides 86 mg/dL (<150) 05/24/16 15:10 Amylase 68 U/L (30-110) 05/14/16 23:55 Lipase 23 U/L (23-300) 05/14/16 23:55 TSH 4.290 mIU/L (0.465-4.680) 05/19/16 06:43 Free T4 1.34 ng/dL (0.78-2.19) 05/19/16 06:43 Urine Color Yellow 05/14/16 23:55 Urine Appearance Clear (Clear) 05/14/16 23:55 Urine pH 6.0 (5.0-8.0) 05/14/16 23:55 Ur Specific [place] 1.025 (1.001-1.035) 05/14/16 23:55 Urine Protein Trace (Negative) H 05/14/16 23:55 Urine Glucose (UA) Trace (Negative) H 05/14/16 23:55 Urine Ketones 1+ (Negative) H 05/14/16 23:55 Urine Blood Negative (Negative) 05/14/16 23:55 Urine Nitrite Negative (Negative) 05/14/16 23:55 Urine Bilirubin Negative (Negative) 05/14/16 23:55 Urine Urobilinogen 2.0 mg/dL (<2.0) 05/14/16 23:55 Ur Leukocyte Esterase Negative (Negative) 05/14/16 23:55 Influenza Type A RNA Not Detected (Not Detectd) 05/15/16 02:50 Influenza Type B (PCR) Not Detected (Not Detectd) 05/15/16 02:50 Microbiology 05/15/16 02:40 Blood Blood Culture - Final No Growth after 144 hours 05/15/16 17:05 Sputum Gram Stain - Final 05/15/16 17:05 Sputum Sputum Culture - Final Assessment and Plan (1) Squamous cell carcinoma lung Narrative/Plan: Pleasant 51-year-old male presents to hospital with difficulties with ongoing nausea with emesis associated with increasing cough and shortness of breath. The patient related every time he was trying to eat or drink he could tell that some was going into his longest he would cough so much. He was then taken to the operating room and the esophageal tracheal fistula was found and a stent was placed. Since the stent was placed he is having further improvment. He is having less cough. In doing much better. He had transient fever that is now improved. Does have the x-ray findings of the left lower lobe pneumonia. Antibiotic therapy is being utilized with Zosyn which is an excellent choice for his significant aspiration and multiple medical procedures. Does not need to broaden at this point in time. He is without fever and improving. Any change would then necessitate addition of antifungal therapy. The patient however is coming to the tavo of his chemotherapy effect and there is some notation of some increasing leukopenia and thrombocytopenia. Doing well with the Zosyn with chest x-ray showing improved aeration to the left lung. Patient is having some ongoing difficulties. He has been seen by gastroenterology and general surgery. An attempt will be made for percutaneous endoscopic feeding tube. If this cannot be placed then general surgery will then place the surgical gastrostomy tube . With the avoidance of very cold substances his had no further vagal events as of yesterday. Oncology is following closely. Status: Acute (2) Tracheo-esophageal fistula Status: Acute (3) Recurrent aspiration pneumonia Status: Acute
[2016-05-25] MEDS: FAT EMULSION 20% 250 ML in EMPTY BAG 1 BAG IV SCH (18:17)
[2016-05-25] MEDS: HEPARIN SODIUM,PORCINE 5,000 UNIT/ML 1 ML VIAL SQ SCH ×2 (20:34→20:39)
--- NOTE | 2016-05-25 20:34 | PN ---
DATE OF SERVICE: 05/25/2016 This 51-year-old gentleman who was admitted with multiple medical problems, including tracheoesophageal fistula as well as left-sided pneumonia is being closely monitored. Seen and evaluated the patient along with the nurse practitioner. Please refer to the nurse practitioner's notes and impressions documented as a scribe for further information. Patient has lung cancer, receiving radiation. Also closely follow with Dr. Mueller. PEG tube tentatively by Surgery on Saturday. The possibility of open procedure is also being considered. Prognosis guarded because of multiple complex medical issues. Discussed at length with the family and the patient at the bedside. See orders for further details.
[2016-05-25] MEDS: D5-0.9% NACL WITH KCL 40 MEQ/L 1,000 ML IV SCH (23:39)
[2016-05-26 00:30] LABS: Glucose,Whole Blood 112 mg/dL (75-99)
[2016-05-26] MEDS: INSULIN LISPRO (humaLOG) 300 UNIT/3 ML VIAL SQ SCH ×4 (00:32→18:57)
[2016-05-26] MEDS: MORPHINE SULFATE 4 MG/ML SYRINGE IV PRN ×4 (03:32→20:33)
[2016-05-26] MEDS: ONDANSETRON 4 MG/2 ML VIAL IVP PRN ×4 (03:32→20:36)
[2016-05-26] MEDS: SUCRALFATE 1 GM TAB PO SCH ×4 (06:31→20:37)
[2016-05-26 06:40] LABS: Glucose,Whole Blood 108 mg/dL (75-99)
[2016-05-26 07:08] LABS: Anion Gap 12 mmol/L; Blood Urea Nitrogen 14 mg/dL (9-20); Calcium 8.9 mg/dL (8.4-10.2); Carbon Dioxide 27 mmol/L (22-30); Chloride 96 mmol/L (98-107); Glucose 116 mg/dL (74-99); Magnesium 1.8 mg/dL (1.6-2.3); Non-African American GFR(MDRD) >60 (>60 ml/min/1.73 sqM); Phosphorous 4.6 mg/dL (2.5-4.5); Sodium 135 mmol/L (137-145)
[2016-05-26] MEDS: IPRATROPIUM-ALBUTEROL 3 ML NEB INHALATION SCH ×4 (07:15→20:59)
[2016-05-26 07:18] LABS: Potassium 4.2 mmol/L (3.5-5.1)
[2016-05-26] MEDS: DOCUSATE 100 MG CAP PO SCH ×2 (08:48→20:36)
[2016-05-26] MEDS: LISINOPRIL 5 MG TAB PO SCH ×2 (08:48→20:36)
[2016-05-26] MEDS: METOPROLOL TARTRATE 25 MG TAB PO SCH ×2 (08:48→20:36)
[2016-05-26] MEDS: FUROSEMIDE 20 MG TAB PO SCH ×2 (08:48→15:18)
[2016-05-26] MEDS: POTASSIUM CHLORIDE ER 20 MEQ TAB.ER PO SCH (08:48)
[2016-05-26] MEDS: PIPERACILLIN-TAZOBACTAM 3.375 GM in DEXTROSE/WATER 1 50ML.BAG IVPB SCH ×3 (09:34→23:14)
[2016-05-26] MEDS: HEPARIN SODIUM,PORCINE 5,000 UNIT/ML 1 ML VIAL SQ SCH ×2 (09:36→20:40)
[2016-05-26] MEDS: PANTOPRAZOLE 40 MG/10 ML VIAL IV SCH (09:36)
[2016-05-26] MEDS: 1: MVI, ADULT NO.4 WITH VIT K 10 ML, TRACE (CONC-1ML/DOSE) 1 ML in AMINO ACID 4.25%-D10W IV SCH ×6 (09:59→18:29)
[2016-05-26 11:37] LABS: Glucose,Whole Blood 123 mg/dL (75-99)
--- NOTE | 2016-05-26 13:26 | P.PN ---
Subjective 51-year-old male who has a history of prior nicotine dependence was having difficulties in the past. 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 He constantly has undergone chemotherapy and radiation. Recently was having great difficulties with recurrent pneumonia and evidence of aspiration. 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 As he was taken to the operating room and a stent was placed In the esophagus. The post procedure chest x-ray that was done shows some improvement in aeration of the left lung base. There is still some consolidation of the left lower lobe. The esophageal stent looks in a good location. Currently the patient is afebrile. The patient is hemodynamically stable. The patient is on IV antibiotics. The patient is hoarse related to the vocal cord paralysis. No nausea. No vomiting. No abdominal pain. The patient is completing radiation therapy did speak offered to him through radiation oncology. Otherwise, no other significant events overnight. The patient remains on IV Zosyn. Pain is under good control. One more comorbidities the development of a proximal atrial fibrillation current rhythm is back to normal sinus. The patient's echocardiogram showed a preserved LV function and cardiology is also on the case. IV heparin was discontinued today. On 05/22/2016 the patient is being seen in follow-up. The patient is having some occasional nausea and emesis and the exact cause is not clear. This could be a chemotherapy-induced nausea and emesis although the patient has also a documented history of a tracheobronchial fistula for which the patient had a an esophageal stent inserted recently. The patient is still on IV Zosyn regarding a left lower lobe pneumonia. The patient is afebrile. No reported hemoptysis. No reported cough and was swallowing food material. The chest x-ray from today shows left basal infiltrate along with a component of atelectasis/ pneumonia. The patient's white cell count is still low at 1.8. On 05/23/2016 the patient is being seen in follow-up. The patient is still having difficulties with swallowing, nausea, regurgitation, throwing up with material to the point where the patient is unable to keep any liquids. He is not coughing doubt any food material. He had a follow-up chest x-ray that showed is stable left lower lobe atelectasis/consolidation/infiltrate. There is a fragile stent seemed to be in good location. He is afebrile. No change in mental status. Remains on the same antibiotic coverage. A follow-up CAT scan of the chest and abdomen was ordered and a GI consultation was requested for PEG tube insertion. On 05/25/2016, the patient is MPO. Surgical consultation was obtained for a PEG tube insertion. The patient will be seen by Dr. Hanson. The patient is also receiving PPN for nutritional support. Afebrile. No worsening shortness of breath. The post remains hoarse. Unable to swallow. No ongoing emesis this point as long as the patient is nothing by mouth. Meanwhile, the patient is still on IV Zosyn. No other significant events over the past 24 hours. The patient was seen again today 05/26/2016 in follow-up on the selective care unit. He is awake and alert in no acute distress. He is being nourished PPN. The plan is for EGD and PEG tube placement per GI services on Saturday. If they' re unable to get past the esophageal she is the plan will be 4 laparoscopic PEG tube insertion by surgical services. The patient is aware of the plan. He denies any worsening shortness of breath, cough or congestion. He remains on IV Zosyn. Objective - Vital Signs Vital signs: Vital Signs Temp 99.3 F 05/26/16 12:00 Pulse 85 05/26/16 12:00 Resp 18 05/26/16 12:00 BP 102/59 05/26/16 12:00 Pulse Ox 96 05/26/16 12:00 Intake & Output 05/25/16 05/26/16 05/26/16 18:59 06:59 18:59 Intake Total 1011 1540 Balance 1011 1540 Weight 74.8 kg Intake: IV 50 Piperacillin-Tazobactam 3 50 .375 gm In Dextrose/Water 1 50ml.bag @ 12.5 mls/hr IVPB Q8HR [facility] Rx#: [id number] Intake, IV Titration 1011 1490 Amount D5-0.9% NaCl with KCl 40 240 Meq/l 1,000 ml @ 20 mls/ hr IV .Q24H [facility] Rx#: [id number] Fat Emulsion 20% 250 ml 250 In Empty Bag 1 bag @ 21 mls/hr IV DAILY@1800 [facility] Rx#:[id number] Mvi, Adult No.4 with Vit 1000 K 10 ml Trace (Conc-1Ml/ Dose) 1 ml In Amino Acid 4.25%-D10w+Lytes*E* 1,000 ml @ 100 mls/hr IV .BY DURATION [facility] Rx#: [id number] Mvi, Adult No.4 with Vit 1011 K 10 ml Trace (Conc-1Ml/ Dose) 1 ml In Amino Acid 4.25%-D10w+Lytes*E* 1,000 ml @ 50 mls/hr IV . [id number] [facility] Rx#:[id number] Other: Voiding Method Urinal Urinal Urinal # Voids 0 - Exam Head exam was generally normal. There was no scleral icterus or corneal arcus. Mucous membranes were moist.Neck was supple and without jugular venous distension, thyromegaly, or carotid bruits. Carotids were easily palpable bilaterally. There was no adenopathy. Lung sounds are diminished in the left lung base compared to the right.Cardiac exam revealed the PMI to be normally situated and sized. The rhythm was regular and no extrasystoles were noted during several minutes of auscultation. The first and second heart sounds were normal and physiologic splitting of the second heart sound was noted. There were no murmurs, rubs, clicks, or gallops.Abdominal exam revealed normal bowel sounds. The abdomen was soft, non-tender, and without masses, organomegaly, or appreciable enlargement of the abdominal aorta. Examination of the extremities revealed easily palpable radial, femoral and pedal pulses. There was no cyanosis , clubbing or edema. - Labs CBC & Chem 7: 05/25/16 06:15 05/26/16 06:02 Labs: Abnormal Lab Results - Last 24 Hours (Table) 05/25/16 05/26/16 05/26/16 Range/Units 17:51 00:29 06:02 Sodium 135 L (137-145) mmol/L Chloride 96 L (98-107) mmol/L Creatinine 0.55 L (0.66-1.25) mg/dL Glucose 116 H (74-99) mg/dL POC Glucose (mg/dL) 100 H 112 H (75-99) mg/dL Phosphorus 4.6 H (2.5-4.5) mg/dL 05/26/16 05/26/16 Range/Units 06:37 11:34 Sodium (137-145) mmol/L Chloride (98-107) mmol/L Creatinine (0.66-1.25) mg/dL Glucose (74-99) mg/dL POC Glucose (mg/dL) 108 H 123 H (75-99) mg/dL Phosphorus (2.5-4.5) mg/dL Assessment and Plan Plan: Assessment 1 locally advanced non-small cell lung cancer of a squamous cell type. 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 The patient has undergone placement of an esophageal stent 3 left lower lobe pneumonia currently on IV Zosyn 4 left vocal cord paralysis with secondary hoarseness 5 paroxysmal defibrillation currently rhythm is sinus 6 hypertension 7 leukopenia improved but her white cell count of 3.3 8 hypokalemia, replaced 9 persistent difficulty with swallowing, and the patient is awaiting a PEG tube insertion. 10 PPN for nutritional support Plan: The patient was seen and evaluated by Dr. Mueller. He is stable from the pulmonary standpoint. We will continue the patient on Zosyn. We'll continue with bronchodilators 4 times a day and when necessary. We'll continue to follow and make further recommendations based on his clinical status.
[2016-05-26] MEDS ORDERED: ACETAMINOPHEN IV (For NPO) 1,000 MG in EMPTY BAG 1 BAG IVPB PRN (17:54)
--- NOTE | 2016-05-26 17:56 | P.PN ---
Subjective Principal diagnosis: Pneumonia Extremely pleasant 51-year-old male who has a history of prior nicotine dependence was having difficulties in the past. 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 He constantly has undergone chemotherapy and radiation. Recently was having great difficulties with recurrent pneumonia and evidence of aspiration. 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 As he was taken to the operating room and a stent was placed. Since that he is doing somewhat better. His chest is starting to clear a little bit and he is swallowing some liquids and full liquids without difficulties except he is having an occasional episode of emesis. It has been inconsistent based on food texture in quality. It has further improved today Feeling better today. Not having any further fever chill rigor or sweats. His cough is improving. His discomfort from the procedure is also improving. Patient however developed evidence of significant change in his status and was found evidence of atrial fibrillation with a rapid ventricular response. He's been treated with the Cardizem and has improved. Did relatively well today. Ate some ice cream tonight and started to have some further emesis as he did this morning. Has been seen by gastroenterology, with the esophageal stent there is concern about the inability to pass the scope through the stent. Gastroneurology and general surgery have now consulted. The plan will be to proceed with an EGD and attempts to place a percutaneous endoscopic gastrostomy tube. If this cannot be performed the general surgery will step in and performed a open placed gastrostomy tube. Objective - Vital Signs Vital signs: Vital Signs Temp 100.3 F H 05/26/16 15:31 Pulse 88 05/26/16 15:31 Resp 18 05/26/16 15:31 BP 120/70 05/26/16 15:31 Pulse Ox 96 05/26/16 15:31 Intake & Output 05/25/16 05/26/16 05/26/16 18:59 06:59 18:59 Intake Total 1011 1540 Balance 1011 1540 Weight 74.8 kg Intake: IV 50 Piperacillin-Tazobactam 3 50 .375 gm In Dextrose/Water 1 50ml.bag @ 12.5 mls/hr IVPB Q8HR [facility] Rx#: [id number] Intake, IV Titration 1011 1490 Amount D5-0.9% NaCl with KCl 40 240 Meq/l 1,000 ml @ 20 mls/ hr IV .Q24H [facility] Rx#: [id number] Fat Emulsion 20% 250 ml 250 In Empty Bag 1 bag @ 21 mls/hr IV DAILY@1800 [facility] Rx#:[id number] Mvi, Adult No.4 with Vit 1000 K 10 ml Trace (Conc-1Ml/ Dose) 1 ml In Amino Acid 4.25%-D10w+Lytes*E* 1,000 ml @ 100 mls/hr IV .BY DURATION [facility] Rx#: [id number] Mvi, Adult No.4 with Vit 1011 K 10 ml Trace (Conc-1Ml/ Dose) 1 ml In Amino Acid 4.25%-D10w+Lytes*E* 1,000 ml @ 50 mls/hr IV . [id number] [facility] Rx#:[id number] Other: Voiding Method Urinal Urinal Urinal # Voids 0 - Exam Pleasant 51-year-old male in no acute distress. Feeling better than earlier HEENT: Anicteric conjunctiva are pink and moist nasal mucosa grossly intact without significant lesions, there is no thrush. Neck: The neck is supple without significant lymphadenopathy or thyromegaly. Lungs: There is symmetrical air entry. However there are crackles and bronchial sounds in the left base. Few expiratory wheezes are heard. Right chest is rather clear. Heart: Regular with an audible S1-S2, no S3 no S4. There is no significant murmur click or rub, PMI was nondisplaced. Abdomen: Positive bowel sounds soft and nontender without palpable masses or organomegaly. There was no guarding or rebound. Extremities: The upper extremities have excellent pulses they are symmetric, no significant petechiae or telangiectasia. No splinter hemorrhages were noted. The lower extremities are free from significant edema. The peripheral pulses were 2+ and symmetric. Neuro: Awake alert oriented to person place and time. There are no acute new gross focal sensory motor deficits. - Labs CBC & Chem 7: 05/25/16 06:15 05/26/16 06:02 Labs: Abnormal Lab Results - Last 24 Hours (Table) 05/26/16 05/26/16 05/26/16 Range/Units 00:29 06:02 06:37 Sodium 135 L (137-145) mmol/L Chloride 96 L (98-107) mmol/L Creatinine 0.55 L (0.66-1.25) mg/dL Glucose 116 H (74-99) mg/dL POC Glucose (mg/dL) 112 H 108 H (75-99) mg/dL Phosphorus 4.6 H (2.5-4.5) mg/dL 05/26/16 Range/Units 11:34 Sodium (137-145) mmol/L Chloride (98-107) mmol/L Creatinine (0.66-1.25) mg/dL Glucose (74-99) mg/dL POC Glucose (mg/dL) 123 H (75-99) mg/dL Phosphorus (2.5-4.5) mg/dL Laboratory Results WBC 3.3 k/uL (3.8-10.6) L 05/25/16 06:15 RBC 3.63 m/uL (4.30-5.90) L 05/25/16 06:15 Hgb 11.1 gm/dL (13.0-17.5) L 05/25/16 06:15 Hct 34.5 % (39.0-53.0) L 05/25/16 06:15 MCV 95.0 fL (80.0-100.0) 05/25/16 06:15 MCH 30.6 pg (25.0-35.0) 05/25/16 06:15 MCHC 32.2 g/dL (31.0-37.0) 05/25/16 06:15 RDW 12.5 % (11.5-15.5) 05/25/16 06:15 Plt Count 181 k/uL (150-450) 05/25/16 06:15 Neutrophils % 83 % 05/25/16 06:15 Neutrophils % (Manual) 39.0 % 05/21/16 05:51 Lymphocytes % 6 % 05/25/16 06:15 Lymphocytes % (Manual) 33.0 % 05/21/16 05:51 Monocytes % 7 % 05/25/16 06:15 Monocytes % (Manual) 25.0 % 05/21/16 05:51 Eosinophils % 1 % 05/25/16 06:15 Eosinophils % (Manual) 1.0 % 05/21/16 05:51 Basophils % 0 % 05/25/16 06:15 Basophils % (Manual) 2.0 % 05/21/16 05:51 Neutrophils # 2.8 k/uL (1.3-7.7) 05/25/16 06:15 Neutrophils # (Manual) 0.5 k/uL (1.3-7.7) L 05/21/16 05:51 Lymphocytes # 0.2 k/uL (1.0-4.8) L 05/25/16 06:15 Lymphocytes # (Manual) 0.4 k/uL (1.0-4.8) L 05/21/16 05:51 Monocytes # 0.2 k/uL (0-1.0) 05/25/16 06:15 Monocytes # (Manual) 0.3 k/uL (0-1.0) 05/21/16 05:51 Eosinophils # 0.1 k/uL (0-0.7) 05/25/16 06:15 Eosinophils # (Manual) 0.0 k/uL (0-0.7) 05/21/16 05:51 Basophils # 0.0 k/uL (0-0.2) 05/25/16 06:15 Basophils # (Manual) 0.0 k/uL (0-0.2) 05/21/16 05:51 Nucleated RBCs 0 /100 WBC (0-0) 05/21/16 05:51 Manual Slide Review Performed 05/21/16 05:51 Poikilocytosis (manual Present 05/21/16 05:51 PT 11.2 sec (9.0-12.0) 05/25/16 06:15 INR 1.1 (<1.1) 05/25/16 06:15 APTT 36.9 sec (22.0-30.0) H 05/25/16 06:15 Sodium 135 mmol/L (137-145) L 05/26/16 06:02 Potassium 4.2 mmol/L (3.5-5.1) 05/26/16 06:02 Chloride 96 mmol/L (98-107) L 05/26/16 06:02 Carbon Dioxide 27 mmol/L (22-30) 05/26/16 06:02 Anion Gap 12 mmol/L 05/26/16 06:02 BUN 14 mg/dL (9-20) 05/26/16 06:02 Creatinine 0.55 mg/dL (0.66-1.25) L 05/26/16 06:02 Est GFR (MDRD) Af Amer >60 (>60 ml/min/1.73 sqM) 05/26/16 06:02 Est GFR (MDRD) Non-Af >60 (>60 ml/min/1.73 sqM) 05/26/16 06:02 Glucose 116 mg/dL (74-99) H 05/26/16 06:02 POC Glucose (mg/dL) 123 mg/dL (75-99) H 05/26/16 11:34 POC Glu Breastfeeding Educator ID Starr Rosa 05/26/16 11:[address] Glu mg/dL 128 mg/dL 05/25/16 06:15 Hemoglobin A1c 6.1 % (4.2-6.1) 05/25/16 06:15 Plasma Lactic Acid Ty 1.0 mmol/L (0.7-2.0) 05/15/16 02:40 Calcium 8.9 mg/dL (8.4-10.2) 05/26/16 06:02 Ionized Calcium Kianna 4.8 mg/dL (4.5-5.3) 05/25/16 06:15 Phosphorus 4.6 mg/dL (2.5-4.5) H 05/26/16 06:02 Magnesium 1.8 mg/dL (1.6-2.3) 05/26/16 06:02 Total Bilirubin 0.7 mg/dL (0.2-1.3) 05/14/16 23:55 AST 19 U/L (17-59) 05/14/16 23:55 ALT 30 U/L (21-72) 05/14/16 23:55 Alkaline Phosphatase 79 U/L (38-126) 05/14/16 23:55 Total Protein 7.3 g/dL (6.3-8.2) 05/14/16 23:55 Albumin 4.2 g/dL (3.5-5.0) 05/14/16 23:55 Prealbumin 9 mg/dL (18-36) L 05/23/16 06:55 Triglycerides 86 mg/dL (<150) 05/24/16 15:10 Amylase 68 U/L (30-110) 05/14/16 23:55 Lipase 23 U/L (23-300) 05/14/16 23:55 TSH 4.290 mIU/L (0.465-4.680) 05/19/16 06:43 Free T4 1.34 ng/dL (0.78-2.19) 05/19/16 06:43 Urine Color Yellow 05/14/16 23:55 Urine Appearance Clear (Clear) 05/14/16 23:55 Urine pH 6.0 (5.0-8.0) 05/14/16 23:55 Ur Specific [place] 1.025 (1.001-1.035) 05/14/16 23:55 Urine Protein Trace (Negative) H 05/14/16 23:55 Urine Glucose (UA) Trace (Negative) H 05/14/16 23:55 Urine Ketones 1+ (Negative) H 05/14/16 23:55 Urine Blood Negative (Negative) 05/14/16 23:55 Urine Nitrite Negative (Negative) 05/14/16 23:55 Urine Bilirubin Negative (Negative) 05/14/16 23:55 Urine Urobilinogen 2.0 mg/dL (<2.0) 05/14/16 23:55 Ur Leukocyte Esterase Negative (Negative) 05/14/16 23:55 Influenza Type A RNA Not Detected (Not Detectd) 05/15/16 02:50 Influenza Type B (PCR) Not Detected (Not Detectd) 05/15/16 02:50 Microbiology 05/15/16 02:40 Blood Blood Culture - Final No Growth after 144 hours 05/15/16 17:05 Sputum Gram Stain - Final 05/15/16 17:05 Sputum Sputum Culture - Final Assessment and Plan (1) Squamous cell carcinoma lung Narrative/Plan: Pleasant 51-year-old male presents to hospital with difficulties with ongoing nausea with emesis associated with increasing cough and shortness of breath. The patient related every time he was trying to eat or drink he could tell that some was going into his longest he would cough so much. He was then taken to the operating room and the esophageal tracheal fistula was found and a stent was placed. Since the stent was placed he is having further improvment. He is having less cough. In doing much better. He had transient fever that is now improved. Does have the x-ray findings of the left lower lobe pneumonia. Antibiotic therapy is being utilized with Zosyn which is an excellent choice for his significant aspiration and multiple medical procedures. Does not need to broaden at this point in time. He is without fever and improving. Any change would then necessitate addition of antifungal therapy. The patient however is coming to the tavo of his chemotherapy effect and there is some notation of some increasing leukopenia and thrombocytopenia. Doing well with the Zosyn with chest x-ray showing improved aeration to the left lung. Patient is having some ongoing difficulties. He has been seen by gastroenterology and general surgery. An attempt will be made for percutaneous endoscopic feeding tube. If this cannot be placed then general surgery will then place the surgical gastrostomy tube . Now NPO for surgery on Saturday Oncology is following closely. Status: Acute (2) Tracheo-esophageal fistula Status: Acute (3) Recurrent aspiration pneumonia Status: Acute
[2016-05-26] MEDS: D5-0.9% NACL WITH KCL 40 MEQ/L 1,000 ML IV SCH (18:29)
[2016-05-26] MEDS: FAT EMULSION 20% 250 ML in EMPTY BAG 1 BAG IV SCH (18:29)
[2016-05-26 18:42] LABS: Glucose,Whole Blood 104 mg/dL (75-99)
[2016-05-26 23:18] LABS: Glucose,Whole Blood 129 mg/dL (75-99)
[2016-05-27] MEDS: MORPHINE SULFATE 4 MG/ML SYRINGE IV PRN ×5 (00:15→19:13)
[2016-05-27] MEDS: ONDANSETRON 4 MG/2 ML VIAL IVP PRN ×5 (00:15→19:13)
[2016-05-27] MEDS: INSULIN LISPRO (humaLOG) 300 UNIT/3 ML VIAL SQ SCH ×4 (01:50→18:17)
[2016-05-27 05:39] LABS: Glucose,Whole Blood 115 mg/dL (75-99)
[2016-05-27] MEDS: SUCRALFATE 1 GM TAB PO SCH ×4 (06:03→20:03)
[2016-05-27] MEDS: 1: MVI, ADULT NO.4 WITH VIT K 10 ML, TRACE (CONC-1ML/DOSE) 1 ML in AMINO ACID 4.25%-D10W IV SCH ×9 (06:08→16:06)
[2016-05-27 06:53] LABS: Basophils % (A) 0 %; CH 30.7; CHCM 33.1; Eosinophils # (A) 0.1 k/uL (0-0.7); Eosinophils % (A) 2 %; HCT 33.5 % (39.0-53.0); HGB 10.8 gm/dL (13.0-17.5); Luc # (Auto) 0.15; Luc % (Auto) 4; Lymphocytes # (A) 0.3 k/uL (1.0-4.8); Lymphocytes % (A) 7 %; MCH 30.2 pg (25.0-35.0); MCHC 32.4 g/dL (31.0-37.0); MCV 93.2 fL (80.0-100.0); Monocytes # (A) 0.3 k/uL (0-1.0); Monocytes % (A) 7 %; Neutrophils % (A) 80 %; RBC 3.59 m/uL (4.30-5.90); RDW 12.7 % (11.5-15.5); WBC 3.7 k/uL (3.8-10.6); WBC (Perox) 4.25
[2016-05-27 07:26] LABS: Anion Gap 8 mmol/L; Blood Urea Nitrogen 17 mg/dL (9-20); Calcium 9.3 mg/dL (8.4-10.2); Carbon Dioxide 29 mmol/L (22-30); Chloride 96 mmol/L (98-107); Glucose 123 mg/dL (74-99); Non-African American GFR(MDRD) >60 (>60 ml/min/1.73 sqM); Phosphorous 4.4 mg/dL (2.5-4.5); Potassium 4.4 mmol/L (3.5-5.1); Sodium 133 mmol/L (137-145)
[2016-05-27] MEDS: DOCUSATE 100 MG CAP PO SCH ×2 (07:50→20:03)
[2016-05-27] MEDS: FUROSEMIDE 20 MG TAB PO SCH ×2 (07:50→16:07)
[2016-05-27] MEDS: LISINOPRIL 5 MG TAB PO SCH ×2 (07:51→20:03)
[2016-05-27] MEDS: METOPROLOL TARTRATE 25 MG TAB PO SCH ×2 (07:51→20:03)
[2016-05-27] MEDS: POTASSIUM CHLORIDE ER 20 MEQ TAB.ER PO SCH (07:51)
[2016-05-27] MEDS: PIPERACILLIN-TAZOBACTAM 3.375 GM in DEXTROSE/WATER 1 50ML.BAG IVPB SCH ×2 (08:11→17:25)
[2016-05-27] MEDS: HEPARIN SODIUM,PORCINE 5,000 UNIT/ML 1 ML VIAL SQ SCH ×2 (08:11→20:47)
[2016-05-27] MEDS: PANTOPRAZOLE 40 MG/10 ML VIAL IV SCH (08:11)
[2016-05-27] MEDS: IPRATROPIUM-ALBUTEROL 3 ML NEB INHALATION SCH ×4 (08:31→21:29)
--- NOTE | 2016-05-27 11:03 | PN ---
DATE OF SERVICE: 05/26/2016 This 51-year-old gentleman was admitted with multiple medical problems including lung cancer as well as pneumonia. Also had fistula. The patient is receiving radiation therapy. The patient has extreme difficulty swallowing and dysphagia. PEG tube/J-tube is being planned for Saturday by Surgery and multiple consultants are following the patient. No chest pain or palpitations. No fever. Cough and purulent sputum is noted. On exam, alert and oriented x3. Pulse 84, blood pressure 109/60, respiration 18, temperature 98.4. Pulse ox 96% on 2 L. HEENT: Conjunctivae normal. NECK: Supple. No JVD. CARDIOVASCULAR: S1 and S2 muffled. LUNGS: Breath sounds are diminished at the bases. Bilateral scattered rhonchi and crackles. ABDOMEN: Soft, nontender. EXTREMITIES: Legs no edema. NERVOUS SYSTEM: No focal deficits. LABS: WBC 3.7, hemoglobin 11, sodium 135. ASSESSMENT: 1. Acute left-sided pneumonia, multilobar, possibly postobstructive with severe sepsis present on admission. 2. Recently diagnosed non-small cell lung cancer, status post chemoradiation. 3. Status post stent placement for tracheoesophageal fistula. 4. History of gastroesophageal reflux disease. 5. Hypertension. 6. Remote history of nicotine dependence. 7. Leukopenia, anemia and thrombocytopenia, mild pancytopenia, secondary to chemotherapy and malignancy. 8. Paroxysmal atrial fibrillation, on anticoagulation, care per cardiology. 9. Hypokalemia. 10. Hypomagnesemia. 11. Moderate protein calorie malnutrition, low prealbumin, on TPN. 12. FULL CODE. RECOMMENDATIONS AND DISCUSSION: This 51-year-old gentleman presented with multiple complex medical issues, we will monitor this closely, continue current medications, I would recommend continuing with PPI and continue with broad-spectrum IV antibiotics. Closely follow with infectious disease and multiple other consultants. The prognosis is guarded. Further recommendations to follow. MTDD
[2016-05-27 11:57] LABS: Glucose,Whole Blood 111 mg/dL (75-99)
--- NOTE | 2016-05-27 15:08 | P.PN ---
Subjective 51-year-old male who has a history of prior nicotine dependence was having difficulties in the past. 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 He constantly has undergone chemotherapy and radiation. Recently was having great difficulties with recurrent pneumonia and evidence of aspiration. 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 As he was taken to the operating room and a stent was placed In the esophagus. The post procedure chest x-ray that was done shows some improvement in aeration of the left lung base. There is still some consolidation of the left lower lobe. The esophageal stent looks in a good location. Currently the patient is afebrile. The patient is hemodynamically stable. The patient is on IV antibiotics. The patient is hoarse related to the vocal cord paralysis. No nausea. No vomiting. No abdominal pain. The patient is completing radiation therapy did speak offered to him through radiation oncology. Otherwise, no other significant events overnight. The patient remains on IV Zosyn. Pain is under good control. One more comorbidities the development of a proximal atrial fibrillation current rhythm is back to normal sinus. The patient's echocardiogram showed a preserved LV function and cardiology is also on the case. IV heparin was discontinued today. On 05/22/2016 the patient is being seen in follow-up. The patient is having some occasional nausea and emesis and the exact cause is not clear. This could be a chemotherapy-induced nausea and emesis although the patient has also a documented history of a tracheobronchial fistula for which the patient had a an esophageal stent inserted recently. The patient is still on IV Zosyn regarding a left lower lobe pneumonia. The patient is afebrile. No reported hemoptysis. No reported cough and was swallowing food material. The chest x-ray from today shows left basal infiltrate along with a component of atelectasis/ pneumonia. The patient's white cell count is still low at 1.8. On 05/23/2016 the patient is being seen in follow-up. The patient is still having difficulties with swallowing, nausea, regurgitation, throwing up with material to the point where the patient is unable to keep any liquids. He is not coughing doubt any food material. He had a follow-up chest x-ray that showed is stable left lower lobe atelectasis/consolidation/infiltrate. There is a fragile stent seemed to be in good location. He is afebrile. No change in mental status. Remains on the same antibiotic coverage. A follow-up CAT scan of the chest and abdomen was ordered and a GI consultation was requested for PEG tube insertion. On 05/25/2016, the patient is MPO. Surgical consultation was obtained for a PEG tube insertion. The patient will be seen by Dr. Hanson. The patient is also receiving PPN for nutritional support. Afebrile. No worsening shortness of breath. The post remains hoarse. Unable to swallow. No ongoing emesis this point as long as the patient is nothing by mouth. Meanwhile, the patient is still on IV Zosyn. No other significant events over the past 24 hours. The patient was seen again today 05/26/2016 in follow-up on the selective care unit. He is awake and alert in no acute distress. He is being nourished PPN. The plan is for EGD and PEG tube placement per GI services on Saturday. If they' re unable to get past the esophageal she is the plan will be 4 laparoscopic PEG tube insertion by surgical services. The patient is aware of the plan. He denies any worsening shortness of breath, cough or congestion. He remains on IV Zosyn. On 05/27/2016, the patient is being seen in follow-up. The patient is receiving PPN for nutritional support. The plan is to proceed with a PEG tube insertion tomorrow. No worsening respiratory status. His condition remains stable. No fever. No chills. Still nothing by mouth. Objective - Vital Signs Vital signs: Vital Signs Temp 100.0 F H 05/27/16 11:29 Pulse 86 05/27/16 11:29 Resp 18 05/27/16 11:29 BP 103/65 05/27/16 11:29 Pulse Ox 95 05/27/16 11:29 Intake & Output 05/26/16 05/27/16 05/27/16 18:59 06:59 18:59 Intake Total 2010 540 Balance 2010 540 Weight 74.6 kg Intake: IV 50 Piperacillin-Tazobactam 3 50 .375 gm In Dextrose/Water 1 50ml.bag @ 12.5 mls/hr IVPB Q8HR [facility] Rx#: [id number] Intake, IV Titration 2010 490 Amount Amino Acid 4.25%-D10w+ 1000 Lytes*E* 1,000 ml @ 100 mls/hr IV .BY DURATION [facility] Rx#:[id number] D5-0.9% NaCl with KCl 40 240 Meq/l 1,000 ml @ 20 mls/ hr IV .Q24H [facility] Rx#: [id number] Fat Emulsion 20% 250 ml 250 In Empty Bag 1 bag @ 21 mls/hr IV DAILY@1800 [facility] Rx#:[id number] Mvi, Adult No.4 with Vit 1011 K 10 ml Trace (Conc-1Ml/ Dose) 1 ml In Amino Acid 4.25%-D10w+Lytes*E* 1,000 ml @ 100 mls/hr IV .BY DURATION [facility] Rx#: [id number] Oral 0 Other: Voiding Method Urinal Urinal Urinal - Exam Head exam was generally normal. There was no scleral icterus or corneal arcus. Mucous membranes were moist.Neck was supple and without jugular venous distension, thyromegaly, or carotid bruits. Carotids were easily palpable bilaterally. There was no adenopathy. Lung sounds are diminished in the left lung base compared to the right.Cardiac exam revealed the PMI to be normally situated and sized. The rhythm was regular and no extrasystoles were noted during several minutes of auscultation. The first and second heart sounds were normal and physiologic splitting of the second heart sound was noted. There were no murmurs, rubs, clicks, or gallops.Abdominal exam revealed normal bowel sounds. The abdomen was soft, non-tender, and without masses, organomegaly, or appreciable enlargement of the abdominal aorta. Examination of the extremities revealed easily palpable radial, femoral and pedal pulses. There was no cyanosis , clubbing or edema. - Labs CBC & Chem 7: 05/27/16 06:33 05/27/16 06:33 Labs: Abnormal Lab Results - Last 24 Hours (Table) 05/26/16 05/26/16 05/27/16 Range/Units 18:40 23:16 05:37 WBC (3.8-10.6) k/uL RBC (4.30-5.90) m/uL Hgb (13.0-17.5) gm/dL Hct (39.0-53.0) % Lymphocytes # (1.0-4.8) k/uL Sodium (137-145) mmol/L Chloride (98-107) mmol/L Creatinine (0.66-1.25) mg/dL Glucose (74-99) mg/dL POC Glucose (mg/dL) 104 H 129 H 115 H (75-99) mg/dL 05/27/16 05/27/16 05/27/16 Range/Units 06:33 06:33 11:55 WBC 3.7 L (3.8-10.6) k/uL RBC 3.59 L (4.30-5.90) m/uL Hgb 10.8 L (13.0-17.5) gm/dL Hct 33.5 L (39.0-53.0) % Lymphocytes # 0.3 L (1.0-4.8) k/uL Sodium 133 L (137-145) mmol/L Chloride 96 L (98-107) mmol/L Creatinine 0.52 L (0.66-1.25) mg/dL Glucose 123 H (74-99) mg/dL POC Glucose (mg/dL) 111 H (75-99) mg/dL Assessment and Plan Plan: Assessment 1 locally advanced non-small cell lung cancer of a squamous cell type. 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 The patient has undergone placement of an esophageal stent 3 left lower lobe pneumonia currently on IV Zosyn 4 left vocal cord paralysis with secondary hoarseness 5 paroxysmal defibrillation currently rhythm is sinus 6 hypertension 7 leukopenia improved but her white cell count of 3.3 8 hypokalemia, replaced 9 persistent difficulty with swallowing, and the patient is awaiting a PEG tube insertion. 10 PPN for nutritional support Plan Surgery for PEG tube insertion. Continued IV Zosyn. PPN for nutritional support. Prognosis remains poor. The patient continues to have ongoing difficulties with swallowing. We will try to insert a PEG tube by gastroenterology. If there is a suggested becomes an issue, and open surgical procedure will be done by general surgery. Dr. Hanson is on the case. The patient remains nothing by mouth.
[2016-05-27] MEDS: 1: MVI, ADULT NO.4 WITH VIT K 10 ML, TRACE (CONC-1ML/DOSE) 1 ML, SODIUM CHLORIDE 4MEQ/ML IV SCH ×4 (16:05)
[2016-05-27] MEDS: FAT EMULSION 20% 250 ML in EMPTY BAG 1 BAG IV SCH (17:57)
[2016-05-27 18:15] LABS: Glucose,Whole Blood 115 mg/dL (75-99)
[2016-05-27] MEDS: D5-0.9% NACL WITH KCL 40 MEQ/L 1,000 ML IV SCH (20:48)
[2016-05-28] MEDS: ONDANSETRON 4 MG/2 ML VIAL IVP PRN ×8 (00:06→22:49)
[2016-05-28] MEDS: INSULIN LISPRO (humaLOG) 300 UNIT/3 ML VIAL SQ SCH ×4 (00:06→17:56)
[2016-05-28] MEDS: MORPHINE SULFATE 4 MG/ML SYRINGE IV PRN ×5 (00:06→15:01)
[2016-05-28] MEDS: PIPERACILLIN-TAZOBACTAM 3.375 GM in DEXTROSE/WATER 1 50ML.BAG IVPB SCH ×4 (00:06→23:27)
[2016-05-28 00:12] LABS: Glucose,Whole Blood 122 mg/dL (75-99)
[2016-05-28] MEDS: 1: MVI, ADULT NO.4 WITH VIT K 10 ML, TRACE (CONC-1ML/DOSE) 1 ML, SODIUM CHLORIDE 4MEQ/ML IV SCH ×8 (03:32→17:16)
[2016-05-28] MEDS: SUCRALFATE 1 GM TAB PO SCH ×4 (03:48→20:21)
--- NOTE | 2016-05-28 04:40 | P.PN ---
Subjective The patient is a 51-year old male with non-small cell cancer of the lung with tracheoesophageal fistula, likely related to his radiation treatment, S/P esophageal stent placement. Patient has ongoing issues with cough and constantly spitting up secretions and inability to maintain oral intake. He is on peripheral nutritional support. We are involved in his care for possible placement of a gastrostomy feeding tube PEG endoscopically. Objective - Vital Signs Vital signs: Vital Signs Temp 98.4 F 05/26/16 20:00 Pulse 84 05/26/16 20:00 Resp 18 05/26/16 20:00 BP 119/63 05/26/16 20:00 Pulse Ox 96 05/26/16 20:00 Intake & Output 05/26/16 05/26/16 05/27/16 06:59 18:59 06:59 Intake Total 2551 Balance 2551 Weight 74.8 kg Intake: IV 50 Piperacillin-Tazobactam 3 50 .375 gm In Dextrose/Water 1 50ml.bag @ 12.5 mls/hr IVPB Q8HR [facility] Rx#: [id number] Intake, IV Titration 2501 Amount D5-0.9% NaCl with KCl 40 240 Meq/l 1,000 ml @ 20 mls/ hr IV .Q24H [facility] Rx#: [id number] Fat Emulsion 20% 250 ml 250 In Empty Bag 1 bag @ 21 mls/hr IV DAILY@1800 [facility] Rx#:[id number] Mvi, Adult No.4 with Vit 2011 K 10 ml Trace (Conc-1Ml/ Dose) 1 ml In Amino Acid 4.25%-D10w+Lytes*E* 1,000 ml @ 100 mls/hr IV .BY DURATION [facility] Rx#: [id number] Other: Voiding Method Urinal Urinal Urinal # Voids 0 - Exam General: Appeared stated age, chronically ill, constantly bringing up clear mucous, in some distress Head and neck: Normocephalic and atraumatic, conjunctivae pink and sclerae not icteric. No masses in the neck or tracheal shifts. No adenopathy or thyroid megaly Lungs: Decreased breath sounds on left side, no wheezes or rhonchi Heart: Regular with no abnormal sounds, murmurs, gallops or friction rubs Abdomen: Soft, no masses, organomegalies or tenderness, BS positive Extremities: No clubbing, cyanosis or edema Neurologic: Alert and oriented X3. Cranial nerves grossly intact. No gross sensory or motor abnormalities - Labs CBC & Chem 7: 05/27/16 06:33 05/27/16 06:33 Labs: Abnormal Lab Results - Last 24 Hours (Table) 05/26/16 05/26/16 05/26/16 Range/Units 00:29 06:02 06:37 Sodium 135 L (137-145) mmol/L Chloride 96 L (98-107) mmol/L Creatinine 0.55 L (0.66-1.25) mg/dL Glucose 116 H (74-99) mg/dL POC Glucose (mg/dL) 112 H 108 H (75-99) mg/dL Phosphorus 4.6 H (2.5-4.5) mg/dL 05/26/16 05/26/16 05/26/16 Range/Units 11:34 18:40 23:16 Sodium (137-145) mmol/L Chloride (98-107) mmol/L Creatinine (0.66-1.25) mg/dL Glucose (74-99) mg/dL POC Glucose (mg/dL) 123 H 104 H 129 H (75-99) mg/dL Phosphorus (2.5-4.5) mg/dL Assessment and Plan Plan: This patient is having nutritional challenges secondary to his traceoesophagel fistula. He is currently on peripheral support and not able to take orally any significant amounts. I discussed with him at length the issues of trying to pass the upper endoscope and the feeding tube through the esophageal stent and the risk of displacing the stent. He is of the opinion that we should explore other options for enteral feeding, including surgical/laparoscopic placement of gastrostomy/jejunostomy feeding tube. I will discuss with you and continue to follow closely.
[2016-05-28 06:01] LABS: Glucose,Whole Blood 140 mg/dL (75-99)
[2016-05-28 06:52] LABS: Basophils % (A) 1 %; CHCM 33.2; Eosinophils # (A) 0.1 k/uL (0-0.7); Eosinophils % (A) 2 %; HCT 34.4 % (39.0-53.0); HDW 3.16; HGB 11.4 gm/dL (13.0-17.5); Luc # (Auto) 0.14; Luc % (Auto) 3; Lymphocytes # (A) 0.3 k/uL (1.0-4.8); Lymphocytes % (A) 6 %; MCV 90.8 fL (80.0-100.0); Mean Platelet Volume 7.7; Monocytes # (A) 0.3 k/uL (0-1.0); Monocytes % (A) 7 %; Neutrophils # (A) 3.8 k/uL (1.3-7.7); Neutrophils % (A) 81 %; RBC 3.79 m/uL (4.30-5.90); RDW 12.4 % (11.5-15.5); WBC 4.7 k/uL (3.8-10.6); WBC (Perox) 5.06
[2016-05-28 06:58] LABS: Anion Gap 8 mmol/L; Blood Urea Nitrogen 16 mg/dL (9-20); Carbon Dioxide 30 mmol/L (22-30); Chloride 96 mmol/L (98-107); Glucose 117 mg/dL (74-99); Non-African American GFR(MDRD) >60 (>60 ml/min/1.73 sqM); Phosphorous 4.4 mg/dL (2.5-4.5); Potassium 4.6 mmol/L (3.5-5.1); Sodium 134 mmol/L (137-145)
[2016-05-28] MEDS ORDERED: MIDAZOLAM 2 MG/2 ML VIAL IV PRN (07:19)
[2016-05-28] MEDS: IPRATROPIUM-ALBUTEROL 3 ML NEB INHALATION SCH ×4 (07:51→19:58)
--- NOTE | 2016-05-28 08:03 | P.PN ---
Subjective Principal diagnosis: 51 yrs old male with tracheoesophageal fistula S/P stent placement . He has dysphagia . Discussed with Dr. Marsh. No attempt at PEG tube because of concern for stent displacement. Plan for laparoscopic G tube placement, possible open. The risks, benefits and potential complications explained and he elected to undergo the procedure. Objective - Vital Signs Vital signs: Vital Signs Temp 98.9 F 05/28/16 04:00 Pulse 72 05/28/16 04:00 Resp 17 05/28/16 07:23 BP 106/68 05/28/16 04:00 Pulse Ox 97 05/28/16 04:00 Intake & Output 05/27/16 05/28/16 05/28/16 18:59 06:59 18:59 Intake Total 540 1300 Balance 540 1300 Weight 74.2 kg Intake: IV 50 50 Piperacillin-Tazobactam 3 50 50 .375 gm In Dextrose/Water 1 50ml.bag @ 12.5 mls/hr IVPB Q8HR [facility] Rx#: [id number] Intake, IV Titration 490 1250 Amount Amino Acid 4.25%-D10w+ 1000 Lytes*E* 1,000 ml @ 100 mls/hr IV .BY DURATION [facility] Rx#:[id number] D5-0.9% NaCl with KCl 40 240 Meq/l 1,000 ml @ 20 mls/ hr IV .Q24H [facility] Rx#: [id number] Fat Emulsion 20% 250 ml 250 250 In Empty Bag 1 bag @ 21 mls/hr IV DAILY@1800 [facility] Rx#:[id number] Oral 0 0 Other: Voiding Method Urinal Urinal Urinal # Voids 2 - Labs CBC & Chem 7: 05/28/16 06:20 05/28/16 06:20 Labs: Abnormal Lab Results - Last 24 Hours (Table) 05/27/16 05/27/16 05/27/16 Range/Units 11:55 18:14 23:59 RBC (4.30-5.90) m/uL Hgb (13.0-17.5) gm/dL Hct (39.0-53.0) % Lymphocytes # (1.0-4.8) k/uL Sodium (137-145) mmol/L Chloride (98-107) mmol/L Creatinine (0.66-1.25) mg/dL Glucose (74-99) mg/dL POC Glucose (mg/dL) 111 H 115 H 122 H (75-99) mg/dL 05/28/16 05/28/16 05/28/16 Range/Units 06:00 06:20 06:20 RBC 3.79 L (4.30-5.90) m/uL Hgb 11.4 L (13.0-17.5) gm/dL Hct 34.4 L (39.0-53.0) % Lymphocytes # 0.3 L (1.0-4.8) k/uL Sodium 134 L (137-145) mmol/L Chloride 96 L (98-107) mmol/L Creatinine 0.63 L (0.66-1.25) mg/dL Glucose 117 H (74-99) mg/dL POC Glucose (mg/dL) 140 H (75-99) mg/dL
[2016-05-28] MEDS: LACTATED RINGERS 1,000 ML IV SCH ×4 (08:23→09:20)
[2016-05-28] MEDS: HEPARIN SODIUM,PORCINE 5,000 UNIT/ML 1 ML VIAL SQ SCH ×3 (08:23→20:30)
[2016-05-28] MEDS: DOCUSATE 100 MG CAP PO SCH ×2 (08:23→20:21)
[2016-05-28] MEDS: PANTOPRAZOLE 40 MG/10 ML VIAL IV SCH (08:24)
[2016-05-28] MEDS ORDERED: METHYLENE BLUE 15 MG in SODIUM CHLORIDE 0.9% 500 ML IRRIGATION ONE (08:48)
[2016-05-28] MEDS ORDERED: IV FLUID CONTINUATION 400 ML IV ONE (08:55)
[2016-05-28 09:05] LABS: Glucose,Whole Blood 106 mg/dL (75-99)
[2016-05-28] MEDS ORDERED: PROPOFOL 10 MG/ML 20 ML VIAL IV ONE (09:26)
[2016-05-28] MEDS ORDERED: NEOSTIGMINE 1 MG/ML 10 ML VIAL ONE (09:26)
[2016-05-28] MEDS ORDERED: LIDOCAINE 1% INJ 10MG/ML (20 ML MDV) ONE (09:26)
[2016-05-28] MEDS ORDERED: GLYCOPYRROLATE 0.2 MG/ML 2 ML VIAL ONE (09:26)
[2016-05-28] MEDS ORDERED: SUCCINYLCHOLINE CHLORIDE VIAL 200 MG/10 ML VIAL IV ONE (09:26)
[2016-05-28] MEDS ORDERED: fentaNYL (PF) 50 MCG/ML 2 ML AMP ONE (09:26)
[2016-05-28] MEDS ORDERED: MIDAZOLAM 2 MG/2 ML VIAL ONE (09:26)
[2016-05-28] MEDS ORDERED: VECURONIUM 10 MG VIAL IV ONE (09:26)
[2016-05-28] MEDS ORDERED: BUPIVACAIN-EPI 0.25%-1:200,000 30 ML VIAL SQ ONE ×2 (10:00→10:38)
--- NOTE | 2016-05-28 11:06 | PN ---
DATE OF SERVICE: 05/27/2016 This is a 51-year-old gentleman who was admitted with left-sided pneumonia which is multilobar, also had acute esophageal fistula for which a stent was placed. The patient also had significant difficulty in swallowing. EGD and possible PEG tube placement by Surgery/Gastroenterology is planned for tomorrow, multiple consultants are following the patient including Dr. Mueller, Dr. Mehta, and as well as Dr. Hanson and Dr. Burden. On exam, alert and oriented x3. Pulse is 87, blood pressure 140/68, respiration 18, temperature 98.9, T-max 100, pulse ox 97% on 1.5 L. HEENT: Conjunctivae normal. NECK: No jugular venous distention. CARDIOVASCULAR: S1, S2, muffled. RESPIRATORY: Breath sounds diminished at the bases. A few scattered rhonchi, no crackles. ABDOMEN: Soft, nontender. LEGS: No edema, no swelling. NERVOUS SYSTEMS: No focal deficits. LABS: WBC is 3.7, hemoglobin is 10.8, sodium 133. ASSESSMENT: 1. Acute left side pneumonia, multilobar, postobstructive as well as severe sepsis, present on admission. 2. Recently diagnosed non-small cell lung cancer on the left, status post chemoradiation. 3. Status post stent placement for tracheoesophageal fistula. 4. History of gastroesophageal reflux disease. 5. Hypertension, essential. 6. Remote history nicotine dependence. 7. Leukopenia, anemia, thrombocytopenia, mild pancytopenia, secondary to chemotherapy and malignancy. 8. Paroxysmal atrial fibrillation, not on anticoagulation per Cardiology. 9. Hypokalemia. 10. Hypermagnesemia. 11. Moderate protein calorie malnutrition with a low prealbumin on TPN. 12. FULL CODE. RECOMMENDATION: In this 51-year-old gentleman who presented with multiple complex medical issues, will monitor the patient closely. Continue with the current medication. Continue with the symptomatic treatment. Otherwise, closely follow with multiple consultants, possible EGD and PEG tube/J-tube placement tomorrow by per Surgery and Gastroenterology. Guarded prognosis because multiple complex medical issues. Further recommendations to follow.
[2016-05-28] MEDS: HYDROmorphone 1 MG/ML 1 ML SYRINGE IVP PRN ×5 (11:07→22:48)
[2016-05-28] MEDS: LISINOPRIL 5 MG TAB PO SCH ×2 (11:30→20:21)
[2016-05-28] MEDS: FUROSEMIDE 20 MG TAB PO SCH ×2 (11:30→14:33)
[2016-05-28] MEDS: METOPROLOL TARTRATE 25 MG TAB PO SCH ×2 (11:30→20:21)
[2016-05-28] MEDS: POTASSIUM CHLORIDE ER 20 MEQ TAB.ER PO SCH (11:30)
[2016-05-28 12:05] LABS: Glucose,Whole Blood 104 mg/dL (75-99)
--- NOTE | 2016-05-28 14:27 | P.PN ---
Subjective Principal diagnosis: Non-small cell lung cancer Patient underwent surgical placement of a PEG tube this AM. At the time of my visit he is up and about, doing well. He does report abdominal discomfort. His breathing has been better overall, and he denies cough/sputum production. He reports not feeling up to coming down for radiotherapy this afternoon. Objective - Vital Signs Vital signs: Vital Signs Temp 99 F 05/28/16 12:14 Pulse 80 05/28/16 12:14 Resp 17 05/28/16 12:14 BP 122/68 05/28/16 12:14 Pulse Ox 95 05/28/16 12:14 Intake & Output 05/27/16 05/28/16 05/28/16 18:59 06:59 18:59 Intake Total 540 1300 780 Output Total 5 Balance 540 1300 775 Weight 74.2 kg 74.2 kg Intake: IV 50 50 780 Piperacillin-Tazobactam 3 50 50 .375 gm In Dextrose/Water 1 50ml.bag @ 12.5 mls/hr IVPB Q8HR [facility] Rx#: [id number] Intake, IV Titration 490 1250 Amount Amino Acid 4.25%-D10w+ 1000 Lytes*E* 1,000 ml @ 100 mls/hr IV .BY DURATION [facility] Rx#:[id number] D5-0.9% NaCl with KCl 40 240 Meq/l 1,000 ml @ 20 mls/ hr IV .Q24H [facility] Rx#: [id number] Fat Emulsion 20% 250 ml 250 250 In Empty Bag 1 bag @ 21 mls/hr IV DAILY@1800 [facility] Rx#:[id number] Oral 0 0 Output: Estimated Blood Loss 5 Other: Voiding Method Urinal Urinal Urinal # Voids 2 - Constitutional General appearance: Absent: mild distress - EENT Eyes: Present: EOMI, PERRLA - Neck Neck: Present: normal ROM - Respiratory Respiratory: right: CTA, left: diminished (stable) - Cardiovascular Rhythm: regular - Gastrointestinal General gastrointestinal: Present: absent bowel sounds - Neurologic Neurologic: Present: CNII-XII intact - Musculoskeletal Musculoskeletal: Present: gait normal - Psychiatric Psychiatric: Present: A&O x's 3 - Labs CBC & Chem 7: 05/28/16 06:20 05/28/16 06:20 Labs: Abnormal Lab Results - Last 24 Hours (Table) 0405/27/16 05/28/16 Range/Units 18:14 23:59 06:00 RBC (4.30-5.90) m/uL Hgb (13.0-17.5) gm/dL Hct (39.0-53.0) % Lymphocytes # (1.0-4.8) k/uL Sodium (137-145) mmol/L Chloride (98-107) mmol/L Creatinine (0.66-1.25) mg/dL Glucose (74-99) mg/dL POC Glucose (mg/dL) 115 H 122 H 140 H (75-99) mg/dL 05/28/16 05/28/16 05/28/16 Range/Units 06:20 06:20 09:02 RBC 3.79 L (4.30-5.90) m/uL Hgb 11.4 L (13.0-17.5) gm/dL Hct 34.4 L (39.0-53.0) % Lymphocytes # 0.3 L (1.0-4.8) k/uL Sodium 134 L (137-145) mmol/L Chloride 96 L (98-107) mmol/L Creatinine 0.63 L (0.66-1.25) mg/dL Glucose 117 H (74-99) mg/dL POC Glucose (mg/dL) 106 H (75-99) mg/dL 05/28/16 Range/Units 11:54 RBC (4.30-5.90) m/uL Hgb (13.0-17.5) gm/dL Hct (39.0-53.0) % Lymphocytes # (1.0-4.8) k/uL Sodium (137-145) mmol/L Chloride (98-107) mmol/L Creatinine (0.66-1.25) mg/dL Glucose (74-99) mg/dL POC Glucose (mg/dL) 104 H (75-99) mg/dL Assessment and Plan Plan: Patient will have his radiotherapy held today secondary to his surgical intervention this AM. We have cancelled the patient's afternoon radiotherapy - he will resume tomorrow as scheduled. Time with Patient: Less than 30
--- NOTE | 2016-05-28 16:56 | P.PN ---
Subjective Principal diagnosis: Bronchoesophageal fistula This is a 51-year-old white male with multiple medical problems, patient is known to have history of squamous cell carcinoma of the lung, undergoing chemotherapy and radiation therapy, recently found out to have recurrent pneumonia and evidence of aspiration. Barium swallow showed evidence of bronchoesophageal fistula. Patient underwent stenting of the esophagus, and today he underwent a PEG tube placement. Open approach. Patient has been on TPN nutritional support, patient will likely receive parenteral nutrition through PEG tube as of tomorrow. Overall the patient is doing well, and he remains on antibiotics in the form of Zosyn Objective - Vital Signs Vital signs: Vital Signs Temp 98.2 F 05/28/16 14:35 Pulse 84 05/28/16 14:35 Resp 17 05/28/16 14:38 BP 123/78 05/28/16 14:35 Pulse Ox 96 05/28/16 14:35 Intake & Output 05/27/16 05/28/16 05/28/16 18:59 06:59 18:59 Intake Total 540 1300 1450 Output Total 15 Balance 540 1300 1435 Weight 74.2 kg 74.2 kg Intake: IV 50 50 830 Piperacillin-Tazobactam 3 50 50 50 .375 gm In Dextrose/Water 1 50ml.bag @ 12.5 mls/hr IVPB Q8HR [facility] Rx#: [id number] Intake, IV Titration 490 1250 620 Amount Amino Acid 4.25%-D10w+ 1000 Lytes*E* 1,000 ml @ 100 mls/hr IV .BY DURATION [facility] Rx#:[id number] D5-0.9% NaCl with KCl 40 240 220 Meq/l 1,000 ml @ 20 mls/ hr IV .Q24H [facility] Rx#: [id number] Fat Emulsion 20% 250 ml 250 250 In Empty Bag 1 bag @ 21 mls/hr IV DAILY@1800 [facility] Rx#:[id number] Sodium Chloride 4Meq/ml 400 Vial 20 meq In Amino Acid 4.25%-D10w+Lytes*E* 1, 000 ml @ 100 mls/hr IV . BY DURATION [facility] Rx#: [id number] Oral 0 0 Output: Drainage 10 Abdomen 10 Estimated Blood Loss 5 Other: Voiding Method Urinal Urinal Urinal # Voids 2 - Exam Physical Exam: Revealed a 51-year-old in no distress HEENT:[Neck is supple.] [No neck masses.] [No thyromegaly.] [No JVD.] Chest: [Minimal crackles at the left base] Cardiac Exam: [Normal S1 and S2, no S3 gallop, no murmur.] Abdomen: [Soft, nontender, no megaly, no rebound, no guarding, normal bowel sounds.] Extremities: [No clubbing, no edema, no cyanosis.] Neurological Exam: [No focal neurologic deficit.] - Labs CBC & Chem 7: 05/28/16 06:20 05/28/16 06:20 Labs: Abnormal Lab Results - Last 24 Hours (Table) 05/27/16 05/27/16 05/28/16 Range/Units 18:14 23:59 06:00 RBC (4.30-5.90) m/uL Hgb (13.0-17.5) gm/dL Hct (39.0-53.0) % Lymphocytes # (1.0-4.8) k/uL Sodium (137-145) mmol/L Chloride (98-107) mmol/L Creatinine (0.66-1.25) mg/dL Glucose (74-99) mg/dL POC Glucose (mg/dL) 115 H 122 H 140 H (75-99) mg/dL 05/28/16 05/28/16 05/28/16 Range/Units 06:20 06:20 09:02 RBC 3.79 L (4.30-5.90) m/uL Hgb 11.4 L (13.0-17.5) gm/dL Hct 34.4 L (39.0-53.0) % Lymphocytes # 0.3 L (1.0-4.8) k/uL Sodium 134 L (137-145) mmol/L Chloride 96 L (98-107) mmol/L Creatinine 0.63 L (0.66-1.25) mg/dL Glucose 117 H (74-99) mg/dL POC Glucose (mg/dL) 106 H (75-99) mg/dL 05/28/16 Range/Units 11:54 RBC (4.30-5.90) m/uL Hgb (13.0-17.5) gm/dL Hct (39.0-53.0) % Lymphocytes # (1.0-4.8) k/uL Sodium (137-145) mmol/L Chloride (98-107) mmol/L Creatinine (0.66-1.25) mg/dL Glucose (74-99) mg/dL POC Glucose (mg/dL) 104 H (75-99) mg/dL Assessment and Plan Plan: Impression: 1 locally advanced non-small cell lung cancer of squamous cell type, patient is on combination chemoradiation therapy. 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 Patient is status post esophageal stent placement and status post PEG tube placement 3 left lower lobe pneumonia secondary to bronchoesophageal fistula 4 history of left vocal cord paralysis and hoarseness 5 history of paroxysmal atrial fibrillation 6 hypertension 7 difficulty with swallowing status post PEG tube placement and stent placement. Recommendation: Continue present supportive care measures, continue antibiotics , start tube feeding tomorrow. Time with Patient: Less than 30
[2016-05-28] MEDS: FAT EMULSION 20% 250 ML in EMPTY BAG 1 BAG IV SCH (17:15)
[2016-05-28] MEDS: ACETAMINOPHEN IV (For NPO) 1,000 MG in EMPTY BAG 1 BAG IVPB SCH ×2 (17:15→23:03)
[2016-05-28] MEDS: D5-0.9% NACL WITH KCL 40 MEQ/L 1,000 ML IV SCH (17:36)
[2016-05-28 18:06] LABS: Glucose,Whole Blood 113 mg/dL (75-99)
[2016-05-29] LABS: Glucose,Whole Blood 124 mg/dL (75-99)
[2016-05-29] MEDS: INSULIN LISPRO (humaLOG) 300 UNIT/3 ML VIAL SQ SCH ×4 (00:47→18:45)
[2016-05-29] MEDS: HYDROmorphone 1 MG/ML 1 ML SYRINGE IVP PRN ×6 (01:19→18:44)
[2016-05-29] MEDS: ONDANSETRON 4 MG/2 ML VIAL IVP PRN ×3 (02:32→23:42)
[2016-05-29] MEDS: 1: MVI, ADULT NO.4 WITH VIT K 10 ML, TRACE (CONC-1ML/DOSE) 1 ML, SODIUM CHLORIDE 4MEQ/ML IV SCH ×12 (02:40→12:34)
[2016-05-29] MEDS: SUCRALFATE 1 GM TAB PO SCH ×4 (04:43→20:46)
[2016-05-29] MEDS: LACTATED RINGERS 1,000 ML IV SCH (04:44)
[2016-05-29 05:53] LABS: Glucose,Whole Blood 131 mg/dL (75-99)
[2016-05-29] MEDS: ACETAMINOPHEN IV (For NPO) 1,000 MG in EMPTY BAG 1 BAG IVPB SCH ×2 (06:01→11:37)
--- NOTE | 2016-05-29 06:34 | PN ---
DATE OF SERVICE: 05/28/2016 PRESENTING COMPLAINT: Tired. INTERVAL HISTORY: Patient with non-small cell lung cancer who did receive chemotherapy is getting radiation treatment; also treated for multilobar pneumonia in a sepsis picture on presentation. Patient is status post bronchoscopy. 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 Wu. Since patient is having dysphagia, patient today had had G-tube placed in by Dr. Hanson connected to a Lewis bag currently, getting Dilaudid for pain control. Patient also had paroxysmal atrial fibrillation, which is back in sinus rhythm. Sitting at the edge of the bed. Review of systems done for constitutional, cardiovascular, GI, pulmonary; relevant findings as above. Current medications are reviewed that include PPN and IV Zosyn. On examination, temperature 98.2, pulse 84, respirations 17, blood pressure 123/78, pulse ox 96 % on 3 L. GENERAL APPEARANCE: Sitting on the edge of the bed, tired. EYES: Pupils equal. Conjunctivae pale. NECK: JVD not raised. Mass not palpable. RESPIRATORY: Effort increased. LUNGS: Decreased breath sounds. CARDIOVASCULAR: First and second sounds normal. No edema. ABDOMEN: Has got a binder in place with a G tube in place and hooked up to a Lewis bag. PSYCHIATRY: Alert and oriented x3. Mood and affect slightly anxious appearing. INVESTIGATIONS: White count 4.7, hemoglobin 11.4. Potassium 4.6. BUN 16, creatinine 0.63. Accu-Cheks are noted. Patient's Doppler ultrasound was negative for deep venous thrombosis. ASSESSMENT: 1. Acute bilateral pneumonia, suspect gram-negative organism, multilobar, present at admission with severe sepsis. 2. Non-small cell lung cancer getting chemotherapy and radiation treatment. 3. 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 4. Gastroesophageal reflux disease. 5. Essential hypertension. 6. Acute chronic obstructive pulmonary disease exacerbation in a smoker. 7. Status post PEG tube placement. 8. Paroxysmal atrial fibrillation. 9. Peripheral nutrition to continue. PLAN: Care was discussed with the patient. Continue current medication and treatment plan. Patient is currently on peripheral nutrition and hopefully the tube feeding can be started tomorrow.
[2016-05-29 07:10] LABS: Basophils % (A) 0 %; CH 30.5; CHCM 33.1; Eosinophils # (A) 0.1 k/uL (0-0.7); Eosinophils % (A) 1 %; HGB 11.1 gm/dL (13.0-17.5); Luc # (Auto) 0.13; Luc % (Auto) 2; Lymphocytes # (A) 0.3 k/uL (1.0-4.8); Lymphocytes % (A) 4 %; MCH 30.3 pg (25.0-35.0); MCHC 32.7 g/dL (31.0-37.0); MCV 92.6 fL (80.0-100.0); Mean Platelet Volume 7.8; Monocytes # (A) 0.4 k/uL (0-1.0); Monocytes % (A) 6 %; Neutrophils # (A) 5.2 k/uL (1.3-7.7); Neutrophils % (A) 86 %; RBC 3.67 m/uL (4.30-5.90); RDW 12.9 % (11.5-15.5); WBC (Perox) 6.15
[2016-05-29 07:42] LABS: Anion Gap 8 mmol/L; Blood Urea Nitrogen 18 mg/dL (9-20); Calcium 8.8 mg/dL (8.4-10.2); Carbon Dioxide 30 mmol/L (22-30); Chloride 95 mmol/L (98-107); Glucose 123 mg/dL (74-99); Magnesium 1.9 mg/dL (1.6-2.3); Non-African American GFR(MDRD) >60 (>60 ml/min/1.73 sqM); Phosphorous 3.9 mg/dL (2.5-4.5); Potassium 4.4 mmol/L (3.5-5.1); Sodium 133 mmol/L (137-145)
[2016-05-29] MEDS: FUROSEMIDE 20 MG TAB PO SCH ×2 (08:07→17:34)
[2016-05-29] MEDS: METOPROLOL TARTRATE 25 MG TAB PO SCH ×2 (08:07→20:46)
[2016-05-29] MEDS: LISINOPRIL 5 MG TAB PO SCH ×2 (08:07→20:46)
[2016-05-29] MEDS: DOCUSATE 100 MG CAP PO SCH ×2 (08:07→20:43)
[2016-05-29] MEDS: POTASSIUM CHLORIDE ER 20 MEQ TAB.ER PO SCH (08:07)
[2016-05-29] MEDS: IPRATROPIUM-ALBUTEROL 3 ML NEB INHALATION SCH ×4 (08:15→19:23)
[2016-05-29] MEDS: PIPERACILLIN-TAZOBACTAM 3.375 GM in DEXTROSE/WATER 1 50ML.BAG IVPB SCH ×2 (08:21→17:31)
[2016-05-29] MEDS: PANTOPRAZOLE 40 MG/10 ML VIAL IV SCH (08:26)
[2016-05-29] MEDS: HEPARIN SODIUM,PORCINE 5,000 UNIT/ML 1 ML VIAL SQ SCH ×2 (08:30→20:46)
--- NOTE | 2016-05-29 08:52 | PN ---
This is the 51-year-old male who presents to the hospital who has significant difficulties after his chemotherapy with inability to eat. He was found to have evidence of any esophageal tracheal fistula and he has had this stented. He was still having great difficulties with eating and consequently was made n.p.o. and has been followed by Gastroenterology as well as General Surgery. He was taken to the operating room today and he did not undergo EGD as they did not want to disrupt his esophageal stent and consequently open gastric tube placement occur by General Surgery. He is sitting upright, looking well, having no significant pain and definitely feels better. On the exam, he looks relatively well. He is afebrile. Hemodynamically stable and please see the nursing notations for the vital signs. He is anicteric without thrush. The neck is supple. The lungs have good bilateral air entry. No significant crackles. A few wheezes still at the left base. The heart is regular. The abdomen is soft. Minimal tenderness at the insertion site. The jejunostomy tube is hooked up to a drainage system and there is some bilious material in that. It is not purulent nor is it bloody. He has no flank tenderness. Extremities without edema. Skin is without rash. No acute neurological problems. Laboratories are noted. At this point in time he is doing well. We will continue his current intravenous antibiotic therapy for his complex pneumonia from his esophageal tracheal fistula. He has recovered his neutropenia from his recent course of chemotherapy. Overall he is feeling considerably better and would not plan on long course of IV antibiotic therapy at discharge.
[2016-05-29] MEDS: D5-0.9% NACL WITH KCL 40 MEQ/L 1,000 ML IV SCH (11:43)
--- NOTE | 2016-05-29 12:04 | P.PN ---
Subjective Principal diagnosis: Bronchoesophageal fistula This is a 51-year-old white male with multiple medical problems, patient is known to have history of squamous cell carcinoma of the lung, undergoing chemotherapy and radiation therapy, recently found out to have recurrent pneumonia and evidence of aspiration. Barium swallow showed evidence of bronchoesophageal fistula. Patient underwent stenting of the esophagus, and today he underwent a PEG tube placement. Open approach. Patient has been on TPN nutritional support, patient will likely receive parenteral nutrition through PEG tube as of tomorrow. Overall the patient is doing well, and he remains on antibiotics in the form of Zosyn Reevaluated today on 05/29/2016, complaining of pain at the PEG tube site. Continues to cough, the cough is productive with thick yellow phlegm. On physical examination he had mostly crackles and rhonchi at the left base. Hence a follow-up chest x-ray was ordered to be done today. In the meantime the patient remains on antibiotics as per ID recommendation on the case. Objective - Vital Signs Vital signs: Vital Signs Temp 99.5 F 05/29/16 11:54 Pulse 91 05/29/16 11:54 Resp 16 05/29/16 11:54 BP 118/65 05/29/16 11:54 Pulse Ox 92 L 05/29/16 11:54 Intake & Output 05/28/16 05/29/16 05/29/16 18:59 06:59 18:59 Intake Total 1450 Output Total 25 203 375 Balance 1425 -203 -375 Weight 74.2 kg 75.3 kg 75.3 kg Intake: IV 830 Piperacillin-Tazobactam 3 50 .375 gm In Dextrose/Water 1 50ml.bag @ 12.5 mls/hr IVPB Q8HR [facility] Rx#: [id number] Intake, IV Titration 620 Amount D5-0.9% NaCl with KCl 40 220 Meq/l 1,000 ml @ 20 mls/ hr IV .Q24H [facility] Rx#: [id number] Sodium Chloride 4Meq/ml 400 Vial 20 meq In Amino Acid 4.25%-D10w+Lytes*E* 1, 000 ml @ 100 mls/hr IV . BY DURATION [facility] Rx#: [id number] Output: Drainage 20 200 375 Abdomen 20 200 375 Urine 3 Estimated Blood Loss 5 Other: Voiding Method Urinal Toilet Urinal - Exam Physical Exam: Revealed a 51-year-old in no distress HEENT:[Neck is supple.] [No neck masses.] [No thyromegaly.] [No JVD.] Chest: [Minimal crackles at the left base] Cardiac Exam: [Normal S1 and S2, no S3 gallop, no murmur.] Abdomen: [Soft, nontender, no megaly, no rebound, no guarding, normal bowel sounds.] Extremities: [No clubbing, no edema, no cyanosis.] Neurological Exam: [No focal neurologic deficit.] - Labs CBC & Chem 7: 05/29/16 06:35 05/29/16 06:35 Labs: Abnormal Lab Results - Last 24 Hours (Table) 05/28/16 05/28/16 05/28/16 Range/Units 11:54 17:53 23:59 RBC (4.30-5.90) m/uL Hgb (13.0-17.5) gm/dL Hct (39.0-53.0) % Lymphocytes # (1.0-4.8) k/uL Sodium (137-145) mmol/L Chloride (98-107) mmol/L Creatinine (0.66-1.25) mg/dL Glucose (74-99) mg/dL POC Glucose (mg/dL) 104 H 113 H 124 H (75-99) mg/dL 05/29/16 05/29/16 05/29/16 Range/Units 05:52 06:35 06:35 RBC 3.67 L (4.30-5.90) m/uL Hgb 11.1 L (13.0-17.5) gm/dL Hct 34.0 L (39.0-53.0) % Lymphocytes # 0.3 L (1.0-4.8) k/uL Sodium 133 L (137-145) mmol/L Chloride 95 L (98-107) mmol/L Creatinine 0.53 L (0.66-1.25) mg/dL Glucose 123 H (74-99) mg/dL POC Glucose (mg/dL) 131 H (75-99) mg/dL Assessment and Plan Plan: Impression: 1 locally advanced non-small cell lung cancer of squamous cell type, patient is on combination chemoradiation therapy. 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 Patient is status post esophageal stent placement and status post PEG tube placement 3 left lower lobe pneumonia secondary to bronchoesophageal fistula 4 history of left vocal cord paralysis and hoarseness 5 history of paroxysmal atrial fibrillation 6 hypertension 7 difficulty with swallowing status post PEG tube placement and stent placement. Recommendation: Continue present supportive care measures, continue antibiotics , start tube feeding tomorrow.check chest x-ray today. Possible discharge planning in the next couple of days on oral antibiotics. Time with Patient: Less than 30
[2016-05-29 12:14] LABS: Glucose,Whole Blood 131 mg/dL (75-99)
--- NOTE | 2016-05-29 14:02 | XR ---
EXAMINATION TYPE: XR chest 1V portable DATE OF EXAM: 05/29/2016 1:54 PM CLINICAL HISTORY: Difficulty breathing progress study. History of lung cancer, left lower lobe pneum onia, bronchoesophageal fistula. TECHNIQUE: Single AP portable frontal view of the chest is obtained. COMPARISON: Chest x-ray and CT cap May 23, 2016 FINDINGS: There is persistent right basilar linear scarring or atelectasis mimicking pneumoperitoneu m. There is persistent elevated left hemidiaphragm and surgical changes from left-sided partial pneum onectomy. There is chronic left basilar scarring and/or consolidation. Cardiac silhouette size is sta ble and within normal limits. Old left-sided rib fractures are redemonstrated. Metallic esophageal st ent is again seen. IMPRESSION: Overall stable findings, left-sided surgical changes and volume loss with chronic left basilar scarring and/or consolidation and right basilar linear scarring or atelectasis. No new focal infiltrate is seen.
--- NOTE | 2016-05-29 16:02 | P.PN ---
Subjective 51-year-old being seen by surgical service follow-up visit which the patient underwent laparoscopic G-tube placement for nutritional support. Patient is known history of tracheal esophageal fistula status post stent placement. Tube feeds are to be initiated at 10 mL titrate up to reach goal once goal has reached TPN can be stopped Objective - Vital Signs Vital signs: Vital Signs Temp 99.5 F 05/29/16 11:54 Pulse 91 05/29/16 11:54 Resp 16 05/29/16 11:54 BP 118/65 05/29/16 11:54 Pulse Ox 92 L 05/29/16 11:54 Intake & Output 05/28/16 05/29/16 05/29/16 18:59 06:59 18:59 Intake Total 1450 Output Total 25 203 376 Balance 1425 -203 -376 Weight 74.2 kg 75.3 kg 75.3 kg Intake: IV 830 Piperacillin-Tazobactam 3 50 .375 gm In Dextrose/Water 1 50ml.bag @ 12.5 mls/hr IVPB Q8HR [facility] Rx#: [id number] Intake, IV Titration 620 Amount D5-0.9% NaCl with KCl 40 220 Meq/l 1,000 ml @ 20 mls/ hr IV .Q24H [facility] Rx#: [id number] Sodium Chloride 4Meq/ml 400 Vial 20 meq In Amino Acid 4.25%-D10w+Lytes*E* 1, 000 ml @ 100 mls/hr IV . BY DURATION [facility] Rx#: [id number] Output: Drainage 20 200 375 Abdomen 20 200 375 Urine 3 1 Estimated Blood Loss 5 Other: Voiding Method Urinal Toilet Urinal # Voids 3 - Exam Physical exam 51-year-old male sitting up relates having pain at the PEG tube site Lungs coarse rhonchi throughout left base greater than the right Heart S1-S2 audible regular Abdomen soft nontender bowel tones present Extremities no edema noted - Labs CBC & Chem 7: 05/29/16 06:35 05/29/16 06:35 Labs: Abnormal Lab Results - Last 24 Hours (Table) 05/28/16 05/28/16 05/29/16 Range/Units 17:53 23:59 05:52 RBC (4.30-5.90) m/uL Hgb (13.0-17.5) gm/dL Hct (39.0-53.0) % Lymphocytes # (1.0-4.8) k/uL Sodium (137-145) mmol/L Chloride (98-107) mmol/L Creatinine (0.66-1.25) mg/dL Glucose (74-99) mg/dL POC Glucose (mg/dL) 113 H 124 H 131 H (75-99) mg/dL 05/29/16 05/29/16 05/29/16 Range/Units 06:35 06:35 12:12 RBC 3.67 L (4.30-5.90) m/uL Hgb 11.1 L (13.0-17.5) gm/dL Hct 34.0 L (39.0-53.0) % Lymphocytes # 0.3 L (1.0-4.8) k/uL Sodium 133 L (137-145) mmol/L Chloride 95 L (98-107) mmol/L Creatinine 0.53 L (0.66-1.25) mg/dL Glucose 123 H (74-99) mg/dL POC Glucose (mg/dL) 131 H (75-99) mg/dL Assessment and Plan Plan: Impression Non-small cell lung cancer with a recent tracheoesophageal fistula status post stent placement Unable to tolerate diet without regurgitation increased risk of aspiration Persistent intermittent episodes of nausea vomiting Leukopenia due to antineoplastic chemotherapy Protein calorie malnutrition moderate with a low pre-albumin and weight loss greater than 20% suspect due to poor caloric intake adequate oral nutritional intake Recurrent aspiration pneumonia Gastroesophageal reflux disease Remote history of nicotine dependency Paroxysmal atrial fibrillation current sinus rhythm no anticoagulation per cardiology service Physical debility due to chronic illness Status post G-tube placement for nutritional support Plan Tube feeds started 10 mL an hour titrate to meet goal once goal has been achieved TPN can be stopped Continue with parenteral nutrition Continue with GI prophylaxis The above dictated assessment and findings were discussed with dr dakota Flores and the plan of care have been dictated as directed. Pearl Muir nurse practitioner acting as a scribe for dr marinelli
--- NOTE | 2016-05-29 16:34 | P.PN ---
Subjective Principal diagnosis: Intractable vomiting Patient is seen today in follow-up. He has PEG placed, the tube is connected to drainage bag with large amt of dark green fluid draining, pt has some abd discomfort r/t the tube placement but denies unrealistic pain, he continues to swish and spit fluids, he is occasionally coughing up frothy sputum, no hemoptysis. He skipped XRT yesterday. He can swallow his secretions without too much trouble or coughing. He is ambulatory, had a BM yesterday, no other c/ o at this time. Objective - Vital Signs Vital signs: Vital Signs Temp 99.5 F 05/29/16 11:54 Pulse 91 05/29/16 11:54 Resp 16 05/29/16 11:54 BP 118/65 05/29/16 11:54 Pulse Ox 92 L 05/29/16 11:54 Intake & Output 05/28/16 05/29/16 05/29/16 18:59 06:59 18:59 Intake Total 1450 Output Total 25 203 376 Balance 1425 -203 -376 Weight 74.2 kg 75.3 kg 75.3 kg Intake: IV 830 Piperacillin-Tazobactam 3 50 .375 gm In Dextrose/Water 1 50ml.bag @ 12.5 mls/hr IVPB Q8HR [facility] Rx#: [id number] Intake, IV Titration 620 Amount D5-0.9% NaCl with KCl 40 220 Meq/l 1,000 ml @ 20 mls/ hr IV .Q24H [facility] Rx#: [id number] Sodium Chloride 4Meq/ml 400 Vial 20 meq In Amino Acid 4.25%-D10w+Lytes*E* 1, 000 ml @ 100 mls/hr IV . BY DURATION [facility] Rx#: [id number] Output: Drainage 20 200 375 Abdomen 20 200 375 Urine 3 1 Estimated Blood Loss 5 Other: Voiding Method Urinal Toilet Urinal # Voids 3 - Constitutional General appearance: Present: average body habitus, cooperative, no acute distress - Respiratory Respiratory: bilateral: CTA - Cardiovascular Heart sounds: normal: S1, S2 - Gastrointestinal Gastrointestinal Comment(s): No redness or warmth around PEG insertion, christiansen collection device has dark green fluid draining from PEG General gastrointestinal: Present: normal bowel sounds, soft - Integumentary Integumentary: Present: pale - Neurologic Neurologic: Present: CNII-XII intact - Musculoskeletal Musculoskeletal: Present: strength equal bilaterally - Psychiatric Psychiatric: Present: A&O x's 3, appropriate affect, intact judgment & insight - Labs CBC & Chem 7: 05/29/16 06:35 05/29/16 06:35 Labs: Abnormal Lab Results - Last 24 Hours (Table) 05/28/16 05/28/16 05/29/16 Range/Units 17:53 23:59 05:52 RBC (4.30-5.90) m/uL Hgb (13.0-17.5) gm/dL Hct (39.0-53.0) % Lymphocytes # (1.0-4.8) k/uL Sodium (137-145) mmol/L Chloride (98-107) mmol/L Creatinine (0.66-1.25) mg/dL Glucose (74-99) mg/dL POC Glucose (mg/dL) 113 H 124 H 131 H (75-99) mg/dL 05/29/16 05/29/16 05/29/16 Range/Units 06:35 06:35 12:12 RBC 3.67 L (4.30-5.90) m/uL Hgb 11.1 L (13.0-17.5) gm/dL Hct 34.0 L (39.0-53.0) % Lymphocytes # 0.3 L (1.0-4.8) k/uL Sodium 133 L (137-145) mmol/L Chloride 95 L (98-107) mmol/L Creatinine 0.53 L (0.66-1.25) mg/dL Glucose 123 H (74-99) mg/dL POC Glucose (mg/dL) 131 H (75-99) mg/dL - Imaging and Cardiology Chest x-ray: report reviewed Assessment and Plan (1) Squamous cell carcinoma lung Narrative/Plan: Pt will continue with XRT under the care of Dr. Hickey as appropriate. NO chemo at this time is planned. Will need to see how PEG functions and how pt is progressing before considering appropriateness of chemo in his current condition. Status: Acute (2) Intractable nausea and vomiting Narrative/Plan: Stable at this time as pt is NPO. PEG in place, currently decompressing the abd. Surgery will determine appropriate timing of beginning feeding. Will await pt tolerance Status: Acute (3) Tracheo-esophageal fistula Narrative/Plan: S/P stent placement, pt is still not able to tolerate oral intake but he can manage his secretions. Status: Acute (4) Pancytopenia due to antineoplastic chemotherapy Narrative/Plan: Pt cytopenias are resolving, he is past tavo. Status: Acute Plan: Will follow up with pt and assess progress.
[2016-05-29 17:39] LABS: Glucose,Whole Blood 114 mg/dL (75-99)
[2016-05-29] MEDS: FAT EMULSION 20% 250 ML in EMPTY BAG 1 BAG IV SCH (20:46)
[2016-05-29] MEDS: HYDROcodone/APAP 15 ML SOLUTION PO PRN (20:52)
--- NOTE | 2016-05-29 22:29 | P.PN ---
Subjective Principal diagnosis: Pneumonia Extremely pleasant 51-year-old male who has a history of prior nicotine dependence was having difficulties in the past. 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 He constantly has undergone chemotherapy and radiation. Recently was having great difficulties with recurrent pneumonia and evidence of aspiration. 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 As he was taken to the operating room and a stent was placed. Since that he is doing somewhat better. His chest is starting to clear a little bit and he is swallowing some liquids and full liquids without difficulties except he is having an occasional episode of emesis. It has been inconsistent based on food texture in quality. It has further improved today Feeling better today. Not having any further fever chill rigor or sweats. His cough is improving. His discomfort from the procedure is also improving. Patient however developed evidence of significant change in his status and was found evidence of atrial fibrillation with a rapid ventricular response. He's been treated with the Cardizem and has improved. Did relatively well today. Ate some ice cream tonight and started to have some further emesis as he did this morning. Has been seen by gastroenterology, with the esophageal stent there is concern about the inability to pass the scope through the stent. Gastroneurology and general surgery have now consulted. The percutaneous gastrostomy tube is now been placed by surgery. Now receiving feedings at 10 mls an hour. Otherwise is doing quite well. Objective - Vital Signs Vital signs: Vital Signs Temp 97.4 F L 05/29/16 16:00 Pulse 98 05/29/16 16:00 Resp 16 05/29/16 16:00 BP 132/68 05/29/16 16:00 Pulse Ox 92 L 05/29/16 11:54 Intake & Output 05/29/16 05/29/16 05/30/16 06:59 18:59 06:59 Output Total 203 376 Balance -203 -376 Weight 75.3 kg 75.3 kg Output: Drainage 200 375 Abdomen 200 375 Urine 3 1 Other: Voiding Method Toilet Toilet Urinal Urinal # Voids 3 - Exam Pleasant 51-year-old male in no acute distress. Feeling better than earlier HEENT: Anicteric conjunctiva are pink and moist nasal mucosa grossly intact without significant lesions, there is no thrush. Neck: The neck is supple without significant lymphadenopathy or thyromegaly. Lungs: There is symmetrical air entry. However there are crackles and bronchial sounds in the left base. Few expiratory wheezes are heard. Right chest is rather clear. Heart: Regular with an audible S1-S2, no S3 no S4. There is no significant murmur click or rub, PMI was nondisplaced. Abdomen: Positive bowel sounds soft and nontender without palpable masses or organomegaly. There was no guarding or rebound. Percutaneous feeding tube is in place no longer to drainage is receiving tube feed Extremities: The upper extremities have excellent pulses they are symmetric, no significant petechiae or telangiectasia. No splinter hemorrhages were noted. The lower extremities are free from significant edema. The peripheral pulses were 2+ and symmetric. Neuro: Awake alert oriented to person place and time. There are no acute new gross focal sensory motor deficits. - Labs CBC & Chem 7: 05/29/16 06:35 05/29/16 06:35 Labs: Abnormal Lab Results - Last 24 Hours (Table) 05/28/16 05/29/16 05/29/16 Range/Units 23:59 05:52 06:35 RBC (4.30-5.90) m/uL Hgb (13.0-17.5) gm/dL Hct (39.0-53.0) % Lymphocytes # (1.0-4.8) k/uL Sodium 133 L (137-145) mmol/L Chloride 95 L (98-107) mmol/L Creatinine 0.53 L (0.66-1.25) mg/dL Glucose 123 H (74-99) mg/dL POC Glucose (mg/dL) 124 H 131 H (75-99) mg/dL 05/29/16 05/29/16 05/29/16 Range/Units 06:35 12:12 17:37 RBC 3.67 L (4.30-5.90) m/uL Hgb 11.1 L (13.0-17.5) gm/dL Hct 34.0 L (39.0-53.0) % Lymphocytes # 0.3 L (1.0-4.8) k/uL Sodium (137-145) mmol/L Chloride (98-107) mmol/L Creatinine (0.66-1.25) mg/dL Glucose (74-99) mg/dL POC Glucose (mg/dL) 131 H 114 H (75-99) mg/dL Laboratory Results WBC 6.0 k/uL (3.8-10.6) 05/29/16 06:35 RBC 3.67 m/uL (4.30-5.90) L 05/29/16 06:35 Hgb 11.1 gm/dL (13.0-17.5) L 05/29/16 06:35 Hct 34.0 % (39.0-53.0) L 05/29/16 06:35 MCV 92.6 fL (80.0-100.0) 05/29/16 06:35 MCH 30.3 pg (25.0-35.0) 05/29/16 06:35 MCHC 32.7 g/dL (31.0-37.0) 05/29/16 06:35 RDW 12.9 % (11.5-15.5) 05/29/16 06:35 Plt Count 269 k/uL (150-450) 05/29/16 06:35 Neutrophils % 86 % 05/29/16 06:35 Neutrophils % (Manual) 39.0 % 05/21/16 05:51 Lymphocytes % 4 % 05/29/16 06:35 Lymphocytes % (Manual) 33.0 % 05/21/16 05:51 Monocytes % 6 % 05/29/16 06:35 Monocytes % (Manual) 25.0 % 05/21/16 05:51 Eosinophils % 1 % 05/29/16 06:35 Eosinophils % (Manual) 1.0 % 05/21/16 05:51 Basophils % 0 % 05/29/16 06:35 Basophils % (Manual) 2.0 % 05/21/16 05:51 Neutrophils # 5.2 k/uL (1.3-7.7) 05/29/16 06:35 Neutrophils # (Manual) 0.5 k/uL (1.3-7.7) L 05/21/16 05:51 Lymphocytes # 0.3 k/uL (1.0-4.8) L 05/29/16 06:35 Lymphocytes # (Manual) 0.4 k/uL (1.0-4.8) L 05/21/16 05:51 Monocytes # 0.4 k/uL (0-1.0) 05/29/16 06:35 Monocytes # (Manual) 0.3 k/uL (0-1.0) 05/21/16 05:51 Eosinophils # 0.1 k/uL (0-0.7) 05/29/16 06:35 Eosinophils # (Manual) 0.0 k/uL (0-0.7) 05/21/16 05:51 Basophils # 0.0 k/uL (0-0.2) 05/29/16 06:35 Basophils # (Manual) 0.0 k/uL (0-0.2) 05/21/16 05:51 Nucleated RBCs 0 /100 WBC (0-0) 05/21/16 05:51 Manual Slide Review Performed 05/21/16 05:51 Poikilocytosis (manual Present 05/21/16 05:51 PT 11.2 sec (9.0-12.0) 05/25/16 06:15 INR 1.1 (<1.1) 05/25/16 06:15 APTT 36.9 sec (22.0-30.0) H 05/25/16 06:15 Sodium 133 mmol/L (137-145) L 05/29/16 06:35 Potassium 4.4 mmol/L (3.5-5.1) 05/29/16 06:35 Chloride 95 mmol/L (98-107) L 05/29/16 06:35 Carbon Dioxide 30 mmol/L (22-30) 05/29/16 06:35 Anion Gap 8 mmol/L 05/29/16 06:35 BUN 18 mg/dL (9-20) 05/29/16 06:35 Creatinine 0.53 mg/dL (0.66-1.25) L 05/29/16 06:35 Est GFR (MDRD) Af Amer >60 (>60 ml/min/1.73 sqM) 05/29/16 06:35 Est GFR (MDRD) Non-Af >60 (>60 ml/min/1.73 sqM) 05/29/16 06:35 Glucose 123 mg/dL (74-99) H 05/29/16 06:35 POC Glucose (mg/dL) 114 mg/dL (75-99) H 05/29/16 17:37 POC Glu [employer] ID Katrin Broussard 05/29/16 17:[address] Glu mg/dL 128 mg/dL 05/25/16 06:15 Hemoglobin A1c 6.1 % (4.2-6.1) 05/25/16 06:15 Plasma Lactic Acid Ty 1.0 mmol/L (0.7-2.0) 05/15/16 02:40 Calcium 8.8 mg/dL (8.4-10.2) 05/29/16 06:35 Ionized Calcium Kianna 4.8 mg/dL (4.5-5.3) 05/25/16 06:15 Phosphorus 3.9 mg/dL (2.5-4.5) 05/29/16 06:35 Magnesium 1.9 mg/dL (1.6-2.3) 05/29/16 06:35 Total Bilirubin 0.7 mg/dL (0.2-1.3) 05/14/16 23:55 AST 19 U/L (17-59) 05/14/16 23:55 ALT 30 U/L (21-72) 05/14/16 23:55 Alkaline Phosphatase 79 U/L (38-126) 05/14/16 23:55 Total Protein 7.3 g/dL (6.3-8.2) 05/14/16 23:55 Albumin 4.2 g/dL (3.5-5.0) 05/14/16 23:55 Prealbumin 9 mg/dL (18-36) L 05/23/16 06:55 Triglycerides 86 mg/dL (<150) 05/24/16 15:10 Amylase 68 U/L (30-110) 05/14/16 23:55 Lipase 23 U/L (23-300) 05/14/16 23:55 TSH 4.290 mIU/L (0.465-4.680) 05/19/16 06:43 Free T4 1.34 ng/dL (0.78-2.19) 05/19/16 06:43 Urine Color Yellow 05/14/16 23:55 Urine Appearance Clear (Clear) 05/14/16 23:55 Urine pH 6.0 (5.0-8.0) 05/14/16 23:55 Ur Specific [place] 1.025 (1.001-1.035) 05/14/16 23:55 Urine Protein Trace (Negative) H 05/14/16 23:55 Urine Glucose (UA) Trace (Negative) H 05/14/16 23:55 Urine Ketones 1+ (Negative) H 05/14/16 23:55 Urine Blood Negative (Negative) 05/14/16 23:55 Urine Nitrite Negative (Negative) 05/14/16 23:55 Urine Bilirubin Negative (Negative) 05/14/16 23:55 Urine Urobilinogen 2.0 mg/dL (<2.0) 05/14/16 23:55 Ur Leukocyte Esterase Negative (Negative) 05/14/16 23:55 Influenza Type A RNA Not Detected (Not Detectd) 05/15/16 02:50 Influenza Type B (PCR) Not Detected (Not Detectd) 05/15/16 02:50 Microbiology 05/15/16 02:40 Blood Blood Culture - Final No Growth after 144 hours 05/15/16 17:05 Sputum Gram Stain - Final 05/15/16 17:05 Sputum Sputum Culture - Final Assessment and Plan (1) Squamous cell carcinoma lung Narrative/Plan: Pleasant 51-year-old male presents to hospital with difficulties with ongoing nausea with emesis associated with increasing cough and shortness of breath. The patient related every time he was trying to eat or drink he could tell that some was going into his longest he would cough so much. He was then taken to the operating room and the esophageal tracheal fistula was found and a stent was placed. Since the stent was placed he is having further improvment. He is having less cough. In doing much better. He had transient fever that is now improved. Does have the x-ray findings of the left lower lobe pneumonia. Antibiotic therapy is being utilized with Zosyn which is an excellent choice for his significant aspiration and multiple medical procedures. Does not need to broaden at this point in time. He is without fever and improving. Any change would then necessitate addition of antifungal therapy. The patient however is coming to the tavo of his chemotherapy effect and there is some notation of some increasing leukopenia and thrombocytopenia. The prior aspiration pneumonias been well treated. The Zosyn is discontinued today. His percutaneous gastrostomy tube is in place. He is now receiving some feeding and doing somewhat better. Oncology is following closely. Status: Acute (2) Tracheo-esophageal fistula Status: Acute (3) Recurrent aspiration pneumonia Status: Acute
[2016-05-29 23:56] LABS: Glucose,Whole Blood 104 mg/dL (75-99)
[2016-05-30] MEDS: INSULIN LISPRO (humaLOG) 300 UNIT/3 ML VIAL SQ SCH ×4 (00:17→18:21)
[2016-05-30] MEDS: HYDROmorphone 1 MG/ML 1 ML SYRINGE IVP PRN ×5 (00:23→14:43)
[2016-05-30] MEDS: 1: MVI, ADULT NO.4 WITH VIT K 10 ML, TRACE (CONC-1ML/DOSE) 1 ML, SODIUM CHLORIDE 4MEQ/ML IV SCH ×4 (01:08)
[2016-05-30] MEDS: ONDANSETRON 4 MG/2 ML VIAL IVP PRN ×4 (03:41→19:18)
[2016-05-30 06:01] LABS: Glucose,Whole Blood 114 mg/dL (75-99)
[2016-05-30 08:19] LABS: Basophils % (A) 0 %; CH 29.9; Eosinophils # (A) 0.1 k/uL (0-0.7); Eosinophils % (A) 1 %; HCT 33.9 % (39.0-53.0); HDW 3.21; HGB 11.5 gm/dL (13.0-17.5); Luc # (Auto) 0.25; Luc % (Auto) 4; Lymphocytes # (A) 0.3 k/uL (1.0-4.8); Lymphocytes % (A) 5 %; Mean Platelet Volume 7.7; Monocytes # (A) 0.4 k/uL (0-1.0); Monocytes % (A) 6 %; Neutrophils # (A) 5.2 k/uL (1.3-7.7); Neutrophils % (A) 84 %; RBC 3.72 m/uL (4.30-5.90); RDW 12.7 % (11.5-15.5); WBC 6.2 k/uL (3.8-10.6)
[2016-05-30 08:33] LABS: Anion Gap 10 mmol/L; Blood Urea Nitrogen 17 mg/dL (9-20); Calcium 9.3 mg/dL (8.4-10.2); Carbon Dioxide 30 mmol/L (22-30); Chloride 95 mmol/L (98-107); Glucose 118 mg/dL (74-99); Magnesium 1.9 mg/dL (1.6-2.3); Non-African American GFR(MDRD) >60 (>60 ml/min/1.73 sqM); Phosphorous 4.1 mg/dL (2.5-4.5); Potassium 4.6 mmol/L (3.5-5.1); Sodium 135 mmol/L (137-145)
[2016-05-30] MEDS: IPRATROPIUM-ALBUTEROL 3 ML NEB INHALATION SCH ×4 (09:07→21:23)
[2016-05-30] MEDS: DOCUSATE 100 MG CAP PO SCH (09:26)
[2016-05-30] MEDS: SUCRALFATE 1 GM TAB PO SCH ×2 (09:47→13:01)
[2016-05-30] MEDS: LISINOPRIL 5 MG TAB PO SCH ×2 (09:48→22:59)
[2016-05-30] MEDS: PANTOPRAZOLE 40 MG/10 ML VIAL IV SCH (09:48)
[2016-05-30] MEDS: HEPARIN SODIUM,PORCINE 5,000 UNIT/ML 1 ML VIAL SQ SCH ×2 (09:48→22:58)
[2016-05-30] MEDS: FUROSEMIDE 20 MG TAB PO SCH (09:48)
[2016-05-30] MEDS: METOPROLOL TARTRATE 25 MG TAB PO SCH ×2 (09:49→22:59)
[2016-05-30] MEDS: POTASSIUM CHLORIDE ER 20 MEQ TAB.ER PO SCH (09:49)
--- NOTE | 2016-05-30 10:01 | PN ---
DATE OF SERVICE: 05/29/2016 PRESENTING COMPLAINT: Tired. INTERVAL HISTORY: This is a patient with non-small cell lung cancer who did receive chemotherapy and getting radiation treatment, also was treated for multilevel pneumonia with sepsis-like picture on presentation. Patient also did have bronchoscopy and paroxysmal atrial fibrillation. Patient has a stent placement for esophageal tracheal fistula felt to be from radiation. Patient had an NG tube placed yesterday by Dr. Hanson. Quite a bit of bile has been coming out of the [place] connected to it. I started a low dose of feeding 10 mL/h. Patient is having some pain at the tube site. Otherwise, sitting at the edge of the bed, cracking light jokes, does feel a bit tired. Review of systems done for constitutional, cardiovascular, GI, pulmonary; relevant findings as above. Current medications are reviewed that include IV Zosyn and TPN. On examination, temperature 97.4, pulse 58, respirations 16, blood pressure 130/68, pulse ox 92% on room air. GENERAL APPEARANCE: Sitting at the edge of the bed, tired. EYES: Pupils equal. Conjunctiva are pale. NECK: JVD not raised. Mass not palpable. Respiratory effort normal. LUNGS: Diminished breath sounds. CARDIOVASCULAR: First and second sounds normal. No edema. ABDOMEN: Soft, some tenderness, NG tube in place, binder in place. PSYCHIATRY: Alert and oriented x3. Mood and affect slightly anxious-appearing. INVESTIGATIONS: White count 6, hemoglobin 11.1, potassium 4.4. BUN 18, creatinine 0.53. Accu-Cheks are noted. Chest x-ray shows some left-sided surgical changes, some volume loss. ASSESSMENT: 1. No new infiltrate reported as well as acute ( ) per gram-negative organism, multilevel, present on admission with severe sepsis, now clinically improved. 2. Non-small cell lung cancer, patient did receive chemotherapy, Status post and radiation treatment, is getting the same. 3. 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 4. Gastroesophageal reflux disease. 5. Essential hypertension. 6. Acute chronic obstructive pulmonary disease exacerbation in a smoker. 7. Status post PEG tube placement for severe dysphagia. 8. Paroxysmal atrial fibrillation PLAN: Contribute current medication and treatment plan. Discussed with Dr. Mehta. Okay to discontinue antibiotics. Pain control is in place. DIET: Feeding through the PEG tube, is to be advanced per Surgery. Overall prognosis guarded.
[2016-05-30 11:05] LABS: Glucose,Whole Blood 134 mg/dL (75-99)
--- NOTE | 2016-05-30 11:30 | P.PN ---
Subjective 51-year-old male who has a history of prior nicotine dependence was having difficulties in the past. 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 He constantly has undergone chemotherapy and radiation. Recently was having great difficulties with recurrent pneumonia and evidence of aspiration. 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 As he was taken to the operating room and a stent was placed In the esophagus. The post procedure chest x-ray that was done shows some improvement in aeration of the left lung base. There is still some consolidation of the left lower lobe. The esophageal stent looks in a good location. Currently the patient is afebrile. The patient is hemodynamically stable. The patient is on IV antibiotics. The patient is hoarse related to the vocal cord paralysis. No nausea. No vomiting. No abdominal pain. The patient is completing radiation therapy did speak offered to him through radiation oncology. Otherwise, no other significant events overnight. The patient is seen again today 05/30/2016 on the oncology unit. He is awake and alert in no acute distress. He did receive PEG tube placement on 2016. He is currently receiving Jevity 1.5 at 30 MLS per hour. His goal is 60 MLS per hour with a total volume of 1440 per day. He is also receiving free water boluses every 4 hours. He remains on PPN and lipids until goal achieved. His voice remains hoarse. He still has issues with bringing up excess phlegm. 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 Yesterday's chest x-ray revealed overall stable findings with left-sided surgical changes and volume loss with chronic left basilar scarring and/or consolidation and right basilar linear scarring or atelectasis. No new focal infiltrates were noted. He is maintaining O2 saturations in the low 90s on room air. He's been afebrile. His Zosyn has been discontinued per infectious disease. Objective - Vital Signs Vital signs: Vital Signs Temp 98.5 F 05/30/16 07:00 Pulse 106 H 05/30/16 07:00 Resp 20 05/30/16 07:00 BP 131/68 05/30/16 07:00 Pulse Ox 93 L 05/30/16 07:00 Intake & Output 05/29/16 05/30/16 05/30/16 18:59 06:59 18:59 Output Total 376 400 Balance -376 -400 Weight 75.3 kg 75 kg Output: Drainage 375 Abdomen 375 Urine 1 400 Other: Voiding Method Toilet Toilet Urinal Urinal # Voids 3 - Exam Head exam was generally normal. There was no scleral icterus or corneal arcus. Mucous membranes were moist.Neck was supple and without jugular venous distension, thyromegaly, or carotid bruits. Carotids were easily palpable bilaterally. There was no adenopathy. Lung sounds are diminished in the left lung base compared to the right.Cardiac exam revealed the PMI to be normally situated and sized. The rhythm was regular and no extrasystoles were noted during several minutes of auscultation. The first and second heart sounds were normal and physiologic splitting of the second heart sound was noted. There were no murmurs, rubs, clicks, or gallops.Abdominal exam revealed normal bowel sounds. The abdomen was soft, non-tender, and without masses, organomegaly, or appreciable enlargement of the abdominal aorta. Examination of the extremities revealed easily palpable radial, femoral and pedal pulses. There was no cyanosis , clubbing or edema. - Labs CBC & Chem 7: 05/30/16 07:44 05/30/16 07:44 Labs: Abnormal Lab Results - Last 24 Hours (Table) 05/29/16 05/29/16 05/29/16 Range/Units 12:12 17:37 23:51 RBC (4.30-5.90) m/uL Hgb (13.0-17.5) gm/dL Hct (39.0-53.0) % Lymphocytes # (1.0-4.8) k/uL Sodium (137-145) mmol/L Chloride (98-107) mmol/L Creatinine (0.66-1.25) mg/dL Glucose (74-99) mg/dL POC Glucose (mg/dL) 131 H 114 H 104 H (75-99) mg/dL 05/30/16 05/30/16 05/30/16 Range/Units 06:00 07:44 07:44 RBC 3.72 L (4.30-5.90) m/uL Hgb 11.5 L (13.0-17.5) gm/dL Hct 33.9 L (39.0-53.0) % Lymphocytes # 0.3 L (1.0-4.8) k/uL Sodium 135 L (137-145) mmol/L Chloride 95 L (98-107) mmol/L Creatinine 0.50 L (0.66-1.25) mg/dL Glucose 118 H (74-99) mg/dL POC Glucose (mg/dL) 114 H (75-99) mg/dL 05/30/16 Range/Units 11:02 RBC (4.30-5.90) m/uL Hgb (13.0-17.5) gm/dL Hct (39.0-53.0) % Lymphocytes # (1.0-4.8) k/uL Sodium (137-145) mmol/L Chloride (98-107) mmol/L Creatinine (0.66-1.25) mg/dL Glucose (74-99) mg/dL POC Glucose (mg/dL) 134 H (75-99) mg/dL Assessment and Plan Plan: Assessment 1 locally advanced non-small cell lung cancer of a squamous cell type. 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 The patient has undergone placement of an esophageal stent 3 left lower lobe pneumonia recovered IV Zosyn discontinued 4 left vocal cord paralysis with secondary hoarseness 5 paroxysmal defibrillation currently rhythm is sinus 6 hypertension 7 leukopenia improved white cell count of 6.2 8 hypokalemia, replaced 9 persistent difficulty with swallowing, and the patient is status post PEG tube insertion. Receiving Jevity 1.5 at 30 MLS per hour with a goal of 60 MLS per hour. 10 PPN for nutritional support until at goal. Plan: The patient was seen and evaluated by Dr. Garcia. He is stable from the pulmonary standpoint. His chest x-ray is stable. We'll continue to follow and make further recommendations based on his clinical status.
--- NOTE | 2016-05-30 15:10 | P.PN ---
Subjective 51-year-old male patient being seen with the surgeon this morning on rounds patient up ambulating in the room. Patient is status post PEG tube placement on May 28 for nutritional support. The surgeon Dr. duncan changed the dressing at the J-tube site. No redness noted around the site Currently the TPN is being weaned off will be stopped when the Jevity has reached goal 60 mL' s per minute total volume 1440 patient does report having an episode this morning where he did vomit what appeared to be bile . Patient continues to have difficulty bringing up excessive phlegm. Patient has a history of esophageal cancer status post esophageal stent placed on 05/18/2016 in which he patient developed a tracheoesophageal fistula following radiation treatment for the left lung cancer currently patient being followed by pulmonology chest x- ray done the day before shows no new infiltrates noted sats are greater than 90 % on room air Objective - Vital Signs Vital signs: Vital Signs Temp 98.5 F 05/30/16 07:00 Pulse 106 H 05/30/16 07:00 Resp 20 05/30/16 07:00 BP 131/68 05/30/16 07:00 Pulse Ox 93 L 05/30/16 07:00 Intake & Output 05/29/16 05/30/16 05/30/16 18:59 06:59 18:59 Output Total 376 400 Balance -376 -400 Weight 75.3 kg 75 kg Output: Drainage 375 Abdomen 375 Urine 1 400 Other: Voiding Method Toilet Toilet Toilet Urinal Urinal Urinal # Voids 3 - Exam Physical exam 51-year-old male up ambulating in the room. TPN is being weaned off Jevity tube feeds are being tolerated Lungs coarse rhonchi throughout left base greater than the right Heart S1-S2 audible regular Abdomen soft nontender bowel tones present and states no stool did have an episode early this morning patient stated he vomited what appeared to be bile. The dressing was changed at the PEG tube site no drainage no redness noted Extremities no edema noted - Labs CBC & Chem 7: 05/30/16 07:44 05/30/16 07:44 Labs: Abnormal Lab Results - Last 24 Hours (Table) 05/29/16 05/29/16 05/30/16 Range/Units 17:37 23:51 06:00 RBC (4.30-5.90) m/uL Hgb (13.0-17.5) gm/dL Hct (39.0-53.0) % Lymphocytes # (1.0-4.8) k/uL Sodium (137-145) mmol/L Chloride (98-107) mmol/L Creatinine (0.66-1.25) mg/dL Glucose (74-99) mg/dL POC Glucose (mg/dL) 114 H 104 H 114 H (75-99) mg/dL 05/30/16 05/30/16 05/30/16 Range/Units 07:44 07:44 11:02 RBC 3.72 L (4.30-5.90) m/uL Hgb 11.5 L (13.0-17.5) gm/dL Hct 33.9 L (39.0-53.0) % Lymphocytes # 0.3 L (1.0-4.8) k/uL Sodium 135 L (137-145) mmol/L Chloride 95 L (98-107) mmol/L Creatinine 0.50 L (0.66-1.25) mg/dL Glucose 118 H (74-99) mg/dL POC Glucose (mg/dL) 134 H (75-99) mg/dL Assessment and Plan Plan: Impression Non-small cell lung cancer with a recent tracheoesophageal fistula status post stent placement Unable to tolerate diet without regurgitation increased risk of aspiration Persistent intermittent episodes of nausea vomiting Leukopenia due to antineoplastic chemotherapy Protein calorie malnutrition moderate with a low pre-albumin and weight loss greater than 20% suspect due to poor caloric intake adequate oral nutritional intake Recurrent aspiration pneumonia Gastroesophageal reflux disease Remote history of nicotine dependency Paroxysmal atrial fibrillation current sinus rhythm no anticoagulation per cardiology service Physical debility due to chronic illness Status post G-tube placement for nutritional support Plan Tube feeds started 10 mL an hour titrate to meet goal once goal has been achieved TPN can be stopped Continue with parenteral nutrition Continue with GI prophylaxis No further surgical intervention warranted at this time we'll sign off and reevaluate on an as-needed basis The above dictated assessment and findings were discussed with dr dakota Flores and the plan of care have been dictated as directed. Pearl Muir nurse practitioner acting as a scribe for dr marinelli
[2016-05-30 17:17] LABS: Glucose,Whole Blood 101 mg/dL (75-99)
--- NOTE | 2016-05-30 17:26 | P.OP ---
Date of Procedure: 05/28/16 Preoperative Diagnosis: Lung cancer Tracheoesophageal fistula status post stent placement Dysphagia Malnutrition secondary to poor oral intake-unknown severity Postoperative Diagnosis: Same Procedure(s) Performed: Laparoscopic gastric tube placement Anesthesia: INGE local Surgeon: Mara Hanson Business Records Manager #1: Mimi Perez Pathology: none sent Condition: stable Disposition: PACU Indications for Procedure: 51 years old male status post esophageal stent placement for tracheoesophageal fistula presenting with poor oral intake and malnutrition. Informed consent obtained and patient elected to undergo laparoscopic feeding G-tube placement possible open. Operative Findings: Laparoscopic G-tube placement using T-fasteners and Seldinger technique Description of Procedure: The patient was brought to the operating room and placed in supine position with both arms out. General anesthesia with endotracheal intubation was performed as per anesthesia team. Chlorhexidine was used to prep the abdomen followed by application of sterile drapes. A timeout was performed to verify correct patient and correct procedure. Patient was confirmed to receive perioperative IV antibiotics , heparin 5000 units subcutaneous injection and bilateral SCDs were placed. A 5 mm skin incision was made below the left costal margin at the anterior axillary line. A Veress needle was inserted and pneumoperitoneum was established to a pressure of 15 mmHg. A 5 mm Optiview trocar was loaded on a 5 mm 30 laparoscope and the peritoneal cavity was entered under direct vision using the Optiview technique. Additional 5 mm trocar was placed in the supraumbilical location and another 5 mm trocars along the right upper abdomen. The left 5 mm trocar was upsized to 10mm. The patient was placed in reverse Trendelenburg with right side up. The abdominal cavity was inspected. No evidence of liver deposits. The stomach was identified. The greater epiploic vessels were taken using laparoscopic LigaSure device. The stomach was freed up so that it frequently reaches the anterior abdominal wall. Four T-fasteners were placed through the subcutaneous tissue into the gastric lumen and were pulled up to oppose the anterior surface of the stomach against the anterior abdominal wall. A 0.5 cm skin incision was made and the access needle was inserted into the gastric lumen followed by the glidewire using the Seldinger technique. The dilator peel -away sheath was then inserted into the gastric lumen. The feeding tube was inserted after removing the dilators into the gastric lumen and the balloon was inflated with 5 mL of saline. Diluted methylene blue was injected through the end of the catheter which showed no extravasation. T-fasteners were clamped down .The pneumoperitoneum was evacuated and all the trocars were removed. The feeding tube was connected to a christiansen bar. Local anesthetic was infiltrated along the trocar sites and incisions were closed using 4-0 Monocryl followed by application of Dermabond skin glue. The sponge, instrument and needle count were correct x2. Patient was extubated and taken to post anesthesia care unit in stable condition.
--- NOTE | 2016-05-30 17:33 | PN ---
DATE OF SERVICE: 05/30/2016 PRESENTING COMPLAINT: Tired. INTERVAL HISTORY: This is a patient with xnd-[id number]-rdaw lung cancer who did get chemotherapy, now getting radiation treatment. Treated for multi-lobar pneumonia with sepsis-like picture. Antibiotics are now stopped. Patient also did get bronchoscopy, and paroxysmal atrial fibrillation. Patient also had a stent placement, esophageal tracheal fistula. Patient is getting tube feeding through a G-tube that was placed. Pain is getting better controlled. Patient's is at the bedside. Review of systems done for constitutional, cardiovascular, GI, pulmonary; relevant findings as above. Current medications are reviewed that include Zosyn being discontinued. Patient's parenteral nutrition was also discontinued. On examination, temperature 98.5, pulse 100, respiration 20, blood pressure 139/68, pulse ox 93% on room air. GENERAL APPEARANCE: Sitting up on bed. Tired-appearing. EYES: Pupils equal. Conjunctivae pale. NECK: JVD not raised. Mass not palpable. RESPIRATORY: Effort normal. LUNGS: Decreased breath sounds. CARDIOVASCULAR: First and second sounds normal. No edema. ABDOMEN: Soft. Some tenderness. Feeding tube in place. PSYCHIATRY: Alert and oriented x3. Mood and affect normal. INVESTIGATIONS: White count 6.2, hemoglobin 11.5. Potassium 4.6. BUN 17, creatinine 0.5. ASSESSMENT: 1. Multi-lobar pneumonia, bilateral; suspect Gram-negative organism, present on admission with severe sepsis, now improved. 2. Lob-nluhi-zcor lung cancer. Patient did get chemotherapy. Getting radiation treatment. 3. 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 Wu. 4. Gastroesophageal reflux disease. 5. Essential hypertension. 6. Acute chronic obstructive pulmonary disease exacerbation in a smoker, improved. 7. Paroxysmal atrial fibrillation. 8. G-tube in place for feeding. PLAN: Care was discussed with the patient and his . Looking at discharge planning in the next 24 to 48 hours. Will discontinue patient's Lasix and potassium supplement. Will follow.
[2016-05-30] MEDS: HYDROcodone/APAP 15 ML SOLUTION PO PRN (19:19)
[2016-05-30] MEDS: PROCHLORPERAZINE SUPPOSITORY 25 MG SUPP RECTAL PRN (19:52)
[2016-05-30] MEDS: LACTATED RINGERS 1,000 ML IV SCH (19:52)
--- NOTE | 2016-05-30 22:38 | P.PN ---
Subjective Principal diagnosis: Pneumonia Extremely pleasant 51-year-old male who has a history of prior nicotine dependence was having difficulties in the past. 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 He constantly has undergone chemotherapy and radiation. Recently was having great difficulties with recurrent pneumonia and evidence of aspiration. 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 As he was taken to the operating room and a stent was placed. Since that he is doing somewhat better. His chest is starting to clear a little bit and he is swallowing some liquids and full liquids without difficulties except he is having an occasional episode of emesis. It has been inconsistent based on food texture in quality. It has further improved today Feeling better today. Not having any further fever chill rigor or sweats. His cough is improving. His discomfort from the procedure is also improving. Patient however developed evidence of significant change in his status and was found evidence of atrial fibrillation with a rapid ventricular response. He's been treated with the Cardizem and has improved. Did relatively well today. Ate some ice cream tonight and started to have some further emesis as he did this morning. Has been seen by gastroenterology, with the esophageal stent there is concern about the inability to pass the scope through the stent. Gastroneurology and general surgery have now consulted. The percutaneous gastrostomy tube is now been placed by surgery. Now receiving feedings at 40 mls an hour. Is complaining of increased amounts of regurgitation. Objective - Vital Signs Vital signs: Vital Signs Temp 98 F 05/30/16 15:00 Pulse 99 05/30/16 15:00 Resp 18 05/30/16 15:00 BP 129/70 05/30/16 15:00 Pulse Ox 94 L 05/30/16 15:00 Intake & Output 05/30/16 05/30/16 05/31/16 06:59 18:59 06:59 Intake Total 240 80 Output Total 400 Balance -400 240 80 Weight 75 kg Intake: IV 80 D5-0.9% NaCl with KCl 40 80 Meq/l 1,000 ml @ 20 mls/ hr IV .Q24H [facility] [place] Rx#: [id number] Tube Feeding 240 Output: Urine 400 Other: Voiding Method Toilet Toilet Urinal Urinal - Exam Pleasant 51-year-old male in no acute distress. Feeling better than earlier HEENT: Anicteric conjunctiva are pink and moist nasal mucosa grossly intact without significant lesions, there is no thrush. Neck: The neck is supple without significant lymphadenopathy or thyromegaly. Lungs: There is symmetrical air entry. However there are crackles and bronchial sounds in the left base. Few expiratory wheezes are heard. Right chest is rather clear. Heart: Regular with an audible S1-S2, no S3 no S4. There is no significant murmur click or rub, PMI was nondisplaced. Abdomen: Positive bowel sounds soft and nontender without palpable masses or organomegaly. There was no guarding or rebound. Percutaneous feeding tube is in place no longer to drainage is receiving tube feed Extremities: The upper extremities have excellent pulses they are symmetric, no significant petechiae or telangiectasia. No splinter hemorrhages were noted. The lower extremities are free from significant edema. The peripheral pulses were 2+ and symmetric. Neuro: Awake alert oriented to person place and time. There are no acute new gross focal sensory motor deficits. - Labs CBC & Chem 7: 05/30/16 07:44 05/30/16 07:44 Labs: Abnormal Lab Results - Last 24 Hours (Table) 05/29/16 05/30/16 05/30/16 Range/Units 23:51 06:00 07:44 RBC (4.30-5.90) m/uL Hgb (13.0-17.5) gm/dL Hct (39.0-53.0) % Lymphocytes # (1.0-4.8) k/uL Sodium 135 L (137-145) mmol/L Chloride 95 L (98-107) mmol/L Creatinine 0.50 L (0.66-1.25) mg/dL Glucose 118 H (74-99) mg/dL POC Glucose (mg/dL) 104 H 114 H (75-99) mg/dL 05/30/16 05/30/16 05/30/16 Range/Units 07:44 11:02 17:16 RBC 3.72 L (4.30-5.90) m/uL Hgb 11.5 L (13.0-17.5) gm/dL Hct 33.9 L (39.0-53.0) % Lymphocytes # 0.3 L (1.0-4.8) k/uL Sodium (137-145) mmol/L Chloride (98-107) mmol/L Creatinine (0.66-1.25) mg/dL Glucose (74-99) mg/dL POC Glucose (mg/dL) 134 H 101 H (75-99) mg/dL Laboratory Results WBC 6.2 k/uL (3.8-10.6) 05/30/16 07:44 RBC 3.72 m/uL (4.30-5.90) L 05/30/16 07:44 Hgb 11.5 gm/dL (13.0-17.5) L 05/30/16 07:44 Hct 33.9 % (39.0-53.0) L 05/30/16 07:44 MCV 91.0 fL (80.0-100.0) 05/30/16 07:44 MCH 31.0 pg (25.0-35.0) 05/30/16 07:44 MCHC 34.0 g/dL (31.0-37.0) 05/30/16 07:44 RDW 12.7 % (11.5-15.5) 05/30/16 07:44 Plt Count 330 k/uL (150-450) 05/30/16 07:44 Neutrophils % 84 % 05/30/16 07:44 Neutrophils % (Manual) 39.0 % 05/21/16 05:51 Lymphocytes % 5 % 05/30/16 07:44 Lymphocytes % (Manual) 33.0 % 05/21/16 05:51 Monocytes % 6 % 05/30/16 07:44 Monocytes % (Manual) 25.0 % 05/21/16 05:51 Eosinophils % 1 % 05/30/16 07:44 Eosinophils % (Manual) 1.0 % 05/21/16 05:51 Basophils % 0 % 05/30/16 07:44 Basophils % (Manual) 2.0 % 05/21/16 05:51 Neutrophils # 5.2 k/uL (1.3-7.7) 05/30/16 07:44 Neutrophils # (Manual) 0.5 k/uL (1.3-7.7) L 05/21/16 05:51 Lymphocytes # 0.3 k/uL (1.0-4.8) L 05/30/16 07:44 Lymphocytes # (Manual) 0.4 k/uL (1.0-4.8) L 05/21/16 05:51 Monocytes # 0.4 k/uL (0-1.0) 05/30/16 07:44 Monocytes # (Manual) 0.3 k/uL (0-1.0) 05/21/16 05:51 Eosinophils # 0.1 k/uL (0-0.7) 05/30/16 07:44 Eosinophils # (Manual) 0.0 k/uL (0-0.7) 05/21/16 05:51 Basophils # 0.0 k/uL (0-0.2) 05/30/16 07:44 Basophils # (Manual) 0.0 k/uL (0-0.2) 05/21/16 05:51 Nucleated RBCs 0 /100 WBC (0-0) 05/21/16 05:51 Manual Slide Review Performed 05/21/16 05:51 Poikilocytosis (manual Present 05/21/16 05:51 PT 11.2 sec (9.0-12.0) 05/25/16 06:15 INR 1.1 (<1.1) 05/25/16 06:15 APTT 36.9 sec (22.0-30.0) H 05/25/16 06:15 Sodium 135 mmol/L (137-145) L 05/30/16 07:44 Potassium 4.6 mmol/L (3.5-5.1) 05/30/16 07:44 Chloride 95 mmol/L (98-107) L 05/30/16 07:44 Carbon Dioxide 30 mmol/L (22-30) 05/30/16 07:44 Anion Gap 10 mmol/L 05/30/16 07:44 BUN 17 mg/dL (9-20) 05/30/16 07:44 Creatinine 0.50 mg/dL (0.66-1.25) L 05/30/16 07:44 Est GFR (MDRD) Af Amer >60 (>60 ml/min/1.73 sqM) 05/30/16 07:44 Est GFR (MDRD) Non-Af >60 (>60 ml/min/1.73 sqM) 05/30/16 07:44 Glucose 118 mg/dL (74-99) H 05/30/16 07:44 POC Glucose (mg/dL) 101 mg/dL (75-99) H 05/30/16 17:16 POC Glu [employer] Shirley Madrigal 05/30/16 17:[address] Glu mg/dL 128 mg/dL 05/25/16 06:15 Hemoglobin A1c 6.1 % (4.2-6.1) 05/25/16 06:15 Plasma Lactic Acid Ty 1.0 mmol/L (0.7-2.0) 05/15/16 02:40 Calcium 9.3 mg/dL (8.4-10.2) 05/30/16 07:44 Ionized Calcium Kianna 4.8 mg/dL (4.5-5.3) 05/25/16 06:15 Phosphorus 4.1 mg/dL (2.5-4.5) 05/30/16 07:44 Magnesium 1.9 mg/dL (1.6-2.3) 05/30/16 07:44 Total Bilirubin 0.7 mg/dL (0.2-1.3) 05/14/16 23:55 AST 19 U/L (17-59) 05/14/16 23:55 ALT 30 U/L (21-72) 05/14/16 23:55 Alkaline Phosphatase 79 U/L (38-126) 05/14/16 23:55 Total Protein 7.3 g/dL (6.3-8.2) 05/14/16 23:55 Albumin 4.2 g/dL (3.5-5.0) 05/14/16 23:55 Prealbumin 9 mg/dL (18-36) L 05/23/16 06:55 Triglycerides 86 mg/dL (<150) 05/24/16 15:10 Amylase 68 U/L (30-110) 05/14/16 23:55 Lipase 23 U/L (23-300) 05/14/16 23:55 TSH 4.290 mIU/L (0.465-4.680) 05/19/16 06:43 Free T4 1.34 ng/dL (0.78-2.19) 05/19/16 06:43 Urine Color Yellow 05/14/16 23:55 Urine Appearance Clear (Clear) 05/14/16 23:55 Urine pH 6.0 (5.0-8.0) 05/14/16 23:55 Ur Specific [place] 1.025 (1.001-1.035) 05/14/16 23:55 Urine Protein Trace (Negative) H 05/14/16 23:55 Urine Glucose (UA) Trace (Negative) H 05/14/16 23:55 Urine Ketones 1+ (Negative) H 05/14/16 23:55 Urine Blood Negative (Negative) 05/14/16 23:55 Urine Nitrite Negative (Negative) 05/14/16 23:55 Urine Bilirubin Negative (Negative) 05/14/16 23:55 Urine Urobilinogen 2.0 mg/dL (<2.0) 05/14/16 23:55 Ur Leukocyte Esterase Negative (Negative) 05/14/16 23:55 Influenza Type A RNA Not Detected (Not Detectd) 05/15/16 02:50 Influenza Type B (PCR) Not Detected (Not Detectd) 05/15/16 02:50 Microbiology 05/15/16 02:40 Blood Blood Culture - Final No Growth after 144 hours 05/15/16 17:05 Sputum Gram Stain - Final 05/15/16 17:05 Sputum Sputum Culture - Final Assessment and Plan (1) Squamous cell carcinoma lung Narrative/Plan: Pleasant 51-year-old male presents to hospital with difficulties with ongoing nausea with emesis associated with increasing cough and shortness of breath. The patient related every time he was trying to eat or drink he could tell that some was going into his longest he would cough so much. He was then taken to the operating room and the esophageal tracheal fistula was found and a stent was placed. Since the stent was placed he is having further improvment. He is having less cough. In doing much better. He had transient fever that is now improved. Does have the x-ray findings of the left lower lobe pneumonia. Antibiotic therapy is being utilized with Zosyn which is an excellent choice for his significant aspiration and multiple medical procedures. Does not need to broaden at this point in time. He is without fever and improving. Any change would then necessitate addition of antifungal therapy. The patient however is coming to the tavo of his chemotherapy effect and there is some notation of some increasing leukopenia and thrombocytopenia. The prior aspiration pneumonias been well treated. The Zosyn is discontinued today. His percutaneous gastrostomy tube is in place. He is now receiving some feeding and may be having some difficulties with regurgitation. Request has been made to the primary service to consider reducing his rate of fluid feeding . Oncology is following closely. Status: Acute (2) Tracheo-esophageal fistula Status: Acute (3) Recurrent aspiration pneumonia Status: Acute
[2016-05-31 00:22] LABS: Glucose,Whole Blood 125 mg/dL (75-99)
[2016-05-31] MEDS: INSULIN LISPRO (humaLOG) 300 UNIT/3 ML VIAL SQ SCH ×4 (00:24→19:31)
[2016-05-31] MEDS: ONDANSETRON 4 MG/2 ML VIAL IVP PRN ×2 (01:07→05:20)
[2016-05-31] MEDS: HYDROcodone/APAP 15 ML SOLUTION PO PRN ×3 (01:07→09:32)
[2016-05-31 06:02] LABS: Glucose,Whole Blood 132 mg/dL (75-99)
[2016-05-31 08:18] LABS: Basophils % (A) 0 %; CH 30.4; CHCM 32.3; Eosinophils # (A) 0.1 k/uL (0-0.7); Eosinophils % (A) 1 %; HCT 36.9 % (39.0-53.0); HDW 2.96; HGB 11.4 gm/dL (13.0-17.5); Luc # (Auto) 0.23; Luc % (Auto) 3; Lymphocytes # (A) 0.5 k/uL (1.0-4.8); Lymphocytes % (A) 6 %; MCH 29.4 pg (25.0-35.0); MCV 94.6 fL (80.0-100.0); Monocytes # (A) 0.5 k/uL (0-1.0); Monocytes % (A) 6 %; Neutrophils # (A) 6.5 k/uL (1.3-7.7); Neutrophils % (A) 83 %; RDW 13.2 % (11.5-15.5); WBC 7.8 k/uL (3.8-10.6); WBC (Perox) 8.31
[2016-05-31 08:40] LABS: Anion Gap 12 mmol/L; Blood Urea Nitrogen 22 mg/dL (9-20); Calcium 9.5 mg/dL (8.4-10.2); Carbon Dioxide 30 mmol/L (22-30); Chloride 98 mmol/L (98-107); Glucose 117 mg/dL (74-99); Non-African American GFR(MDRD) >60 (>60 ml/min/1.73 sqM); Phosphorous 4.3 mg/dL (2.5-4.5); Potassium 4.7 mmol/L (3.5-5.1); Sodium 140 mmol/L (137-145)
[2016-05-31] MEDS: IPRATROPIUM-ALBUTEROL 3 ML NEB INHALATION SCH ×4 (08:53→20:43)
[2016-05-31] MEDS: METOPROLOL TARTRATE 25 MG TAB PO SCH ×2 (09:23→21:13)
[2016-05-31] MEDS: LISINOPRIL 5 MG TAB PO SCH ×2 (09:24→21:12)
[2016-05-31] MEDS: HEPARIN SODIUM,PORCINE 5,000 UNIT/ML 1 ML VIAL SQ SCH ×2 (09:24→20:51)
[2016-05-31] MEDS: PROCHLORPERAZINE SUPPOSITORY 25 MG SUPP RECTAL PRN (09:33)
[2016-05-31 12:07] LABS: Glucose,Whole Blood 114 mg/dL (75-99)
--- NOTE | 2016-05-31 13:10 | P.EN ---
51 yrs old male with tracheoesophageal fistula S/P laparoscopic G tube placement on 05/28/16 ( 3 days ago) . He has been receiving tube feeds via the tube for last 2 days without any problems. Nursing staff noted that a 60 cc syringe could not be used to flush the tube and hence notified the production supply equipment tender. The rep in turn notified that it was the sizer and not the actual feeding tube. The sizer looks like a feeding tube with an inflatable balloon. The rep recommended to exchange it at bedside . I am concerrned that the feeding tube track has not matured in 2 days ( takes atleast 10-14 days) and blindly exchanging the tube may lead to false passage. I explained that to the patient. Nurse and Mira Wilkins from risk management present during my conversation. Plan for tube exchange using guidewire and injection of contrast through the tube to confirm the correct intragastric position of the tube. Patient requested that to be done under sedation. Hence, scheduled for OR to have G tube exchange over guidewire under fluoroscopic guidance. If false track is created or unsuccessful at reinserting the tube , will proceed with laparoscopic or open G tube insertion. The lap G tube kit which was used during this surgery is apparently different from prior lap G tube kit from the same manufacturing test technician. I was not notified of the change in product contents nor any inservice provided to OR staff or myself. Discussed with grocery store manager, risk management and root cause analysis will be performed.
--- NOTE | 2016-05-31 13:13 | P.PN ---
Subjective Principal diagnosis: Intractable vomiting Patient is seen today in follow-up. He has PEG placed, feeding is at goal of 60cc/hour. He continues to have congested cough with copious, thick sputum, he does not take in any food or liquids orally. His abd is less tender then yesterday, he is ambulating, had a BM 2 days ago. Objective - Vital Signs Vital signs: Vital Signs Temp 98.7 F 05/31/16 07:00 Pulse 97 05/31/16 07:00 Resp 22 05/31/16 07:00 BP 96/52 05/31/16 07:00 Pulse Ox 95 05/31/16 07:00 Intake & Output 05/30/16 05/31/16 05/31/16 18:59 06:59 18:59 Intake Total 240 1860 Balance 240 1860 Weight 75 kg Intake: IV 240 D5-0.9% NaCl with KCl 40 240 Meq/l 1,000 ml @ 20 mls/ hr IV .Q24H [facility] Rx#: [id number] Tube Feeding 240 420 Other 1200 Other: Voiding Method Toilet Toilet Urinal - Constitutional General appearance: Present: average body habitus, cooperative - Respiratory Respiratory: bilateral: CTA - Cardiovascular Heart sounds: normal: S1, S2 - Peripheral edema leg Peripheral Edema: bilateral: Trace - Gastrointestinal General gastrointestinal: Present: normal bowel sounds, soft - Integumentary Integumentary: Present: pale - Neurologic Neurologic: Present: CNII-XII intact - Musculoskeletal Musculoskeletal: Present: strength equal bilaterally - Psychiatric Psychiatric: Present: A&O x's 3, appropriate affect, intact judgment & insight - Labs CBC & Chem 7: 05/31/16 07:29 05/31/16 07:29 Labs: Abnormal Lab Results - Last 24 Hours (Table) 05/30/16 05/31/16 05/31/16 Range/Units 17:16 00:05 05:57 RBC (4.30-5.90) m/uL Hgb (13.0-17.5) gm/dL Hct (39.0-53.0) % Lymphocytes # (1.0-4.8) k/uL BUN (9-20) mg/dL Creatinine (0.66-1.25) mg/dL Glucose (74-99) mg/dL POC Glucose (mg/dL) 101 H 125 H 132 H (75-99) mg/dL 05/31/16 05/31/16 05/31/16 Range/Units 07:29 07:29 12:04 RBC 3.90 L (4.30-5.90) m/uL Hgb 11.4 L (13.0-17.5) gm/dL Hct 36.9 L (39.0-53.0) % Lymphocytes # 0.5 L (1.0-4.8) k/uL BUN 22 H (9-20) mg/dL Creatinine 0.58 L (0.66-1.25) mg/dL Glucose 117 H (74-99) mg/dL POC Glucose (mg/dL) 114 H (75-99) mg/dL Assessment and Plan (1) Squamous cell carcinoma lung Narrative/Plan: Pt has been continuing on with radiation, missing only a few treatments over his 16 day hospitalization. He is due for his final week of chemo next week but he is not feeling up to it, he would like to get out of the hospital and have a week to recover. Chemo will be postponed, he will f/u and be evaluated prior to any chemo treatment. Status: Acute (2) Intractable nausea and vomiting Narrative/Plan: Pt NPO, PEG feedings initiated, no current symptoms. Status: Acute (3) Tracheo-esophageal fistula Narrative/Plan: S/P stent placement. Placement did not allow for pt to tolerate oral intake, he continues to have to expectorate his secretions. His cough is strong enough that he is able expectorate bronchial Status: Acute (4) Pancytopenia due to antineoplastic chemotherapy Narrative/Plan: Resolved Status: Acute Plan: If pt is at goal for feeding, has home care in place and control over symptoms he is ok from a Oncology standpoint to be discharged to home.
--- NOTE | 2016-05-31 15:11 | P.PN ---
Subjective 51-year-old male who has a history of prior nicotine dependence was having difficulties in the past. 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 He constantly has undergone chemotherapy and radiation. Recently was having great difficulties with recurrent pneumonia and evidence of aspiration. 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 As he was taken to the operating room and a stent was placed In the esophagus. The post procedure chest x-ray that was done shows some improvement in aeration of the left lung base. There is still some consolidation of the left lower lobe. The esophageal stent looks in a good location. Currently the patient is afebrile. The patient is hemodynamically stable. The patient is on IV antibiotics. The patient is hoarse related to the vocal cord paralysis. No nausea. No vomiting. No abdominal pain. The patient is completing radiation therapy did speak offered to him through radiation oncology. Otherwise, no other significant events overnight. The patient is seen again today 05/30/2016 on the oncology unit. He is awake and alert in no acute distress. He did receive PEG tube placement on 2016. He is currently receiving Jevity 1.5 at 30 MLS per hour. His goal is 60 MLS per hour with a total volume of 1440 per day. He is also receiving free water boluses every 4 hours. He remains on PPN and lipids until goal achieved. His voice remains hoarse. He still has issues with bringing up excess phlegm. 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 Yesterday's chest x-ray revealed overall stable findings with left-sided surgical changes and volume loss with chronic left basilar scarring and/or consolidation and right basilar linear scarring or atelectasis. No new focal infiltrates were noted. He is maintaining O2 saturations in the low 90s on room air. He's been afebrile. His Zosyn has been discontinued per infectious disease. The patient is seen again today 05/31/2016 in follow-up on the oncology floor. He is awake and alert in no acute distress. The plan for today is to change out his PEG tube. He was hoping to go home today. He is stronger and denies any worsening shortness of breath, cough or congestion. He's been up ambulating in his room. He is maintaining good O2 saturations in the 90s on room air. Objective - Vital Signs Vital signs: Vital Signs Temp 98.7 F 05/31/16 07:00 Pulse 97 05/31/16 07:00 Resp 22 05/31/16 07:00 BP 96/52 05/31/16 07:00 Pulse Ox 95 05/31/16 07:00 Intake & Output 05/30/16 05/31/16 05/31/16 18:59 06:59 18:59 Intake Total 240 1860 Balance 240 1860 Weight 75 kg Intake: IV 240 D5-0.9% NaCl with KCl 40 240 Meq/l 1,000 ml @ 20 mls/ hr IV .Q24H [facility] Rx#: [id number] Tube Feeding 240 420 Other 1200 Other: Voiding Method Toilet Toilet Urinal - Exam Head exam was generally normal. There was no scleral icterus or corneal arcus. Mucous membranes were moist.Neck was supple and without jugular venous distension, thyromegaly, or carotid bruits. Carotids were easily palpable bilaterally. There was no adenopathy. Lung sounds are diminished in the left lung base compared to the right.Cardiac exam revealed the PMI to be normally situated and sized. The rhythm was regular and no extrasystoles were noted during several minutes of auscultation. The first and second heart sounds were normal and physiologic splitting of the second heart sound was noted. There were no murmurs, rubs, clicks, or gallops.Abdominal exam revealed normal bowel sounds. The abdomen was soft, non-tender, and without masses, organomegaly, or appreciable enlargement of the abdominal aorta. Examination of the extremities revealed easily palpable radial, femoral and pedal pulses. There was no cyanosis , clubbing or edema. - Labs CBC & Chem 7: 05/31/16 07:29 05/31/16 07:29 Labs: Abnormal Lab Results - Last 24 Hours (Table) 05/30/16 05/31/16 05/31/16 Range/Units 17:16 00:05 05:57 RBC (4.30-5.90) m/uL Hgb (13.0-17.5) gm/dL Hct (39.0-53.0) % Lymphocytes # (1.0-4.8) k/uL BUN (9-20) mg/dL Creatinine (0.66-1.25) mg/dL Glucose (74-99) mg/dL POC Glucose (mg/dL) 101 H 125 H 132 H (75-99) mg/dL 05/31/16 05/31/16 05/31/16 Range/Units 07:29 07:29 12:04 RBC 3.90 L (4.30-5.90) m/uL Hgb 11.4 L (13.0-17.5) gm/dL Hct 36.9 L (39.0-53.0) % Lymphocytes # 0.5 L (1.0-4.8) k/uL BUN 22 H (9-20) mg/dL Creatinine 0.58 L (0.66-1.25) mg/dL Glucose 117 H (74-99) mg/dL POC Glucose (mg/dL) 114 H (75-99) mg/dL Assessment and Plan Plan: Assessment 1 locally advanced non-small cell lung cancer of a squamous cell type. 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 The patient has undergone placement of an esophageal stent 3 left lower lobe pneumonia recovered IV Zosyn discontinued 4 left vocal cord paralysis with secondary hoarseness 5 paroxysmal defibrillation currently rhythm is sinus 6 hypertension 7 leukopenia improved white cell count of 6.2 8 hypokalemia, replaced 9 persistent difficulty with swallowing, and the patient is status post PEG tube insertion. Receiving Jevity 1.5 at 30 MLS per hour with a goal of 60 MLS per hour. 10 PPN for nutritional support until at goal. Plan: The patient was seen and evaluated by Dr. Garcia. He is stable from the pulmonary standpoint. His chest x-ray is stable. He could be discharged once cleared by the other consults and medicine. He will follow up with oncology and radiation oncology for further treatment plans. He will follow up with Dr. Orta in our office in 1-2 weeks' time. He and his are agreeable to the plan. They will call sooner with any pulmonary symptoms or concerns.
[2016-05-31] MEDS ORDERED: LACTATED RINGERS 1,000 ML IV ONE (15:57)
[2016-05-31] MEDS ORDERED: IOHEXOL 350 MG/ML 50ML BOTTLE MISCELLANE ONE ×2 (16:54)
[2016-05-31] MEDS ORDERED: BUPIVACAIN-EPI 0.25%-1:200,000 30 ML VIAL SQ ONE ×2 (17:03)
[2016-05-31] MEDS ORDERED: HYDROmorphone 1 MG/ML 1 ML SYRINGE IVP ONE (17:41)
--- NOTE | 2016-05-31 17:46 | P.PCN ---
Date of Procedure: 05/31/16 Preoperative Diagnosis: Malnutrition Tracheoesophageal fistula Lung cancer Postoperative Diagnosis: Same Procedure(s) Performed: Exchange of G tube over guidewire under fluoroscopic guidance Implants: 16 [place]uran feeding G tube Anesthesia: MAC, local Surgeon: Mara Hanson Pathology: none sent Condition: stable Disposition: PACU Indications for Procedure: 51 yrs old male preseting for G tube exchange over guidewire Description of Procedure: The abdomen was prepped with betadine. A guidewire inserted through the existing feeding tube . Fluoroscopy images obtained. The feeding tube was removed . A 20 [place] dilated was inserted over the guidewire and inner dilators removed. A 16 [place] G tube was threaded over the guidewire and balloon inflated with 5 cc contrast. The peel away catheter was then removed . 50cc of diluted contrast injected through the feeding tube. The contrast was passing into the duodenum without any extravasation outside. The dial was secured at 5 cm and sutured to the skin. A christiansen bag was connected for dependent drainage . Patient tolerated the procedure well.
[2016-05-31 19:41] LABS: Glucose,Whole Blood 110 mg/dL (75-99)
--- NOTE | 2016-05-31 19:57 | PN ---
DATE OF SERVICE: 05/31/2016 PRESENTING COMPLAINT: Tired. INTERVAL HISTORY: This is a patient with [id number] lung cancer who did get chemotherapy, now getting radiation treatment. Also treated for multi-lobar pneumonia with sepsis. Antibiotic course has finished. Patient also was taken for bronchoscopy and had paroxysmal atrial fibrillation. Because of esophageal/tracheal fistula, patient had a stent placed. Patient has been tolerating his tube feeding through the G-tube. Pearl Muir, DATA PROCESSING CLERK from Surgery, informed me that the tube will be changed. More details as per the surgical note. Patient's is in the room. Review of systems done for constitutional, cardiovascular, GI, pulmonary; relevant findings as above. Current medications are reviewed. On examination, temperature 98.5, pulse 101, respiration 18, blood pressure 107/68, pulse ox 92% on room air. GENERAL APPEARANCE: Sitting up, tired-appearing. EYES: Pupils equal. Conjunctivae normal. NECK: JVD not raised. Mass not palpable. RESPIRATORY: Effort normal. LUNGS: Decreased breath sounds. CARDIOVASCULAR: First and second sounds normal. No edema. ABDOMEN: Soft. Some tenderness. Feeding tube in place. PSYCHIATRY: Alert and oriented x3. Mood and affect normal. INVESTIGATIONS: White count 7.8, hemoglobin 11.4. Potassium 4.7. ASSESSMENT: 1. Multi-lobar pneumonia, bilaterally, treated for Gram-negative organism causing severe sepsis on presentation. Antibiotics discontinued. 2. Fby-pjbrx-xmzn lung cancer. Patient did get chemotherapy. Getting radiation treatment. 3. 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 Wu. 4. Gastroesophageal reflux disease. 5. Essential hypertension. 6. Acute chronic obstructive pulmonary disease exacerbation in a smoker, improved. 7. Paroxysmal atrial fibrillation. 8. G-tube was placed. Tube to be replaced for technical reasons. Please see surgical note. PLAN: Care was discussed with the patient and his . Questions regarding the change will be addressed by the surgical team. In the meantime, continue current medication and treatment plan. Will follow.
[2016-05-31] MEDS ORDERED: SODIUM CHLORIDE 0.9% 1,000 ML IV ONE (21:04)
[2016-05-31] MEDS ORDERED: ACETAMINOPHEN IV (For NPO) 1,000 MG in EMPTY BAG 1 BAG IVPB STA (21:07)
--- NOTE | 2016-05-31 21:56 | P.PN ---
Subjective Principal diagnosis: Pneumonia Extremely pleasant 51-year-old male who has a history of prior nicotine dependence was having difficulties in the past. 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 He constantly has undergone chemotherapy and radiation. Recently was having great difficulties with recurrent pneumonia and evidence of aspiration. 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 As he was taken to the operating room and a stent was placed. Since that he is doing somewhat better. His chest is starting to clear a little bit and he is swallowing some liquids and full liquids without difficulties except he is having an occasional episode of emesis. It has been inconsistent based on food texture in quality. It has further improved today Feeling better today. Not having any further fever chill rigor or sweats. His cough is improving. His discomfort from the procedure is also improving. Patient however developed evidence of significant change in his status and was found evidence of atrial fibrillation with a rapid ventricular response. He's been treated with the Cardizem and has improved. Did relatively well today. Ate some ice cream tonight and started to have some further emesis as he did this morning. Has been seen by gastroenterology, with the esophageal stent there is concern about the inability to pass the scope through the stent. Gastroneurology and general surgery have now consulted. The percutaneous gastrostomy tube is now been placed by surgery. The events around the tube have been noted. Tube exchange occurred today. Lesions continue to spit up. Upon arriving to the room he's having chills. Temperature 101.9 is noted. IV hydration as given IV Tylenol is given antibiotic therapy restarted. Cultures requested. Objective - Vital Signs Vital signs: Vital Signs Temp 101.3 F H 05/31/16 20:59 Pulse 122 H 05/31/16 19:41 Resp 18 05/31/16 19:41 BP 102/59 05/31/16 19:41 Pulse Ox 87 L 05/31/16 19:41 Intake & Output 05/31/16 05/31/16 06/01/16 06:59 18:59 06:59 Intake Total 1860 500 Balance 1860 500 Weight 75 kg Intake: IV 240 500 D5-0.9% NaCl with KCl 40 240 Meq/l 1,000 ml @ 20 mls/ hr IV .Q24H [facility] Rx#: [id number] Tube Feeding 420 Other 1200 Other: Voiding Method Toilet # Voids 2 - Exam Pleasant 51-year-old male feeling poorly. Having fever and chill. Still spitting up. HEENT: Anicteric conjunctiva are pink and moist nasal mucosa grossly intact without significant lesions, there is no thrush. Neck: The neck is supple without significant lymphadenopathy or thyromegaly. Lungs: There is symmetrical air entry. However there are crackles and bronchial sounds in the left base. Few expiratory wheezes are heard. Right chest is rather clear. Heart: Regular with an audible S1-S2, no S3 no S4. There is no significant murmur click or rub, PMI was nondisplaced. Abdomen: Positive bowel sounds soft and nontender without palpable masses or organomegaly. There was no guarding or rebound. Percutaneous feeding tube is in place no longer to drainage is receiving tube feed Extremities: The upper extremities have excellent pulses they are symmetric, no significant petechiae or telangiectasia. No splinter hemorrhages were noted. The lower extremities are free from significant edema. The peripheral pulses were 2+ and symmetric. Neuro: Awake alert oriented to person place and time. There are no acute new gross focal sensory motor deficits. - Labs CBC & Chem 7: 05/31/16 07:29 05/31/16 07:29 Labs: Abnormal Lab Results - Last 24 Hours (Table) 05/31/16 05/31/16 05/31/16 Range/Units 00:05 05:57 07:29 RBC (4.30-5.90) m/uL Hgb (13.0-17.5) gm/dL Hct (39.0-53.0) % Lymphocytes # (1.0-4.8) k/uL BUN 22 H (9-20) mg/dL Creatinine 0.58 L (0.66-1.25) mg/dL Glucose 117 H (74-99) mg/dL POC Glucose (mg/dL) 125 H 132 H (75-99) mg/dL 05/31/16 05/31/16 05/31/16 Range/Units 07:29 12:04 19:29 RBC 3.90 L (4.30-5.90) m/uL Hgb 11.4 L (13.0-17.5) gm/dL Hct 36.9 L (39.0-53.0) % Lymphocytes # 0.5 L (1.0-4.8) k/uL BUN (9-20) mg/dL Creatinine (0.66-1.25) mg/dL Glucose (74-99) mg/dL POC Glucose (mg/dL) 114 H 110 H (75-99) mg/dL Laboratory Results WBC 7.8 k/uL (3.8-10.6) 05/31/16 07:29 RBC 3.90 m/uL (4.30-5.90) L 05/31/16 07:29 Hgb 11.4 gm/dL (13.0-17.5) L 05/31/16 07:29 Hct 36.9 % (39.0-53.0) L 05/31/16 07:29 MCV 94.6 fL (80.0-100.0) 05/31/16 07:29 MCH 29.4 pg (25.0-35.0) 05/31/16 07:29 MCHC 31.0 g/dL (31.0-37.0) 05/31/16 07:29 RDW 13.2 % (11.5-15.5) 05/31/16 07:29 Plt Count 361 k/uL (150-450) 05/31/16 07:29 Neutrophils % 83 % 05/31/16 07:29 Neutrophils % (Manual) 39.0 % 05/21/16 05:51 Lymphocytes % 6 % 05/31/16 07:29 Lymphocytes % (Manual) 33.0 % 05/21/16 05:51 Monocytes % 6 % 05/31/16 07:29 Monocytes % (Manual) 25.0 % 05/21/16 05:51 Eosinophils % 1 % 05/31/16 07:29 Eosinophils % (Manual) 1.0 % 05/21/16 05:51 Basophils % 0 % 05/31/16 07:29 Basophils % (Manual) 2.0 % 05/21/16 05:51 Neutrophils # 6.5 k/uL (1.3-7.7) 05/31/16 07:29 Neutrophils # (Manual) 0.5 k/uL (1.3-7.7) L 05/21/16 05:51 Lymphocytes # 0.5 k/uL (1.0-4.8) L 05/31/16 07:29 Lymphocytes # (Manual) 0.4 k/uL (1.0-4.8) L 05/21/16 05:51 Monocytes # 0.5 k/uL (0-1.0) 05/31/16 07:29 Monocytes # (Manual) 0.3 k/uL (0-1.0) 05/21/16 05:51 Eosinophils # 0.1 k/uL (0-0.7) 05/31/16 07:29 Eosinophils # (Manual) 0.0 k/uL (0-0.7) 05/21/16 05:51 Basophils # 0.0 k/uL (0-0.2) 05/31/16 07:29 Basophils # (Manual) 0.0 k/uL (0-0.2) 05/21/16 05:51 Nucleated RBCs 0 /100 WBC (0-0) 05/21/16 05:51 Manual Slide Review Performed 05/21/16 05:51 Poikilocytosis (manual Present 05/21/16 05:51 PT 11.2 sec (9.0-12.0) 05/25/16 06:15 INR 1.1 (<1.1) 05/25/16 06:15 APTT 36.9 sec (22.0-30.0) H 05/25/16 06:15 Sodium 140 mmol/L (137-145) 05/31/16 07:29 Potassium 4.7 mmol/L (3.5-5.1) 05/31/16 07:29 Chloride 98 mmol/L (98-107) 05/31/16 07:29 Carbon Dioxide 30 mmol/L (22-30) 05/31/16 07:29 Anion Gap 12 mmol/L 05/31/16 07:29 BUN 22 mg/dL (9-20) H 05/31/16 07:29 Creatinine 0.58 mg/dL (0.66-1.25) L 05/31/16 07:29 Est GFR (MDRD) Af Amer >60 (>60 ml/min/1.73 sqM) 05/31/16 07:29 Est GFR (MDRD) Non-Af >60 (>60 ml/min/1.73 sqM) 05/31/16 07:29 Glucose 117 mg/dL (74-99) H 05/31/16 07:29 POC Glucose (mg/dL) 110 mg/dL (75-99) H 05/31/16 19:29 POC Glu Machine [employer] ID Filomena Thomson 05/31/16 19:[address] Glu mg/dL 128 mg/dL 05/25/16 06:15 Hemoglobin A1c 6.1 % (4.2-6.1) 05/25/16 06:15 Plasma Lactic Acid Ty 1.0 mmol/L (0.7-2.0) 05/15/16 02:40 Calcium 9.5 mg/dL (8.4-10.2) 05/31/16 07:29 Ionized Calcium [place] 4.8 mg/dL (4.5-5.3) 05/25/16 06:15 Phosphorus 4.3 mg/dL (2.5-4.5) 05/31/16 07:29 Magnesium 2.0 mg/dL (1.6-2.3) 05/31/16 07:29 Total Bilirubin 0.7 mg/dL (0.2-1.3) 05/14/16 23:55 AST 19 U/L (17-59) 05/14/16 23:55 ALT 30 U/L (21-72) 05/14/16 23:55 Alkaline Phosphatase 79 U/L (38-126) 05/14/16 23:55 Total Protein 7.3 g/dL (6.3-8.2) 05/14/16 23:55 Albumin 4.2 g/dL (3.5-5.0) 05/14/16 23:55 Prealbumin 9 mg/dL (18-36) L 05/23/16 06:55 Triglycerides 86 mg/dL (<150) 05/24/16 15:10 Amylase 68 U/L (30-110) 05/14/16 23:55 Lipase 23 U/L (23-300) 05/14/16 23:55 TSH 4.290 mIU/L (0.465-4.680) 05/19/16 06:43 Free T4 1.34 ng/dL (0.78-2.19) 05/19/16 06:43 Urine Color Yellow 05/14/16 23:55 Urine Appearance Clear (Clear) 05/14/16 23:55 Urine pH 6.0 (5.0-8.0) 05/14/16 23:55 Ur Specific [place] 1.025 (1.001-1.035) 05/14/16 23:55 Urine Protein Trace (Negative) H 05/14/16 23:55 Urine Glucose (UA) Trace (Negative) H 05/14/16 23:55 Urine Ketones 1+ (Negative) H 05/14/16 23:55 Urine Blood Negative (Negative) 05/14/16 23:55 Urine Nitrite Negative (Negative) 05/14/16 23:55 Urine Bilirubin Negative (Negative) 05/14/16 23:55 Urine Urobilinogen 2.0 mg/dL (<2.0) 05/14/16 23:55 Ur Leukocyte Esterase Negative (Negative) 05/14/16 23:55 Influenza Type A RNA Not Detected (Not Detectd) 05/15/16 02:50 Influenza Type B (PCR) Not Detected (Not Detectd) 05/15/16 02:50 Microbiology 05/15/16 02:40 Blood Blood Culture - Final No Growth after 144 hours 05/15/16 17:05 Sputum Gram Stain - Final 05/15/16 17:05 Sputum Sputum Culture - Final Assessment and Plan (1) Squamous cell carcinoma lung Narrative/Plan: Pleasant 51-year-old male presents to hospital with difficulties with ongoing nausea with emesis associated with increasing cough and shortness of breath. The patient related every time he was trying to eat or drink he could tell that some was going into his longest he would cough so much. He was then taken to the operating room and the esophageal tracheal fistula was found and a stent was placed. Since the stent was placed he is having further improvment. He is having less cough. In doing much better. He had transient fever that is now improved. Does have the x-ray findings of the left lower lobe pneumonia. Antibiotic therapy is being utilized with Zosyn which is an excellent choice for his significant aspiration and multiple medical procedures. Does not need to broaden at this point in time. He is without fever and improving. Any change would then necessitate addition of antifungal therapy. The patient however is coming to the tavo of his chemotherapy effect and there is some notation of some increasing leukopenia and thrombocytopenia. The prior aspiration pneumonias been well treated. The Zosyn is discontinued today. His percutaneous gastrostomy tube is in place. Need to be changed. He now has fever and chill. Temperature 101.9 seen. Leukocytosis is improved. However concerns for ongoing infection. Antibiotic therapy as started with Zosyn. Blood cultures are requested. IV Tylenol was requested. Status: Acute (2) Tracheo-esophageal fistula Status: Acute (3) Recurrent aspiration pneumonia Status: Acute
[2016-06-01 04:20] LABS: Glucose,Whole Blood 114 mg/dL (75-99)
[2016-06-01] MEDS: INSULIN LISPRO (humaLOG) 300 UNIT/3 ML VIAL SQ SCH ×4 (05:45→19:21)
[2016-06-01] MEDS: PIPERACILLIN-TAZOBACTAM 3.375 GM in DEXTROSE/WATER 1 50ML.BAG IVPB SCH ×4 (05:45→23:26)
[2016-06-01] MEDS: HYDROcodone/APAP 15 ML SOLUTION PO PRN ×4 (06:23→19:24)
[2016-06-01 06:41] LABS: Glucose,Whole Blood 119 mg/dL (75-99)
[2016-06-01 08:32] LABS: Basophils % (A) 0 %; CH 30.5; CHCM 32.5; Eosinophils # (A) 0.1 k/uL (0-0.7); Eosinophils % (A) 1 %; HCT 34.1 % (39.0-53.0); HDW 2.95; Luc # (Auto) 0.28; Luc % (Auto) 2; Lymphocytes # (A) 0.4 k/uL (1.0-4.8); Lymphocytes % (A) 3 %; MCH 30.2 pg (25.0-35.0); MCHC 32.1 g/dL (31.0-37.0); MCV 94.2 fL (80.0-100.0); Mean Platelet Volume 8.1; Monocytes # (A) 0.7 k/uL (0-1.0); Monocytes % (A) 5 %; Neutrophils # (A) 12.1 k/uL (1.3-7.7); Neutrophils % (A) 89 %; RBC 3.62 m/uL (4.30-5.90); RDW 13.6 % (11.5-15.5); WBC 13.6 k/uL (3.8-10.6)
[2016-06-01 08:45] LABS: ALT 32 U/L (21-72); AST 27 U/L (17-59); Alkaline Phosphatase 91 U/L (38-126); Anion Gap 11 mmol/L; Blood Urea Nitrogen 21 mg/dL (9-20); Calcium 9.5 mg/dL (8.4-10.2); Carbon Dioxide 32 mmol/L (22-30); Chloride 98 mmol/L (98-107); Glucose 108 mg/dL (74-99); Non-African American GFR(MDRD) >60 (>60 ml/min/1.73 sqM); Potassium 4.4 mmol/L (3.5-5.1); Sodium 141 mmol/L (137-145); Total Bilirubin 0.7 mg/dL (0.2-1.3); Total Protein 6.9 g/dL (6.3-8.2)
[2016-06-01] MEDS: LISINOPRIL 5 MG TAB PO SCH ×2 (09:08→22:21)
[2016-06-01] MEDS: METOPROLOL TARTRATE 25 MG TAB PO SCH ×2 (09:08→22:05)
[2016-06-01] MEDS: HEPARIN SODIUM,PORCINE 5,000 UNIT/ML 1 ML VIAL SQ SCH ×2 (09:08→22:02)
--- NOTE | 2016-06-01 09:26 | FL ---
FLUOROSCOPY 36 seconds of fluoroscopy time were utilized during feeding tube placement. 1 images document the pro cedure.
[2016-06-01] MEDS: IPRATROPIUM-ALBUTEROL 3 ML NEB INHALATION SCH ×2 (09:47→13:17)
[2016-06-01 11:08] LABS: Glucose,Whole Blood 104 mg/dL (75-99)
[2016-06-01 11:11] VITALS: BMI 24.4
--- NOTE | 2016-06-01 12:56 | P.PN ---
Subjective 51-year-old male who has a history of prior nicotine dependence was having difficulties in the past. 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 He constantly has undergone chemotherapy and radiation. Recently was having great difficulties with recurrent pneumonia and evidence of aspiration. 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 As he was taken to the operating room and a stent was placed In the esophagus. The post procedure chest x-ray that was done shows some improvement in aeration of the left lung base. There is still some consolidation of the left lower lobe. The esophageal stent looks in a good location. Currently the patient is afebrile. The patient is hemodynamically stable. The patient is on IV antibiotics. The patient is hoarse related to the vocal cord paralysis. No nausea. No vomiting. No abdominal pain. The patient is completing radiation therapy did speak offered to him through radiation oncology. Otherwise, no other significant events overnight. The patient is seen again today 05/30/2016 on the oncology unit. He is awake and alert in no acute distress. He did receive PEG tube placement on 2016. He is currently receiving Jevity 1.5 at 30 MLS per hour. His goal is 60 MLS per hour with a total volume of 1440 per day. He is also receiving free water boluses every 4 hours. He remains on PPN and lipids until goal achieved. His voice remains hoarse. He still has issues with bringing up excess phlegm. 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 Yesterday's chest x-ray revealed overall stable findings with left-sided surgical changes and volume loss with chronic left basilar scarring and/or consolidation and right basilar linear scarring or atelectasis. No new focal infiltrates were noted. He is maintaining O2 saturations in the low 90s on room air. He's been afebrile. His Zosyn has been discontinued per infectious disease. The patient is seen again today 05/31/2016 in follow-up on the oncology floor. He is awake and alert in no acute distress. The plan for today is to change out his PEG tube. He was hoping to go home today. He is stronger and denies any worsening shortness of breath, cough or congestion. He's been up ambulating in his room. He is maintaining good O2 saturations in the 90s on room air. Patient is seen again today 06/01/2016 in follow-up on the oncology floor. He did have his PEG tube sizer changed out for the actual PEG tube yesterday. His leukocytosis had actually improved to 7.8 yesterday. He was doing quite well until he developed a fever of 101.9. He was seen and evaluated by Dr. Mehta from infectious disease and he resumed his Zosyn. Blood cultures are pending. The patient is awake and alert in no acute distress. He continues with ongoing issues with nausea and vomiting. He denies any worsening shortness of breath at this time. Not coughing much. Afebrile this morning. Current white count increased to 13.6. Objective - Vital Signs Vital signs: Vital Signs Temp 98.7 F 06/01/16 07:00 Pulse 94 06/01/16 07:00 Resp 22 06/01/16 07:00 BP 119/70 06/01/16 07:00 Pulse Ox 94 L 06/01/16 07:00 Intake & Output 05/31/16 06/01/16 06/01/16 18:59 06:59 18:59 Intake Total 500 840 Output Total 650 Balance 500 190 Weight 75 kg 75 kg Intake: IV 500 Oral 0 Tube Feeding 840 Output: Gastric Drainage 250 Urine 400 Other: Voiding Method Toilet # Voids 2 2 - Exam Head exam was generally normal. There was no scleral icterus or corneal arcus. Mucous membranes were moist.Neck was supple and without jugular venous distension, thyromegaly, or carotid bruits. Carotids were easily palpable bilaterally. There was no adenopathy. Lung sounds are diminished in the left lung base compared to the right.Cardiac exam revealed the PMI to be normally situated and sized. The rhythm was regular and no extrasystoles were noted during several minutes of auscultation. The first and second heart sounds were normal and physiologic splitting of the second heart sound was noted. There were no murmurs, rubs, clicks, or gallops.Abdominal exam revealed normal bowel sounds. The abdomen was soft, non-tender, and without masses, organomegaly, or appreciable enlargement of the abdominal aorta. Examination of the extremities revealed easily palpable radial, femoral and pedal pulses. There was no cyanosis , clubbing or edema. - Labs CBC & Chem 7: 06/01/16 07:26 06/01/16 07:26 Labs: Abnormal Lab Results - Last 24 Hours (Table) 05/31/16 06/01/16 06/01/16 Range/Units 19:29 01:04 06:40 WBC (3.8-10.6) k/uL RBC (4.30-5.90) m/uL Hgb (13.0-17.5) gm/dL Hct (39.0-53.0) % Neutrophils # (1.3-7.7) k/uL Lymphocytes # (1.0-4.8) k/uL Carbon Dioxide (22-30) mmol/L BUN (9-20) mg/dL Creatinine (0.66-1.25) mg/dL Glucose (74-99) mg/dL POC Glucose (mg/dL) 110 H 114 H 119 H (75-99) mg/dL Albumin (3.5-5.0) g/dL 06/01/16 06/01/16 06/01/16 Range/Units 07:26 07:26 10:57 WBC 13.6 H (3.8-10.6) k/uL RBC 3.62 L (4.30-5.90) m/uL Hgb 11.0 L (13.0-17.5) gm/dL Hct 34.1 L (39.0-53.0) % Neutrophils # 12.1 H (1.3-7.7) k/uL Lymphocytes # 0.4 L (1.0-4.8) k/uL Carbon Dioxide 32 H (22-30) mmol/L BUN 21 H (9-20) mg/dL Creatinine 0.53 L (0.66-1.25) mg/dL Glucose 108 H (74-99) mg/dL POC Glucose (mg/dL) 104 H (75-99) mg/dL Albumin 3.4 L (3.5-5.0) g/dL Assessment and Plan Plan: Assessment 1 locally advanced non-small cell lung cancer of a squamous cell type. 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 The patient has undergone placement of an esophageal stent 3 recurrent febrile illness, Zosyn resumed 05/31/2016. 4 left vocal cord paralysis with secondary hoarseness 5 paroxysmal defibrillation currently rhythm is sinus 6 hypertension 7 mild leukocytosis, 13.6. 8 hypokalemia, replaced 9 persistent difficulty with swallowing 10 PEG tube Sizer exchanged out for PEG tube yesterday 05/31/2016. To resume tube feedings later today. Plan: The patient was seen and evaluated by Dr. Garcia. The patient had been hoping to go home unfortunately he spiked a temp again last night and was resumed on his Zosyn per infectious disease. He has no significant pulmonary complaints. Occasional coughing up of yellow sputum. He still maintaining good O2 saturations in the 90s on room air. He unfortunately has ongoing issues with nausea and vomiting. We'll continue to follow.
--- NOTE | 2016-06-01 14:39 | XR ---
EXAMINATION TYPE: XR chest 1V portable DATE OF EXAM: 06/01/2016 2:33 PM HISTORY: pneumonia/sob. REFERENCE: Previous study dated 05/29/2016. FINDINGS: There is marked elevation of the left hemidiaphragm. There is left basilar atelectasis. There is some residual free air under the right hemidiaphragm. This is largely resorbed. The right ambreen ng appears clear. Heart size is obscured. IMPRESSION: 1. CONTINUING POSTSURGICAL CHANGE. 2. LEFT BASILAR ATELECTASIS.
[2016-06-01 16:53] VITALS: RESP 20
[2016-06-01 17:18] LABS: Glucose,Whole Blood 107 mg/dL (75-99)
--- NOTE | 2016-06-01 17:31 | P.PN ---
Subjective Principal diagnosis: tracheoesophageal fistula. Dyspnea. the patient had developed increased cough with expectoration yesterday, as well as fever or chills. There was no clear history of vomiting. His PEG tube was changed yesterday to a different size. Objective - Vital Signs Vital signs: Vital Signs Temp 98.4 F 06/01/16 15:00 Pulse 105 H 06/01/16 15:00 Resp 20 06/01/16 17:00 BP 106/70 06/01/16 15:00 Pulse Ox 92 L 06/01/16 15:00 Intake & Output 05/31/16 06/01/16 06/01/16 18:59 06:59 18:59 Intake Total 500 840 Output Total 650 Balance 500 190 Weight 75 kg 75 kg Intake: IV 500 Oral 0 Tube Feeding 840 Output: Gastric Drainage 250 Urine 400 Other: Voiding Method Toilet # Voids 2 2 1 - Constitutional General appearance: Present: no acute distress - EENT Eyes: Present: PERRLA ENT: Present: normal oropharynx - Respiratory Respiratory: right: diminished - Cardiovascular Rhythm: regular Heart sounds: normal: S1, S2 - Gastrointestinal Gastrointestinal Comment(s): PEG tube site appears clean General gastrointestinal: Present: normal bowel sounds, soft - Integumentary Integumentary: Present: normal - Neurologic Neurologic Comment(s): persistent hoarseness - Musculoskeletal Musculoskeletal: Present: generalized weakness - Labs CBC & Chem 7: 06/01/16 07:26 06/01/16 07:26 Labs: Abnormal Lab Results - Last 24 Hours (Table) 05/31/16 06/01/16 06/01/16 Range/Units 19:29 01:04 06:40 WBC (3.8-10.6) k/uL RBC (4.30-5.90) m/uL Hgb (13.0-17.5) gm/dL Hct (39.0-53.0) % Neutrophils # (1.3-7.7) k/uL Lymphocytes # (1.0-4.8) k/uL Carbon Dioxide (22-30) mmol/L BUN (9-20) mg/dL Creatinine (0.66-1.25) mg/dL Glucose (74-99) mg/dL POC Glucose (mg/dL) 110 H 114 H 119 H (75-99) mg/dL Albumin (3.5-5.0) g/dL 06/01/16 06/01/16 06/01/16 Range/Units 07:26 07:26 10:57 WBC 13.6 H (3.8-10.6) k/uL RBC 3.62 L (4.30-5.90) m/uL Hgb 11.0 L (13.0-17.5) gm/dL Hct 34.1 L (39.0-53.0) % Neutrophils # 12.1 H (1.3-7.7) k/uL Lymphocytes # 0.4 L (1.0-4.8) k/uL Carbon Dioxide 32 H (22-30) mmol/L BUN 21 H (9-20) mg/dL Creatinine 0.53 L (0.66-1.25) mg/dL Glucose 108 H (74-99) mg/dL POC Glucose (mg/dL) 104 H (75-99) mg/dL Albumin 3.4 L (3.5-5.0) g/dL 06/01/16 Range/Units 17:15 WBC (3.8-10.6) k/uL RBC (4.30-5.90) m/uL Hgb (13.0-17.5) gm/dL Hct (39.0-53.0) % Neutrophils # (1.3-7.7) k/uL Lymphocytes # (1.0-4.8) k/uL Carbon Dioxide (22-30) mmol/L BUN (9-20) mg/dL Creatinine (0.66-1.25) mg/dL Glucose (74-99) mg/dL POC Glucose (mg/dL) 107 H (75-99) mg/dL Albumin (3.5-5.0) g/dL Microbiology - Last 24 Hours (Table) 05/31/16 22:49 Gram Stain - Preliminary Sputum Assessment and Plan (1) Recurrent aspiration pneumonia Narrative/Plan: the case was discussed with the the admitting service, as well as ID. As noted, the patient had increased cough, along with fever and chills yesterday. Symptoms have improved with the resumption of antibiotics. PEG tube was also changed. Possibilities being entertained include reflux and aspiration due to PEG dysfunction, versus recurrent aspiration from the fistula site. the former is felt to be unlikely per surgery. repeat bronchoscopy to check the position of the stent, and the fistula tract was discussed with the patient but he did not want the same. Therefore at this time, given his improvement, the plan per IM is to discharge him home on oral antibiotics. Status: Acute (2) Non-small cell carcinoma of lung Narrative/Plan: given current concerns for aspiration, as well as the plan to have him have a course of antibiotics, I will postpone his chemotherapy which was due next week, by one week. Status: Acute
--- NOTE | 2016-06-01 18:07 | P.PN ---
Subjective Principal diagnosis: Pneumonia Extremely pleasant 51-year-old male who has a history of prior nicotine dependence was having difficulties in the past. 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 He constantly has undergone chemotherapy and radiation. Recently was having great difficulties with recurrent pneumonia and evidence of aspiration. 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 As he was taken to the operating room and a stent was placed. Since that he is doing somewhat better. His chest is starting to clear a little bit and he is swallowing some liquids and full liquids without difficulties except he is having an occasional episode of emesis. It has been inconsistent based on food texture in quality. It has further improved today Feeling better today. Not having any further fever chill rigor or sweats. His cough is improving. His discomfort from the procedure is also improving. Patient however developed evidence of significant change in his status and was found evidence of atrial fibrillation with a rapid ventricular response. He's been treated with the Cardizem and has improved. Did relatively well today. Ate some ice cream tonight and started to have some further emesis as he did this morning. Has been seen by gastroenterology, with the esophageal stent there is concern about the inability to pass the scope through the stent. Gastroneurology and general surgery have now consulted. The percutaneous gastrostomy tube is now been placed by surgery. The events around the tube have been noted. Tube exchange occurred today. Better today, fever resolved,feels less SOB and not have regurgitation Objective - Vital Signs Vital signs: Vital Signs Temp 98.4 F 06/01/16 15:00 Pulse 105 H 06/01/16 15:00 Resp 20 06/01/16 17:00 BP 106/70 06/01/16 15:00 Pulse Ox 92 L 06/01/16 15:00 Intake & Output 05/31/16 06/01/16 06/01/16 18:59 06:59 18:59 Intake Total 500 840 Output Total 650 Balance 500 190 Weight 75 kg 75 kg Intake: IV 500 Oral 0 Tube Feeding 840 Output: Gastric Drainage 250 Urine 400 Other: Voiding Method Toilet # Voids 2 2 1 - Exam Pleasant 51-year-old male feeling better HEENT: Anicteric conjunctiva are pink and moist nasal mucosa grossly intact without significant lesions, there is no thrush. Neck: The neck is supple without significant lymphadenopathy or thyromegaly. Lungs: There is symmetrical air entry. However there are crackles and bronchial sounds in the left base. Few expiratory wheezes are heard. Right chest is rather clear. Heart: Regular with an audible S1-S2, no S3 no S4. There is no significant murmur click or rub, PMI was nondisplaced. Abdomen: Positive bowel sounds soft and nontender without palpable masses or organomegaly. There was no guarding or rebound. Percutaneous feeding tube is in place no longer to drainage is receiving tube feed Extremities: The upper extremities have excellent pulses they are symmetric, no significant petechiae or telangiectasia. No splinter hemorrhages were noted. The lower extremities are free from significant edema. The peripheral pulses were 2+ and symmetric. Neuro: Awake alert oriented to person place and time. There are no acute new gross focal sensory motor deficits. - Labs CBC & Chem 7: 06/01/16 07:26 06/01/16 07:26 Labs: Abnormal Lab Results - Last 24 Hours (Table) 05/31/16 06/01/16 06/01/16 Range/Units 19:29 01:04 06:40 WBC (3.8-10.6) k/uL RBC (4.30-5.90) m/uL Hgb (13.0-17.5) gm/dL Hct (39.0-53.0) % Neutrophils # (1.3-7.7) k/uL Lymphocytes # (1.0-4.8) k/uL Carbon Dioxide (22-30) mmol/L BUN (9-20) mg/dL Creatinine (0.66-1.25) mg/dL Glucose (74-99) mg/dL POC Glucose (mg/dL) 110 H 114 H 119 H (75-99) mg/dL Albumin (3.5-5.0) g/dL 06/01/16 06/01/16 06/01/16 Range/Units 07:26 07:26 10:57 WBC 13.6 H (3.8-10.6) k/uL RBC 3.62 L (4.30-5.90) m/uL Hgb 11.0 L (13.0-17.5) gm/dL Hct 34.1 L (39.0-53.0) % Neutrophils # 12.1 H (1.3-7.7) k/uL Lymphocytes # 0.4 L (1.0-4.8) k/uL Carbon Dioxide 32 H (22-30) mmol/L BUN 21 H (9-20) mg/dL Creatinine 0.53 L (0.66-1.25) mg/dL Glucose 108 H (74-99) mg/dL POC Glucose (mg/dL) 104 H (75-99) mg/dL Albumin 3.4 L (3.5-5.0) g/dL 06/01/16 Range/Units 17:15 WBC (3.8-10.6) k/uL RBC (4.30-5.90) m/uL Hgb (13.0-17.5) gm/dL Hct (39.0-53.0) % Neutrophils # (1.3-7.7) k/uL Lymphocytes # (1.0-4.8) k/uL Carbon Dioxide (22-30) mmol/L BUN (9-20) mg/dL Creatinine (0.66-1.25) mg/dL Glucose (74-99) mg/dL POC Glucose (mg/dL) 107 H (75-99) mg/dL Albumin (3.5-5.0) g/dL Microbiology - Last 24 Hours (Table) 05/31/16 22:49 Gram Stain - Preliminary Sputum Laboratory Results WBC 13.6 k/uL (3.8-10.6) H 06/01/16 07:26 RBC 3.62 m/uL (4.30-5.90) L 06/01/16 07:26 Hgb 11.0 gm/dL (13.0-17.5) L 06/01/16 07:26 Hct 34.1 % (39.0-53.0) L 06/01/16 07:26 MCV 94.2 fL (80.0-100.0) 06/01/16 07:26 MCH 30.2 pg (25.0-35.0) 06/01/16 07:26 MCHC 32.1 g/dL (31.0-37.0) 06/01/16 07:26 RDW 13.6 % (11.5-15.5) 06/01/16 07:26 Plt Count 344 k/uL (150-450) 06/01/16 07:26 Neutrophils % 89 % 06/01/16 07:26 Neutrophils % (Manual) 39.0 % 05/21/16 05:51 Lymphocytes % 3 % 06/01/16 07:26 Lymphocytes % (Manual) 33.0 % 05/21/16 05:51 Monocytes % 5 % 06/01/16 07:26 Monocytes % (Manual) 25.0 % 05/21/16 05:51 Eosinophils % 1 % 06/01/16 07:26 Eosinophils % (Manual) 1.0 % 05/21/16 05:51 Basophils % 0 % 06/01/16 07:26 Basophils % (Manual) 2.0 % 05/21/16 05:51 Neutrophils # 12.1 k/uL (1.3-7.7) H 06/01/16 07:26 Neutrophils # (Manual) 0.5 k/uL (1.3-7.7) L 05/21/16 05:51 Lymphocytes # 0.4 k/uL (1.0-4.8) L 06/01/16 07:26 Lymphocytes # (Manual) 0.4 k/uL (1.0-4.8) L 05/21/16 05:51 Monocytes # 0.7 k/uL (0-1.0) 06/01/16 07:26 Monocytes # (Manual) 0.3 k/uL (0-1.0) 05/21/16 05:51 Eosinophils # 0.1 k/uL (0-0.7) 06/01/16 07:26 Eosinophils # (Manual) 0.0 k/uL (0-0.7) 05/21/16 05:51 Basophils # 0.0 k/uL (0-0.2) 06/01/16 07:26 Basophils # (Manual) 0.0 k/uL (0-0.2) 05/21/16 05:51 Nucleated RBCs 0 /100 WBC (0-0) 05/21/16 05:51 Manual Slide Review Performed 05/21/16 05:51 Poikilocytosis (manual Present 05/21/16 05:51 PT 11.2 sec (9.0-12.0) 05/25/16 06:15 INR 1.1 (<1.1) 05/25/16 06:15 APTT 36.9 sec (22.0-30.0) H 05/25/16 06:15 Sodium 141 mmol/L (137-145) 06/01/16 07:26 Potassium 4.4 mmol/L (3.5-5.1) 06/01/16 07:26 Chloride 98 mmol/L (98-107) 06/01/16 07:26 Carbon Dioxide 32 mmol/L (22-30) H 06/01/16 07:26 Anion Gap 11 mmol/L 06/01/16 07:26 BUN 21 mg/dL (9-20) H 06/01/16 07:26 Creatinine 0.53 mg/dL (0.66-1.25) L 06/01/16 07:26 Est GFR (MDRD) Af Amer >60 (>60 ml/min/1.73 sqM) 06/01/16 07:26 Est GFR (MDRD) Non-Af >60 (>60 ml/min/1.73 sqM) 06/01/16 07:26 Glucose 108 mg/dL (74-99) H 06/01/16 07:26 POC Glucose (mg/dL) 107 mg/dL (75-99) H 06/01/16 17:15 POC Glu Lead Infrastructure Architect ID Starr Turner 06/01/16 17:[address] Glu mg/dL 128 mg/dL 05/25/16 06:15 Hemoglobin A1c 6.1 % (4.2-6.1) 05/25/16 06:15 Plasma Lactic Acid Ty 0.7 mmol/L (0.7-2.0) 05/31/16 22:30 Calcium 9.5 mg/dL (8.4-10.2) 06/01/16 07:26 Ionized Calcium Kianna 4.8 mg/dL (4.5-5.3) 05/25/16 06:15 Phosphorus 4.3 mg/dL (2.5-4.5) 05/31/16 07:29 Magnesium 2.0 mg/dL (1.6-2.3) 05/31/16 07:29 Total Bilirubin 0.7 mg/dL (0.2-1.3) 06/01/16 07:26 AST 27 U/L (17-59) 06/01/16 07:26 ALT 32 U/L (21-72) 06/01/16 07:26 Alkaline Phosphatase 91 U/L (38-126) 06/01/16 07:26 Total Protein 6.9 g/dL (6.3-8.2) 06/01/16 07:26 Albumin 3.4 g/dL (3.5-5.0) L 06/01/16 07:26 Prealbumin 9 mg/dL (18-36) L 05/23/16 06:55 Triglycerides 86 mg/dL (<150) 05/24/16 15:10 Amylase 68 U/L (30-110) 05/14/16 23:55 Lipase 23 U/L (23-300) 05/14/16 23:55 TSH 4.290 mIU/L (0.465-4.680) 05/19/16 06:43 Free T4 1.34 ng/dL (0.78-2.19) 05/19/16 06:43 Urine Color Yellow 05/14/16 23:55 Urine Appearance Clear (Clear) 05/14/16 23:55 Urine pH 6.0 (5.0-8.0) 05/14/16 23:55 Ur Specific Bernard 1.025 (1.001-1.035) 05/14/16 23:55 Urine Protein Trace (Negative) H 05/14/16 23:55 Urine Glucose (UA) Trace (Negative) H 05/14/16 23:55 Urine Ketones 1+ (Negative) H 05/14/16 23:55 Urine Blood Negative (Negative) 05/14/16 23:55 Urine Nitrite Negative (Negative) 05/14/16 23:55 Urine Bilirubin Negative (Negative) 05/14/16 23:55 Urine Urobilinogen 2.0 mg/dL (<2.0) 05/14/16 23:55 Ur Leukocyte Esterase Negative (Negative) 05/14/16 23:55 Influenza Type A RNA Not Detected (Not Detectd) 05/15/16 02:50 Influenza Type B (PCR) Not Detected (Not Detectd) 05/15/16 02:50 Microbiology 05/31/16 22:49 Sputum Gram Stain - Preliminary 05/15/16 02:40 Blood Blood Culture - Final No Growth after 144 hours 05/15/16 17:05 Sputum Gram Stain - Final 05/15/16 17:05 Sputum Sputum Culture - Final Assessment and Plan (1) Squamous cell carcinoma lung Narrative/Plan: Pleasant 51-year-old male presents to hospital with difficulties with ongoing nausea with emesis associated with increasing cough and shortness of breath. The patient related every time he was trying to eat or drink he could tell that some was going into his longest he would cough so much. He was then taken to the operating room and the esophageal tracheal fistula was found and a stent was placed. Since the stent was placed he is having further improvment. He is having less cough. In doing much better. He had transient fever that is now improved. Does have the x-ray findings of the left lower lobe pneumonia. Antibiotic therapy is being utilized with Zosyn which is an excellent choice for his significant aspiration and multiple medical procedures. Does not need to broaden at this point in time. He is without fever and improving. Any change would then necessitate addition of antifungal therapy. The patient however is coming to the tavo of his chemotherapy effect and there is some notation of some increasing leukopenia and thrombocytopenia. The prior aspiration pneumonias been well treated. The Zosyn is discontinued today. His percutaneous gastrostomy tube is in place. Need to be changed. Leukocytosis is improved. However concerns for ongoing infection. Antibiotic therapy as started with Zosyn. Feeling better today Fever resolved Likely ready for discharge home in AM Augmentin for home Status: Acute (2) Tracheo-esophageal fistula Status: Acute (3) Recurrent aspiration pneumonia Status: Acute
--- NOTE | 2016-06-01 22:07 | PN ---
DATE OF SERVICE: 06/01/2016 PRESENTING COMPLAINT: Cough, tired, sputum production. INTERVAL HISTORY: This patient with [id number] lung cancer did get chemotherapy; now getting radiation treatment, treatment for multi-lobar pneumonia with sepsis. Antibiotics course had finished, but yesterday patient became somewhat septic with fever, tachycardia, coughing up more sputum. Patient's feeding tube was also changed successfully by Dr. Hanson. The patient is very keen to go home today. His is at the bedside. He does feel a bit better. Last night IV Zosyn was started by Dr. Mehta. Review of systems done for constitutional, cardiovascular, GI, pulmonary; relevant findings as above. Current medications include IV Zosyn. On examination, temperature T-max 102.3 last night, currently 98.4. Pulse 105, respiration 20, blood pressure 106/78, pulse ox 92% on 2 L. GENERAL APPEARANCE: Sitting up. Not in distress. EYES: Pupils equal. Conjunctivae normal. NECK: JVD not raised. Mass not palpable. RESPIRATORY: Effort increased. LUNGS: Decreased breath sounds. CARDIOVASCULAR: First and second sounds normal. No edema. ABDOMEN: Soft, nontender. Liver and spleen not palpable. PSYCHIATRY: Alert and oriented x3. Slightly anxious-appearing. INVESTIGATIONS: White count 13.6, hemoglobin 11, potassium 4.4. BUN 21, creatinine 0.53. Patient's Gram stain sputum read; only preliminary results are present. ASSESSMENT: 1. Recurrent picture of sepsis with tachycardia, fever. Concern is that the tracheobronchial fistula is active again. Possibility of stent slipping. I did speak to Dr. Garcia, who did speak to the patient about a bronchoscopy, but patient is adamant not to have a bronchoscopy at this point; really wants to just go home. 2. Multi-lobar pneumonia, bilateral, from Gram-negative organism on presentation with severe sepsis. That antibiotic course was actually finished. 3. [id number] lung cancer. Patient did get chemotherapy; getting radiation treatment. 4. 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 Wu from Cardiothoracic Surgery. 5. Gastroesophageal reflux disease. 6. Essential hypertension. 7. Acute chronic obstructive pulmonary disease exacerbation in a smoker, improved. 8. Paroxysmal atrial fibrillation. 9. G-tube for feeding. Tolerating diet. PLAN: Care was discussed at length with the patient and his . Very keen to go home. Also spoke to Dr. Garcia at length. He did offer bronchoscopy to the patient. Patient does not want the same. Wants to go home. Then spoke to Dr. Mehta in the meantime, who had seen the patient. Patient agreed to stay overnight and if remains afebrile. Total time spent today was about 50 minutes with over 35 minutes of discussion. Sputum cultures are pending. Patient does look a bit better today compared to yesterday. Will follow.
[2016-06-02] MEDS: HYDROcodone/APAP 15 ML SOLUTION PO PRN ×3 (01:22→11:58)
[2016-06-02 01:24] LABS: Glucose,Whole Blood 126 mg/dL (75-99)
[2016-06-02] MEDS: INSULIN LISPRO (humaLOG) 300 UNIT/3 ML VIAL SQ SCH ×3 (01:53→12:07)
[2016-06-02] MEDS: PIPERACILLIN-TAZOBACTAM 3.375 GM in DEXTROSE/WATER 1 50ML.BAG IVPB SCH ×3 (05:29→15:11)
[2016-06-02 06:28] LABS: Glucose,Whole Blood 111 mg/dL (75-99)
[2016-06-02] MEDS: IPRATROPIUM-ALBUTEROL 3 ML NEB INHALATION SCH ×4 (07:30→15:01)
[2016-06-02] MEDS: METOPROLOL TARTRATE 25 MG TAB PO SCH (08:43)
[2016-06-02] MEDS: LISINOPRIL 5 MG TAB PO SCH (08:43)
[2016-06-02] MEDS: HEPARIN SODIUM,PORCINE 5,000 UNIT/ML 1 ML VIAL SQ SCH (08:43)
[2016-06-02 11:56] LABS: Glucose,Whole Blood 120 mg/dL (75-99)
[2016-06-02 15:28] VITALS: BP 112/65; PULSE 78; TEMP 97.4
--- NOTE | 2016-06-04 17:01 | DS ---
DATE OF ADMISSION: 05/15/2016 DATE OF DISCHARGE: 06/02/2016 FINAL DIAGNOSIS(ES): 1. Acute bilateral, multilobar pneumonia, suspect gram-negative organism causing severe sepsis present on admission. 2. Non-small cell lung cancer for which patient did get chemotherapy previously and did get radiation treatment during hospitalization. 3. 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 Wu from cardiothoracic surgery. 4. Gastroesophageal reflux disease. 5. Essential hypertension. 6. History of chronic obstructive pulmonary disease exacerbation in a smoker, improved. 7. Paroxysmal atrial fibrillation. PROCEDURE PERFORMED : 1. Tracheal stent placement by Dr. Wu. 2. NG tube placement and replaced for technical reasons by Dr. Hanson. CONSULTATION: Dr. Hanson from general surgery, Dr. Wu from cardiothoracic surgery; Dr. Zimmer from oncology and Dr. Garcia from pulmonary. Dr. Mehta from infectious disease. HOSPITAL COURSE: This is an extremely pleasant gentleman diagnosed with non-small cell lung cancer, getting chemotherapy, presented with profuse coughing and some vomiting, found to have tracheobronchial fistula, stent was placed. As patient not able to tolerate by mouth, patient did have G-tube placed because of technicality of the type of tube, this had to be replaced. Please see notes from Dr. Hanson. Patient's pain is better controlled. Patient getting feeding through the pump. On the day of discharge, care was discussed with the patient. Antibiotics. The patient also cleared by Dr. Garcia and Dr. Mehta for discharge. On discharge, the patient doing better. On exam: LUNGS: Decreased breath sounds. CARDIOVASCULAR: First and second sounds normal. G-tube in place. NG tube in place. Patient's hemoglobin was 11. BUN 21, creatinine 0.53. DISCHARGE MEDICATIONS: 1. Protonix 40 mg a day. 2. Augmentin 400/57 10 mL p.o. q.12. for 10 days. 3. Dighton 7.5 10 mL q.4 p.r.n. for pain. 4. DuoNeb t.i.d. 5. Zestril 5 mg p.o. b.i.d. 6. Lopressor 25 mg p.o. b.i.d. Additional information: The patient had Doppler lower extremity negative for DVT. The patient's 2-D echocardiogram showed EF 65%. Follow up with Dr. Garcia in one week. Follow up with Dr. Brant Trujillo 3 to 4 days, follow-up with Dr. Mitchell on 06/27/2016. At this point, patient decided to defer chemotherapy at least for a week until the acute infection is controlled. DC planning more than 35 minutes.
--- NOTE | 2016-07-11 22:30 | PN ---
DATE OF SERVICE: 05/29/2016 ADDENDUM ASSESSMENT: 1. Acute bilateral pneumonia; suspect Gram-negative organism, multi-lobar, present on admission, with severe sepsis.
== END 2016-06-02 17:35 | disposition home health service (06) | DRG 871 ==
LOC: EC 22:13 → 5ONC 05-15 01:21 → 6SEL 05-19 09:16 → 5ONC 05-29 12:58
PROVIDERS: ADMIT Hospitalist; ATTEND Hospitalist
PROC: 0B978ZX Drainage of Left Main Bronchus, Via Natural or Artificial Opening Endoscopic, Diagnostic (ICD-10-PCS; principal; 2016-05-16 12:25)
PROC: 0D728DZ Dilation of Middle Esophagus with Intraluminal Device, Via Natural or Artificial Opening Endoscopic (ICD-10-PCS; 2016-05-18)
PROC: 0DH63UZ Insertion of Feeding Device into Stomach, Percutaneous Approach (ICD-10-PCS; 2016-05-28)
PROC: 3E0G76Z Introduction of Nutritional Substance into Upper GI, Via Natural or Artificial Opening (ICD-10-PCS; 2016-05-29)
PROC: 0D20XUZ Change Feeding Device in Upper Intestinal Tract, External Approach (ICD-10-PCS; 2016-05-31)
DX: A41.9 Sepsis, unspecified organism (principal); J69.0 Pneumonitis due to inhalation of food and vomit; J86.0 Pyothorax with fistula; J15.6 Pneumonia due to other Gram-negative bacteria; D61.810 Antineoplastic chemotherapy induced pancytopenia; E44.0 Moderate protein-calorie malnutrition; C34.02 Malignant neoplasm of left main bronchus; J44.1 Chronic obstructive pulmonary disease with (acute) exacerbation; J98.11 Atelectasis; E86.0 Dehydration; J38.01 Paralysis of vocal cords and larynx, unilateral; R65.20 Severe sepsis without septic shock; R13.10 Dysphagia, unspecified; I48.0 Paroxysmal atrial fibrillation; E83.42 Hypomagnesemia; T45.1X5A Adverse effect of antineoplastic and immunosuppressive drugs, initial encounter; K21.0 Gastro-esophageal reflux disease with esophagitis; I10 Essential (primary) hypertension; E87.6 Hypokalemia; I49.3 Ventricular premature depolarization; K44.9 Diaphragmatic hernia without obstruction or gangrene; Z87.01 Personal history of pneumonia (recurrent); Z85.01 Personal history of malignant neoplasm of esophagus; Z87.891 Personal history of nicotine dependence; Z92.3 Personal history of irradiation; Z92.21 Personal history of antineoplastic chemotherapy; Z79.899 Other long term (current) drug therapy; Y84.2 Radiological procedure and radiotherapy as the cause of abnormal reaction of the patient, or of later complication, without mention of misadventure at the time of the procedure
CPT/HCPCS: 31624; 36415; 43266; 49465; 71010; 71020; 71260; 71275; 74000; 74177; 74220; 77336; 77386; 80048; 80051; 80053; 81003; 82150; 82330; 83036; 83605; 83690; 83735; 84100; 84132; 84134; 84439; 84443; 84478; 85025; 85027; 85610; 85730; 87040; 87070; 87102; 87205; 87502; 93005; 93306; 93970; 94640; 96361; 96365; 96366; 96367; 96375; 96376; 99285

== ENCOUNTER → 2016-06-12 | Outpatient (CLI) | payer BC ==
[2016-06-12 09:20] LABS: Blood Urea Nitrogen 35 mg/dL (9-20); Non-African American GFR(MDRD) >60 (>60 ml/min/1.73 sqM)
--- NOTE | 2016-06-12 10:31 | CT ---
EXAMINATION TYPE: CT chest w con DATE OF EXAM: 06/12/2016 9:41 AM COMPARISON: CT cap May 23, 2016. HISTORY: Lung CA progress study after chemotherapy. CT DLP: 586 mGycm. Automated Exposure Control for Dose Reduction was Utilized. TECHNIQUE: CT scan of the thorax is performed following with IV Contrast, patient injected with 100 mL of Omnipaque 300. FINDINGS: LUNGS: There is persistent elevated left hemidiaphragm. There is improved aeration in the lingula wit h persistent peribronchial and irregular consolidation and mild bronchiectasis extending towards the left hilum. There is interval improvement in left lower lobe consolidation and resolution of tiny lef t effusion. There is new suspicious 12 x 11 mm left upper lobe nodule on axial image 17. Superior and lateral to this there is new semisolid nodular opacity measuring 13 x 8 mm on axial image 12 with mo re anterior groundglass component and posterior nodular component. There is interval resolution or improvement in masslike consolidation right infrahilar level on prior study axial image 69. Some scattered irregular infiltrates in the right lower lobe remain present. S ome tiny nodules are present, for reference 5 x 2 mm peripheral nodule right lower lobe on axial imag e 37 slightly more prominent than prior study. Interval improvement in right middle lobe infiltrate i s present. MEDIASTINUM: There is persistent metallic esophageal stent. There is increasing soft tissue growth at distal portion of stent just above diaphragmatic hiatus suggesting tumor invasion with mass effect s uggesting developing obstruction. There is redemonstration of ill-defined fluid along left lateral aspect of the main pulmonary artery stable or slightly less prominent. Superior to this along the anterior aspect of the aortic arch just posterior to left brachiocephalic vein there is 1.4 x 1.2 cm round low dense collection redemonstrat ed could reflect focal mediastinal fluid or low dense adenopathy, it is grossly stable in size and ap pearance from prior study. Prominent but subcentimeter lymph nodes in the anterior superior mediastin al fat adjacent to pericardium remain present and are stable. Irregular masslike consolidation left h ilar region is redemonstrated. Marked irregular narrowing of the left pulmonary artery is again prese nt. There is stable mild cardiomegaly. There are calcified subcentimeter left infrahilar lymph nodes redemonstrated. OTHER: Some pneumoperitoneum below left hemidiaphragm is present. Additional pneumoperitoneum anterio r to the inferior liver is seen. Patient had feeding tube inserted May 31 and may be related to fee ding tube insertion procedure. There is partial visualization of this feeding tube within the gastric body. Some multilevel spurring in lower thoracic spine is redemonstrated. IMPRESSION: 1. New pneumoperitoneum is likely related to interval percutaneous gastrostomy feeding tube. 2. Redemonstration of esophageal stent with more suspicious growth or neoplastic progression at dista l aspect of stent likely causing occlusion of distal esophagus. 3. Interval improved aeration in the lingula and left lower lobe as well as central right lower lobe. There is however new suspicious nodularity in the left upper lobe noted as detailed above strongly s uspicious for neoplastic progression.
== END ==
LOC: RADCTMAIN 08:41
PROVIDERS: ATTEND Radiology Radiation Oncology
DX: K66.8 Other specified disorders of peritoneum (principal); R91.8 Other nonspecific abnormal finding of lung field; Z93.1 Gastrostomy status; D37.8 Neoplasm of uncertain behavior of other specified digestive organs
CPT/HCPCS: 82565; 84520; 71260; 36415; Q9967

== ENCOUNTER 2016-06-23 21:20 | Inpatient (IN) | payer BC ==
[2016-06-23] MEDS ORDERED: IBUPROFEN 600 MG TAB PO STA (21:40)
[2016-06-23] MEDS ORDERED: ACETAMINOPHEN TAB 325 MG TAB PO STA (21:40)
[2016-06-23] MEDS ORDERED: ONDANSETRON 4 MG/2 ML VIAL IVP STA (22:16)
[2016-06-23] MEDS ORDERED: MORPHINE SULFATE 4 MG/ML SYRINGE IV STA (22:16)
--- NOTE | 2016-06-23 22:27 | ED ---
Fever HPI - General Chief Complaint: Fever Stated Complaint: Vomiting Time Seen by Provider: 06/23/16 21:40 Source: patient Mode of arrival: ambulatory Limitations: no limitations - History of Present Illness Initial Comments: This patient is a 51-year-old man, diagnosed with lung cancer, and who received chemotherapy Saturday and has had radiation treatment this whole week. He noticed a fever that has been going on since "midday" and has been having trouble with vomiting that has been going on for a few days but worse today. He also is having some epigastric discomfort. Patient denies other symptoms of infection. He states that he has not had sinus pain, sore throat or congestion. He has not had headache or stiff neck. Patient denies shortness of breath, and states that he has a cough but it hasn't really changed. Patient denies leg pain or swelling. MD Complaint: fever Onset/Timin -: hour(s) Temperature Source: subjective Context: on chemotherapy Associated Symptoms: abdominal pain, nausea, vomiting Treatments Prior to Arrival: none - Related Data Home Medications Medication Instructions Recorded Confirmed LORazepam [Ativan] 0.5 mg PO TID 06/24/16 06/28/16 Ondansetron [Zofran ODT] 8 mg PO Q8HR PRN 06/24/16 06/28/16 Prochlorperazine [Compazine] 10 mg PO TID 06/24/16 06/28/16 Previous Rx's Medication Instructions Recorded HYDROcodone/APAP [[place] Elixir 10 ml PO Q4H PRN #1000 solution 06/02/16 7.5-325Mg/15Ml] Ipratropium-Albuterol Nebulize 3 ml INHALATION RT-TID #90 06/02/16 [Duoneb 0.5 mg-3 mg/3 ml Soln] ampul.neb Lisinopril [Zestril] 5 mg PO BID #60 tab 06/02/16 Metoprolol Tartrate [Lopressor] 25 mg PO BID #60 tab 06/02/16 Allergies Allergy/AdvReac Type Severity Reaction Status Date / Time No Known Allergies Allergy Verified 06/24/16 08:59 Review of Systems ROS Statement: Those systems with pertinent positive or pertinent negative responses have been documented in the HPI. ROS Other: All systems not noted in ROS Statement are negative. Constitutional: Reports: fever ENT: Denies: ear pain, throat pain, congestion Respiratory: Reports: cough. Denies: dyspnea, wheezes, hemoptysis Cardiovascular: Denies: chest pain, palpitations, edema, syncope Gastrointestinal: Reports: as per HPI, abdominal pain, nausea, vomiting. Denies : hematemesis, melena, hematochezia Genitourinary: Denies: dysuria, hematuria Musculoskeletal: Denies: back pain Skin: Denies: rash Neurological: Denies: headache, weakness, numbness Past Medical History Past Medical History: Cancer, GERD/Reflux, Hypertension Additional Past Medical History / Comment(s): Non-small cell lung Cancer History of Any Multi-Drug Resistant Organisms: None Reported Past Surgical History: Hernia Repair Additional Past Surgical History / Comment(s): cyst removed from back, BRONCHOSCOPY, VATS procedure Past Anesthesia/Blood Transfusion Reactions: Motion Sickness Past Psychological History: No Psychological Hx Reported Additional Psychological History / Comment(s): lives 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 Tobacco smoker until 3 years ago approximately 30 -pack-year history. No significant alcohol use. no recreational drug use. No experience. 2 adult children that are healthy. No animals in the home Smoking Status: Former smoker Past Alcohol Use History: None Reported Additional Past Alcohol Use History / Comment(s): quit smoking 2013, STARTED SMOKING AT AGE 15, SMOKED 1 PPD Past Drug Use History: None Reported - Past Family History Mother Family Medical History: No Reported History General Exam Limitations: no limitations General appearance: alert, in no apparent distress Head exam: Present: atraumatic, normocephalic Eye exam: Present: normal appearance. Absent: scleral icterus, conjunctival injection ENT exam: Present: mucous membranes dry Neck exam: Present: normal inspection, full ROM. Absent: meningismus Respiratory exam: Present: rhonchi, decreased breath sounds (Left base). Absent : respiratory distress, wheezes, rales Cardiovascular Exam: Present: normal rhythm, tachycardia (Rate approximately 140 ), normal heart sounds. Absent: systolic murmur, diastolic murmur, rubs GI/Abdominal exam: Present: soft, diminished bowel sounds, other (There is a PEG tube in the left upper quadrant). Absent: distended, tenderness, guarding, rebound, rigid, mass, hernia Extremities exam: Present: normal inspection, normal capillary refill. Absent: pedal edema, calf tenderness Back exam: Present: normal inspection. Absent: CVA tenderness (R), CVA tenderness (L) Neurological exam: Present: alert Skin exam: Present: warm, dry, intact, normal color. Absent: rash Course Vital Signs 06/23/16 06/23/16 06/23/16 21:33 22:35 23:35 Temperature 102 F H Pulse Rate 149 H 125 H 120 H Respiratory 20 22 22 Rate Blood Pressure 100/58 113/67 94/52 O2 Sat by Pulse 85 L 95 95 Oximetry 06/24/16 06/24/16 06/24/16 01:07 02:10 02:29 Temperature 97.6 F 97.2 F L Pulse Rate 110 H 105 H 106 H Respiratory 22 22 22 Rate Blood Pressure 85/56 96/54 115/53 O2 Sat by Pulse 97 96 96 Oximetry Medical Decision Making - Lab Data Result diagrams: 06/27/16 07:05 06/27/16 07:05 Lab Results 06/23/16 06/23/16 06/23/16 Range/Units 22:50 22:50 22:50 WBC 0.4 L* (3.8-10.6) k/uL RBC 2.90 L (4.30-5.90) m/uL Hgb 9.0 L D (13.0-17.5) gm/dL Hct 25.8 L (39.0-53.0) % MCV 89.0 D (80.0-100.0) fL MCH 31.1 (25.0-35.0) pg MCHC 35.0 (31.0-37.0) g/dL RDW 16.4 H (11.5-15.5) % Plt Count 68 L D (150-450) k/uL Differential Comment Polychromasia Present Poikilocytosis Slight Poikilocytosis (manual Present Anisocytosis Slight Anisocytosis (manual) Present Sodium 131 L (137-145) mmol/L Potassium 4.1 (3.5-5.1) mmol/L Chloride 88 L (98-107) mmol/L Carbon Dioxide 32 H (22-30) mmol/L Anion Gap 11 mmol/L BUN 26 H (9-20) mg/dL Creatinine 0.60 L (0.66-1.25) mg/dL Est GFR (MDRD) Af Amer >60 (>60 ml/min/1.73 sqM) Est GFR (MDRD) Non-Af >60 (>60 ml/min/1.73 sqM) Glucose 138 H (74-99) mg/dL Plasma Lactic Acid Ty (0.7-2.0) mmol/L Calcium 8.9 (8.4-10.2) mg/dL Total Bilirubin 0.9 (0.2-1.3) mg/dL AST 23 (17-59) U/L ALT 35 (21-72) U/L Alkaline Phosphatase 113 (38-126) U/L NT-Pro-B Natriuret Pep pg/mL Total Protein 6.9 (6.3-8.2) g/dL Albumin 3.5 (3.5-5.0) g/dL Urine Color Urine Appearance (Clear) Urine pH (5.0-8.0) Ur Specific [place] (1.001-1.035) Urine Protein (Negative) Urine Glucose (UA) (Negative) Urine Ketones (Negative) Urine Blood (Negative) Urine Nitrite (Negative) Urine Bilirubin (Negative) Urine Urobilinogen (<2.0) mg/dL Ur Leukocyte Esterase (Negative) Urine RBC (0-5) /hpf Urine WBC (0-5) /hpf Ur Squamous Epith Cells (0-4) /hpf Ur Transition Epith Cell (0-1) /hpf Urine Bacteria (None) /hpf Urine Mucus (None) /hpf Influenza Type A RNA Not Detected (Not Detectd) Influenza Type B (PCR) Not Detected (Not Detectd) 06/23/16 06/23/16 06/24/16 Range/Units 22:50 22:50 00:55 WBC (3.8-10.6) k/uL RBC (4.30-5.90) m/uL Hgb (13.0-17.5) gm/dL Hct (39.0-53.0) % MCV (80.0-100.0) fL MCH (25.0-35.0) pg MCHC (31.0-37.0) g/dL RDW (11.5-15.5) % Plt Count (150-450) k/uL Differential Comment Polychromasia Poikilocytosis Poikilocytosis (manual Anisocytosis Anisocytosis (manual) Sodium (137-145) mmol/L Potassium (3.5-5.1) mmol/L Chloride (98-107) mmol/L Carbon Dioxide (22-30) mmol/L Anion Gap mmol/L BUN (9-20) mg/dL Creatinine (0.66-1.25) mg/dL Est GFR (MDRD) Af Amer (>60 ml/min/1.73 sqM) Est GFR (MDRD) Non-Af (>60 ml/min/1.73 sqM) Glucose (74-99) mg/dL Plasma Lactic Acid Ty 1.2 (0.7-2.0) mmol/L Calcium (8.4-10.2) mg/dL Total Bilirubin (0.2-1.3) mg/dL AST (17-59) U/L ALT (21-72) U/L Alkaline Phosphatase (38-126) U/L NT-Pro-B Natriuret Pep 158 pg/mL Total Protein (6.3-8.2) g/dL Albumin (3.5-5.0) g/dL Urine Color Yellow Urine Appearance Clear (Clear) Urine pH 7.0 (5.0-8.0) Ur Specific [place] 1.024 (1.001-1.035) Urine Protein 1+ H (Negative) Urine Glucose (UA) Negative (Negative) Urine Ketones Negative (Negative) Urine Blood Negative (Negative) Urine Nitrite Negative (Negative) Urine Bilirubin Negative (Negative) Urine Urobilinogen 4.0 (<2.0) mg/dL Ur Leukocyte Esterase Negative (Negative) Urine RBC 1 (0-5) /hpf Urine WBC 6 H (0-5) /hpf Ur Squamous Epith Cells 1 (0-4) /hpf Ur Transition Epith Cell <1 (0-1) /hpf Urine Bacteria Rare H (None) /hpf Urine Mucus Rare H (None) /hpf Influenza Type A RNA (Not Detectd) Influenza Type B (PCR) (Not Detectd) - EKG Data -: EKG Interpreted by Me EKG shows normal: sinus rhythm, axis (Normal), intervals (Normal), QRS complexes (Normal), ST-T waves (Normal) Rate: tachycardia (Rate 141 bpm) Critical Care Time Critical Care Time: Yes (35 minutes) Disposition Clinical Impression: Intractable nausea and vomiting, Leukopenia due to antineoplastic chemotherapy , Sepsis, Fever Disposition: ADMITTED IP TO THIS HOSP Condition: Serious
[2016-06-23 23:40] LABS: ALT 35 U/L (21-72); AST 23 U/L (17-59); Alkaline Phosphatase 113 U/L (38-126); Anion Gap 11 mmol/L; Blood Urea Nitrogen 26 mg/dL (9-20); Calcium 8.9 mg/dL (8.4-10.2); Carbon Dioxide 32 mmol/L (22-30); Chloride 88 mmol/L (98-107); Glucose 138 mg/dL (74-99); Non-African American GFR(MDRD) >60 (>60 ml/min/1.73 sqM); Potassium 4.1 mmol/L (3.5-5.1); Sodium 131 mmol/L (137-145); Total Bilirubin 0.9 mg/dL (0.2-1.3); Total Protein 6.9 g/dL (6.3-8.2)
[2016-06-23 23:41] LABS: Anisocytosis Slight; CH 31.8; HCT 25.8 % (39.0-53.0); MCH 31.1 pg (25.0-35.0); Mean Platelet Volume 8.2; Poikilocytosis Slight; RDW 16.4 % (11.5-15.5); WBC (Perox) 0.44
--- NOTE | 2016-06-24 00:08 | XR ---
History: Reason: fever Exam: XR CXR 2 VIEWS Comparison: Comparison 06/01/2016 FINDINGS: Elevation of the left hemidiaphragm with moderate to large gastric fluid level seen. There is again appearance of internal metallic stent likely esophageal, correlate with history. Streaky left perihilar opacities may represent atelectasis with possibility of aspiration pneumonitis not excluded. No evidence of pleural effusion. The right lung appears clear. IMPRESSION: Elevation of the left hemidiaphragm with moderate to large gastric fluid level seen. There is again appearance of internal metallic stent likely esophageal, correlate with history. Streaky left perihilar opacities may represent atelectasis with possibility of aspiration pneumonitis not excluded. No evidence of pleural effusion. The right lung appears clear.
[2016-06-24 00:09] LABS: WBC 0.4 k/uL (3.8-10.6)
[2016-06-24] MEDS ORDERED: CEFEPIME 2 GM in SODIUM CHLORIDE 0.9% 50 ML IVPB STA (00:13)
[2016-06-24] MEDS ORDERED: IV VANCOMYCIN PER PHARMACY 1 EACH MISC MISCELLANE PRN (00:13)
[2016-06-24] MEDS ORDERED: SODIUM CHLORIDE 0.9% 500 ML IV STA (00:21)
[2016-06-24] MEDS ORDERED: VANCOMYCIN 1,250 MG in SODIUM CHLORIDE 0.9% 250 ML IVPB ONE (01:00)
[2016-06-24] MEDS ORDERED: NALOXONE 0.4 MG/ML 1 ML VIAL IV PRN (01:36)
[2016-06-24] MEDS ORDERED: ACETAMINOPHEN TAB 325 MG TAB PO PRN (01:36)
[2016-06-24 01:48] LABS: Appearance,Urine Clear (Clear); Bacteria,Urine Rare /hpf; Bilirubin,Urine Negative (Negative); Glucose,Urine (UA) Negative (Negative); Ketones,Urine Negative (Negative); Leukocyte Esterase,Urine Negative (Negative); Mucus,Urine Rare /hpf; Nitrite,Urine Negative (Negative); Particle Count 2469; Protein,Urine 1+ (Negative); RBC,Urine 1 /hpf (0-5); Specific Gravity,Urine 1.024 (1.001-1.035); Squamous Epithelial Cell,Urine 1 /hpf (0-4); Transitional Epi Cells,Urine <1 /hpf (0-1); UA Billing (MACRO vs. MICRO) MICRO; WBC,Urine 6 /hpf (0-5)
[2016-06-24 02:25] LABS: Add Differential Manual Differential
[2016-06-24 02:27] LABS: Polychromasia Present
[2016-06-24] MEDS: SODIUM CHLORIDE 0.9% 1,000 ML IV SCH ×3 (03:49→22:27)
[2016-06-24] MEDS: HYDROcodone/APAP 15 ML SOLUTION PO PRN (03:50)
[2016-06-24] MEDS ORDERED: SODIUM CHLORIDE 0.9% 2,000 ML IV ONE (04:51)
[2016-06-24] MEDS: CEFEPIME 2 GM in SODIUM CHLORIDE 0.9% 50 ML IVPB SCH ×2 (07:38→17:17)
[2016-06-24] MEDS: ONDANSETRON 4 MG/2 ML VIAL IVP PRN ×3 (07:42→22:27)
[2016-06-24] MEDS: METOPROLOL TARTRATE 25 MG TAB PO SCH ×2 (07:48→21:38)
[2016-06-24] MEDS: PANTOPRAZOLE 40 MG TABLET PO SCH (07:49)
[2016-06-24] MEDS: HEPARIN SODIUM,PORCINE 5,000 UNIT/ML 1 ML VIAL SQ SCH ×2 (07:49→17:20)
[2016-06-24] MEDS: IPRATROPIUM-ALBUTEROL 3 ML NEB INHALATION SCH ×4 (08:38→23:01)
[2016-06-24] MEDS ORDERED: LISINOPRIL 5 MG TAB PO SCH (09:00)
[2016-06-24] MEDS: VANCOMYCIN 1,250 MG in SODIUM CHLORIDE 0.9% 250 ML IVPB SCH ×3 (10:21→22:22)
[2016-06-24] MEDS: MORPHINE SULFATE 4 MG/ML SYRINGE IV PRN ×3 (10:31→23:50)
--- NOTE | 2016-06-24 16:56 | HP ---
DATE OF ADMISSION: 06/24/2016 PRESENTING COMPLAINT Fever. HISTORY OF PRESENTING COMPLAINT: This is a very pleasant 51-year-old patient who has a diagnosis of non-small cell lung cancer for which patient is getting chemo and radiation treatment. The patient was in the hospital from 05/15/2016 to 06/02/2016. Patient did develop tracheobronchial fistula felt to be from radiation treatment. Did get a stent placed by Dr. Wu from cardiothoracic surgery. Patient's other stable medical conditions include COPD, GERD, hypertension, paroxysmal atrial fibrillation. The patient also has got a feeding tube, which gets feedings 10/09. The patient's last chemotherapy was 5 days ago. Patient feeling weak, tired, rundown. Patient often times was coughing up stuff which was at baseline for him. Presents with fever, tired, run down. is at the bedside. REVIEW OF SYSTEMS: CONSTITUTIONAL: Tired. HEENT: None. RESPIRATORY: As above. CARDIOVASCULAR: None. GASTROINTESTINAL: Has got a feeding tube. GENITOURINARY: None. MUSCULOSKELETAL: None. Dermatological: None. HEMATOLOGICAL: None. LYMPHATICS: None. PSYCHIATRY: None. NEUROLOGICAL: None. PAST MEDICAL HISTORY: 1. Non-small cell lung cancer. 2. Hypertension. 3. Gastroesophageal reflux disease. 4. Tracheoesophageal fistula. PAST SURGICAL HISTORY: Hernia repair, cyst removed from the back, VATS procedure, PEG tube placement, stent in the esophagus. 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 . Was drinking about 4 beers a day. FAMILY HISTORY: Reviewed; noncontributory to presentation. HOME MEDICATIONS: 1. Lopressor 25 p.o. b.i.d. 2. Zestril 5 mg p.o. b.i.d. 3. Duoneb t.i.d. 4. Compazine 10 mg p.o. t.i.d. 5. Zofran 8 mg p.o. q8h p.r.n. 6. Ativan 0.5 p.o. t.i.d. 7. [place] 10 mL q.4 p.r.n. 8. ( ) 7.5/325. ALLERGIES: None. PHYSICAL EXAMINATION: Vital signs on presentation: Temperature 102, pulse 149, respiration 20, blood pressure 100/58, pulse 85% on room air. GENERAL APPEARANCE: Average build. Sitting up, tired appearing. EYES: Pupils equal. Conjunctivae pale. HEENT: External appearance of nose and ears normal. Oral cavity normal. NECK: JVD not raised. Mass not palpable. Respiratory effort increased. Lungs some scattered crackles. CARDIOVASCULAR: First and second sounds normal. No edema. ABDOMEN: Soft, nontender. Liver and spleen not palpable. Feeding tube in place. LYMPHATIC: No lymph nodes palpable in neck or axillae. PSYCHIATRY: Alert and oriented times three. Mood and affect normal. INVESTIGATIONS: White count 0.4, hemoglobin 9, platelets 68, sodium 131, potassium 4.1. BUN 26. Influenza screen negative. Chest x-ray unable to distinguish acute from chronic changes. ASSESSMENT: 1. Neutropenic fever could be possibly pneumonia from underlying chemotherapy causing severe sepsis picture present on admission. 2. Non-small cell lung cancer. The patient getting chemotherapy and radiation treatment. 3. 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 4. Gastroesophageal reflux disease. 5. Essential hypertension. 6. Chronic obstructive pulmonary disease in ex-smoker. 7. Paroxysmal atrial fibrillation. 8. Permanent percutaneous endoscopic gastrostomy feeding tube for feeding. 9. Pancytopenia from chemotherapy. PLAN: Patient is put on IV cefepime and vancomycin. Home medications are resumed. Care was discussed with the patient and at the bedside. Will get a dietitian consultation. Oncology is consulted. We will also have Dr. Mehta see the patient. Care was discussed at length with the patient and . Questions were answered. Copy of dictation to Dr. Trujillo.
[2016-06-24] MEDS ORDERED: LORazepam 2 MG/ML SYRINGE IV STA (17:08)
[2016-06-24] MEDS: SCOPOLAMINE 1.5MG/72HR PATCH TRANSDERM SCH (17:33)
[2016-06-24] MEDS: METOCLOPRAMIDE 5 MG/ML 2 ML VIAL IVP PRN ×2 (17:33→22:54)
[2016-06-24] MEDS: LORazepam 1 MG TAB PO PRN (23:42)
[2016-06-25] MEDS: CEFEPIME 2 GM in SODIUM CHLORIDE 0.9% 50 ML IVPB SCH ×4 (00:44→23:49)
[2016-06-25] MEDS: HEPARIN SODIUM,PORCINE 5,000 UNIT/ML 1 ML VIAL SQ SCH ×4 (00:45→23:49)
[2016-06-25 00:51] LABS: Glucose,Whole Blood 168 mg/dL (75-99)
[2016-06-25] MEDS: IPRATROPIUM-ALBUTEROL 3 ML NEB INHALATION PRN ×2 (03:58→16:24)
[2016-06-25] MEDS: SODIUM CHLORIDE 0.9% 1,000 ML IV SCH ×3 (04:29→17:29)
[2016-06-25] MEDS: METOCLOPRAMIDE 5 MG/ML 2 ML VIAL IVP PRN (05:37)
[2016-06-25] MEDS ORDERED: VANCOMYCIN TROUGH DUE 1 EACH MISC MISCELLANE ONE (06:00)
[2016-06-25 06:22] LABS: Glucose,Whole Blood 165 mg/dL (75-99)
[2016-06-25] MEDS: MORPHINE SULFATE 4 MG/ML SYRINGE IV PRN ×3 (07:38→16:24)
[2016-06-25 07:57] LABS: Anisocytosis Slight; Aty Lym Flag Moderate; CH 31.5; CHCM 35.5; HCT 23.4 % (39.0-53.0); HDW 3.87; HGB 8.2 gm/dL (13.0-17.5); MCH 31.2 pg (25.0-35.0); MCHC 34.9 g/dL (31.0-37.0); MCV 89.4 fL (80.0-100.0); Mean Platelet Volume 8.1; Poikilocytosis Slight; RBC 2.62 m/uL (4.30-5.90); RDW 16.7 % (11.5-15.5); WBC (Perox) 0.41
[2016-06-25 08:09] LABS: WBC 0.3 k/uL (3.8-10.6)
[2016-06-25] MEDS: IPRATROPIUM-ALBUTEROL 3 ML NEB INHALATION SCH ×3 (08:48→21:24)
[2016-06-25 08:52] LABS: Add Differential Manual Differential
[2016-06-25 08:54] LABS: Manual Review Performed
[2016-06-25] MEDS: VANCOMYCIN 1,250 MG in SODIUM CHLORIDE 0.9% 250 ML IVPB SCH (10:16)
[2016-06-25] MEDS: PANTOPRAZOLE 40 MG TABLET PO SCH (10:17)
[2016-06-25] MEDS: METOPROLOL TARTRATE 25 MG TAB PO SCH ×2 (10:18→22:07)
[2016-06-25 11:45] LABS: Glucose,Whole Blood 220 mg/dL (75-99)
[2016-06-25] MEDS: LORazepam 1 MG TAB PO PRN (16:27)
[2016-06-25] MEDS: VANCOMYCIN 1,500 MG in SODIUM CHLORIDE 0.9% 250 ML IVPB SCH (17:28)
--- NOTE | 2016-06-25 17:37 | P.CONS ---
History of Present Illness - Reason for Consult Consult date: 06/25/16 febrile neutropenia Requesting physician: Jeremi Ramos - Chief Complaint fever, vomiting - History of Present Illness Mr. Rosario is a vey nice patient of Dr. Mitchell who initially presented with sudden onset/persistent hoarseness in July 2015, CT 10/2015 revealed left hilar mass measuring 5.3 x 3.8 x 4.6 cm. He had 2 bronchoscopies,including navigational bronchoscopy, biopsies were negative. PET scan 11/26/2015 showed suspicious uptake in left hilar mass extending to mediastinum. He was sent to [facility] and had repeat bronchoscopies, twice-both of which were negative. He ended up having VATS with biopsies which were negative as well. Repeat CT chest at [facility] on 03/14/16 revealed enlarging left hilar/ mediastinal mass, now measuring 8.5 x 4.0 x 5.4 cm with complete collapse of MICHI. Repeat EBUS on 03/30/16 revealing left vocal cord paralysis, submucosal infiltration at left main stem bronchus, 70% narrowing of MICHI where BAL and endobronchial biopsies were taken, pathology was positive for poorly differentiated carcinoma associated with significant necrotic tissues, IHC favored squamous cell carcinoma. Pt was started on concurrent chemo and radiation, cisplatin days 1 & 8 and etoposide days 1-5 2 cycles planeed with XRT M-F. 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 He continued on radiation while inpatient. His 2nd cycle was delayed about 1-1/2 weeks, he started 06/11 and had day 8 last Saturday, he has 2 more radiation treatments to complete. Pt states he continues to lose wt but he is tolerating PEG feedings without indigestion or diarrhea. He had fever and vomiting, since admit he has had fever but the vomiting has stopped, he is at 60cc/hr on PEG feedings, no oral intake other then some sips of water. No oral irritation, cough, mild SOB with exertion, no chest pain, palpitations, some abd discomfort but no cramping or bloating, dysuria, hematuria, hematochazia or melena, moderate BLE swelling, no rash. Review of Systems All systems: negative Constitutional: Reports as per HPI Past Medical History Past Medical History: Cancer, GERD/Reflux, Hypertension Additional Past Medical History / Comment(s): Non-small cell lung Cancer History of Any Multi-Drug Resistant Organisms: None Reported Past Surgical History: Hernia Repair Additional Past Surgical History / Comment(s): cyst removed from back, BRONCHOSCOPY, VATS procedure Past Anesthesia/Blood Transfusion Reactions: No Reported Reaction Past Psychological History: No Psychological Hx Reported Additional Psychological History / Comment(s): lives 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 Tobacco smoker until 3 years ago approximately 30 -pack-year history. No significant alcohol use. no recreational drug use. No experience. 2 adult children that are healthy. No animals in the home Smoking Status: Former smoker Past Alcohol Use History: None Reported Additional Past Alcohol Use History / Comment(s): quit smoking 2013, STARTED SMOKING AT AGE 15, SMOKED 1 PPD Past Drug Use History: None Reported - Past Family History Mother Family Medical History: No Reported History Medications and Allergies Home Medications Medication Instructions Recorded Confirmed Type LORazepam [Ativan] 0.5 mg PO TID 06/24/16 06/24/16 History Ondansetron [Zofran ODT] 8 mg PO Q8HR PRN 06/24/16 06/24/16 History Prochlorperazine [Compazine] 10 mg PO TID 06/24/16 06/24/16 History Allergies Allergy/AdvReac Type Severity Reaction Status Date / Time No Known Allergies Allergy Verified 06/24/16 08:59 Physical Exam Vitals: Vital Signs Temp Pulse Pulse Resp BP Pulse Ox 06/25/16 16:37 112 H 06/25/16 16:24 112 H 06/25/16 16:00 135 H 16 06/25/16 15:00 101 F H 124 H 16 105/58 90 L 06/25/16 14:00 108 H 06/25/16 13:47 98 16 06/25/16 09:00 96 06/25/16 08:49 100 16 06/25/16 08:00 135 H 16 06/25/16 07:00 98 F 135 H 16 95/53 92 L 06/25/16 04:08 120 H 06/25/16 03:58 112 H 05/07/17 23:12 116 H 06/24/16 23:02 120 H 06/24/16 23:00 97.0 F L 115 H 20 109/60 98 06/24/16 20:58 112 H 06/24/16 20:46 116 H 97 06/24/16 17:34 96 20 132/65 95 06/24/16 17:20 119 H 06/24/16 17:07 122 H Intake and Output 06/25/16 06/25/16 06/25/16 06:59 14:59 22:59 Intake Total 1720 720 Balance 1720 720 Intake: IV 1000 Sodium Chloride 0.9% 1, 1000 000 ml @ 125 mls/hr IV . Q8H [facility] Rx#:[id number] Tube Feeding 720 720 Other: Voiding Method Toilet Toilet Toilet # Voids 1 Weight 69.853 kg Patient Weight 06/26/16 06:59 Weight 69.853 kg - Constitutional General appearance: average body habitus, cooperative, no acute distress - EENT pale conjunctiva Eyes: anicteric sclerae, EOMI ENT: normal oropharynx - Neck Neck: no lymphadenopathy - Respiratory Respiratory: right: CTA, left: diminished - Cardiovascular Heart sounds: normal: S1, S2 Abnormal Heart Sounds: no systolic murmur, no diastolic murmur, no rub, no S3 Gallop, no S4 Gallop, no click, no other leg Peripheral Edema: bilateral: 1+ - Gastrointestinal General gastrointestinal: no absent bowel sounds, no decreased bowel sounds, no distended, no hepatomegaly, no hyperactive bowel sounds, normal bowel sounds, no organomegaly, no rigid, no scaphoid, soft, no splenomegaly, no tenderness, no umbilical hernia, no ventral hernia - Integumentary Integumentary: pale - Neurologic Neurologic: CNII-XII intact - Musculoskeletal Musculoskeletal: generalized weakness, strength equal bilaterally - Psychiatric Psychiatric: A&O x's 3, appropriate affect, intact judgment & insight Results CBC & Chem 7: 06/25/16 06:47 06/23/16 22:50 Labs: Abnormal Lab Results - Last 24 Hours (Table) 06/25/16 06/25/16 06/25/16 Range/Units 00:50 06:22 06:47 WBC 0.3 L* (3.8-10.6) k/uL RBC 2.62 L (4.30-5.90) m/uL Hgb 8.2 L (13.0-17.5) gm/dL Hct 23.4 L (39.0-53.0) % RDW 16.7 H (11.5-15.5) % Plt Count 76 L (150-450) k/uL POC Glucose (mg/dL) 168 H 165 H (75-99) mg/dL 06/25/16 Range/Units 11:39 WBC (3.8-10.6) k/uL RBC (4.30-5.90) m/uL Hgb (13.0-17.5) gm/dL Hct (39.0-53.0) % RDW (11.5-15.5) % Plt Count (150-450) k/uL POC Glucose (mg/dL) 220 H (75-99) mg/dL Chest x-ray: report reviewed Assessment and Plan (1) Febrile neutropenia Narrative/Plan: Pancultures ordered, BC negative at 24 hours, CXR possible left aspiration pneumonia/pneumonitis, urine culture negative so far. Empiric antibiotics ordered. Status: Acute (2) Pancytopenia due to antineoplastic chemotherapy Narrative/Plan: CBC reviewed, conservative PRBC transfusions for Hgb <7, no transfusion today. Platelets adequate for DVT prophylaxis at this time, no transfusion. GCSF initiated today for leukopenia/neutropenia. CBC daily Status: Acute (3) Squamous cell carcinoma lung Narrative/Plan: Pt has completed chemotherapy 7 days ago, he has 2 more radiation treatments. Follow up for treatment evaluation will be in about 3-4 weeks. Status: Acute Plan: Aggressive supportive care. GI and DVT prophylaxis Cont tube feedings
[2016-06-25 17:40] LABS: Glucose,Whole Blood 160 mg/dL (75-99)
[2016-06-25] MEDS ORDERED: FUROSEMIDE 10 MG/ML 2 ML VIAL IV STA (20:06)
[2016-06-25] MEDS ORDERED: ACETAMINOPHEN IV (For NPO) 1,000 MG in EMPTY BAG 1 BAG IVPB STA (20:34)
[2016-06-25] MEDS ORDERED: LORazepam 2 MG/ML SYRINGE IV STA (20:42)
[2016-06-25 20:44] LABS: ALT 30 U/L (21-72); AST 22 U/L (17-59); Alkaline Phosphatase 90 U/L (38-126); Anion Gap 9 mmol/L; Blood Urea Nitrogen 13 mg/dL (9-20); Carbon Dioxide 28 mmol/L (22-30); Chloride 96 mmol/L (98-107); Glucose 130 mg/dL (74-99); Non-African American GFR(MDRD) >60 (>60 ml/min/1.73 sqM); Potassium 3.2 mmol/L (3.5-5.1); Sodium 133 mmol/L (137-145); Total Bilirubin 0.6 mg/dL (0.2-1.3); Total Protein 5.4 g/dL (6.3-8.2)
[2016-06-25 20:50] LABS: ABG PH 7.32 (7.35-7.45)
[2016-06-25 20:51] LABS: ABG HCO3 32 mmol/L (21-25); ABG PCO2 65 mmHg (35-45); ABG PO2 47 mmHg (83-108)
[2016-06-25 20:51] LABS: Anion Gap 12 mmol/L; Blood Urea Nitrogen 14 mg/dL (9-20); Calcium 8.6 mg/dL (8.4-10.2); Carbon Dioxide 25 mmol/L (22-30); Chloride 98 mmol/L (98-107); Glucose 157 mg/dL (74-99); Non-African American GFR(MDRD) >60 (>60 ml/min/1.73 sqM); Potassium 3.1 mmol/L (3.5-5.1); Sodium 135 mmol/L (137-145)
[2016-06-25 20:52] LABS: ABG Base Excess 6.1 mmol/L
--- NOTE | 2016-06-25 21:00 | XR ---
EXAMINATION TYPE: XR chest 1V DATE OF EXAM: 06/25/2016 8:27 PM COMPARISON: 06/23/2016 HISTORY: Short of breath TECHNIQUE: Single frontal view of the chest is obtained. FINDINGS: There is elevated left diaphragm coarse interstitial infiltrate in both lungs and worse on the left side. There is a stent in the posterior mediastinum on the right side is probably in the es ophagus. Heart does not appear enlarged. There are chest leads. IMPRESSION: There is increasing pulmonary edema compared to recent exam that could relate to progres aram of tumor or lymphangitic metastatic disease in this patient with a history of lung cancer. There is chronic volume loss in the left hemithorax with elevated left diaphragm.
[2016-06-25 21:06] LABS: Anisocytosis Slight; Aty Lym Flag Moderate; CH 31.5; CHCM 35.2; HCT 21.7 % (39.0-53.0); HDW 3.93; HGB 7.6 gm/dL (13.0-17.5); Immature Gran Flag Moderate; MCH 31.6 pg (25.0-35.0); MCHC 35.2 g/dL (31.0-37.0); MCV 89.9 fL (80.0-100.0); Mean Platelet Volume 7.9; Poikilocytosis Slight; RBC 2.41 m/uL (4.30-5.90); RDW 16.4 % (11.5-15.5); WBC (Perox) 0.47
[2016-06-25 21:08] LABS: WBC 0.5 k/uL (3.8-10.6)
[2016-06-25 21:10] LABS: Add Differential Manual Differential
[2016-06-25 21:14] LABS: Glucose,Whole Blood 139 mg/dL (75-99)
[2016-06-25] MEDS: ONDANSETRON 4 MG/2 ML VIAL IVP PRN (21:37)
[2016-06-25] MEDS ORDERED: IPRATROPIUM 0.5 MG/2.5 ML NEBU INHALATION PRN (21:38)
[2016-06-25] MEDS: DILTIAZEM 125 MG in SODIUM CHLORIDE 0.9% 100 ML IV SCH (21:39)
[2016-06-25] MEDS ORDERED: LEVALBUTEROL NEB (CONC) 1.25 MG/0.5 ML AMP INHALATION PRN (21:46)
[2016-06-25] MEDS ORDERED: Potassium Replacement Protocol 1 EACH MISC MISCELLANE PRN (22:04)
[2016-06-25] MEDS: FILGRASTIM-SNDZ 480 MCG/0.8 ML SYRINGE SQ SCH (22:06)
[2016-06-25 22:17] LABS: ABG HCO3 32 mmol/L (21-25); ABG PCO2 62 mmHg (35-45); ABG PH 7.33 (7.35-7.45); ABG PO2 291 mmHg (83-108)
[2016-06-25] MEDS: POTASSIUM CHLORIDE 10 MEQ, LIDOCAINE 2% INJ 10 MG in SODIUM CHLORIDE 0.9% 100 ML IV SCH (22:18)
--- NOTE | 2016-06-25 22:27 | PN ---
DATE OF SERVICE: 06/25/2016 PRESENTING COMPLAINT: Fever. INTERVAL HISTORY: This is a 51-year-old male with a diagnosis of non-small cell lung cancer for which he is receiving chemo and radiation treatment. Patient developed a tracheobronchial fistula believed to be from radiation treatment. As a result a stent was placed by Dr. Wu from cardiothoracic surgery. Today patient feels weak tired and run down. Patient is coughing up a large amount of clear frothy sputum. His is at the bedside. Review of systems done for constitutional, cardiovascular, GI, pulmonary, with relevant findings as above. CURRENT MEDICATIONS: 1. Acetaminophen. 2. Hydrocodone. 3. Albuterol and ipratropium. 4. Cefepime. 5. Heparin. 6. Lorazepam. 7. Metoclopramide. 8. Metoprolol. 9. Morphine sulfate. 10. Naloxone. 11. Ondansetron. 12. Pantoprazole. 13. Scopolamine. 14. Normal saline. 15. Vancomycin. PHYSICAL EXAMINATION: VITAL SIGNS: Temperature 98.0, pulse 96, respirations 16, blood pressure 95/53, oxygen saturation 92% on 4 liters nasal cannula. GENERAL APPEARANCE: Patient appears tired, run down, pale, sickly. His at the bedside. Patient conversant. No acute distress, coughing periodically with clear sputum production. His is at the bedside. EYES: Pupils equal. Conjunctivae normal. NECK: JVD not raised. Mass not palpable. LUNGS: Bilateral breath sounds diminished. RESPIRATORY: Effort increased. Occasional scattered crackles throughout. CARDIOVASCULAR: S1, S2 normal. No edema. ABDOMEN: Soft, nontender. Liver and spleen not palpable. Feeding tube in place in the right lower quadrant. PSYCHIATRIC: Alert and oriented x3. Mood and affect are normal INVESTIGATIONS: White blood cell count 0.3, hemoglobin 8.2, platelet count 76 up from 68 on 06/23/16. ASSESSMENT: 1. Neutropenic fever could be possibly pneumonia from underlying chemotherapy causing severe sepsis picture, present on admission. 2. Non-small cell lung cancer. The patient is getting chemotherapy and radiation treatment. 3. Chronic tracheobronchial fistula for which patient has received esophageal stent placement. 4. Gastroesophageal reflux disease. 5. Essential hypertension. 6. Chronic obstructive pulmonary disease in an ex-smoker. 7. Paroxysmal atrial fibrillation. 8. Permanent percutaneous endoscopic gastrostomy tube in place for feeding. 9. Pancytopenia from chemotherapy. PLAN: Patient remains on IV cefepime and vancomycin. Plan of care was discussed with the patient and the patient's at the bedside. Dietary was consulted and they have recommended high protein concentrated tube feeding to help boost patient's nutritional status. Dr. Hanson with consulted regarding abdominal pain associated with feeding tube and Dr. Orta was also consulted with concerns for pneumonia. Patient was seen and examined by PRODUCTION EDITOR Barbara Baum and all elements of the case were discussed with attending, Dr. Pearce. I performed a history and physical examination of this patient and discussed the same with the dictator. I agree with the dictator's note. Any additional findings/opinions, etc. will be noted.
[2016-06-25] MEDS ORDERED: Magnesium Replacement Protocol 1 EACH MISC MISCELLANE PRN (22:28)
--- NOTE | 2016-06-25 22:59 | P.CONS ---
History of Present Illness - Reason for Consult Consult date: 06/25/16 - Chief Complaint fever neutopenia - History of Present Illness Extremely pleasant 51-year-old male who has a history of prior nicotine dependence was having difficulties in the past. 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 He constantly has undergone chemotherapy and radiation. Recently was having great difficulties with recurrent pneumonia and evidence of aspiration. 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 As he was taken to the operating room and a stent was placed. Since that he is doing somewhat better. He has been receiving chemotherapy. now has become ill with fever, has chronic cough which is worsening. At time of evaluation patient is spitting up clear phlegm. States he drank juice and has had nausea ever since and increased phlegm. Patient witnessed to cough and clear phlegm noted, not tube feed. Patient feels poorly last 48 hours. Oncology to follow and provide support for low wbc Review of Systems HEENT:Denies headache or acute visual change. Denies sinus or mouth discomforts. Denies neck stiffness or pain. Denies significant oral cavity pain. Difficulty with swallowing is improving and is having left difficulties with emesis after eating. Lungs: Shortness of breath cough and sputum production continue. No hemoptysis noted. Cardiovascular: Denies chest pain, chest wall pain, orthopnea, or syncope, was having some increasing shortness of breath and palpitations that is now improved Gastrointestinal:Denies nausea, vomiting, diarrhea, constipation, hematemesis, melena, hematochezia. No no significant change of bowel habit noticed. Musculoskeletal: denies significant myalgias or arthralgias. No new joint swelling. Denies new back pain. Skin: Denies new rash or lesions. No new ulcers or wounds are related.. No difficulties with radiation effect on his skin Neuro: Denies headache or visual change. Denies any new onset weakness or difficulty with ambulation. Denies falls or seizures. Psychiatric:Denies anxiety or depression. Endocrine: Has mild fatigue and 20 pound weight loss related to his current therapy Past Medical History Past Medical History Past Medical History: Cancer, GERD/Reflux, Hypertension Additional Past Medical History / Comment(s): Non-small cell lung Cancer History of Any Multi-Drug Resistant Organisms: None Reported Past Surgical History: Hernia Repair Additional Past Surgical History / Comment(s): cyst removed from back, BRONCHOSCOPY, VATS procedure Past Anesthesia/Blood Transfusion Reactions: No Reported Reaction Past Psychological History: No Psychological Hx Reported Additional Psychological History / Comment(s): lives 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 Tobacco smoker until 3 years ago approximately 30 -pack-year history. No significant alcohol use. no recreational drug use. No experience. 2 adult children that are healthy. No animals in the home Smoking Status: Former smoker Past Alcohol Use History: None Reported Additional Past Alcohol Use History / Comment(s): quit smoking 2013, STARTED SMOKING AT AGE 15, SMOKED 1 PPD Past Drug Use History: None Reported - Past Family History Mother Family Medical History: No Reported History Medications and Allergies Home Medications and Allergies Comment(s): Current Medications Acetaminophen (Tylenol Tab) 650 mg PO Q6HR PRN PRN Reason: Mild Pain or Fever > 100.5 Hydrocodone Bitart/Acetaminophen ([place] Elixir 7.5-325mg/15ml) 10 ml PO Q4H PRN PRN Reason: Moderate Pain Last Admin: 06/24/16 03:50 Dose: 10 ml Filgrastim (Zarxio) 480 mcg SQ Q24H [facility] Last Admin: 06/25/16 22:06 Dose: 480 mcg Heparin Sodium (Porcine) (Heparin) 5,000 unit SQ Q8HR [facility] Last Admin: 06/25/16 16:23 Dose: 5,000 unit Sodium Chloride (Saline 0.9%) 1,000 mls @ 125 mls/hr IV .Q8H [facility] Last Admin: 06/25/16 17:29 Dose: 125 mls/hr Cefepime HCl 2 gm/ Sodium (Chloride) 50 mls @ 100 mls/hr IVPB Q8HR [facility] Last Admin: 06/25/16 16:23 Dose: 100 mls/hr Vancomycin HCl 1,500 mg/ (Sodium Chloride) 250 mls @ 125 mls/hr IVPB Q8HR [facility] Last Admin: 06/25/16 17:28 Dose: 125 mls/hr Diltiazem HCl 125 mg/ Sodium (Chloride) 125 mls @ 10 mls/hr IV .[id number] [facility] PRN Reason: 10 MG/HR Last Admin: 06/25/16 21:39 Dose: 10 mg/hr, 10 mls/hr Potassium Chloride 10 meq/Lidocaine HCl 10 mg/ Sodium Chloride 105.5 mls @ 100 mls/hr IV Q1HR [facility] Stop: 06/26/16 00:59 Last Admin: 06/25/16 22:18 Dose: 100 mls/hr Magnesium Sulfate/Dextrose 1 (gm/ IV Solution) 100 mls @ 100 mls/hr IVPB Q1H [facility] Stop: 06/26/16 00:29 Ipratropium [place] (Atrovent Nebulized) 0.5 mg INHALATION RT-TID PRN PRN Reason: Shortness Of Breath Or Wheezing Ipratropium [place] (Atrovent Nebulized) 0.5 mg INHALATION RT-QID [facility] Levalbuterol HCl (Xopenex Nebulized (Conc)) 1.25 mg INHALATION RT-QID [facility] Levalbuterol HCl (Xopenex Nebulized (Conc)) 1.25 mg INHALATION RT-TID PRN PRN Reason: Shortness Of Breath Or Wheezing Lorazepam (Ativan) 1 mg PO Q6HR PRN PRN Reason: Anxiety Last Admin: 06/25/16 16:27 Dose: 1 mg Metoclopramide HCl (Reglan) 5 mg IVP Q6HR PRN PRN Reason: Nausea And Vomiting Last Admin: 06/25/16 05:37 Dose: 5 mg Metoprolol Tartrate (Lopressor) 25 mg PO BID [facility] Last Admin: 06/25/16 22:07 Dose: 25 mg Miscellaneous Information (Potassium Per Protocol) 1 each MISCELLANE DAILY PRN ; Protocol PRN Reason: Per Protocol Miscellaneous Information (Magnesium Per Protocol) 1 each MISCELLANE DAILY PRN ; Protocol PRN Reason: Per Protocol Morphine Sulfate (Morphine Sulfate (Inj)) 4 mg IV Q4HR PRN PRN Reason: Severe Pain Last Admin: 06/25/16 16:24 Dose: 4 mg Naloxone HCl (Narcan) 0.2 mg IV Q2M PRN PRN Reason: Opioid Reversal Ondansetron HCl (Zofran) 4 mg IVP Q8HR PRN PRN Reason: Nausea And Vomiting Last Admin: 06/25/16 21:37 Dose: 4 mg Pantoprazole Sodium (Protonix) 40 mg PO [id number] [facility] Last Admin: 06/25/16 10:17 Dose: 40 mg Scopolamine (Transderm-Scop 1.5mg/72hr Patch) 1 patch TRANSDERM Q72H [facility] Last Admin: 06/24/16 17:33 Dose: 1 patch Home Medications Medication Instructions Recorded Confirmed Type LORazepam [Ativan] 0.5 mg PO TID 06/24/16 06/24/16 History Ondansetron [Zofran ODT] 8 mg PO Q8HR PRN 06/24/16 06/24/16 History Prochlorperazine [Compazine] 10 mg PO TID 06/24/16 06/24/16 History Allergies Allergy/AdvReac Type Severity Reaction Status Date / Time No Known Allergies Allergy Verified 06/24/16 08:59 Physical Exam Vitals: Vital Signs Temp Pulse Pulse Resp BP Pulse Ox 06/25/16 20:46 103.2 F H 160 H 33 H 132/59 84 L 06/25/16 20:09 155 H 33 H 130/60 81 L 06/25/16 19:57 160 H 31 H 130/66 78 L 06/25/16 19:51 32 L 32 H 98/56 87 L 06/25/16 19:50 98.9 F 159 H 38 H 36 L 06/25/16 16:37 112 H 06/25/16 16:24 112 H 06/25/16 16:00 135 H 16 06/25/16 15:00 101 F H 124 H 16 105/58 90 L 06/25/16 14:00 108 H 06/25/16 13:47 98 16 06/25/16 09:00 96 06/25/16 08:49 100 16 06/25/16 08:00 135 H 16 06/25/16 07:00 98 F 135 H 16 95/53 92 L 06/25/16 04:08 120 H 06/25/16 03:58 112 H 06/24/16 23:12 116 H 06/24/16 23:02 120 H 06/24/16 23:00 97.0 F L 115 H 20 109/60 98 Intake and Output 06/25/16 06/25/16 06/25/16 06:59 14:59 22:59 Intake Total 1720 720 Balance 1720 720 Intake: IV 1000 Sodium Chloride 0.9% 1, 1000 000 ml @ 125 mls/hr IV . Q8H [facility] Rx#:[id number] Tube Feeding 720 720 Other: Voiding Method Toilet Toilet Toilet # Voids 1 Weight 69.853 kg Patient Weight 06/26/16 06:59 Weight 69.853 kg Pleasant 51-year-old male appears ill has cough and sputum production that is clear in nature, does not appear to look like his tube feed HEENT: Anicteric conjunctiva are pink and moist nasal mucosa grossly intact without significant lesions, there is no thrush. Neck: The neck is supple without significant lymphadenopathy or thyromegaly. Lungs: There is symmetrical air entry. However there are crackles and bronchial sounds in the left base. Few expiratory wheezes are heard. Right chest is rather clear. Heart: Irregularly irregular with an audible S1-S2, no S3 no S4. There is no significant murmur click or rub, PMI was nondisplaced. Abdomen: Positive bowel sounds soft and nontender without palpable masses or organomegaly. There was no guarding or rebound. Extremities: The upper extremities have excellent pulses they are symmetric, no significant petechiae or telangiectasia. No splinter hemorrhages were noted. The lower extremities are free from significant edema. The peripheral pulses were 2+ and symmetric. Neuro: Awake alert oriented to person place and time. There are no acute new gross focal sensory motor deficits. Results CBC & Chem 7: 06/25/16 20:12 06/25/16 20:12 Labs: Abnormal Lab Results - Last 24 Hours (Table) 06/25/16 06/25/16 06/25/16 Range/Units 00:50 06:22 06:47 WBC 0.3 L* (3.8-10.6) k/uL RBC 2.62 L (4.30-5.90) m/uL Hgb 8.2 L (13.0-17.5) gm/dL Hct 23.4 L (39.0-53.0) % RDW 16.7 H (11.5-15.5) % Plt Count 76 L (150-450) k/uL ABG pH (7.35-7.45) ABG pCO2 (35-45) mmHg ABG pO2 (83-108) mmHg ABG HCO3 (21-25) mmol/L ABG O2 Saturation (94-97) % Sodium (137-145) mmol/L Potassium (3.5-5.1) mmol/L Chloride (98-107) mmol/L Creatinine (0.66-1.25) mg/dL Glucose (74-99) mg/dL POC Glucose (mg/dL) 168 H 165 H (75-99) mg/dL Calcium (8.4-10.2) mg/dL Total Protein (6.3-8.2) g/dL Albumin (3.5-5.0) g/dL 06/25/16 06/25/16 06/25/16 Range/Units 06:47 11:39 17:38 WBC (3.8-10.6) k/uL RBC (4.30-5.90) m/uL Hgb (13.0-17.5) gm/dL Hct (39.0-53.0) % RDW (11.5-15.5) % Plt Count (150-450) k/uL ABG pH (7.35-7.45) ABG pCO2 (35-45) mmHg ABG pO2 (83-108) mmHg ABG HCO3 (21-25) mmol/L ABG O2 Saturation (94-97) % Sodium 135 L (137-145) mmol/L Potassium 3.1 L (3.5-5.1) mmol/L Chloride (98-107) mmol/L Creatinine 0.50 L (0.66-1.25) mg/dL Glucose 157 H (74-99) mg/dL POC Glucose (mg/dL) 220 H 160 H (75-99) mg/dL Calcium (8.4-10.2) mg/dL Total Protein (6.3-8.2) g/dL Albumin (3.5-5.0) g/dL 06/25/16 06/25/16 06/25/16 Range/Units 20:12 20:12 20:38 WBC 0.5 L* (3.8-10.6) k/uL RBC 2.41 L (4.30-5.90) m/uL Hgb 7.6 L (13.0-17.5) gm/dL Hct 21.7 L (39.0-53.0) % RDW 16.4 H (11.5-15.5) % Plt Count 71 L (150-450) k/uL ABG pH 7.32 L (7.35-7.45) ABG pCO2 65 H (35-45) mmHg ABG pO2 47 L (83-108) mmHg ABG HCO3 32 H (21-25) mmol/L ABG O2 Saturation 86.0 L (94-97) % Sodium 133 L (137-145) mmol/L Potassium 3.2 L (3.5-5.1) mmol/L Chloride 96 L (98-107) mmol/L Creatinine 0.50 L (0.66-1.25) mg/dL Glucose 130 H (74-99) mg/dL POC Glucose (mg/dL) (75-99) mg/dL Calcium 8.0 L (8.4-10.2) mg/dL Total Protein 5.4 L (6.3-8.2) g/dL Albumin 2.5 L (3.5-5.0) g/dL 06/25/16 06/25/16 Range/Units 21:13 22:07 WBC (3.8-10.6) k/uL RBC (4.30-5.90) m/uL Hgb (13.0-17.5) gm/dL Hct (39.0-53.0) % RDW (11.5-15.5) % Plt Count (150-450) k/uL ABG pH 7.33 L (7.35-7.45) ABG pCO2 62 H (35-45) mmHg ABG pO2 291 H (83-108) mmHg ABG HCO3 32 H (21-25) mmol/L ABG O2 Saturation 99.0 H (94-97) % Sodium (137-145) mmol/L Potassium (3.5-5.1) mmol/L Chloride (98-107) mmol/L Creatinine (0.66-1.25) mg/dL Glucose (74-99) mg/dL POC Glucose (mg/dL) 139 H (75-99) mg/dL Calcium (8.4-10.2) mg/dL Total Protein (6.3-8.2) g/dL Albumin (3.5-5.0) g/dL Laboratory Results WBC 0.5 k/uL (3.8-10.6) L* 06/25/16 20:12 RBC 2.41 m/uL (4.30-5.90) L 06/25/16 20:12 Hgb 7.6 gm/dL (13.0-17.5) L 06/25/16 20:12 Hct 21.7 % (39.0-53.0) L 06/25/16 20:12 MCV 89.9 fL (80.0-100.0) 06/25/16 20:12 MCH 31.6 pg (25.0-35.0) 06/25/16 20:12 MCHC 35.2 g/dL (31.0-37.0) 06/25/16 20:12 RDW 16.4 % (11.5-15.5) H 06/25/16 20:12 Plt Count 71 k/uL (150-450) L 06/25/16 20:12 Differential Comment 06/25/16 20:12 Manual Slide Review Performed 06/25/16 06:47 Polychromasia Present 06/23/16 22:50 Poikilocytosis Slight 06/25/16 20:12 Poikilocytosis (manual Present 06/23/16 22:50 Anisocytosis Slight 06/25/16 20:12 Anisocytosis (manual) Present 06/23/16 22:50 Sample Site rrad 06/25/16 22:07 ABG pH 7.33 (7.35-7.45) L 06/25/16 22:07 ABG pCO2 62 mmHg (35-45) H 06/25/16 22:07 ABG pO2 291 mmHg (83-108) H 06/25/16 22:07 ABG HCO3 32 mmol/L (21-25) H 06/25/16 22:07 ABG O2 Saturation 99.0 % (94-97) H 06/25/16 22:07 ABG Base Excess 6.0 mmol/L 06/25/16 22:07 FiO2 100 % 06/25/16 22:07 Sodium 133 mmol/L (137-145) L 06/25/16 20:12 Potassium 3.2 mmol/L (3.5-5.1) L 06/25/16 20:12 Chloride 96 mmol/L (98-107) L 06/25/16 20:12 Carbon Dioxide 28 mmol/L (22-30) 06/25/16 20:12 Anion Gap 9 mmol/L 06/25/16 20:12 BUN 13 mg/dL (9-20) 06/25/16 20:12 Creatinine 0.50 mg/dL (0.66-1.25) L 06/25/16 20:12 Est GFR (MDRD) Af Amer >60 (>60 ml/min/1.73 sqM) 06/25/16 20:12 Est GFR (MDRD) Non-Af >60 (>60 ml/min/1.73 sqM) 06/25/16 20:12 Glucose 130 mg/dL (74-99) H 06/25/16 20:12 POC Glucose (mg/dL) 139 mg/dL (75-99) H 06/25/16 21:13 POC Glu Validation Leader ID [email or web address] Rodrigez 06/25/16 21:13 Plasma Lactic Acid Ty 0.8 mmol/L (0.7-2.0) 06/25/16 20:12 Calcium 8.0 mg/dL (8.4-10.2) L 06/25/16 20:12 Magnesium 1.8 mg/dL (1.6-2.3) 06/25/16 20:12 Total Bilirubin 0.6 mg/dL (0.2-1.3) 06/25/16 20:12 AST 22 U/L (17-59) 06/25/16 20:12 ALT 30 U/L (21-72) 06/25/16 20:12 Alkaline Phosphatase 90 U/L (38-126) 06/25/16 20:12 NT-Pro-B Natriuret Pep 158 pg/mL 06/23/16 22:50 Total Protein 5.4 g/dL (6.3-8.2) L 06/25/16 20:12 Albumin 2.5 g/dL (3.5-5.0) L 06/25/16 20:12 Urine Color Yellow 06/24/16 00:55 Urine Appearance Clear (Clear) 06/24/16 00:55 Urine pH 7.0 (5.0-8.0) 06/24/16 00:55 Ur Specific Tram 1.024 (1.001-1.035) 06/24/16 00:55 Urine Protein 1+ (Negative) H 06/24/16 00:55 Urine Glucose (UA) Negative (Negative) 06/24/16 00:55 Urine Ketones Negative (Negative) 06/24/16 00:55 Urine Blood Negative (Negative) 06/24/16 00:55 Urine Nitrite Negative (Negative) 06/24/16 00:55 Urine Bilirubin Negative (Negative) 06/24/16 00:55 Urine Urobilinogen 4.0 mg/dL (<2.0) 06/24/16 00:55 Ur Leukocyte Esterase Negative (Negative) 06/24/16 00:55 Urine RBC 1 /hpf (0-5) 06/24/16 00:55 Urine WBC 6 /hpf (0-5) H 06/24/16 00:55 Ur Squamous Epith Cells 1 /hpf (0-4) 06/24/16 00:55 Ur Transition Epith Cell <1 /hpf (0-1) 06/24/16 00:55 Urine Bacteria Rare /hpf (None) H 06/24/16 00:55 Urine Mucus Rare /hpf (None) H 06/24/16 00:55 Vancomycin Trough 8.9 ug/mL 06/25/16 06:47 Influenza Type A RNA Not Detected (Not Detectd) 06/23/16 22:50 Influenza Type B (PCR) Not Detected (Not Detectd) 06/23/16 22:50 Microbiology 06/24/16 00:55 Urine,Voided Urine Culture - Final 06/23/16 22:50 Blood Blood Culture - Preliminary No Growth after 24 hours Assessment and Plan (1) Febrile neutropenia Narrative/Plan: 51-year-old male who has a recent history of squamous cell carcinoma the lung. He became further complicated when he developed a tracheoesophageal fistula. He was seen by cardiothoracic surgery and a stent was placed. However was not able to recover his ability to swallow and a PEG tube was placed. He has been receiving ongoing chemotherapy now presents to hospital with febrile neutropenia. Feeling very poorly. While being evaluated is having cough producing a relatively large amount of a clear phlegm. He relates became much more productive after he drank some clear liquids today. He was increasing his oral intake as he was feeling somewhat better. But now he believes he may have even been aspirating some of that material since she is feeling so much more poorly now. I believe the patient is being made nothing by mouth at this time Receiving ongoing respiratory treatments. Extensive antibiotics therapy with cefepime and vancomycin is being utilized. Cultures are negative so far. Oncology is following and likely will give growth factors to help his significant pancytopenia. He continues to have a poor prognosis. patient does appear to have some in psychological difficulty with his illness. This is the most despondent he has been throughout my visits with him so far. Will need to be further addressed with gynecology since they have been following in the outpatient seeting. Status: Acute (2) Non-small cell carcinoma of lung Status: Acute (3) Tracheo-esophageal fistula Status: Acute
[2016-06-25] MEDS: MAGNESIUM SULFATE-D5W PMX 1 GM in DEXTROSE/WATER 1 100ML.BAG IVPB SCH (23:50)
[2016-06-26] MEDS: MAGNESIUM SULFATE-D5W PMX 1 GM in DEXTROSE/WATER 1 100ML.BAG IVPB SCH (00:56)
[2016-06-26] MEDS: POTASSIUM CHLORIDE 10 MEQ, LIDOCAINE 2% INJ 10 MG in SODIUM CHLORIDE 0.9% 100 ML IV SCH ×3 (00:56→07:54)
[2016-06-26] MEDS: VANCOMYCIN 1,500 MG in SODIUM CHLORIDE 0.9% 250 ML IVPB SCH ×3 (01:11→17:04)
[2016-06-26] MEDS: HYDROcodone/APAP 15 ML SOLUTION PO PRN ×2 (02:05→07:05)
[2016-06-26] MEDS: SODIUM CHLORIDE 0.9% 1,000 ML IV SCH ×7 (02:05→18:10)
[2016-06-26] MEDS: METOCLOPRAMIDE 5 MG/ML 2 ML VIAL IVP PRN (03:04)
[2016-06-26 05:35] LABS: Anisocytosis Slight; CH 30.9; CHCM 34.2; HCT 21.9 % (39.0-53.0); HDW 3.85; HGB 7.4 gm/dL (13.0-17.5); MCH 30.9 pg (25.0-35.0); Mean Platelet Volume 8.1; Poikilocytosis Slight; RDW 16.3 % (11.5-15.5)
[2016-06-26 05:44] LABS: ALT 34 U/L (21-72); AST 22 U/L (17-59); Alkaline Phosphatase 94 U/L (38-126); Anion Gap 6 mmol/L; Blood Urea Nitrogen 15 mg/dL (9-20); Calcium 8.4 mg/dL (8.4-10.2); Carbon Dioxide 34 mmol/L (22-30); Chloride 94 mmol/L (98-107); Glucose 113 mg/dL (74-99); Magnesium 2.2 mg/dL (1.6-2.3); Non-African American GFR(MDRD) >60 (>60 ml/min/1.73 sqM); Phosphorous 3.1 mg/dL (2.5-4.5); Potassium 3.3 mmol/L (3.5-5.1); Sodium 134 mmol/L (137-145); Total Bilirubin 0.7 mg/dL (0.2-1.3); Total Protein 5.4 g/dL (6.3-8.2)
[2016-06-26] MEDS ORDERED: Potassium Replacement Protocol 1 EACH MISC MISCELLANE PRN (06:04)
[2016-06-26 06:18] LABS: WBC 0.6 k/uL (3.8-10.6)
--- NOTE | 2016-06-26 07:50 | PN ---
DATE OF SERVICE: 06/25/2016 ATTENDING NOTE: The patient was seen and examined by me. I also discussed the care with the nurse practitioner and whose note I agree with. Patient's cough is somewhat better, but still bringing up some phlegm. The patient is on antibiotics. Fevers have been down. Patient has some chronic pain at the feeding tube site, which actually was present much before this was placed as per the . Patient's tube feeding has been changed. ON EXAMINATION: LUNGS: Decreased breath sounds. Some crackles, mild wheezing. CARDIOVASCULAR: First and second sounds, mild edema. ABDOMEN: Soft, minimal tenderness. PSYCH: Alert and oriented x3. Mood and affect normal. INVESTIGATIONS: White count 0.3, hemoglobin 8.2. Potassium 3.1. ASSESSMENT: 1. Neutropenic fever, could be possibly pneumonia from underlying chemotherapy causing severe sepsis picture, present on admission, slow to respond. 2. Non-small cell lung cancer. 3. Hypokalemia. 4. Chronic abdominal pain at the gastrostomy site for further evaluation per surgery though I doubt anything surgical is going on. PLAN: Continue with IV antibiotics. Care was discussed with the patient and yet again. Will get a consultation with Dr. Hanson ( ) and also consult Dr. Orta. Overall prognosis is guarded. Will follow.
[2016-06-26] MEDS: LEVALBUTEROL NEB (CONC) 1.25 MG/0.5 ML AMP INHALATION SCH ×4 (07:55→20:00)
--- NOTE | 2016-06-26 07:57 | XR ---
EXAMINATION TYPE: XR chest 1V portable DATE OF EXAM: 06/26/2016 7:06 AM Comparison: 06/20/2016 Clinical History: 51-year-old male with SOB Findings: Left heart margin obscured by adjacent pleural parenchymal disease and continued elevation of the lef t hemidiaphragm. An metallic esophageal stent remains in place. There is continued left perihilar and mid and lower lung interstitial and confluent opacities and additional patchy right basilar opacitie s. Stable line along the left apex. Impression: Overall stable exam with metallic esophageal stent, volume loss in the left hemithorax, interstitial lung disease, and confluent left perihilar densities.
[2016-06-26] MEDS: IPRATROPIUM 0.5 MG/2.5 ML NEBU INHALATION SCH ×4 (07:59→20:01)
[2016-06-26] MEDS: CEFEPIME 2 GM in SODIUM CHLORIDE 0.9% 50 ML IVPB SCH ×2 (08:39→17:00)
[2016-06-26] MEDS: METOPROLOL TARTRATE 25 MG TAB PO SCH (08:39)
[2016-06-26] MEDS: PANTOPRAZOLE 40 MG TABLET PO SCH (08:39)
[2016-06-26] MEDS: DILTIAZEM 125 MG in SODIUM CHLORIDE 0.9% 100 ML IV SCH ×2 (09:00→21:46)
[2016-06-26] MEDS: MORPHINE SULFATE 4 MG/ML SYRINGE IV PRN ×4 (09:39→21:49)
[2016-06-26] MEDS: HEPARIN SODIUM,PORCINE 5,000 UNIT/ML 1 ML VIAL SQ SCH (09:42)
[2016-06-26] MEDS: ONDANSETRON 4 MG/2 ML VIAL IVP PRN (09:45)
[2016-06-26 10:20] VITALS: BMI 24.2
--- NOTE | 2016-06-26 10:52 | P.CRDCN ---
History of Present Illness Consult date: 06/26/16 History of present illness: This is a pleasant unfortunate 51-year-old gentleman who has the diagnosis of non-small cell lung cancer who was receiving chemotherapy and radiation therapy was admitted to the hospital with fatigue, weakness, and not feeling well. 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 He is also known to have feeding tube. We get involved in the care of the patient because during the last admission the patient was in A. fib with RVR and converted to normal sinus mechanism. During this admission he has been in sinus rhythm and sinus tachycardia with a heart rate between 100 to 110 beats per minute. The patient was started on Cardizem drip at rate at 10 mg per hour. He has been maintaining good blood pressure and he is not on any vasopressors. He has nitro lacie and thrombocytopenia. I would recommend continue the current medical treatment was Cardizem IV. If the blood pressure dropped we will stop the Cardizem IV and start the patient on amiodarone IV. The patient is nothing by mouth at this point. He is not a candidate for anticoagulation in view of the severity thrombocytopenia. 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 Tobacco smoker until 3 years ago approximately 30 -pack-year history. No significant alcohol use. no recreational drug use. No experience. 2 adult children that are healthy. No animals in the home Smoking Status: Former smoker Past Alcohol Use History: None Reported Additional Past Alcohol Use History / Comment(s): quit smoking 2013, STARTED SMOKING AT AGE 15, SMOKED 1 PPD Past Drug Use History: None Reported - Past Family History Mother Family Medical History: No Reported History Medications and Allergies Home Medications Medication Instructions Recorded Confirmed Type LORazepam [Ativan] 0.5 mg PO TID 06/24/16 06/24/16 History Ondansetron [Zofran ODT] 8 mg PO Q8HR PRN 06/24/16 06/24/16 History Prochlorperazine [Compazine] 10 mg PO TID 06/24/16 06/24/16 History Allergies Allergy/AdvReac Type Severity Reaction Status Date / Time No Known Allergies Allergy Verified 06/24/16 08:59 Physical Exam Vitals: Vital Signs Temp Pulse Pulse Resp BP BP Pulse Ox 06/26/16 08:37 96 06/26/16 08:30 122 H 24 104/55 90 L 06/26/16 08:12 115 H 06/26/16 08:05 112 H 06/26/16 08:00 99.1 F 120 H 24 93/56 95 06/26/16 07:30 113 H 24 93/56 96 06/26/16 06:00 113 H 22 115/69 91 L 06/26/16 05:30 110 H 23 115/69 97 06/26/16 05:00 113 H 24 95/61 97 06/26/16 04:30 96 22 95/61 96 06/26/16 04:00 98.9 F 96 20 119/70 97 06/26/16 03:30 92 19 119/70 99 06/26/16 03:00 100 17 77/59 97 06/26/16 02:30 94 22 77/59 99 06/26/16 02:00 98 20 93/64 90 L 06/26/16 01:30 96 20 93/64 96 06/26/16 01:00 95 21 87/60 91 L 06/26/16 00:30 96 23 87/60 94 L 06/26/16 00:00 97.9 F 94 20 79/55 100 06/25/16 23:41 90 18 79/55 100 06/25/16 23:30 89 22 79/55 100 06/25/16 23:00 91 20 124/61 96 06/25/16 22:30 102 H 23 124/61 93 L 06/25/16 22:00 98.7 F 136 H 23 140/80 99 06/25/16 21:30 102.8 F H 142 H 25 H 140/80 98 06/25/16 21:03 105 H 06/25/16 20:46 103.2 F H 160 H 33 H 132/59 84 L 06/25/16 20:09 155 H 33 H 130/60 81 L 06/25/16 19:57 160 H 31 H 130/66 78 L 06/25/16 19:51 32 L 32 H 98/56 87 L 06/25/16 19:50 98.9 F 159 H 38 H 36 L 06/25/16 16:37 112 H 06/25/16 16:24 112 H 06/25/16 16:00 135 H 16 06/25/16 15:00 101 F H 124 H 16 105/58 90 L 06/25/16 14:00 108 H 06/25/16 13:47 98 16 Intake and Output 06/25/16 06/26/16 06/26/16 22:59 06:59 14:59 Intake Total 720 880 273.5 Output Total 650 Balance 720 230 273.5 Intake: IV 40 Sodium Chloride 0.9% 1, 40 000 ml @ 125 mls/hr IV . Q8H CARLOS Rx#:[id number] Intake, IV Titration 880 233.5 Amount ACETAMINOPHEN IV (For NPO 100 ) 1,000 mg In Empty Bag 1 bag @ 400 mls/hr IVPB ONCE STA Rx#:[id number] Cefepime 2 gm In Sodium 50 Chloride 0.9% 50 ml @ 100 mls/hr IVPB Q8HR CARLOS Rx# :[id number] Diltiazem 125 mg In 80 133.5 Sodium Chloride 0.9% 100 ml @ 10 MG/HR 10 mls/hr IV .[id number] CARLOS Rx#: [id number] Magnesium Sulfate-D5w Pmx 200 1 gm In Dextrose/Water 1 100ml.bag @ 100 mls/hr IVPB Q1H CARLOS Rx#: [id number] Potassium Chloride 10 meq 200 Lidocaine 2% Inj 10 mg In Sodium Chloride 0.9% 100 ml @ 100 mls/hr IV Q1HR CARLOS Rx#:[id number] Potassium Chloride 10 meq 100 Lidocaine 2% Inj 10 mg In Sodium Chloride 0.9% 100 ml @ 100 mls/hr IV Q1HR CARLOS Rx#:[id number] Vancomycin 1,500 mg In 250 Sodium Chloride 0.9% 250 ml @ 125 mls/hr IVPB Q8HR CARLOS Rx#:[id number] Tube Feeding 720 Output: Urine 650 Other: Voiding Method Toilet Urinal # Voids 1 Weight 72.2 kg 72.2 kg Patient Weight 06/27/16 06:59 Weight 72.2 kg - Constitutional General appearance: mild distress - Respiratory Respiratory: left: diminished, bilateral: rhonchi - Cardiovascular Rhythm: regular Heart sounds: normal: S1, S2 Results 06/26/16 05:02 06/26/16 05:02 Cardiac Enzymes 06/25/16 06/26/16 Range/Units 20:12 05:02 AST 22 22 (17-59) U/L CBC 06/25/16 06/26/16 Range/Units 20:12 05:02 WBC 0.5 L* 0.6 L* (3.8-10.6) k/uL RBC 2.41 L 2.40 L (4.30-5.90) m/uL Hgb 7.6 L 7.4 L (13.0-17.5) gm/dL Hct 21.7 L 21.9 L (39.0-53.0) % Plt Count 71 L 72 L (150-450) k/uL Comprehensive Metabolic Panel 06/25/16 06/25/16 06/26/16 Range/Units 06:47 20:12 05:02 Sodium 135 L 133 L 134 L (137-145) mmol/L Potassium 3.1 L 3.2 L 3.3 L (3.5-5.1) mmol/L Chloride 98 96 L 94 L (98-107) mmol/L Carbon Dioxide 25 28 34 H (22-30) mmol/L BUN 14 13 15 (9-20) mg/dL Creatinine 0.50 L 0.50 L 0.50 L (0.66-1.25) mg/dL Glucose 157 H 130 H 113 H (74-99) mg/dL Calcium 8.6 8.0 L 8.4 (8.4-10.2) mg/dL AST 22 22 (17-59) U/L ALT 30 34 (21-72) U/L Alkaline Phosphatase 90 94 (38-126) U/L Total Protein 5.4 L 5.4 L (6.3-8.2) g/dL Albumin 2.5 L 2.5 L (3.5-5.0) g/dL Current Medications Generic Name Dose Route Start Last Admin Trade Name Freq PRN Reason Stop Dose Admin Filgrastim 480 mcg 06/25/16 17:00 06/25/16 22:06 Zarxio SQ 480 mcg Q24H CARLOS Administration Sodium Chloride 1,000 mls @ 125 mls/hr 06/24/16 01:45 06/26/16 02:05 Saline 0.9% IV 125 mls/hr .Q8H CARLOS Administration Cefepime HCl 2 gm/ Sodium 50 mls @ 100 mls/hr 06/24/16 08:00 06/26/16 08:39 Chloride IVPB 100 mls/hr Q8HR CARLOS Administration Vancomycin HCl 1,500 mg/ 250 mls @ 125 mls/hr 06/25/16 16:00 06/26/16 09:02 Sodium Chloride IVPB 125 mls/hr Q8HR CARLOS Administration Diltiazem HCl 125 mg/ Sodium 125 mls @ 10 mls/hr 06/25/16 21:00 06/26/16 09: 00 Chloride IV 10 mg/hr .[id number] CARLOS 10 mls/hr 10 MG/HR Administration Ipratropium [place] 0.5 mg 06/25/16 21:38 Atrovent Nebulized INHALATION RT-TID PRN Shortness Of Breath Or Wheezing Ipratropium [place] 0.5 mg 06/26/16 08:00 06/26/16 07:59 Atrovent Nebulized INHALATION 0.5 mg RT-QID CARLOS Administration Levalbuterol HCl 1.25 mg 06/26/16 08:00 06/26/16 07:55 Xopenex Nebulized (Conc) INHALATION 1.25 mg RT-QID CARLOS Administration Levalbuterol HCl 1.25 mg 06/25/16 21:46 Xopenex Nebulized (Conc) INHALATION RT-TID PRN Shortness Of Breath Or Wheezing Lorazepam 1 mg 06/24/16 23:11 06/25/16 16:27 Ativan PO 1 mg Q6HR PRN Administration Anxiety Miscellaneous Information 1 each 06/25/16 22:28 Magnesium Per Protocol MISCELLANE DAILY PRN Per Protocol Protocol Miscellaneous Information 1 each 06/26/16 06:04 Potassium Per Protocol MISCELLANE DAILY PRN Per Protocol Protocol Miscellaneous Information 0 each 06/27/16 07:00 Vancomycin Trough Due MISCELLANE 06/27/16 07:01 ONCE ONE Morphine Sulfate 4 mg 06/24/16 01:36 06/26/16 09:39 Morphine Sulfate (Inj) IV 4 mg Q4HR PRN Administration Severe Pain Naloxone HCl 0.2 mg 06/24/16 01:36 Narcan IV Q2M PRN Opioid Reversal Ondansetron HCl 4 mg 06/24/16 01:36 06/26/16 09:45 Zofran IVP 4 mg Q8HR PRN Administration Nausea And Vomiting Scopolamine 1 patch 06/24/16 18:00 06/24/16 17:33 Transderm-Scop 1.5mg/72hr Patch TRANSDERM 1 patch Q72H CARLOS Administration Intake and Output 06/25/16 06/26/16 06/26/16 22:59 06:59 14:59 Intake Total 720 880 273.5 Output Total 650 Balance 720 230 273.5 Intake: IV 40 Sodium Chloride 0.9% 1, 40 000 ml @ 125 mls/hr IV . Q8H CARLOS Rx#:[id number] Intake, IV Titration 880 233.5 Amount ACETAMINOPHEN IV (For NPO 100 ) 1,000 mg In Empty Bag 1 bag @ 400 mls/hr IVPB ONCE STA Rx#:[id number] Cefepime 2 gm In Sodium 50 Chloride 0.9% 50 ml @ 100 mls/hr IVPB Q8HR CARLOS Rx# :[id number] Diltiazem 125 mg In 80 133.5 Sodium Chloride 0.9% 100 ml @ 10 MG/HR 10 mls/hr IV .[id number] CARLOS Rx#: [id number] Magnesium Sulfate-D5w Pmx 200 1 gm In Dextrose/Water 1 100ml.bag @ 100 mls/hr IVPB Q1H CARLOS Rx#: [id number] Potassium Chloride 10 meq 200 Lidocaine 2% Inj 10 mg In Sodium Chloride 0.9% 100 ml @ 100 mls/hr IV Q1HR CARLOS Rx#:[id number] Potassium Chloride 10 meq 100 Lidocaine 2% Inj 10 mg In Sodium Chloride 0.9% 100 ml @ 100 mls/hr IV Q1HR CARLOS Rx#:[id number] Vancomycin 1,500 mg In 250 Sodium Chloride 0.9% 250 ml @ 125 mls/hr IVPB Q8HR CARLOS Rx#:[id number] Tube Feeding 720 Output: Urine 650 Other: Voiding Method Toilet Urinal # Voids 1 Weight 72.2 kg 72.2 kg Patient Weight 06/27/16 06:59 Weight 72.2 kg 06/26/16 05:02 06/26/16 05:02 Assessment and Plan Plan: Assessment #1 acute respiratory distress #2 possible aspiration pneumonia #3 paroxysmal atrial fibrillation #4 non-small cell lung cancer #5 pancytopenia Plan #1 continue the Cardizem IV #2 continue following up with the patient #3 no need for any further cardiac workup at this point
--- NOTE | 2016-06-26 11:02 | CONS ---
DATE OF CONSULTATION: A 51-year-old gentleman with a history of a recent diagnosis of lung cancer. Initially came to me with a left vocal cord paralysis. Have ( ) involvement of the left recurrent laryngeal nerve. He had regular bronchoscopy. Subsequent to that had electromagnetic navigational bronchoscopy without a diagnosis. I sent him to [facility] where he had 2 endobronchial ultrasound guided biopsies, which failed to give us a diagnosis. In addition, the patient went to go see Dr. Mcgee at [facility] a wedge resection of left upper lobe, which also failed to give us a diagnosis. Finally, after a follow-up CAT scan showed enlargement of the left upper lobe mass, the patient had another transbronchial biopsy, which was diagnostic of squamous cell carcinoma. The patient has undergone chemo radiation and initially seemed to be doing relatively well. Yesterday, he apparently was seen in the emergency room for fever and vomiting. The patient had a PEG placed recently. This was for better nutritional support. 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 Since I saw him about a month ago, his overall condition has declined. He apparently was continuously vomiting and they continued the tube feedings yesterday and he probably aspirated into his right lung or left lung or both. Anyway, I was called last night with A team. The patient was in severe distress. He was transferred up to the ICU. He was placed on BiPAP. He also developed atrial fibrillation with RVR, started him on Cardizem drip at 10 mg an hour. So what brought him here was the A. fib RVR, the ongoing nausea and vomiting with possible aspiration and his declining respiratory status. I just had a talk with his . I think the patient should be a DNR and she agrees. Will continue full supportive care though just in case he is able to get through this episode. The reason for admission was neutropenic fever. He apparently had chemotherapy maybe on the second or third of June and his counts have declined. Anyway, he can give no additional history. His past medical history is positive for lung cancer as mentioned above. This is a relatively recent diagnosis. He has squamous cell lung cancer. Has a history of hypertension, GERD. Also had a tracheoesophageal fistula, status post stent placement. Also developed an episode of atrial fibrillation. Had a PEG placed recently for nutrition. Has a previous hernia repair. Had multiple bronchoscopies and biopsies, both standard technique, electromagnetic navigational bronchoscopy and also had a wedge resection of left upper lobe, which was nondiagnostic. Social history is positive for previous heavy tobacco use. Smoked up until about 3 years ago. Smoked 30 years, at least a pack a day, maybe more. Occupational history is noncontributory. Family history is noncontributory. His home medications are listed in the MAR. The rest of his history cannot be obtained at this time. Current review of systems cannot be obtained. Current vital signs reveal temperature 99.1, heart rate is 112 and irregular, respiratory rate 24 to 30 breaths per minute. Blood pressure 93/56, mean 68. Saturations are in the low to mid 90s on the BiPAP at 12 and 6 and 70%. Looks just awful. HEENT examination is grossly unremarkable. BiPAP mask in place. His neck is supple. Full range of motion. No adenopathy. Cardiovascular examination reveals irregular rhythm and rate. Heart rate is 115 to 120. Lungs reveal coarse rhonchi. Breath sounds diminished. ABDOMEN: Soft. Bowel sounds are heard. Extremities are intact. No cyanosis, clubbing. SKIN: Without rash. NEUROLOGICAL EXAMINATION: Difficult to evaluate. He is on 0.9 IV at KVO and Cardizem drip at 10 mg an hour. Chest x-ray shows diffuse bilateral infiltrates with an elevated left hemidiaphragm. Microbiology is all negative. Labs are reviewed. White count 0.6, hemoglobin 7.4, hematocrit 21.9, platelet count is 72,000. Blood gases last done show a pO2 of 291, pCO2 of 62, pH 7.33. Sodium 134 potassium 3.3, chloride 94, CO2 of 34, BUN and creatinine were 15 and 0.5. Albumin 2.5. Medications are reviewed. Will go ahead and go through those and decide what he needs and what he doesn't need. ASSESSMENT: 1. Impending respiratory failure, multifactorial, likely based on a number of different factors including the atrial fibrillation with rapid ventricular response, the chronic emesis and likely aspiration, likely progression of his underlying cancer and possibly underlying sepsis from his profound pancytopenia induced by chemotherapy. 2. Non-small cell lung cancer/squamous cell type, recently diagnosed after multiple biopsy attempts. 3. Status post recent initiation of chemo and radiation therapy here at [facility]. 4. History of tracheoesophageal fistula, status post stent placement by Dr. Wu. 5. Status post recent PEG tube placement for nutrition. 6. History of previous heavy tobacco use. 7. History of gastroesophageal reflux disease. 8. History of hypertension. 9. General medical debility and inundation from his debilitating cancer. 10. Left vocal cord paralysis with involvement of left recurrent laryngeal nerve which was his presenting symptomatology. PLAN: His overall prognosis is extremely poor. We saw him maybe 3 or 4 weeks ago sitting over in the cancer area. He looked actually very good. I saw him in the office more recently and he looked very good. He looks just horrible right now. I did talk to his . We talked about code status. I think is not unreasonable to not resuscitate him should he have a cardiopulmonary arrest. I did tell the though that we would continue to support him fully so to see if we can get him through this crisis. In my heart of hearts I do not think he is going to be able get through this as his overall condition is just severely deteriorated. The combination of the A. fib RVR, probable neutropenic sepsis, the chronic aspiration, the advancing lung cancer, the tracheoesophageal fistula, his poor nutrition, all are going against him. Additional recommendations and suggestions are forthcoming. Will run through the medications and discontinue the unnecessary ones. Additional recommendations and suggestions are forthcoming. Prognosis is very guarded. Will continue to follow.
--- NOTE | 2016-06-26 15:25 | CDI ---
In responding to this query, please exercise your independent professional judgment. The [facility] Coding Staff and Clinical Documentation Specialists appreciate your assistance in clarifying documentation, maintaining compliance with coding guidelines, accurately documenting patients condition and capturing severity of illness. The fact that a question is asked does not imply that any particular answer is desired or expected. Communication forms are a method of clarifying documentation and are not made part of the Legal Health Record. Thank you in advance for your clarification. Last Revision, April 2015 Cris Foley [address] [facility] [place] [address] Documentation Clarification Form Date: 06/26/2016 3:11:00 PM From: Kalli Zuniga RN,CCDS Admit Date: 06/24/2016 1:36:00 AM Patient Name: Davy Rosario Visit Number: [id number] Dr. Selwyn Orta History/Risk Factors: small cell lung cancer receiving chemo and radiation, trcacheobronchofistual, aspiration pneumonia, severe sepsis, VATS, PEG tube with feedings Tobacco use: ex-smoker Clinical Indicators: 06/26 Pulmonary Consult: "Impending respiratory failure, multifactorial, likely based on a number of different factors including the atrial fibrillation with rapid ventricular response, the chronic emesis and likely &aspiration, likely progression of his underlying cancer and possibly underlying sepsis from his profound pancytopenia induced by chemotherapy." 06/26 1200Vital signs/Pulse oximetry: Temp 100.5, HR 111, RR 25, B/P 106/60, SPO@ 86% 100% NRB 06/25 Attending Lung/Breathing assessment: RESPIRATORY: Effort increased. Occasional scattered crackles throughout. ABG/CBG: pH 7.32 pCO2 65 pO2 47 pHCO3 32 Lactate 6.1 Treatment: Breathing tx: Atrovent and Xopenex QID Continuous Pulse ox in ICU BiPap 01/23 80% O2 from room air to 2L nc to 4l nc to 100% NRB to 80% BIPAP In your professional opinion, can you please clarify if these findings signify one of the following conditions? Acuity: o Acute o Chronic o Acute on Chronic Respiratory Status: o Respiratory failure with hypercapnia o Respiratory failure with hypoxia o Acute Respiratory Distress o Other Diagnosis, please specify o Unable to determine Please document in your progress notes and discharge summary in order to capture severity of illness and risk of mortality. Include clinical findings that support your diagnosis. FYI: Press F11 to launch patient chart. Place X here if this finding has no clinical significance, is not applicable or if you are not able to provide any additional documentation. BROOKSD
--- NOTE | 2016-06-26 16:05 | PN ---
DATE OF SERVICE: 06/26/2016 PRESENTING COMPLAINT: Fever. INTERVAL HISTORY: This is a 51-year-old male with a diagnosis of [id number] lung cancer, for which he is receiving chemoradiation treatment. Patient developed a tracheobronchial fistula believed to be from radiation treatment. As a result, stent was placed by Dr. Wu from Cardiothoracic Surgery. On the evening of 06/25 patient became short of breath, lethargic, unresponsive, tachycardic. Patient developed atrial fibrillation in the process. Consequently ICU 18 was called. Patient was subsequently transferred to the ICU for the need for increased diligence of care. Arterial blood gas revealed high levels of carbon dioxide. BiPAP was started. Dr. Orta was involved in the patient's care once arriving on the ICU floor. Today patient remains on BiPAP. Prognosis is guarded. His is at the bedside, anxious-looking. Patient is anxious-looking as well. Review of systems done for constitutional, cardiovascular, GI, pulmonary, with relevant findings as above. CURRENT MEDICATIONS: 1. Hydrocodone. 2. Cefepime. 3. Lorazepam. 4. Metoprolol. 5. Diltiazem drip. PHYSICAL EXAMINATION: VITAL SIGNS: Temperature 100.5, pulse 111, respirations 19, blood pressure 106/60, oxygen saturation 86% on a non-rebreather. GENERAL APPEARANCE: Patient appears tired and frustrated, rundown, pale, sickly. His is at the bedside, who also appears very anxious. Patient is not able to talk because he has a BiPAP mask on to aid his breathing. Periodically coughing with clear sputum production. EYES: Pupils equal. Conjunctivae normal. NECK: JVD not raised. Mass not palpable. LUNGS: Bilateral breath sounds diminished; more diminished on the left. RESPIRATORY: Effort increased. CARDIOVASCULAR: S1, S2 irregular. Plus two edema to bilateral lower extremities. ABDOMEN: Soft, nontender. Liver and spleen not palpable. Feeding tube in place in the left lower quadrant. PSYCHIATRIC: Alert and oriented x3. Anxious-appearing. INVESTIGATIONS: White blood cell count 0.6, hemoglobin 7.4, platelet count 72. Sodium 134, potassium 3.3, for which potassium protocol is available. Glucose 113. Albumin 2.5. Chest x-ray shows overall stable exam with metallic esophageal stent, volume loss in the left hemithorax, interstitial lung disease ( ) left perihilar densities. ASSESSMENT: 1. Neutropenic fever; could possibly be pneumonia from underlying chemotherapy causing severe septic picture, present on admission, slow to respond. 2. Zpt-pslkn-bvzp lung cancer. 3. Hypokalemia. 4. Chronic abdominal pain at gastrotomy site for further evaluation per Surgery, though unlikely that surgical intervention will be required. 5. Essential hypertension. 6. Chronic obstructive pulmonary disease in an ex-smoker. 7. Atrial fibrillation. 8. Pancytopenia from chemotherapy. 9. Acute hypoxic respiratory failure. PLAN: Patient remains on IV cefepime and vancomycin. Incidentally, on 06/25/2016 patient developed acute hypoxic respiratory failure requiring BiPAP support. Patient remains a full DNR; however, once patient was transferred to ICU on 06/25 discussion was held with patient and family on 06/26 regarding CODE STATUS and the need to re-evaluate CODE STATUS on this patient, as prognosis is not good. Dr. Orta entered into that discussion with family at the bedside. Tube feedings currently have been held secondary to increased gastric residual. Dr. Hanson was consulted regarding abdominal pain regarding the feeding tube. Awaiting recommendations from Dr. Hanson and Dr. Orta is currently involved in the care of the patient in the ICU. Patient was seen and examined by COMPA Baum and all elements of the case were discussed with the attending, Dr. Pearce.
[2016-06-26] MEDS: FILGRASTIM-SNDZ 480 MCG/0.8 ML SYRINGE SQ SCH (18:06)
--- NOTE | 2016-06-26 21:45 | P.PN ---
Subjective Principal diagnosis: febrile neutropenia Extremely pleasant 51-year-old male who has a history of prior nicotine dependence was having difficulties in the past. 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 He constantly has undergone chemotherapy and radiation. Recently was having great difficulties with recurrent pneumonia and evidence of aspiration. 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 As he was taken to the operating room and a stent was placed. Since that he is doing somewhat better. He has been receiving chemotherapy. now has become ill with fever, has chronic cough which is worsening. At time of evaluation patient is spitting up clear phlegm. States he drank juice and has had nausea ever since and increased phlegm. Patient witnessed to cough and clear phlegm noted, not tube feed. Patient feels poorly last 48 hours. Oncology to follow and provide support for low wbc developed further respiratory BiPAP therapy. Saturations are low. He's been made full nothing by mouth with concerns for aspiratio Objective - Vital Signs Vital signs: Vital Signs Temp 98.4 F 06/26/16 16:00 Pulse 110 H 06/26/16 20:12 Resp 24 06/26/16 19:30 BP 111/64 06/26/16 19:30 Pulse Ox 94 L 06/26/16 19:30 Intake & Output 06/26/16 06/26/16 06/27/16 06:59 18:59 06:59 Intake Total 880 1183.5 100 Output Total 650 160 Balance 230 1023.5 100 Weight 72.2 kg 72.2 kg Intake: IV 550 100 Sodium Chloride 0.9% 1, 550 100 000 ml @ 100 mls/hr IV . Q10H [facility] Rx#:[id number] Intake, IV Titration 880 633.5 Amount ACETAMINOPHEN IV (For NPO 100 ) 1,000 mg In Empty Bag 1 bag @ 400 mls/hr IVPB ONCE [facility] Rx#:[id number] Cefepime 2 gm In Sodium 50 50 Chloride 0.9% 50 ml @ 100 mls/hr IVPB Q8HR [facility] Rx# :[id number] Diltiazem 125 mg In 80 133.5 Sodium Chloride 0.9% 100 ml @ 10 MG/HR 10 mls/hr IV .[id number] [facility] Rx#: [id number] Magnesium Sulfate-D5w Pmx 200 1 gm In Dextrose/Water 1 100ml.bag @ 100 mls/hr IVPB Q1H [facility] Rx#: [id number] Potassium Chloride 10 meq 200 Lidocaine 2% Inj 10 mg In Sodium Chloride 0.9% 100 ml @ 100 mls/hr IV Q1HR [facility] Rx#:[id number] Potassium Chloride 10 meq 200 Lidocaine 2% Inj 10 mg In Sodium Chloride 0.9% 100 ml @ 100 mls/hr IV Q1HR [facility] Rx#:[id number] Vancomycin 1,500 mg In 250 250 Sodium Chloride 0.9% 250 ml @ 125 mls/hr IVPB Q8HR [facility] Rx#:[id number] Output: Urine 650 160 Other: Voiding Method Urinal Urinal - Exam Pleasant 51-year-old male appears ill has cough and sputum production that is clear in nature, does not appear to look like his tube feed HEENT: Anicteric conjunctiva are pink and moist nasal mucosa grossly intact without significant lesions, there is no thrush. Neck: The neck is supple without significant lymphadenopathy or thyromegaly. Lungs: There is symmetrical air entry. However there are crackles and bronchial sounds in the left base. Few expiratory wheezes are heard. Right chest is rather clear. Heart: Irregularly irregular with an audible S1-S2, no S3 no S4. There is no significant murmur click or rub, PMI was nondisplaced. Abdomen: Positive bowel sounds soft and nontender without palpable masses or organomegaly. There was no guarding or rebound. Extremities: The upper extremities have excellent pulses they are symmetric, no significant petechiae or telangiectasia. No splinter hemorrhages were noted. The lower extremities are free from significant edema. The peripheral pulses were 2+ and symmetric. Neuro: Awake alert oriented to person place and time. There are no acute new gross focal sensory motor deficits. - Labs CBC & Chem 7: 06/26/16 05:02 06/26/16 05:02 Labs: Abnormal Lab Results - Last 24 Hours (Table) 06/25/16 06/25/16 06/26/16 Range/Units 20:38 22:07 05:02 WBC (3.8-10.6) k/uL RBC (4.30-5.90) m/uL Hgb (13.0-17.5) gm/dL Hct (39.0-53.0) % RDW (11.5-15.5) % Plt Count (150-450) k/uL ABG pH 7.32 L 7.33 L (7.35-7.45) ABG pCO2 65 H 62 H (35-45) mmHg ABG pO2 47 L 291 H (83-108) mmHg ABG HCO3 32 H 32 H (21-25) mmol/L ABG O2 Saturation 86.0 L 99.0 H (94-97) % Sodium 134 L (137-145) mmol/L Potassium 3.3 L (3.5-5.1) mmol/L Chloride 94 L (98-107) mmol/L Carbon Dioxide 34 H (22-30) mmol/L Creatinine 0.50 L (0.66-1.25) mg/dL Glucose 113 H (74-99) mg/dL Total Protein 5.4 L (6.3-8.2) g/dL Albumin 2.5 L (3.5-5.0) g/dL 06/26/16 Range/Units 05:02 WBC 0.6 L* (3.8-10.6) k/uL RBC 2.40 L (4.30-5.90) m/uL Hgb 7.4 L (13.0-17.5) gm/dL Hct 21.9 L (39.0-53.0) % RDW 16.3 H (11.5-15.5) % Plt Count 72 L (150-450) k/uL ABG pH (7.35-7.45) ABG pCO2 (35-45) mmHg ABG pO2 (83-108) mmHg ABG HCO3 (21-25) mmol/L ABG O2 Saturation (94-97) % Sodium (137-145) mmol/L Potassium (3.5-5.1) mmol/L Chloride (98-107) mmol/L Carbon Dioxide (22-30) mmol/L Creatinine (0.66-1.25) mg/dL Glucose (74-99) mg/dL Total Protein (6.3-8.2) g/dL Albumin (3.5-5.0) g/dL Microbiology - Last 24 Hours (Table) 06/26/16 08:00 Gram Stain - Final Sputum Sputum Culture - Final Laboratory Results WBC 0.6 k/uL (3.8-10.6) L* 06/26/16 05:02 RBC 2.40 m/uL (4.30-5.90) L 06/26/16 05:02 Hgb 7.4 gm/dL (13.0-17.5) L 06/26/16 05:02 Hct 21.9 % (39.0-53.0) L 06/26/16 05:02 MCV 91.0 fL (80.0-100.0) 06/26/16 05:02 MCH 30.9 pg (25.0-35.0) 06/26/16 05:02 MCHC 34.0 g/dL (31.0-37.0) 06/26/16 05:02 RDW 16.3 % (11.5-15.5) H 06/26/16 05:02 Plt Count 72 k/uL (150-450) L 06/26/16 05:02 Differential Comment 06/25/16 20:12 Manual Slide Review Performed 06/25/16 06:47 Polychromasia Present 06/23/16 22:50 Poikilocytosis Slight 06/26/16 05:02 Poikilocytosis (manual Present 06/23/16 22:50 Anisocytosis Slight 06/26/16 05:02 Anisocytosis (manual) Present 06/23/16 22:50 Sample Site rrad 06/25/16 22:07 ABG pH 7.33 (7.35-7.45) L 06/25/16 22:07 ABG pCO2 62 mmHg (35-45) H 06/25/16 22:07 ABG pO2 291 mmHg (83-108) H 06/25/16 22:07 ABG HCO3 32 mmol/L (21-25) H 06/25/16 22:07 ABG O2 Saturation 99.0 % (94-97) H 06/25/16 22:07 ABG Base Excess 6.0 mmol/L 06/25/16 22:07 FiO2 100 % 06/25/16 22:07 Sodium 134 mmol/L (137-145) L 06/26/16 05:02 Potassium 3.3 mmol/L (3.5-5.1) L 06/26/16 05:02 Chloride 94 mmol/L (98-107) L 06/26/16 05:02 Carbon Dioxide 34 mmol/L (22-30) H 06/26/16 05:02 Anion Gap 6 mmol/L 06/26/16 05:02 BUN 15 mg/dL (9-20) 06/26/16 05:02 Creatinine 0.50 mg/dL (0.66-1.25) L 06/26/16 05:02 Est GFR (MDRD) Af Amer >60 (>60 ml/min/1.73 sqM) 06/26/16 05:02 Est GFR (MDRD) Non-Af >60 (>60 ml/min/1.73 sqM) 06/26/16 05:02 Glucose 113 mg/dL (74-99) H 06/26/16 05:02 POC Glucose (mg/dL) 139 mg/dL (75-99) H 06/25/16 21:13 POC Glu [employer] ID Kuldip Rodrigez 06/25/16 21:13 Plasma Lactic Acid Ty 0.8 mmol/L (0.7-2.0) 06/25/16 20:12 Calcium 8.4 mg/dL (8.4-10.2) 06/26/16 05:02 Phosphorus 3.1 mg/dL (2.5-4.5) 06/26/16 05:02 Magnesium 2.2 mg/dL (1.6-2.3) 06/26/16 05:02 Total Bilirubin 0.7 mg/dL (0.2-1.3) 06/26/16 05:02 AST 22 U/L (17-59) 06/26/16 05:02 ALT 34 U/L (21-72) 06/26/16 05:02 Alkaline Phosphatase 94 U/L (38-126) 06/26/16 05:02 NT-Pro-B Natriuret Pep 158 pg/mL 06/23/16 22:50 Total Protein 5.4 g/dL (6.3-8.2) L 06/26/16 05:02 Albumin 2.5 g/dL (3.5-5.0) L 06/26/16 05:02 Urine Color Yellow 06/24/16 00:55 Urine Appearance Clear (Clear) 06/24/16 00:55 Urine pH 7.0 (5.0-8.0) 06/24/16 00:55 Ur Specific [place] 1.024 (1.001-1.035) 06/24/16 00:55 Urine Protein 1+ (Negative) H 06/24/16 00:55 Urine Glucose (UA) Negative (Negative) 06/24/16 00:55 Urine Ketones Negative (Negative) 06/24/16 00:55 Urine Blood Negative (Negative) 06/24/16 00:55 Urine Nitrite Negative (Negative) 06/24/16 00:55 Urine Bilirubin Negative (Negative) 06/24/16 00:55 Urine Urobilinogen 4.0 mg/dL (<2.0) 06/24/16 00:55 Ur Leukocyte Esterase Negative (Negative) 06/24/16 00:55 Urine RBC 1 /hpf (0-5) 06/24/16 00:55 Urine WBC 6 /hpf (0-5) H 06/24/16 00:55 Ur Squamous Epith Cells 1 /hpf (0-4) 06/24/16 00:55 Ur Transition Epith Cell <1 /hpf (0-1) 06/24/16 00:55 Urine Bacteria Rare /hpf (None) H 06/24/16 00:55 Urine Mucus Rare /hpf (None) H 06/24/16 00:55 Vancomycin Trough 8.9 ug/mL 06/25/16 06:47 Influenza Type A RNA Not Detected (Not Detectd) 06/23/16 22:50 Influenza Type B (PCR) Not Detected (Not Detectd) 06/23/16 22:50 Microbiology 06/26/16 08:00 Sputum Gram Stain - Final 06/26/16 08:00 Sputum Sputum Culture - Final 06/23/16 22:50 Blood Blood Culture - Preliminary No Growth after 48 hours 06/24/16 00:55 Urine,Voided Urine Culture - Final Assessment and Plan (1) Febrile neutropenia Narrative/Plan: 51-year-old male who has a recent history of squamous cell carcinoma the lung. He became further complicated when he developed a tracheoesophageal fistula. He was seen by cardiothoracic surgery and a stent was placed. However was not able to recover his ability to swallow and a PEG tube was placed. He has been receiving ongoing chemotherapy now presents to hospital with febrile neutropenia. Feeling very poorly. While being evaluated is having cough producing a relatively large amount of a clear phlegm. He relates became much more productive after he drank some clear liquids today. He was increasing his oral intake as he was feeling somewhat better. But now he believes he may have even been aspirating some of that material since she is feeling so much more poorly now. I believe the patient is being made nothing by mouth at this time Receiving ongoing respiratory treatments. Extensive antibiotics therapy with cefepime and vancomycin is being utilized. Cultures are negative so far. Oncology is following and are giving growth factors to help his significant pancytopenia. He continues to have a poor prognosis. patient does appear to have some in psychological difficulty with his illness. This is the most despondent he has been throughout my visits with him so far. Will need to be further addressed with oncology since they have been following in the outpatient seting.he has been seen by pastoral care Status: Acute (2) Non-small cell carcinoma of lung Status: Acute (3) Tracheo-esophageal fistula Status: Acute
--- NOTE | 2016-06-27 00:01 | P.PN ---
Subjective The pt desaturated last pm, with increasing respiratory distress, and required transfer to the ICU. He did not some nausea and retching prior to the event. He is slightly improved, though continuing on high flow O2 Objective - Vital Signs Vital signs: Vital Signs Temp 98.4 F 06/26/16 16:00 Pulse 110 H 06/26/16 20:12 Resp 24 06/26/16 19:30 BP 111/64 06/26/16 19:30 Pulse Ox 94 L 06/26/16 19:30 Intake & Output 06/26/16 06/26/16 06/27/16 06:59 18:59 06:59 Intake Total 880 1183.5 225 Output Total 650 160 Balance 230 1023.5 225 Weight 72.2 kg 72.2 kg Intake: IV 550 100 Sodium Chloride 0.9% 1, 550 100 000 ml @ 100 mls/hr IV . Q10H [facility] Rx#:[id number] Intake, IV Titration 880 633.5 125 Amount ACETAMINOPHEN IV (For NPO 100 ) 1,000 mg In Empty Bag 1 bag @ 400 mls/hr IVPB ONCE [facility] Rx#:[id number] Cefepime 2 gm In Sodium 50 50 Chloride 0.9% 50 ml @ 100 mls/hr IVPB Q8HR [facility] Rx# :[id number] Diltiazem 125 mg In 80 133.5 125 Sodium Chloride 0.9% 100 ml @ 10 MG/HR 10 mls/hr IV .[id number] [facility] Rx#: [id number] Magnesium Sulfate-D5w Pmx 200 1 gm In Dextrose/Water 1 100ml.bag @ 100 mls/hr IVPB Q1H [facility] Rx#: [id number] Potassium Chloride 10 meq 200 Lidocaine 2% Inj 10 mg In Sodium Chloride 0.9% 100 ml @ 100 mls/hr IV Q1HR [facility] Rx#:[id number] Potassium Chloride 10 meq 200 Lidocaine 2% Inj 10 mg In Sodium Chloride 0.9% 100 ml @ 100 mls/hr IV Q1HR [facility] Rx#:[id number] Vancomycin 1,500 mg In 250 250 Sodium Chloride 0.9% 250 ml @ 125 mls/hr IVPB Q8HR [facility] Rx#:[id number] Output: Urine 650 160 Other: Voiding Method Urinal Urinal - Constitutional General appearance: Present: mild distress - EENT Eyes: Present: EOMI, PERRLA ENT: Present: hearing grossly normal, normal oropharynx - Respiratory Respiratory: left: rales (LLL) - Cardiovascular Rhythm: irregularly irregular Heart sounds: normal: S1, S2 - Gastrointestinal General gastrointestinal: Present: normal bowel sounds, soft - Integumentary Integumentary: Present: normal - Neurologic Neurologic: Present: CNII-XII intact - Musculoskeletal Musculoskeletal: Present: generalized weakness - Psychiatric Psychiatric: Present: A&O x's 3 - Labs CBC & Chem 7: 06/26/16 05:02 06/26/16 05:02 Labs: Abnormal Lab Results - Last 24 Hours (Table) 06/25/16 06/25/16 06/26/16 Range/Units 20:38 22:07 05:02 WBC (3.8-10.6) k/uL RBC (4.30-5.90) m/uL Hgb (13.0-17.5) gm/dL Hct (39.0-53.0) % RDW (11.5-15.5) % Plt Count (150-450) k/uL ABG pH 7.32 L 7.33 L (7.35-7.45) ABG pCO2 65 H 62 H (35-45) mmHg ABG pO2 47 L 291 H (83-108) mmHg ABG HCO3 32 H 32 H (21-25) mmol/L ABG O2 Saturation 86.0 L 99.0 H (94-97) % Sodium 134 L (137-145) mmol/L Potassium 3.3 L (3.5-5.1) mmol/L Chloride 94 L (98-107) mmol/L Carbon Dioxide 34 H (22-30) mmol/L Creatinine 0.50 L (0.66-1.25) mg/dL Glucose 113 H (74-99) mg/dL Total Protein 5.4 L (6.3-8.2) g/dL Albumin 2.5 L (3.5-5.0) g/dL 06/26/16 Range/Units 05:02 WBC 0.6 L* (3.8-10.6) k/uL RBC 2.40 L (4.30-5.90) m/uL Hgb 7.4 L (13.0-17.5) gm/dL Hct 21.9 L (39.0-53.0) % RDW 16.3 H (11.5-15.5) % Plt Count 72 L (150-450) k/uL ABG pH (7.35-7.45) ABG pCO2 (35-45) mmHg ABG pO2 (83-108) mmHg ABG HCO3 (21-25) mmol/L ABG O2 Saturation (94-97) % Sodium (137-145) mmol/L Potassium (3.5-5.1) mmol/L Chloride (98-107) mmol/L Carbon Dioxide (22-30) mmol/L Creatinine (0.66-1.25) mg/dL Glucose (74-99) mg/dL Total Protein (6.3-8.2) g/dL Albumin (3.5-5.0) g/dL Microbiology - Last 24 Hours (Table) 06/26/16 08:00 Gram Stain - Final Sputum Sputum Culture - Final - Imaging and Cardiology Chest x-ray: report reviewed Assessment and Plan (1) Recurrent aspiration pneumonia Narrative/Plan: Given his history, this is the most likely cause for his acute decompensation. He is improved with aggressive supportitve care. He is already covered with broad spectrum antibiotics, and ID is following. - Will discuss with CTS if temporary tracheostomy may provide any additional protection. - Continue treatment per Pulmonary and IM Status: Acute (2) Febrile neutropenia Narrative/Plan: The fever has resolved. Neutropenia persists, and the pt is continuing on Filgrastim with minor increase in WBC. Continue same till WBC recovers Status: Acute (3) Pancytopenia due to antineoplastic chemotherapy Narrative/Plan: Hgb and plt are acceptable, and do not require supplementation today. Continue to monitor and supplement if needed Status: Acute
[2016-06-27] MEDS: MORPHINE SULFATE 4 MG/ML SYRINGE IVP PRN ×5 (00:27→21:46)
[2016-06-27] MEDS: CEFEPIME 2 GM in SODIUM CHLORIDE 0.9% 50 ML IVPB SCH ×3 (00:28→17:12)
[2016-06-27] MEDS: VANCOMYCIN 1,500 MG in SODIUM CHLORIDE 0.9% 250 ML IVPB SCH ×3 (00:28→17:12)
[2016-06-27 01:28] LABS: Anion Gap 9 mmol/L; Blood Urea Nitrogen 22 mg/dL (9-20); Calcium 8.7 mg/dL (8.4-10.2); Carbon Dioxide 30 mmol/L (22-30); Chloride 99 mmol/L (98-107); Glucose 96 mg/dL (74-99); Non-African American GFR(MDRD) >60 (>60 ml/min/1.73 sqM); Potassium 3.9 mmol/L (3.5-5.1); Sodium 138 mmol/L (137-145)
[2016-06-27] MEDS: SODIUM CHLORIDE 0.9% 1,000 ML IV SCH ×3 (03:20→21:13)
[2016-06-27] MEDS: POTASSIUM CHLORIDE 10 MEQ, LIDOCAINE 2% INJ 10 MG in SODIUM CHLORIDE 0.9% 100 ML IV SCH ×2 (03:20→04:48)
[2016-06-27] MEDS: LEVALBUTEROL NEB (CONC) 1.25 MG/0.5 ML AMP INHALATION SCH ×5 (06:07→19:23)
[2016-06-27] MEDS: IPRATROPIUM 0.5 MG/2.5 ML NEBU INHALATION SCH ×5 (06:07→19:22)
[2016-06-27] MEDS: ONDANSETRON 4 MG/2 ML VIAL IVP PRN (06:40)
[2016-06-27] MEDS ORDERED: VANCOMYCIN TROUGH DUE 1 EACH MISC MISCELLANE ONE (07:00)
--- NOTE | 2016-06-27 07:19 | XR ---
EXAMINATION TYPE: XR chest 1V portable DATE OF EXAM: 06/27/2016 6:59 AM COMPARISON: 06/26/2016 HISTORY: Shortness of breath TECHNIQUE: Single frontal view of the chest is obtained. FINDINGS: Esophageal stent noted. Bilateral areas of infiltrate are seen. No pneumothorax. Elevated left hemidiaphragm. IMPRESSION: 1. Stable elevated left hemidiaphragm with bilateral infiltrate.
[2016-06-27 07:42] LABS: ALT 29 U/L (21-72); AST 20 U/L (17-59); Alkaline Phosphatase 94 U/L (38-126); Anion Gap 9 mmol/L; Blood Urea Nitrogen 25 mg/dL (9-20); Calcium 8.6 mg/dL (8.4-10.2); Carbon Dioxide 29 mmol/L (22-30); Chloride 102 mmol/L (98-107); Glucose 111 mg/dL (74-99); Magnesium 2.1 mg/dL (1.6-2.3); Non-African American GFR(MDRD) >60 (>60 ml/min/1.73 sqM); Phosphorous 2.1 mg/dL (2.5-4.5); Potassium 3.5 mmol/L (3.5-5.1); Sodium 140 mmol/L (137-145); Total Bilirubin 0.8 mg/dL (0.2-1.3); Total Protein 5.7 g/dL (6.3-8.2)
--- NOTE | 2016-06-27 07:43 | PN ---
DATE OF SERVICE: 06/26/2016 ATTENDING NOTE: I saw and examined the patient earlier today. I saw the note of my nurse practitioner, Ms. Baum and agree with the same except for the any changes below. This is a patient with non-small cell lung cancer, getting chemoradiation and treatment, admitted with neutropenic fever felt to be from pneumonia. Yesterday evening patient desaturated and became hypoxic, was admitted to the ICU and received BiPAP treatment. Dr. Orta earlier saw the patient and talked about guarded prognosis. Patient is quite a bit short of breath. Tube feeding has been held because of high residuals. On exam, lungs decreased breath sounds, scattered crackles. Patient is sitting on bed, short of breath at rest. Nasal cannula in place. is at bedside. On examination; LUNGS: Decreased breath sounds with scattered crackles. ABDOMEN: Soft. PEG tube in place. PSYCH: Anxious-appearing. INVESTIGATIONS: White count 0.6, hemoglobin 7.4. Potassium 3.3. ASSESSMENT: 1. Acute hypoxic respiratory failure, multifactorial, probably worsening of pneumonia, could be an element of aspiration and underlying chronic obstructive pulmonary disease, requiring BiPAP treatment. 2. Neutropenic fever possibly pneumonia from underlying chemotherapy causing severe sepsis picture present on admission. 3. Non-small cell cancer, squamous cell type getting chemo and radiation treatment as an outpatient. 4. Chronic tracheobronchial fistula for which the patient has got an esophageal stent. 5. Gastroesophageal reflux disease. 6. Essential hypertension. 7. Chronic obstructive pulmonary disease in an ex-smoker with acute exacerbation. 8. Persistent atrial fibrillation. 9. Permanent PEG tube feeding. 10. Pancytopenia from chemotherapy, PLAN: Continue current medication and treatment plan. Prognosis is guarded. Patient is put on Cardizem because of atrial fibrillation, being increased and remains on vancomycin and cefepime. ADVANCED CARE PLANNING: I talked to patient and especially his in detail. Overall, the patient is overall guarded prognosis and that if things were to get worse prognosis is extremely poor as he is already on borrowed time. Patient and understand this and of course is scared about the whole situation but does understand the realistic situation. At this point, patient's CODE STATUS is being changed to DO NOT RESUSCITATE. TIME SPENT: An additional 20 minutes in addition to the progress note.
[2016-06-27 07:57] LABS: Anisocytosis Slight; CH 30.9; CHCM 33.2; HDW 3.83; HGB 7.2 gm/dL (13.0-17.5); Hypochromasia Slight; MCH 30.6 pg (25.0-35.0); MCHC 32.7 g/dL (31.0-37.0); MCV 93.7 fL (80.0-100.0); Mean Platelet Volume 8.2; Poikilocytosis Slight; RBC 2.35 m/uL (4.30-5.90); RDW 16.3 % (11.5-15.5)
[2016-06-27 08:02] LABS: WBC 1.4 k/uL (3.8-10.6)
[2016-06-27] MEDS ORDERED: LORazepam 2 MG/ML SYRINGE IV PRN (08:24)
[2016-06-27] MEDS ORDERED: Potassium Replacement Protocol 1 EACH MISC MISCELLANE PRN (08:32)
[2016-06-27] MEDS: POTASSIUM CHLORIDE ORAL LIQUID 40 MEQ/30 ML CUP NG-TUBE SCH ×2 (09:19→10:46)
[2016-06-27] MEDS ORDERED: DEXTROSE 5% IN WATER 100 ML with AMIODARONE 150 MG IV ONE (09:38)
--- NOTE | 2016-06-27 09:44 | P.PN ---
Subjective Principal diagnosis: Paroxysmal A. fib This is a pleasant unfortunate 51-year-old gentleman who has the diagnosis of non-small cell lung cancer who was receiving chemotherapy and radiation therapy was admitted to the hospital with fatigue, weakness, and not feeling well. 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 He is also known to have feeding tube. We get involved in the care of the patient because during the last admission the patient was in A. fib with RVR and converted to normal sinus mechanism. During this admission he has been in sinus rhythm and sinus tachycardia with a heart rate between 100 to 110 beats per minute. The patient was started on Cardizem drip at rate at 10 mg per hour. He has been maintaining good blood pressure and he is not on any vasopressors. On follow-up with the patient today he has been in and out atrial fibrillation and the blood pressure has been marginally low. I am going to DC the Cardizem drip and start the patient on amiodarone Objective - Vital Signs Vital signs: Vital Signs Temp 99.7 F H 06/27/16 08:00 Pulse 164 H 06/27/16 09:00 Resp 27 H 06/27/16 09:00 BP 82/68 06/27/16 09:00 Pulse Ox 92 L 06/27/16 09:00 Intake & Output 06/26/16 06/27/16 06/27/16 18:59 06:59 18:59 Intake Total 1183.5 1825 600 Output Total 160 325 Balance 1023.5 1500 600 Weight 72.2 kg 78.2 kg Intake: IV 550 1200 300 Sodium Chloride 0.9% 1, 550 1200 300 000 ml @ 100 mls/hr IV . Q10H [facility] Rx#:[id number] Intake, IV Titration 633.5 625 300 Amount Cefepime 2 gm In Sodium 50 50 50 Chloride 0.9% 50 ml @ 100 mls/hr IVPB Q8HR [facility] Rx# :[id number] Diltiazem 125 mg In 133.5 125 Sodium Chloride 0.9% 100 ml @ 10 MG/HR 10 mls/hr IV .[id number] [facility] Rx#: [id number] Potassium Chloride 10 meq 200 Lidocaine 2% Inj 10 mg In Sodium Chloride 0.9% 100 ml @ 100 mls/hr IV Q1HR [facility] Rx#:[id number] Potassium Chloride 10 meq 200 Lidocaine 2% Inj 10 mg In Sodium Chloride 0.9% 100 ml @ 100 mls/hr IV Q1HR [facility] Rx#:[id number] Vancomycin 1,500 mg In 250 250 250 Sodium Chloride 0.9% 250 ml @ 125 mls/hr IVPB Q8HR [facility] Rx#:[id number] Output: Urine 160 325 Other: Voiding Method Urinal Urinal # Voids 0 # Bowel Movements 0 - Constitutional General appearance: Present: mild distress - Respiratory Respiratory: bilateral: diminished - Cardiovascular Rhythm: regular - Labs CBC & Chem 7: 06/27/16 07:05 06/27/16 07:05 Labs: Abnormal Lab Results - Last 24 Hours (Table) 06/27/16 06/27/16 06/27/16 Range/Units 00:07 07:05 07:05 WBC 1.4 L* (3.8-10.6) k/uL RBC 2.35 L (4.30-5.90) m/uL Hgb 7.2 L (13.0-17.5) gm/dL Hct 22.0 L (39.0-53.0) % RDW 16.3 H (11.5-15.5) % Plt Count 93 L (150-450) k/uL BUN 22 H 25 H (9-20) mg/dL Creatinine 0.50 L 0.44 L (0.66-1.25) mg/dL Glucose 111 H (74-99) mg/dL Phosphorus 2.1 L (2.5-4.5) mg/dL Total Protein 5.7 L (6.3-8.2) g/dL Albumin 2.6 L (3.5-5.0) g/dL Microbiology - Last 24 Hours (Table) 06/26/16 08:00 Gram Stain - Final Sputum Sputum Culture - Final Assessment and Plan Plan: Assessment #1 acute respiratory distress #2 possible aspiration pneumonia #3 paroxysmal atrial fibrillation #4 non-small cell lung cancer #5 pancytopenia Plan #1 start the patient on amiodarone #2 continue following up with the patient #3 no need for any further cardiac workup at this point
--- NOTE | 2016-06-27 10:32 | PN ---
This is a 51-year-old gentleman with history of recent diagnosis of squamous cell carcinoma of the lung. He initially presented to me with left vocal cord paralysis secondary to involvement of the left recurrent laryngeal nerve. He had a number of different bronchoscopic procedures including a traditional bronchoscopy, electromagnetic navigational bronchoscopy, two endobronchial ultrasound biopsies over at [facility], a wedge resection at [facility] and then a subsequent additional endobronchial ultrasound biopsy. Finally a diagnosis of non-small cell lung cancer was made. The patient has undergone chemo and radiation therapy and more recently had done very poorly. The patient apparently was admitted with neutropenic fever and chronic and ongoing vomiting. The patient probably aspirated. Currently in the ICU. We did talk to him and the family about code status. He agreed to be a NO CODE. We are going to continue a full supportive care, hopefully getting him through this episode. The patient spending much of the time on BiPAP at 12 and 6 for IPAP and EPAP settings and FiO2 of 80%. His IV a 0.9 at 100. He is on a Cardizem drip at 10 mg an hour for atrial fibrillation. His ventricular rate in the 140 to 160 range. His overall prognosis is very poor and I think he understands that. Current vital signs include temperature 99.7, heart rate anywhere from 130 up to 160, respiratory rate about 25 to 30 breaths per minute. Blood pressure is about 80/62 with mean 60 and saturations are in the low 90s. Appears quite tachypneic and dyspneic. HEENT examination is grossly unremarkable. Mucous membranes are moist. No oral lesions. NECK: Supple. Full range of motion. No adenopathy or thyromegaly. Cardiovascular examination reveals irregular rhythm and rate. He is clearly in atrial fibrillation. Heart rate is 160. Lungs reveal some coarse bilateral breath sounds. Breath sounds are equal, but somewhat diminished. No crackles. ABDOMEN: Soft. Bowel sounds are heard. Extremities are intact. No cyanosis, clubbing or edema. Skin is without rash. Neurologic examination seems nonfocal. As I mentioned, he is on an IV of 0.9 at 100 and Cardizem drip at 10 mg an hour. The BiPAP is at 12 and 6 and 80%. A chest x-ray done today shows evidence of bilateral lower lobe infiltrates. There is an esophageal stent in place. This is because of previous tracheoesophageal fistula. He has got a stable elevated left hemidiaphragm. Lab data is reviewed. White count improved a bit to 1.4 from 0.6. Hemoglobin 7.2, which is stable, hematocrit 22, platelet count 93,000 up from 72,000. Sodium 140, potassium 3.5, chloride 102, CO2 of 29, BUN and creatinine were 25 and 0.44. The rest of the labs look okay. Medications are reviewed. He is currently on Cardizem, cefepime, filgrastim, Atrovent, Ativan, Xopenex, magnesium, morphine, Narcan, Zofran, potassium, scopolamine patch, vancomycin. ASSESSMENT: 1. Impending respiratory failure multifactorial, probably related to a number of different things including atrial fibrillation with rapid ventricular response, chronic emesis and likely aspiration, likely progression of the patient's underlying cancer and possible underlying sepsis from his profound pancytopenia/leukopenia induced by chemotherapy. 2. Recent diagnosis of non-small cell lung cancer, squamous cell type, recently diagnosed after multiple biopsy attempts. 3. Status post recent initiation of chemo and radiation therapy here at [facility]. 4. History of tracheoesophageal fistula, status post esophageal stent placement. 5. Status post recent PEG tube placement for nutrition. 6. History of previous heavy tobacco use. 7. History of gastroesophageal reflux disease. 8. History of hypertension. 9. General medical debility and inundation from his debilitating cancer. 10. Left vocal cord paralysis with involvement of the left recurrent laryngeal nerve, which was his initial presenting symptomatology. PLAN: His overall prognosis is poor, but the patient seems to be reasonably stable here. Will continue to support him with antibiotics and the ( ). His counts seem to be recovering a bit. He still on BiPAP. No additional recommendations are made. Will try some low volume tube feedings. He will have to be sitting upright. No additional recommendations are made. Again prognosis is very guarded.
[2016-06-27] MEDS: AMIODARONE 450 MG in DEXTROSE 5% IN WATER 250 ML IV SCH ×6 (10:45→21:13)
--- NOTE | 2016-06-27 10:53 | XR ---
EXAMINATION TYPE: XR abdomen 2V DATE OF EXAM: 06/27/2016 10:49 AM COMPARISON: 05/14/2016 HISTORY: Abdominal distention TECHNIQUE: One view abdominal series FINDINGS: The osseous structures are intact. The bowel gas pattern is nonspecific. Esophageal stent seen with elevated left hemidiaphragm and bilateral infiltrate. Rib deformities are noted. Air is seen within t he rectum. IMPRESSION: 1. Nonspecific abdomen. A few prominent bowel loops are seen in the upper abdomen with presence of a gastrostomy tube. Overall pattern nonspecific. 2. Stable bilateral infiltrate consider aspiration pneumonia.
[2016-06-27] MEDS: MORPHINE SULFATE 4 MG/ML SYRINGE IV PRN (13:50)
--- NOTE | 2016-06-27 15:47 | P.PN ---
Progress Note - Text Dr. Hanson did see patient this morning in the intensive care unit. Did note that the fish filleter did discuss with the family and patient about CODE STATUS. Patient is currently a no CODE STATUS with full supportive care. Patient currently is on BiPAP support. Surgical service recommends doing trickle feed and monitoring the response to the PEG tube. There is no further surgical recommendations at this time The above dictated assessment and findings were discussed with dr hanson Impression and the plan of care have been dictated as directed. Pearl Muir nurse practitioner acting as a scribe for dr hanson
[2016-06-27] MEDS: FILGRASTIM-SNDZ 480 MCG/0.8 ML SYRINGE SQ SCH (17:18)
[2016-06-27] MEDS: SCOPOLAMINE 1.5MG/72HR PATCH TRANSDERM SCH (17:21)
--- NOTE | 2016-06-27 20:11 | PN ---
DATE OF SERVICE: 06/27/2016 PRESENTING COMPLAINT: Fever. INTERVAL HISTORY: This is a 51-year-old male with a diagnosis of non-small cell lung cancer, for which he is receiving chemo and radiation therapy. Patient has a history of a tracheobronchial fistula believed to be from radiation therapy. Stent was placed by Dr. Wu from cardiothoracic surgery. Patient experienced an episode of desaturation and hypoxia, was subsequently admitted to the ICU and received BiPAP treatment. Dr. Orta spoke with the patient and family regarding about guarded prognosis. Today patient remains short of breath, alternating between a nonrebreather mask and BiPAP. Today patient looks less anxious, received a dose of Ativan for anxiety patient seems more relaxed, less anxious, breathing more comfortably. Review of systems done for constitutional, cardiovascular, GI, pulmonary, with relevant findings as above. CURRENT MEDICATIONS: Hydrocodone, cefepime, lorazepam, metoprolol, diltiazem drip. PHYSICAL EXAMINATION: VITAL SIGNS: Temperature 98.9, axillary, pulse 120s to 130's, respiratory rate 19 to 29, blood pressure 98/71, oxygen saturation 89% on BiPAP. GENERAL APPEARANCE: Patient appears a bit more relaxed, having received a dose of Ativan. His is at the bedside. Patient is unable to talk because of BiPAP mask being in place. However, does attempt to write his request and questions on a piece of paper, patient does continue to cough up clear sputum. EYES: Pupils equal. Conjunctivae normal. NECK: JVD not raised. Mass not palpable. LUNGS: Bilateral breath sounds diminished with scattered crackles. RESPIRATORY: Effort increased. CARDIOVASCULAR: S1, S2 is irregular, +2 edema to bilateral lower extremities. ABDOMEN: Soft, nontender. Liver and spleen not palpable. Feeding tube in place in the left lower quadrant. PSYCHIATRIC: Alert and oriented x3 somewhat anxious -appearing. INVESTIGATIONS: White blood cell count 1.4, hemoglobin 7.2, platelet count 93, sodium 140, potassium 3.5, BUN 25, creatinine 0.44. Chest x-ray stable elevated left hemidiaphragm with bilateral infiltrate. Abdominal x-ray nonspecific abdomen, few prominent bowel loops seen in the upper abdomen with the presence gastrotomy tube. Overall pattern is nonspecific stable bilateral infiltrates consider aspiration pneumonia. ASSESSMENT: 1. Acute hypoxic respiratory failure, multifactorial, probably worsening of aspiration pneumonia, could be an element of aspiration and underlying chronic obstructive pulmonary disease, requiring BiPAP treatment. 2. Neutropenic fever, possibly pneumonia from underlying chemotherapy causing severe sepsis picture, present on admission. 3. Non-small cell cancer squamous cell type getting chemo and radiation treatment as an outpatient. 4. Chronic tracheobronchial fistula for which the patient has gotten esophageal stent. 5. Esophageal reflux disease. 6. Essential hypertension. 7. Chronic obstructive pulmonary disease in an ex-smoker with acute exacerbation. 8. Persistent atrial fibrillation. 9. Permanent PEG tube feeding. 10. Pancytopenia from chemotherapy. PLAN: Patient's condition continues to be guarded as he remains in the ICU. We will continue with current medication and treatment plan and any recommendations from the ICU team. Prognosis is guarded. Amiodarone rather than Cardizem was initiated today to try and gain greater control over patient's heart rate which remains in the one teens to 120s in atrial fibrillation, so we will monitor progress with amiodarone drip. Patient was seen and examined by COMPA Baum and all elements of the case were discussed with the attending Dr. Pearce. I performed a history and physical examination of this patient and discussed the same with the dictator. I agree with the dictator's note. Any additional findings/opinions, etc. will be noted.
--- NOTE | 2016-06-27 22:24 | P.PN ---
Subjective Principal diagnosis: febrile neutropenia Extremely pleasant 51-year-old male who has a history of prior nicotine dependence was having difficulties in the past. 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 He constantly has undergone chemotherapy and radiation. Recently was having great difficulties with recurrent pneumonia and evidence of aspiration. 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 As he was taken to the operating room and a stent was placed. Since that he is doing somewhat better. He has been receiving chemotherapy. now has become ill with fever, has chronic cough which is worsening. At time of evaluation patient is spitting up clear phlegm. States he drank juice and has had nausea ever since and increased phlegm. Patient witnessed to cough and clear phlegm noted, not tube feed. Patient feels poorly last 48 hours. Oncology to follow and provide support for low wbc developed further respiratory BiPAP therapy. Saturations are low. He's been made full nothing by mouth with concerns for aspiration An hour is spent with the patient and the family. The patient's son is present as is the . Extensive conversation occurs and what should be happening next. The patient's son does relate that the is slightly inebriated at this time. He will need a bit more time for further decisions. However they are in agreement that the hospice team can come by and see him tomorrow Objective - Vital Signs Vital signs: Vital Signs Temp 99.8 F H 06/27/16 20:00 Pulse 130 H 06/27/16 21:00 Resp 21 06/27/16 21:00 BP 158/75 06/27/16 21:00 Pulse Ox 93 L 06/27/16 21:00 Intake & Output 06/27/16 06/27/16 06/28/16 06:59 18:59 06:59 Intake Total 1825 1737.322 334.091 Output Total 325 260 0 Balance 1500 1477.322 334.091 Weight 78.2 kg 78.2 kg Intake: IV 1200 1200 200 Sodium Chloride 0.9% 1, 1200 1200 200 000 ml @ 100 mls/hr IV . Q10H [facility] Rx#:[id number] Intake, IV Titration 625 527.322 134.091 Amount Amiodarone 450 mg In 227.322 134.091 Dextrose 5% in Water 250 ml @ 1 MG/MIN 34.53 mls/ hr IV .[id number] [facility] Rx#: [id number] Cefepime 2 gm In Sodium 50 50 Chloride 0.9% 50 ml @ 100 mls/hr IVPB Q8HR [facility] Rx# :[id number] Diltiazem 125 mg In 125 Sodium Chloride 0.9% 100 ml @ 10 MG/HR 10 mls/hr IV .[id number] [facility] Rx#: [id number] Potassium Chloride 10 meq 200 Lidocaine 2% Inj 10 mg In Sodium Chloride 0.9% 100 ml @ 100 mls/hr IV Q1HR [facility] Rx#:[id number] Vancomycin 1,500 mg In 250 250 Sodium Chloride 0.9% 250 ml @ 125 mls/hr IVPB Q8HR [facility]LOS Rx#:[id number] Tube Feeding 10 0 Output: Urine 325 260 0 Other: Voiding Method Urinal Urinal Urinal # Voids 0 # Bowel Movements 0 - Exam Pleasant 51-year-old male appears ill has cough and sputum production that is clear in nature, hectic and declining HEENT: Anicteric conjunctiva are pink and moist nasal mucosa grossly intact without significant lesions, there is no thrush. Neck: The neck is supple without significant lymphadenopathy or thyromegaly. Lungs: There is symmetrical air entry. However there are crackles and bronchial sounds in the left base. Few expiratory wheezes are heard. Right chest is rather clear. Heart: Irregularly irregular with an audible S1-S2, no S3 no S4. There is no significant murmur click or rub, PMI was nondisplaced. Abdomen: Positive bowel sounds soft and nontender without palpable masses or organomegaly. There was no guarding or rebound. Extremities: The upper extremities have excellent pulses they are symmetric, no significant petechiae or telangiectasia. No splinter hemorrhages were noted. The lower extremities are free from significant edema. The peripheral pulses were 2+ and symmetric. Neuro: Sedated - Labs CBC & Chem 7: 06/27/16 07:05 06/27/16 07:05 Labs: Abnormal Lab Results - Last 24 Hours (Table) 06/27/16 06/27/16 06/27/16 Range/Units 00:07 07:05 07:05 WBC 1.4 L* (3.8-10.6) k/uL RBC 2.35 L (4.30-5.90) m/uL Hgb 7.2 L (13.0-17.5) gm/dL Hct 22.0 L (39.0-53.0) % RDW 16.3 H (11.5-15.5) % Plt Count 93 L (150-450) k/uL BUN 22 H 25 H (9-20) mg/dL Creatinine 0.50 L 0.44 L (0.66-1.25) mg/dL Glucose 111 H (74-99) mg/dL Phosphorus 2.1 L (2.5-4.5) mg/dL Total Protein 5.7 L (6.3-8.2) g/dL Albumin 2.6 L (3.5-5.0) g/dL Laboratory Results WBC 1.4 k/uL (3.8-10.6) L* 06/27/16 07:05 RBC 2.35 m/uL (4.30-5.90) L 06/27/16 07:05 Hgb 7.2 gm/dL (13.0-17.5) L 06/27/16 07:05 Hct 22.0 % (39.0-53.0) L 06/27/16 07:05 MCV 93.7 fL (80.0-100.0) 06/27/16 07:05 MCH 30.6 pg (25.0-35.0) 06/27/16 07:05 MCHC 32.7 g/dL (31.0-37.0) 06/27/16 07:05 RDW 16.3 % (11.5-15.5) H 06/27/16 07:05 Plt Count 93 k/uL (150-450) L 06/27/16 07:05 Differential Comment 06/25/16 20:12 Manual Slide Review Performed 06/25/16 06:47 Polychromasia Present 06/23/16 22:50 Hypochromasia Slight 06/27/16 07:05 Poikilocytosis Slight 06/27/16 07:05 Poikilocytosis (manual Present 06/23/16 22:50 Anisocytosis Slight 06/27/16 07:05 Anisocytosis (manual) Present 06/23/16 22:50 Sample Site rrad 06/25/16 22:07 ABG pH 7.33 (7.35-7.45) L 06/25/16 22:07 ABG pCO2 62 mmHg (35-45) H 06/25/16 22:07 ABG pO2 291 mmHg (83-108) H 06/25/16 22:07 ABG HCO3 32 mmol/L (21-25) H 06/25/16 22:07 ABG O2 Saturation 99.0 % (94-97) H 06/25/16 22:07 ABG Base Excess 6.0 mmol/L 06/25/16 22:07 FiO2 100 % 06/25/16 22:07 Sodium 140 mmol/L (137-145) 06/27/16 07:05 Potassium 3.5 mmol/L (3.5-5.1) 06/27/16 07:05 Chloride 102 mmol/L (98-107) 06/27/16 07:05 Carbon Dioxide 29 mmol/L (22-30) 06/27/16 07:05 Anion Gap 9 mmol/L 06/27/16 07:05 BUN 25 mg/dL (9-20) H 06/27/16 07:05 Creatinine 0.44 mg/dL (0.66-1.25) L 06/27/16 07:05 Est GFR (MDRD) Af Amer >60 (>60 ml/min/1.73 sqM) 06/27/16 07:05 Est GFR (MDRD) Non-Af >60 (>60 ml/min/1.73 sqM) 06/27/16 07:05 Glucose 111 mg/dL (74-99) H 06/27/16 07:05 POC Glucose (mg/dL) 139 mg/dL (75-99) H 06/25/16 21:13 POC Glu [employer] ID Kuldip Rodrigez 06/25/16 21:13 Plasma Lactic Acid Ty 0.8 mmol/L (0.7-2.0) 06/25/16 20:12 Calcium 8.6 mg/dL (8.4-10.2) 06/27/16 07:05 Phosphorus 2.1 mg/dL (2.5-4.5) L 06/27/16 07:05 Magnesium 2.1 mg/dL (1.6-2.3) 06/27/16 07:05 Total Bilirubin 0.8 mg/dL (0.2-1.3) 06/27/16 07:05 AST 20 U/L (17-59) 06/27/16 07:05 ALT 29 U/L (21-72) 06/27/16 07:05 Alkaline Phosphatase 94 U/L (38-126) 06/27/16 07:05 NT-Pro-B Natriuret Pep 158 pg/mL 06/23/16 22:50 Total Protein 5.7 g/dL (6.3-8.2) L 06/27/16 07:05 Albumin 2.6 g/dL (3.5-5.0) L 06/27/16 07:05 Urine Color Yellow 06/24/16 00:55 Urine Appearance Clear (Clear) 06/24/16 00:55 Urine pH 7.0 (5.0-8.0) 06/24/16 00:55 Ur Specific [place] 1.024 (1.001-1.035) 06/24/16 00:55 Urine Protein 1+ (Negative) H 06/24/16 00:55 Urine Glucose (UA) Negative (Negative) 06/24/16 00:55 Urine Ketones Negative (Negative) 06/24/16 00:55 Urine Blood Negative (Negative) 06/24/16 00:55 Urine Nitrite Negative (Negative) 06/24/16 00:55 Urine Bilirubin Negative (Negative) 06/24/16 00:55 Urine Urobilinogen 4.0 mg/dL (<2.0) 06/24/16 00:55 Ur Leukocyte Esterase Negative (Negative) 06/24/16 00:55 Urine RBC 1 /hpf (0-5) 06/24/16 00:55 Urine WBC 6 /hpf (0-5) H 06/24/16 00:55 Ur Squamous Epith Cells 1 /hpf (0-4) 06/24/16 00:55 Ur Transition Epith Cell <1 /hpf (0-1) 06/24/16 00:55 Urine Bacteria Rare /hpf (None) H 06/24/16 00:55 Urine Mucus Rare /hpf (None) H 06/24/16 00:55 Vancomycin Trough 13.8 ug/mL 06/27/16 07:05 Influenza Type A RNA Not Detected (Not Detectd) 06/23/16 22:50 Influenza Type B (PCR) Not Detected (Not Detectd) 06/23/16 22:50 Microbiology 06/23/16 22:50 Blood Blood Culture - Preliminary No Growth after 72 hours 06/26/16 08:00 Sputum Gram Stain - Final 06/26/16 08:00 Sputum Sputum Culture - Final 06/24/16 00:55 Urine,Voided Urine Culture - Final Assessment and Plan (1) Febrile neutropenia Narrative/Plan: 51-year-old male who has a recent history of squamous cell carcinoma the lung. He became further complicated when he developed a tracheoesophageal fistula. He was seen by cardiothoracic surgery and a stent was placed. However was not able to recover his ability to swallow and a PEG tube was placed. He has been receiving ongoing chemotherapy now presents to hospital with febrile neutropenia. Feeling very poorly. While being evaluated is having cough producing a relatively large amount of a clear phlegm. He relates became much more productive after he drank some clear liquids today. He was increasing his oral intake as he was feeling somewhat better. But now he believes he may have even been aspirating some of that material since she is feeling so much more poorly now. I believe the patient is being made nothing by mouth at this time Receiving ongoing respiratory treatments. Extensive antibiotics therapy with cefepime and vancomycin is being utilized. Cultures are negative so far. Oncology is following and are giving growth factors to help his significant pancytopenia. He continues to have a poor prognosis. The patient is continue to decline. The patient's and son are present. The discussion about his worsening status is made. Fortunately has been made DO NOT RESUSCITATE. More importantly is the fact that he is continuing to decline rapidly. He is quite uncomfortable requiring frequent morphine injections for comfort and relief of his profound shortness of breath. The patient is an ideal candidate be placed in hospice to help him with his last hours and days. Patient's son seems to understand. The is slightly inebriated and consequently hospice will be called in the morning to meet with the patient and the family the transfer to hospice care at that time. It however is possible that he may not make it the night given his declining status. Status: Acute (2) Non-small cell carcinoma of lung Status: Acute (3) Tracheo-esophageal fistula Status: Acute
--- NOTE | 2016-06-27 23:23 | PN ---
DATE OF SERVICE: 06/27/2016 ATTENDING NOTE: This patient was seen and examined by me earlier today. I reviewed the note as my nurse practitioner, agree with the same except for any changes below. Patient remains to be short of breath. Tube feedings started at 5 mL/h. Rather tired, sitting up, short of breath at rest. Patient asking me how long does he think he has to live. On exam, LUNGS: Decreased breath sounds and scattered crackles, wheezing. ABDOMEN: Feeding tube in place. PSYCH: Anxious -appearing. Awake, but tired-appearing. INVESTIGATIONS: White count 1.4, hemoglobin 7.2. Potassium 3.5. ASSESSMENT: 1. Non-small cell lung cancer, squamous cell type with chemotherapy and radiation treatment. 2. Acute hypoxic respiratory failure, slow to respond, multifactorial, including pneumonia, chronic obstructive pulmonary disease requiring bi-level positive airway pressure. PLAN: Prognosis remains poor. Patient's afterward just asked me if the patient should be a candidate for hospice. I will talk to Dr. Zimmer about the same, but I think the patient is really leaning toward the same.
[2016-06-28 00:43] VITALS: BP 162/75; PULSE 133; RESP 16; TEMP 100
[2016-06-28] MEDS: CEFEPIME 2 GM in SODIUM CHLORIDE 0.9% 50 ML IVPB SCH (00:49)
[2016-06-28] MEDS: VANCOMYCIN 1,500 MG in SODIUM CHLORIDE 0.9% 250 ML IVPB SCH (00:49)
--- NOTE | 2016-08-10 20:19 | DS ---
DATE OF ADMISSION: 06/24/2016 DATE OF DISCHARGE: 06/28/2016 FINAL DIAGNOSES: 1. Acute hypoxic respiratory failure, multifactorial, probably worsening aspiration pneumonia and underlying chronic obstructive pulmonary disease requiring BiPAP. 2. Neutropenic fever, likely from pneumonia causing severe sepsis present on admission. 3. Non-small cell cancer, squamous cell type getting chemo and radiation treatment as an outpatient. Chronic tracheobronchial fistula for which patient has got esophageal stent. 4. Gastroesophageal reflux disease. 5. Essential hypertension. 6. Chronic obstructive pulmonary disease in an ex-smoker with acute exacerbation. 7. Persistent atrial fibrillation. 8. Permanent PEG tube feeding. 9. Pancytopenia from chemotherapy. HOSPITAL COURSE: This very extremely pleasant patient with a nice family was unfortunately diagnosed with lung cancer, getting chemo and radiation and endotracheal fistula presented with desaturating hypoxia and basically continued to deteriorate. Patient kept going down, the family decided to make him hospice. The patient was converted to inpatient [facility].
== END 2016-06-28 01:05 | disposition hospice, inpatient (51) | DRG 871 ==
LOC: EC 21:20 → 5ONC 06-24 01:36 → 6ICU 06-25 20:57
PROVIDERS: ADMIT Hospitalist; ATTEND Hospitalist
PROC: 5A09457 Assistance with Respiratory Ventilation, 24-96 Consecutive Hours, Continuous Positive Airway Pressure (ICD-10-PCS; principal; 2016-06-25)
DX: A41.9 Sepsis, unspecified organism (principal); D61.810 Antineoplastic chemotherapy induced pancytopenia; J96.01 Acute respiratory failure with hypoxia; J86.0 Pyothorax with fistula; J69.0 Pneumonitis due to inhalation of food and vomit; J44.1 Chronic obstructive pulmonary disease with (acute) exacerbation; C34.90 Malignant neoplasm of unspecified part of unspecified bronchus or lung; I48.1 Persistent atrial fibrillation; J98.19 Other pulmonary collapse; R65.20 Severe sepsis without septic shock; J38.01 Paralysis of vocal cords and larynx, unilateral; I48.0 Paroxysmal atrial fibrillation; E87.6 Hypokalemia; F41.9 Anxiety disorder, unspecified; G89.29 Other chronic pain; I10 Essential (primary) hypertension; R10.9 Unspecified abdominal pain; K21.9 Gastro-esophageal reflux disease without esophagitis; R50.81 Fever presenting with conditions classified elsewhere; T45.1X5A Adverse effect of antineoplastic and immunosuppressive drugs, initial encounter; Z66 Do not resuscitate; Z79.899 Other long term (current) drug therapy; Z87.01 Personal history of pneumonia (recurrent); Z87.891 Personal history of nicotine dependence; Z93.1 Gastrostomy status
CPT/HCPCS: 36415; 36600; 71010; 71020; 74020; 80048; 80053; 80202; 81001; 82805; 83605; 83735; 83880; 84100; 85025; 85027; 87040; 87086; 87205; 87502; 93005; 94640; 94660; 94760; 96365; 96367; 96375; 99284

== ENCOUNTER 2016-06-28 01:15 | Inpatient (IN) | payer OTHER ==
[2016-06-28] MEDS ORDERED: SCOPOLAMINE 1.5MG/72HR PATCH TRANSDERM PRN (01:52)
[2016-06-28] MEDS ORDERED: MORPHINE SULFATE 4 MG/ML SYRINGE IV PRN (01:52)
[2016-06-28] MEDS ORDERED: LORazepam 2 MG/ML SYRINGE IV PRN ×2 (01:52→02:01)
[2016-06-28] MEDS ORDERED: MORPHINE SULFATE (100 MG/2 ML) 100 MG in SODIUM CHLORIDE 0.9% 100 ML IV SCH (02:00)
[2016-06-28 05:17] VITALS: BP 158/75; PULSE 90; RESP 7
== END 2016-06-28 06:09 | disposition expired | DRG 871 ==
LOC: 6ICU 01:15
PROVIDERS: ADMIT Hospitalist; ATTEND Hospitalist
DX: A41.9 Sepsis, unspecified organism (principal); J86.0 Pyothorax with fistula; J96.01 Acute respiratory failure with hypoxia; J69.0 Pneumonitis due to inhalation of food and vomit; D61.810 Antineoplastic chemotherapy induced pancytopenia; T66.XXXA Radiation sickness, unspecified, initial encounter; C34.90 Malignant neoplasm of unspecified part of unspecified bronchus or lung; J44.0 Chronic obstructive pulmonary disease with (acute) lower respiratory infection; I48.1 Persistent atrial fibrillation; Z51.5 Encounter for palliative care; Z66 Do not resuscitate; I48.0 Paroxysmal atrial fibrillation; K21.9 Gastro-esophageal reflux disease without esophagitis; R65.20 Severe sepsis without septic shock; R50.81 Fever presenting with conditions classified elsewhere; T45.1X5A Adverse effect of antineoplastic and immunosuppressive drugs, initial encounter; I10 Essential (primary) hypertension; R53.1 Weakness; Z92.21 Personal history of antineoplastic chemotherapy; Z92.3 Personal history of irradiation; Z87.891 Personal history of nicotine dependence; Z79.891 Long term (current) use of opiate analgesic; Z79.899 Other long term (current) drug therapy; Z93.1 Gastrostomy status; Z96.89 Presence of other specified functional implants